=== PATIENT | female | born 1950 | race Caucasian/White ===

== ENCOUNTER 2017-06-20 09:13 | Emergency (ER) | payer MEDICARE, BC ==
[2017-06-20 09:35] VITALS: BP 126/60
--- NOTE | 2017-06-20 09:46 | EDM.PDOC ---
ED HPI GENERAL MEDICAL PROBLEM - General Chief Complaint: Lower Extremity Injury/Pain Stated Complaint: PAIN IN LEG FROM KNEE DOWN Time Seen by Provider: 06/20/17 09:45 Source of Information: Reports: Patient, Family History Limitations: Reports: No Limitations - History of Present Illness INITIAL COMMENTS - FREE TEXT/NARRATIVE: pt arrived with alot of pain in the rt foot. She has swelling and redness in the site. This started spontaneously without an injury. Onset: Other (last nite and yesterday this started. ) Duration: Hour(s): Location: Reports: Lower Extremity, Right Associated Symptoms: Reports: No Other Symptoms Right Ankle Pain Score (Numeric/FACES): 9 - Related Data Allergies Allergy/AdvReac Type Severity Reaction Status Date / Time No Known Allergies Allergy Verified 04/29/16 05:33 Home Meds: Home Meds Calcium Citrate/Vitamin D3 [Calcium Citrate + D] 3 each PO BID 10/30/14 [History ] Cholecalciferol (Vitamin D3) [Vitamin D3] 5,000 unit PO DAILY 10/30/14 [History] Cholestyramine (With Sugar) [Questran Powder] 4 gm PO BID PRN 10/30/14 [History] Cyanocobalamin (Vitamin B-12) [Vitamin B-12] 1,000 mcg PO DAILY 10/30/14 [ History] LORazepam 0.5 mg PO Q6HR PRN 10/30/14 [History] Magnesium Oxide [Magnesium] 800 mg PO TID 10/30/14 [History] Potassium Chloride [Klor-Con M20] 1.5 tab PO BID 10/30/14 [History] Thiamine [Vitamin B-1] 100 mg PO DAILY 10/30/14 [History] Venlafaxine [Effexor] 75 mg PO DAILY 04/29/16 [History] Warfarin [Coumadin] 5 mg PO DAILY 05/01/16 [History] Amiodarone [Cordarone] 200 mg PO DAILY 06/20/17 [History] Digoxin [Lanoxin] 125 mcg PO DAILY 06/20/17 [History] Estrogens, Conjugated [Premarin] 1 g VAG DAILY 06/20/17 [History] Multivitamin [Multivitamins] 1 tab PO DAILY 06/20/17 [History] Pantoprazole Sodium [Protonix] 40 mg PO DAILY 06/20/17 [History] Simvastatin [Zocor] 10 mg PO DAILY 06/20/17 [History] Past Medical History HEENT History: Reports: Impaired Vision, Sinusitis Cardiovascular History: Reports: Afib Genitourinary History: Reports: 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) Other Genitourinary History: elevated enzymes 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: , 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) Other OB/BYN History: tipped uterus Musculoskeletal History: Reports: 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) Other Musculoskeletal History: tetony Hematologic History: Reports: 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) Other Hematologic History: electolyte imbalance, hypomagnesium Oncologic (Cancer) History: Reports: Colon - Infectious Disease History Infectious Disease History: Reports: Chicken Pox, Measles - Past Surgical History Cardiovascular Surgical History: Reports: Cardiac Ablation, 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) GI Surgical History: Reports: Bariatric Procedure, Small Bowel, 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 ) Oncologic Surgical History: Reports: 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) Social & Family History - Tobacco Use Smoking Status *Q: Never Smoker Second Hand Smoke Exposure: No - Caffeine Use Caffeine Use: Reports: Coffee - Alcohol Use Days Per Week of Alcohol Use: 0 - Recreational Drug Use Recreational Drug Use: No Review of Systems - Review of Systems Review Of Systems: See Below Constitutional: Reports: No Symptoms Eyes: Reports: No Symptoms Ears: Reports: No Symptoms Nose: Reports: No Symptoms Mouth/Throat: Reports: No Symptoms Respiratory: Reports: No Symptoms Cardiovascular: Reports: No Symptoms GI/Abdominal: Reports: No Symptoms Genitourinary: Reports: No Symptoms Musculoskeletal: Reports: Other ( redness nd swellin in the rt foot with alot of pain with ambulation. ) ED EXAM, GENERAL - Physical Exam Exam: See Below Free Text/Narrative:: pt arrived with pain in the rt foot amnd redness and swelling. Exam Limited By: No Limitations General Appearance: Alert, Anxious, Moderate Distress Ears: Normal TMs Nose: Normal Inspection Throat/Mouth: Normal Inspection Head: Atraumatic Neck: Normal Inspection Respiratory/Chest: No Respiratory Distress Cardiovascular: Regular Rate, Rhythm GI/Abdominal: Soft, Non-Tender (Female) Exam: Deferred Rectal (Female) Exam: Deferred Back Exam: Normal Inspection Extremities: Other ( rt foot is swollen and is red. It is very tender There is no history of an injury) Neurological: Alert, Oriented, Normal Cognition Psychiatric: Normal Affect Course - Vital Signs Last Recorded V/S: Last Vital Signs Temp 37.6 C 06/20/17 09:35 Pulse 61 06/20/17 09:35 Resp 16 06/20/17 09:35 BP 126/60 06/20/17 09:35 Pulse Ox 96 06/20/17 09:35 - Orders/Labs/Meds Orders: Active Orders 24 hr Category Date Time Status Foot Comp Min 3V Rt [CR] Stat Exams 06/20/17 09:45 Taken VL Duplex Lwr Ext Veins Ltd Rt [US] Stat Exams 06/20/17 10:25 Taken Labs: Laboratory Tests 06/20/17 06/20/17 06/20/17 Range/Units 09:48 09:48 09:48 WBC 15.6 H (4.5-11.0) K/uL RBC 3.95 (3.30-5.50) M/uL Hgb 11.2 L (12.0-15.0) g/dL Hct 35.3 L (36.0-48.0) % MCV 89 (80-98) fL MCH 28 (27-31) pg MCHC 32 (32-36) % Plt Count 226 (150-400) K/uL Neut % (Auto) 76 H (36-66) % Lymph % (Auto) 13 L (24-44) % [place] % (Auto) 9 H (2-6) % Eos % (Auto) 1 L (2-4) % Baso % (Auto) 0 (0-1) % ESR (0-25) mm/hr PT (9.5-12.0) sec INR (0.80-1.20) Sodium 142 (140-148) mmol/L Potassium 3.1 L (3.6-5.2) mmol/L Chloride 108 (100-108) mmol/L Carbon Dioxide 19 L (21-32) mmol/L Anion Gap 18.1 H (5.0-14.0) mmol/L BUN 22 H (7-18) mg/dL Creatinine 2.1 H (0.6-1.0) mg/dL Est Cr Clr Drug Dosing 19.37 mL/min Estimated GFR (MDRD) 23 L (>60) Glucose 120 H (74-106) mg/dL Uric Acid 5.8 (2.6-6.2) mg/dL Calcium 7.3 L (8.5-10.1) mg/dL 06/20/17 06/20/17 Range/Units 09:48 09:48 WBC (4.5-11.0) K/uL RBC (3.30-5.50) M/uL Hgb (12.0-15.0) g/dL Hct (36.0-48.0) % MCV (80-98) fL MCH (27-31) pg MCHC (32-36) % Plt Count (150-400) K/uL Neut % (Auto) (36-66) % Lymph % (Auto) (24-44) % [place] % (Auto) (2-6) % Eos % (Auto) (2-4) % Baso % (Auto) (0-1) % ESR 64 H (0-25) mm/hr PT 12.3 H (9.5-12.0) sec INR 1.14 D (0.80-1.20) Sodium (140-148) mmol/L Potassium (3.6-5.2) mmol/L Chloride (100-108) mmol/L Carbon Dioxide (21-32) mmol/L Anion Gap (5.0-14.0) mmol/L BUN (7-18) mg/dL Creatinine (0.6-1.0) mg/dL Est Cr Clr Drug Dosing mL/min Estimated GFR (MDRD) (>60) Glucose (74-106) mg/dL Uric Acid (2.6-6.2) mg/dL Calcium (8.5-10.1) mg/dL Meds: Medications Discontinued Medications Generic Name Dose Route Start Last Admin Trade Name Zeenat PRN Reason Stop Dose Admin Ceftriaxone Sodium 1 gm 06/20/17 12:23 06/20/17 12:53 Rocephin IM 06/20/17 12:24 1 gm ONETIME ONE Administration Triamcinolone Acetonide 60 mg 06/20/17 12:23 06/20/17 12:52 Kenalog-40 IM 06/20/17 12:24 60 mg ASDIRECTED ONE Administration - Re-Assessments/Exams Free Text/Narrative Re-Assessment/Exam: 06/20/17 13:09 pt was given rocephen 1gm im and kenalog 60mg im. She will followup with Dr Oleary. Departure - Departure Time of Disposition: 12:25 Disposition: Home, Self-Care 01 Condition: Fair Clinical Impression: Cellulitis - Discharge Information Referrals: Tomer Oleary MD [Primary Care Provider] - Forms: ED Department Discharge Care Plan Goals: crutches, elevate foot warm moist packs for 1/2 hr tid followed by a cool pack , augmentin 875 po bid, instead of warm packs may soak foot in warm water, appt with Dr Oleary on tue or . , [place] 5/ 1 tab q6h prn for pain - My Orders Last 24 Hours: My Active Orders 06/20/17 09:45 Foot Comp Min 3V Rt [CR] Stat 06/20/17 10:25 VL Duplex Lwr Ext Veins Ltd Rt [US] Stat - Assessment/Plan Last 24 Hours: My Active Orders 06/20/17 09:45 Foot Comp Min 3V Rt [CR] Stat 06/20/17 10:25 VL Duplex Lwr Ext Veins Ltd Rt [US] Stat
[2017-06-20] MEDS ORDERED: Triamcinolone Acetonide 40 MG/ML 1 ML MDV IM ONE (12:23)
[2017-06-20] MEDS ORDERED: cefTRIAXone 1 GM Vial IM ONE (12:23)
--- NOTE | 2017-06-21 09:15 | US ---
VL Duplex Lwr Ext Veins Ltd Rt HISTORY: Pain. FINDINGS: The deep veins of the right lower extremity demonstrate normal augmentation and compressibi lity. No evidence for deep venous thrombosis. IMPRESSION: Normal lower extremity venous Doppler study.
--- NOTE | 2017-06-21 09:16 | CR ---
Foot Comp Min 3V Rt HISTORY: Swelling, pain. COMPARISON: None FINDINGS: Moderate spurring at the inferior calcaneus. Mild degenerative change and bunion of the fir st MTP joint.
== END 2017-06-20 13:21 | disposition home or self-care (01) ==
LOC: JP.ED 09:13
DX: L03.115 Cellulitis of right lower limb (principal); I48.91 Unspecified atrial fibrillation; Z98.84 Bariatric surgery status; Z98.890 Other specified postprocedural states; Z79.899 Other long term (current) drug therapy; Z79.01 Long term (current) use of anticoagulants; R60.9 Edema, unspecified
CPT/HCPCS: 36415; 73630; 80048; 84550; 85025; 85610; 85651; 93971; 96372; 99284; J0696; J3301

== ENCOUNTER 2017-09-17 01:50 | Inpatient (IN) | payer MEDICARE, BC ==
[2017-09-17] MEDS ORDERED: Sodium Chloride 0.9% 1,000 ML IV SCH ×2 (02:45)
--- NOTE | 2017-09-17 02:49 | EDM.PDOC ---
ED HPI GENERAL MEDICAL PROBLEM - General Chief Complaint: Gastrointestinal Problem Stated Complaint: MEDICAL VIA TRI Time Seen by Provider: 09/17/17 02:35 Source of Information: Reports: Old Records, RN History Limitations: Reports: Other (Patient with previous CVA so difficult for her to communicate) - History of Present Illness INITIAL COMMENTS - FREE TEXT/NARRATIVE: 66 yo female [facility] patient who recently suffered a CVA is on warfarin for afib. Tonight after receiving kayexalate for a K of 5.5 she had a maroon colored stool. She was subsequently sent here via EMS for eval and tx. No vomiting reported. Onset: Today Onset Date: 09/17/17 Onset Time: 01:00 Duration: Minutes:, Recurring Location: Reports: Abdomen Quality: Reports: Other (no known pain) Severity: Moderate Improves with: Reports: None Worsens with: Reports: Other (warfarin) Context: Reports: Other (on warfarin for CVA/afib) Associated Symptoms: Reports: Other (expressive aphasia from recent CVA). 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 (see below) (None) - Related Data Allergies Allergy/AdvReac Type Severity Reaction Status Date / Time amoxicillin Allergy Rash Verified 09/17/17 01:59 Home Meds: Home Meds Venlafaxine [Effexor] 75 mg PO DAILY 04/29/16 [History] Warfarin [Coumadin] 5 mg PO DAILY 05/01/16 [History] Aspirin 325 mg PO DAILY 09/17/17 [History] Diltiazem HCl [Cardizem] 60 mg PO QID 09/17/17 [History] L.acidoph,Paracasei, B.lactis [Probiotic] 1 cap PO DAILY 09/17/17 [History] Lactose-Reduced Food [Isosource Hn] 300 ml GTUBE QID 09/17/17 [History] Loperamide [Imodium] 2 mg PO ASDIRECTED 09/17/17 [History] Omeprazole 20 mg PO DAILY 09/17/17 [History] Sodium Polystyrene Sulfonate [Kayexalate] 15 gm PO ONETIME 09/17/17 [History] atorvaSTATin Calcium [Atorvastatin Calcium] 20 mg PO BEDTIME 09/17/17 [History] Past Medical History HEENT History: Reports: Impaired Vision, Sinusitis Cardiovascular History: Reports: Afib Genitourinary History: Reports: 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) Other Genitourinary History: elevated enzymes 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: , 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) Other OB/BYN History: tipped uterus Musculoskeletal History: Reports: 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) Other Musculoskeletal History: tetony Hematologic History: Reports: 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) Other Hematologic History: electolyte imbalance, hypomagnesium Oncologic (Cancer) History: Reports: Colon - Infectious Disease History Infectious Disease History: Reports: Chicken Pox, Measles - Past Surgical History Cardiovascular Surgical History: Reports: Cardiac Ablation, 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) GI Surgical History: Reports: Bariatric Procedure, Small Bowel, 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 ) Oncologic Surgical History: Reports: 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) Social & Family History - Tobacco Use Smoking Status *Q: Never Smoker Second Hand Smoke Exposure: No - Caffeine Use Caffeine Use: Reports: Coffee - Alcohol Use Days Per Week of Alcohol Use: 0 - Recreational Drug Use Recreational Drug Use: No ED ROS GENERAL - Review of Systems Review Of Systems: See Below Constitutional: Reports: No Symptoms HEENT: Reports: No Symptoms Respiratory: Reports: No Symptoms Cardiovascular: Reports: Other (Hx of afib) Endocrine: Reports: No Symptoms GI/Abdominal: Reports: Bloody Stool. Denies: Constipation, Diarrhea, Hematemesis, Vomiting : Reports: No Symptoms Musculoskeletal: Reports: No Symptoms Neurological: Reports: Weakness (hemiparesis on left) ED EXAM, GI/ABD - Physical Exam Exam: See Below Exam Limited By: No Limitations General Appearance: Alert, WD/WN, No Apparent Distress Eyes: Bilateral: Pale Conjunctiva Ears: Normal External Exam, Normal Canal, Hearing Grossly Normal Nose: Normal Inspection, Normal Mucosa, No Blood Throat/Mouth: Normal Inspection, Normal Lips, Normal Oropharynx, Normal Voice, No Airway Compromise Head: Atraumatic, Normocephalic Neck: Normal Inspection, Supple Respiratory/Chest: No Respiratory Distress, Lungs Clear, Normal Breath Sounds, No Accessory Muscle Use Cardiovascular: Tachycardia, Irregularly Irregular GI/Abdominal Exam: Soft, No Distention, Abnormal Bowel Sounds (increased) Extremities: Normal Inspection, Normal Range of Motion, Non-Tender, No Pedal Edema Neurological: Alert, Sensory/Motor Deficit (L side, not new), Other (expressive aphasia with nearly incomprehensible speech) Psychiatric: Normal Affect, Normal Mood Skin Exam: Warm, Dry, Intact, No Rash, Pallor Lymphatic: No Adenopathy Course - Vital Signs Text/Narrative:: Dr. Bangura called regarding admission @ 0333h, hospitalist notified @ 0400h. Last Recorded V/S: Last Vital Signs Temp 36.6 C 09/17/17 02:14 Pulse 120 H 09/17/17 02:14 Resp 16 09/17/17 02:14 BP 101/60 09/17/17 02:14 Pulse Ox 96 09/17/17 02:14 - Orders/Labs/Meds Orders: Active Orders 24 hr Category Date Time Status [place] Catheter Insertion [Insert Urinary Catheter] [OM. Care 09/17/17 02:45 Ordered PC] Q24H Urinary Catheter Assessment [RC] ASDIRECTED Care 09/17/17 02:39 Active FRESH FROZEN PLASMA [BBK] Stat Lab 09/17/17 02:38 Ordered RED BLOOD CELLS LP [BBK] Stat Lab 09/17/17 02:39 Ordered TYPE AND SCREEN [BBK] Stat Lab 09/17/17 02:39 Ordered UA W/MICROSCOPIC [URIN] Stat Lab 09/17/17 02:39 Ordered Sodium Chloride 0.9% [Normal Saline] 1,000 ml Med 09/17/17 02:45 Active IV ASDIRECTED Sodium Chloride 0.9% [Normal Saline] 1,000 ml Med 09/17/17 02:45 Active IV ASDIRECTED Transfuse Fresh Frozen Plasma [COMM] Stat Oth 09/17/17 02:38 Ordered Medication Orders Sodium Chloride (Normal Saline) 1,000 mls @ 150 mls/hr IV ASDIRECTED LEONELA Last Admin: 09/17/17 03:19 Dose: 150 mls/hr Sodium Chloride (Normal Saline) 1,000 mls @ 125 mls/hr IV ASDIRECTED LEONELA Labs: Laboratory Tests 09/17/17 09/17/17 09/17/17 Range/Units 02:30 02:30 02:30 WBC 24.4 H (4.5-11.0) K/uL RBC 2.93 L (3.30-5.50) M/uL Hgb 8.1 L D (12.0-15.0) g/dL Hct 27.1 L (36.0-48.0) % MCV 93 (80-98) fL MCH 28 (27-31) pg MCHC 30 L (32-36) % Plt Count 437 H (150-400) K/uL PT 47.7 H (9.5-12.0) sec INR 4.20 H* D (0.80-1.20) Sodium 134 L (140-148) mmol/L Potassium 4.7 (3.6-5.2) mmol/L Chloride 97 L (100-108) mmol/L Carbon Dioxide 28 (21-32) mmol/L Anion Gap 13.7 (5.0-14.0) mmol/L BUN 42 H D (7-18) mg/dL Creatinine 1.2 H (0.6-1.0) mg/dL Est Cr Clr Drug Dosing 33.86 mL/min Estimated GFR (MDRD) 45 L (>60) Glucose 128 H (74-106) mg/dL Calcium 8.7 D (8.5-10.1) mg/dL Troponin I (0.000-0.056) ng/mL 09/17/17 Range/Units 02:30 WBC (4.5-11.0) K/uL RBC (3.30-5.50) M/uL Hgb (12.0-15.0) g/dL Hct (36.0-48.0) % MCV (80-98) fL MCH (27-31) pg MCHC (32-36) % Plt Count (150-400) K/uL PT (9.5-12.0) sec INR (0.80-1.20) Sodium (140-148) mmol/L Potassium (3.6-5.2) mmol/L Chloride (100-108) mmol/L Carbon Dioxide (21-32) mmol/L Anion Gap (5.0-14.0) mmol/L BUN (7-18) mg/dL Creatinine (0.6-1.0) mg/dL Est Cr Clr Drug Dosing mL/min Estimated GFR (MDRD) (>60) Glucose (74-106) mg/dL Calcium (8.5-10.1) mg/dL Troponin I < 0.017 (0.000-0.056) ng/mL Meds: Medications Generic Name Dose Route Start Last Admin Trade Name Freq PRN Reason Stop Dose Admin Sodium Chloride 1,000 mls @ 150 mls/hr 09/17/17 02:45 09/17/17 03:19 Normal Saline IV 150 mls/hr ASDIRECTED LEONELA Administration Sodium Chloride 1,000 mls @ 125 mls/hr 09/17/17 02:45 Normal Saline IV ASDIRECTED LEONELA Discontinued Medications Generic Name Dose Route Start Last Admin Trade Name Zeenat PRN Reason Stop Dose Admin Famotidine 20 mg 09/17/17 03:22 Pepcid IVPUSH 09/17/17 03:23 ONETIME ONE Phytonadione 5 mg 09/17/17 02:52 09/17/17 03:14 Aquamephyton SUBCUT 09/17/17 02:53 5 mg ONETIME ONE Administration Phytonadione 2.5 mg 09/17/17 03:16 Aquamephyton PO 09/17/17 03:17 ONETIME ONE Departure - Departure Time of Disposition: 04:00 Disposition: Admitted As Inpatient 64 Condition: Serious Clinical Impression: Acute GI bleeding, Elevated INR Anemia Qualifiers: Anemia type: unspecified type Qualified Code(s): D64.9 - Anemia, unspecified Clinical Impression: (Ruled Out): Hemiparesis - Discharge Information Referrals: PCP,None [Primary Care Provider] - Forms: ED Department Discharge - My Orders Last 24 Hours: My Active Orders 09/17/17 02:38 FRESH FROZEN PLASMA [BBK] Stat Transfuse Fresh Frozen Plasma [COMM] Stat 09/17/17 02:39 Urinary Catheter Assessment [RC] ASDIRECTED RED BLOOD CELLS LP [BBK] Stat TYPE AND SCREEN [BBK] Stat UA W/MICROSCOPIC [URIN] Stat 09/17/17 02:45 [place] Catheter Insertion [Insert Urinary Catheter] [OM.PC] Q24H Sodium Chloride 0.9% [Normal Saline] 1,000 ml IV ASDIRECTED Sodium Chloride 0.9% [Normal Saline] 1,000 ml IV ASDIRECTED - Assessment/Plan Last 24 Hours: My Active Orders 09/17/17 02:38 FRESH FROZEN PLASMA [BBK] Stat Transfuse Fresh Frozen Plasma [COMM] Stat 09/17/17 02:39 Urinary Catheter Assessment [RC] ASDIRECTED RED BLOOD CELLS LP [BBK] Stat TYPE AND SCREEN [BBK] Stat UA W/MICROSCOPIC [URIN] Stat 09/17/17 02:45 [place] Catheter Insertion [Insert Urinary Catheter] [OM.PC] Q24H Sodium Chloride 0.9% [Normal Saline] 1,000 ml IV ASDIRECTED Sodium Chloride 0.9% [Normal Saline] 1,000 ml IV ASDIRECTED
[2017-09-17] MEDS ORDERED: Phytonadione ORAL 5mg/5ml Soln Simple Syrup U/D PO ONE (03:16)
[2017-09-17] MEDS ORDERED: Famotidine 20 MG/2 ML SDV IVPUSH ONE (03:22)
[2017-09-17] MEDS ORDERED: Famotidine 20 MG/2 ML SDV ONE (05:34)
[2017-09-17] MEDS ORDERED: Sodium Chloride 0.9% 10 ML Syringe FLUSH PRN (06:08)
[2017-09-17] MEDS ORDERED: Ondansetron 4 MG/2 ML SDV IV PRN (06:08)
[2017-09-17] MEDS ORDERED: Phytonadione 5 MG in Sodium Chloride 0.9% 50 ML IV ONE (06:08)
[2017-09-17] MEDS ORDERED: Sodium Chloride 0.9% 500 ML IV ONE (06:08)
--- NOTE | 2017-09-17 06:08 | PCM.HP ---
H&P History of Present Illness - General Date of Service: 09/17/17 Admit Problem/Dx: Admission Diagnosis/Problem Admission Diagnosis/Problem Bleeding Source of Information: Patient, Provider, RN Notes Reviewed History Limitations: Reports: Other (Speech difficulty related to previous CVA) - History of Present Illness Initial Comments - Free Text/Narative: Ms. Hernández is a 66-year-old woman who is admitted through the emergency department with an active lower GI bleed and resultant acute blood loss anemia. 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 Thrombectomy and was apparently performed but she is still left with a significant deficit. She has underlying atrial fibrillation and has been treated with oral anticoagulation with warfarin, current INR is supratherapeutic at 4.2. She also has been treated with aspirin. Resides at a local custodial and was found to have active lower GI bleed late yesterday evening. She was brought into the emergency department for further evaluation, INR is elevated as noted above and her hemoglobin was 8.1 with ongoing bright red blood per rectum. 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 Since admission to the emergency department she has been tachycardic and has had borderline low blood pressures. neck Pain Score (Numeric/FACES): 5 - Related Data Allergies/Adverse Reactions: Allergies Allergy/AdvReac Type Severity Reaction Status Date / Time amoxicillin Allergy Rash Verified 09/17/17 01:59 Home Medications: Home Meds Venlafaxine [Effexor] 75 mg PO DAILY 04/29/16 [History] Warfarin [Coumadin] 5 mg PO DAILY 05/01/16 [History] Aspirin 325 mg PO DAILY 09/17/17 [History] Diltiazem HCl [Cardizem] 60 mg PO QID 09/17/17 [History] L.acidoph,Paracasei, B.lactis [Probiotic] 1 cap PO DAILY 09/17/17 [History] Lactose-Reduced Food [Isosource Hn] 300 ml GTUBE QID 09/17/17 [History] Loperamide [Imodium] 2 mg PO ASDIRECTED 09/17/17 [History] Omeprazole 20 mg PO DAILY 09/17/17 [History] Sodium Polystyrene Sulfonate [Kayexalate] 15 gm PO ONETIME 09/17/17 [History] atorvaSTATin Calcium [Atorvastatin Calcium] 20 mg PO BEDTIME 09/17/17 [History] Past Medical History HEENT History: Reports: Impaired Vision, Sinusitis Cardiovascular History: Reports: Afib, Blood Clots/VTE/DVT, 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) Other Cardiovascular History: Hx of SVT Genitourinary History: Reports: 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) Other Genitourinary History: elevated enzymes. Chronic kidney disease stage 3 [employer] History: Reports: , 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) Other OB/BYN History: tipped uterus Musculoskeletal History: Reports: Neck Pain, Chronic, 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) Other Musculoskeletal History: tetony Neurological History: Reports: CVA, 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) Other Neuro History: [place] 08/27/17 Psychiatric History: Reports: Anxiety Hematologic History: Reports: Anticoagulation Therapy, 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) Other Hematologic History: electolyte imbalance, hypomagnesium Oncologic (Cancer) History: Reports: Colon Dermatologic History: Reports: 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) Other Dermatologic History: contact dermatitis - Infectious Disease History Infectious Disease History: Reports: Chicken Pox, Measles - Past Surgical History Cardiovascular Surgical History: Reports: Cardiac Ablation GI Surgical History: Reports: Bariatric Procedure, Small Bowel, 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 ) Other GI Surgeries/Procedures: Hx of colon CA. malabsorption disorder. short gut syndrome. g-tube placement Oncologic Surgical History: Reports: 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) Social & Family History - Tobacco Use Smoking Status *Q: Never Smoker Second Hand Smoke Exposure: No - Caffeine Use Caffeine Use: Reports: Coffee - Alcohol Use Days Per Week of Alcohol Use: 0 - Recreational Drug Use Recreational Drug Use: No H&P Review of Systems - Review of Systems: Review Of Systems: Unable To Obtain General: Reports: ROS unobtainable (Because of speech impairment related to CVA) Exam - Exam Exam: See Below - Vital Signs Vital Signs: Last Vital Signs Temp 98.2 F 09/17/17 05:20 Pulse 114 H 09/17/17 05:38 Resp 18 09/17/17 05:38 BP 101/52 L 09/17/17 05:38 Pulse Ox 97 09/17/17 05:38 Weight: 158 lb - Exam General: Alert, Cooperative HEENT: Conjunctiva Clear, Hearing Intact, Mucosa Moist & Woody, Normal Nasal Septum, Posterior Pharynx Clear, Pupils Equal Neck: Supple, Trachea Midline, +2 Carotid Pulse wo Bruit Lungs: Clear to Auscultation, Normal Respiratory Effort Cardiovascular: Normal S1, Normal S2, Irregular Rhythm, Tachycardia. No: Systolic Murmur, Diastolic Murmur GI/Abdominal Exam: Soft, No Organomegaly, No Distention, Tender. No: Distended , Guarding, Rigid, Rebound Extremities: Non-Tender, No Pedal Edema Skin: Warm, Dry, Intact Neurological: Other (Left hemiparesis including left facial weakness and dysarthria) Neuro Extensive - Mental Status: Alert - Patient Data Result Diagrams: 09/17/17 02:30 09/17/17 02:30 *Q Meaningful Use (ADM) - VTE *Q VTE Criteria *Q: VTE Pharmacological Contraindications *Q: Active Hemorrhage - VTE Risk Assess *Q Each Risk Factor Represents 1 Point: Obesity ( BMI > 25 kg/m2) Total Score 1 Point Risk Factors: 1 Each Risk Factor Represents 2 Points: Age 60 - 74 Years Total Score 2 Point Risk Factors: 2 Each Risk Factor Represents 3 Points: None Total Score 3 Point Risk Factors: 0 Each Risk Factor Represents 5 Points: None Total Score 5 Point Risk Factors: 0 Venous Thromboembolism Risk Factor Score *Q: 3 - Stroke *Q Stroke Criteria *Q: - AMI *Q AMI Criteria *Q: Problem List Initiated/Reviewed/Updated: Yes Orders Last 24hrs: Active Orders 24 hr Category Date Time Status Resuscitation Status Routine Resus Stat 09/17/17 05:38 Ordered Medication Orders Sodium Chloride (Normal Saline) 1,000 mls @ 150 mls/hr IV ASDIRECTED [facility] Last Infusion: 09/17/17 05:37 Dose: 500 mls/hr Admin: 09/17/17 03:19 Dose: 150 mls/hr Sodium Chloride (Normal Saline) 1,000 mls @ 125 mls/hr IV ASDIRECTED [facility] Assessment/Plan Comment:: ASSESSMENT AND PLAN ACUTE GI BLEED-abrupt onset of red blood per rectum late last night. Complicated by anticoagulation with warfarin and supratherapeutic INR at 4.2, she is also been treated with aspirin. Recent hemoglobin was relatively normal, on admission this hemoglobin was 8.1. She has had ongoing tachycardia and borderline blood pressures consistent with intravascular volume depletion. She has received 2 units of fresh frozen plasma in the emergency department and 5 mg of vitamin K subcutaneous. -Nothing by mouth -IV fluid replacement, bolus now and then continuous rate -Additional 5 mg of vitamin K IV -Protonix 40 mg IV every 12 hours -Hold aspirin and warfarin -Maintain 2 IV sites -Transfuse 2 units of red blood cells -Hold 2 units of red blood cells for further use if needed -Serial hemoglobin levels -Consult Dr. Bangura for surgical follow-up PREVIOUS CVA WITH LEFT HEMIPLEGIA -Hold anticoagulation as above -Hold tube feedings ATRIAL FIBRILLATION WITH RAPID VENTRICULAR RESPONSE-elevated heart rate likely secondary to volume depletion related to active bleeding -Continue Cardizem 60 mg every 6 hours MAINTENANCE ISSUES -DVT prophylaxis; SCUDs, will hold on anticoagulation because of active bleeding -GI prophylaxis; Protonix as above -Salvador catheter; to monitor urine output -Nutrition; nothing by mouth -Nicotine dependence; not required CODE STATUS-FULL CODE ADMISSION STATUS-patient will be admitted to inpatient status, expect at least a 2 night hospital stay for evaluation and management of problems as outlined above. At the time of this admission I do not reasonably expected evaluation and management of this problem will require more than a 96 hour hospital stay. DISPOSITION-anticipate discharge to home after the hospital stay. PRIMARY CARE PROVIDER-
[2017-09-17] MEDS: Sodium Chloride 0.9% 1,000 ML IV SCH ×2 (07:07→14:39)
[2017-09-17] MEDS: Diltiazem IR 30 MG Tab PO SCH ×4 (07:33→21:34)
[2017-09-17] MEDS: Pantoprazole 40 MG Vial IV SCH ×2 (07:42→17:51)
[2017-09-17] MEDS ORDERED: Venlafaxine 75 MG Tab PO SCH (09:00)
[2017-09-17] MEDS: Lactobacillus Rhamnosus GG (Probiotic) Cap PO SCH (10:35)
[2017-09-17] MEDS: Venlafaxine 75 MG Cap.ER PO SCH (11:32)
[2017-09-17] MEDS: Acetaminophen 325 MG Tab PO PRN (15:59)
[2017-09-17] MEDS: atorvaSTATin 20 MG Tab PO SCH (20:10)
[2017-09-17] MEDS ORDERED: Sodium Chloride 0.9% 1,000 ML IV ONE (21:35)
[2017-09-18] MEDS: Pantoprazole 40 MG Vial IV SCH ×2 (06:12→17:41)
[2017-09-18] MEDS ORDERED: Propofol 200 MG/20 ML SDV ONE (07:24)
[2017-09-18] MEDS ORDERED: fentaNYL 100 MCG/2 ML SDV ONE (07:24)
[2017-09-18] MEDS ORDERED: Midazolam 1 MG/ML 2 ML SDV ONE (07:24)
[2017-09-18] MEDS: Sodium Chloride 0.9% 1,000 ML IV SCH ×3 (08:01→21:23)
[2017-09-18] MEDS: Lactobacillus Rhamnosus GG (Probiotic) Cap PO SCH (09:55)
[2017-09-18] MEDS: Venlafaxine 75 MG Cap.ER PO SCH (09:55)
[2017-09-18] MEDS ORDERED: Bisacodyl 5 MG Tab PO ONE ×2 (10:00→20:00)
--- NOTE | 2017-09-18 10:11 | PCM.PN ---
- General Info Date of Service: 09/18/17 Subjective Update: Ms. Hernández is stabilized since admission but still showed evidence of some ongoing bleeding last night with recurrent hypotension. This responded to IV fluids as well as transfusion of one additional unit of red blood cells. She has now received a total of 3 units of red blood cells. EGD performed this morning by Dr. Bangura and showed no obvious source of GI blood loss. Colonoscopy was attempted, but because of large amount of old blood within the lumen of the colon was incomplete and will need to be repeated tomorrow after prep. She is unable to provide significant information concerning review of systems because of lethargy and sedation related to recent endoscopy. - Patient Data Vitals - Most Recent: Last Vital Signs Temp 98.2 F 09/18/17 07:44 Pulse 108 H 09/18/17 07:44 Resp 16 09/18/17 07:44 BP 122/82 09/18/17 07:44 Pulse Ox 96 09/18/17 07:44 Weight - Most Recent: 165 lb 12.602 oz I&O - Last 24 Hours: Intake & Output 09/17/17 09/18/17 09/18/17 22:59 06:59 14:59 Intake Total 2377 1593 Output Total 750 1425 Balance 1627 168 Lab Results Last 24 Hours: Laboratory Results - last 24 hr 09/17/17 09/17/17 09/17/17 Range/Units 10:07 17:25 17:25 WBC (4.5-11.0) K/uL RBC (3.30-5.50) M/uL Hgb 9.2 L D 9.1 L (12.0-15.0) g/dL Hct 28.7 L 28.6 L (36.0-48.0) % MCV (80-98) fL MCH (27-31) pg MCHC (32-36) % Plt Count (150-400) K/uL Neut % (Auto) (36-66) % Lymph % (Auto) (24-44) % [place] % (Auto) (2-6) % Eos % (Auto) (2-4) % Baso % (Auto) (0-1) % PT 11.6 (9.5-12.0) sec INR 1.08 D (0.80-1.20) Sodium (140-148) mmol/L Potassium (3.6-5.2) mmol/L Chloride (100-108) mmol/L Carbon Dioxide (21-32) mmol/L Anion Gap (5.0-14.0) mmol/L BUN (7-18) mg/dL Creatinine (0.6-1.0) mg/dL Est Cr Clr Drug Dosing mL/min Estimated GFR (MDRD) (>60) Glucose (74-106) mg/dL Calcium (8.5-10.1) mg/dL 09/17/17 09/17/17 09/18/17 Range/Units 17:25 23:00 01:00 WBC (4.5-11.0) K/uL RBC (3.30-5.50) M/uL Hgb 8.4 L 9.5 L (12.0-15.0) g/dL Hct 26.9 L (36.0-48.0) % MCV (80-98) fL MCH (27-31) pg MCHC (32-36) % Plt Count (150-400) K/uL Neut % (Auto) (36-66) % Lymph % (Auto) (24-44) % [place] % (Auto) (2-6) % Eos % (Auto) (2-4) % Baso % (Auto) (0-1) % PT (9.5-12.0) sec INR (0.80-1.20) Sodium 139 L (140-148) mmol/L Potassium 4.6 (3.6-5.2) mmol/L Chloride 106 (100-108) mmol/L Carbon Dioxide 27 (21-32) mmol/L Anion Gap 10.6 (5.0-14.0) mmol/L BUN 32 H (7-18) mg/dL Creatinine 1.1 H (0.6-1.0) mg/dL Est Cr Clr Drug Dosing 36.98 mL/min Estimated GFR (MDRD) 49 L (>60) Glucose 90 (74-106) mg/dL Calcium 8.6 (8.5-10.1) mg/dL 09/18/17 09/18/17 09/18/17 Range/Units 05:45 06:06 06:06 WBC 12.5 H (4.5-11.0) K/uL RBC 3.45 (3.30-5.50) M/uL Hgb 9.9 L (12.0-15.0) g/dL Hct 31.2 L (36.0-48.0) % MCV 90 (80-98) fL MCH 29 (27-31) pg MCHC 32 (32-36) % Plt Count 238 (150-400) K/uL Neut % (Auto) 72 H (36-66) % Lymph % (Auto) 18 L (24-44) % [place] % (Auto) 7 H (2-6) % Eos % (Auto) 3 (2-4) % Baso % (Auto) 0 (0-1) % PT 11.4 (9.5-12.0) sec INR 1.06 (0.80-1.20) Sodium 140 (140-148) mmol/L Potassium 4.7 (3.6-5.2) mmol/L Chloride 109 H (100-108) mmol/L Carbon Dioxide 26 (21-32) mmol/L Anion Gap 9.7 (5.0-14.0) mmol/L BUN 24 H (7-18) mg/dL Creatinine 1.1 H (0.6-1.0) mg/dL Est Cr Clr Drug Dosing 36.98 mL/min Estimated GFR (MDRD) 49 L (>60) Glucose 95 (74-106) mg/dL Calcium 8.8 (8.5-10.1) mg/dL Med Orders - Current: Current Medications Acetaminophen (Tylenol) 650 mg PO Q4H PRN PRN Reason: Pain (Mild 1-3)/fever Last Admin: 09/17/17 15:59 Dose: 650 mg Atorvastatin Calcium (Lipitor) 20 mg PO BEDTIME [facility] Last Admin: 09/17/17 20:10 Dose: 20 mg Bisacodyl (Dulcolax) 10 mg PO ONETIME ONE Stop: 09/18/17 20:01 Diltiazem HCl (Cardizem) 60 mg PO QID [facility] Last Admin: 09/17/17 21:34 Dose: Not Given Sodium Chloride (Normal Saline) 1,000 mls @ 125 mls/hr IV ASDIRECTED [facility] Last Admin: 09/18/17 08:01 Dose: 125 mls/hr Lactobacillus Rhamnosus (Culturelle) 1 cap PO DAILY [facility] Last Admin: 09/17/17 10:35 Dose: 1 cap Ondansetron HCl (Zofran) 4 mg IV Q4H PRN PRN Reason: Nausea/Vomiting Pantoprazole Sodium (Protonix Iv) 40 mg IV Q12H [facility] Last Admin: 09/18/17 06:12 Dose: 40 mg Polyethylene Glycol (Miralax) 238 gm GTUBE ONETIME ONE Stop: 09/18/17 17:01 Sodium Chloride (Saline Flush) 10 ml FLUSH ASDIRECTED PRN PRN Reason: Keep Vein Open Venlafaxine HCl (Effexor Xr) 75 mg PO DAILY [facility] Last Admin: 09/17/17 11:32 Dose: 75 mg Discontinued Medications Bisacodyl (Dulcolax) 10 mg PO ONETIME ONE Stop: 09/18/17 10:01 Famotidine (Pepcid) 20 mg IVPUSH ONETIME ONE Stop: 09/17/17 03:23 Last Admin: 09/17/17 05:35 Dose: 20 mg Famotidine (Pepcid) Confirm Administered Dose 20 mg .ROUTE .STK-MED ONE Stop: 09/17/17 05:35 Last Admin: 09/17/17 05:38 Dose: Not Given Fentanyl (Sublimaze) Confirm Administered Dose 100 mcg .ROUTE .STK-MED ONE Stop: 09/18/17 07:25 Sodium Chloride (Normal Saline) 1,000 mls @ 150 mls/hr IV ASDIRECTED [facility] Last Infusion: 09/17/17 05:37 Dose: 500 mls/hr Sodium Chloride (Normal Saline) 1,000 mls @ 125 mls/hr IV ASDIRECTED [facility] Sodium Chloride (Normal Saline) 500 mls @ 500 mls/hr IV ONETIME ONE Stop: 09/17/17 07:07 Last Admin: 09/17/17 06:07 Dose: 500 mls/hr Phytonadione 5 mg/ Sodium (Chloride) 100.5 mls @ 100 mls/hr IV ONETIME ONE Stop: 09/17/17 08:30 Last Admin: 09/17/17 07:21 Dose: 100 mls/hr Sodium Chloride (Normal Saline) 1,000 mls @ 999 mls/hr IV ONETIME ONE Stop: 09/17/17 22:35 Last Admin: 12/02/17 22:04 Dose: 999 mls/hr Midazolam HCl (Versed 1 Mg/Ml) Confirm Administered Dose 2 mg .ROUTE .STK-MED ONE Stop: 09/18/17 07:25 Phytonadione (Aquamephyton) 5 mg SUBCUT ONETIME ONE Stop: 09/17/17 02:53 Last Admin: 09/17/17 03:14 Dose: 5 mg Phytonadione (Aquamephyton) 2.5 mg PO ONETIME ONE Stop: 09/17/17 03:17 Last Admin: 09/17/17 05:27 Dose: Not Given Propofol (Diprivan 20 Ml) Confirm Administered Dose 200 mg .ROUTE .STK-MED ONE Stop: 09/18/17 07:25 - Exam Quality Assessment: DVT Prophylaxis General: Sedated, Lethargic Lungs: Clear to Auscultation, Normal Respiratory Effort Cardiovascular: Regular Rate, Regular Rhythm, No Murmurs GI/Abdominal Exam: Soft, Non-Tender, No Organomegaly, No Distention Extremities: Non-Tender, No Pedal Edema Skin: Warm, Dry - Problem List Review Problem List Initiated/Reviewed/Updated: Yes - My Orders Last 24 Hours: My Active Orders 09/17/17 11:00 Venlafaxine [Effexor XR] 75 mg PO DAILY 09/17/17 22:22 Transfuse Red Blood Cells [COMM] Stat 09/18/17 17:00 HGB [HEMOGLOBIN] [HEME] Stat 09/19/17 05:00 BASIC METABOLIC PANEL,BMP [CHEM] Timed CBC WITH AUTO DIFF [HEME] Timed - Plan Plan:: ASSESSMENT AND PLAN ACUTE GI BLEED-evidence of recurrent bleeding last night with hypotension, now stable. EGD showed no obvious source of bleeding, colonoscopy could not be completed because of blood within the lumen of the colon. -Nothing by mouth -Normal saline 125 mg IV per hour -Protonix 40 mg IV every 12 hours -Hold aspirin and warfarin -Maintain 2 IV sites -Hold 2 units of red blood cells for further use if needed -Serial hemoglobin levels -Repeat colonoscopy in a.m. with Dr. Bangura PREVIOUS CVA WITH LEFT HEMIPLEGIA -Hold anticoagulation as above -Hold tube feedings ATRIAL FIBRILLATION WITH RAPID VENTRICULAR RESPONSE-anticoagulation has been reversed with fresh frozen plasma and vitamin K -Continue Cardizem 60 mg every 6 hours -Continue to hold anticoagulation MAINTENANCE ISSUES -DVT prophylaxis; SCUDs, will hold on anticoagulation because of active bleeding -GI prophylaxis; Protonix as above -Salvador catheter; to monitor urine output -Nutrition; nothing by mouth -Nicotine dependence; not required CODE STATUS-FULL CODE ADMISSION STATUS-patient will be admitted to inpatient status, expect at least a 2 night hospital stay for evaluation and management of problems as outlined above. At the time of this admission I do not reasonably expected evaluation and management of this problem will require more than a 96 hour hospital stay. DISPOSITION-anticipate discharge to home after the hospital stay. PRIMARY CARE PROVIDER-
[2017-09-18] MEDS: Diltiazem IR 30 MG Tab PO SCH ×3 (10:18→21:24)
--- NOTE | 2017-09-18 14:39 | CONS ---
DATE OF SERVICE: 09/17/2017 REFERRING PHYSICIAN: CONSULTING PHYSICIAN: Kenroy Bangura MD This is a 66-year-old admitted earlier this morning with large volume GI bleed. This appears to be stabilizing somewhat at this point. She recently had a stroke related to atrial fibrillation and has been Coumadinized and had a supratherapeutic pro-time. The patient is presently being transfused vitamin K per Dr. Griffin. The plan will be to proceed with a colonoscopy tomorrow. We will try to do this without a prep and if no identifiable source for bleeding is seen, we would also do upper endoscopy tomorrow. If on the colonoscopy tomorrow, we are not able to visualize things well, we would then subsequently do a bowel prep. But, we hopefully will be able to identify what may be going on tomorrow, without having to do the prep, which would make her at this point a little bit more prone to recurrent bleeding. Kenroy Bangura MD /[id number]
[2017-09-18] MEDS ORDERED: Polyethylene Glycol 3350 Powder 238 GM Bot GTUBE ONE (17:00)
[2017-09-18] MEDS: atorvaSTATin 20 MG Tab PO SCH (20:35)
[2017-09-19] MEDS: Acetaminophen 325 MG Tab PO PRN ×2 (01:26→20:18)
[2017-09-19] MEDS: Sodium Chloride 0.9% 1,000 ML IV SCH ×2 (05:08→13:10)
[2017-09-19] MEDS: Diltiazem IR 30 MG Tab PO SCH ×4 (05:10→21:40)
[2017-09-19] MEDS: Pantoprazole 40 MG Vial IV SCH (05:48)
--- NOTE | 2017-09-19 10:06 | PCM.PN ---
- General Info Date of Service: 09/19/17 Functional Status: Reports: Pain Controlled - Review of Systems Gastrointestinal: Denies: Abdominal Pain, Hematochezia Systems Review Comment:: No acute events overnight. Initially the stool passed during the colonoscopy prep was maroon but later turned to brown and then to clear. There has been no evidence for bleeding overnight. Blood pressures were on the low side of normal this morning and her diltiazem was held. Her speech is more clear today. She has no abdominal pain. Colonoscopy this morning did not reveal any source of active bleeding. All of the old blood had been removed. - Patient Data Vitals - Most Recent: Last Vital Signs Temp 36.5 C 09/19/17 08:00 Pulse 68 09/19/17 09:00 Resp 15 09/19/17 09:00 BP 110/63 09/19/17 08:00 Pulse Ox 96 09/19/17 09:00 Weight - Most Recent: 75.2 kg I&O - Last 24 Hours: Intake & Output 09/18/17 09/19/17 09/19/17 22:59 06:59 14:59 Intake Total 3555 1385 Output Total 1700 250 Balance 1855 1385 -250 Lab Results Last 24 Hours: Laboratory Results - last 24 hr 09/18/17 09/19/17 09/19/17 Range/Units 17:00 05:40 05:40 WBC 12.9 H (4.5-11.0) K/uL RBC 3.27 L (3.30-5.50) M/uL Hgb 10.0 L 9.5 L (12.0-15.0) g/dL Hct 30.0 L (36.0-48.0) % MCV 92 (80-98) fL MCH 29 (27-31) pg MCHC 32 (32-36) % Plt Count 235 (150-400) K/uL Neut % (Auto) 71 H (36-66) % Lymph % (Auto) 20 L (24-44) % [place] % (Auto) 7 H (2-6) % Eos % (Auto) 2 (2-4) % Baso % (Auto) 0 (0-1) % Sodium 142 (140-148) mmol/L Potassium 3.6 (3.6-5.2) mmol/L Chloride 111 H (100-108) mmol/L Carbon Dioxide 23 (21-32) mmol/L Anion Gap 11.6 (5.0-14.0) mmol/L BUN 15 (7-18) mg/dL Creatinine 1.0 (0.6-1.0) mg/dL Est Cr Clr Drug Dosing 40.67 mL/min Estimated GFR (MDRD) 55 L (>60) Glucose 89 (74-106) mg/dL Calcium 8.6 (8.5-10.1) mg/dL Fausto Results Last 24 Hours: Microbiology 09/18/17 08:37 CLOtest - Final Stomach NEGATIVE CLOTEST Med Orders - Current: Current Medications Acetaminophen (Tylenol) 650 mg PO Q4H PRN PRN Reason: Pain (Mild 1-3)/fever Last Admin: 09/19/17 01:26 Dose: 650 mg Atorvastatin Calcium (Lipitor) 20 mg PO BEDTIME [facility] Last Admin: 09/18/17 20:35 Dose: 20 mg Diltiazem HCl (Cardizem) 60 mg PO QID [facility] Last Admin: 09/19/17 05:10 Dose: Not Given Sodium Chloride (Normal Saline) 1,000 mls @ 125 mls/hr IV ASDIRECTED [facility] Last Admin: 09/19/17 05:08 Dose: 125 mls/hr Potassium Chloride 20 meq/Lidocaine HCl 2 ml/ Sodium Chloride 112 mls @ 50 mls/ hr IV Q2H [facility] Stop: 09/19/17 14:14 Lactobacillus Rhamnosus (Culturelle) 1 cap PO DAILY [facility] Last Admin: 09/18/17 09:55 Dose: 1 cap Ondansetron HCl (Zofran) 4 mg IV Q4H PRN PRN Reason: Nausea/Vomiting Pantoprazole Sodium (Protonix Iv) 40 mg IV Q12H [facility] Last Admin: 09/19/17 05:48 Dose: 40 mg Sodium Chloride (Saline Flush) 10 ml FLUSH ASDIRECTED PRN PRN Reason: Keep Vein Open Venlafaxine HCl (Effexor Xr) 75 mg PO DAILY [facility] Last Admin: 09/18/17 09:55 Dose: 75 mg Discontinued Medications Bisacodyl (Dulcolax) 10 mg PO ONETIME ONE Stop: 09/18/17 10:01 Last Admin: 09/18/17 10:24 Dose: 10 mg Bisacodyl (Dulcolax) 10 mg PO ONETIME ONE Stop: 09/18/17 20:01 Last Admin: 09/18/17 20:36 Dose: 10 mg Famotidine (Pepcid) 20 mg IVPUSH ONETIME ONE Stop: 09/17/17 03:23 Last Admin: 09/17/17 05:35 Dose: 20 mg Famotidine (Pepcid) Confirm Administered Dose 20 mg .ROUTE .STK-MED ONE Stop: 09/17/17 05:35 Last Admin: 09/17/17 05:38 Dose: Not Given Fentanyl (Sublimaze) Confirm Administered Dose 100 mcg .ROUTE .STK-MED ONE Stop: 09/18/17 07:25 Sodium Chloride (Normal Saline) 1,000 mls @ 150 mls/hr IV ASDIRECTED [facility] Last Infusion: 09/17/17 05:37 Dose: 500 mls/hr Sodium Chloride (Normal Saline) 1,000 mls @ 125 mls/hr IV ASDIRECTED [facility] Sodium Chloride (Normal Saline) 500 mls @ 500 mls/hr IV ONETIME ONE Stop: 09/17/17 07:07 Last Admin: 09/17/17 06:07 Dose: 500 mls/hr Phytonadione 5 mg/ Sodium (Chloride) 100.5 mls @ 100 mls/hr IV ONETIME ONE Stop: 09/17/17 08:30 Last Admin: 09/17/17 07:21 Dose: 100 mls/hr Sodium Chloride (Normal Saline) 1,000 mls @ 999 mls/hr IV ONETIME ONE Stop: 09/17/17 22:35 Last Admin: 09/17/17 22:04 Dose: 999 mls/hr Midazolam HCl (Versed 1 Mg/Ml) Confirm Administered Dose 2 mg .ROUTE .STK-MED ONE Stop: 09/18/17 07:25 Phytonadione (Aquamephyton) 5 mg SUBCUT ONETIME ONE Stop: 09/17/17 02:53 Last Admin: 09/17/17 03:14 Dose: 5 mg Phytonadione (Aquamephyton) 2.5 mg PO ONETIME ONE Stop: 09/17/17 03:17 Last Admin: 09/17/17 05:27 Dose: Not Given Polyethylene Glycol (Miralax) 238 gm GTUBE ONETIME ONE Stop: 09/18/17 17:01 Last Admin: 09/18/17 17:44 Dose: 3,350 bottle Propofol (Diprivan 20 Ml) Confirm Administered Dose 200 mg .ROUTE .STK-MED ONE Stop: 09/18/17 07:25 - Exam Quality Assessment: No: Supplemental Oxygen General: Alert, Cooperative, No Acute Distress Neck: Supple Lungs: Normal Respiratory Effort Cardiovascular: Regular Rate GI/Abdominal Exam: No Distention Extremities: No Pedal Edema Psy/Mental Status: Alert, Normal Affect - Problem List Review Problem List Initiated/Reviewed/Updated: Yes - My Orders Last 24 Hours: My Active Orders 09/19/17 10:15 Potassium Chloride 20 meq Lidocaine 1% [Xylocaine 1%] 2 ml Sodium Chloride 0.9 % [Normal Saline] 100 ml IV Q2H 09/19/17 18:00 HGB [HEMOGLOBIN] [HEME] Routine 09/20/17 05:00 BASIC METABOLIC PANEL,BMP [CHEM] Timed CBC W/O DIFF,HEMOGRAM [HEME] Timed (1) INR,PT,PROTHROMBIN TIME [COAG] Timed - Plan Plan:: ASSESSMENT AND PLAN ACUTE LOWER GI HEMORRHAGE - no recurrent bleeding overnight. His hemoglobin level has been relatively stable. Colonoscopy did not reveal source of bleeding but diverticular source is suspected. -Advance diet -Continue gentle fluids until blood pressures improve -Continue PPI -Hold aspirin and warfarin -Maintain 2 IV sites -Hold 2 units of red blood cells for further use if needed -Serial hemoglobin levels PREVIOUS CVA WITH LEFT HEMIPLEGIA - embolic stroke suspected with atrial fibrillation and she had been off her warfarin. -Continue medical management -Hold anticoagulation as above, plan to restart tomorrow -Hold tube feedings ATRIAL FIBRILLATION WITH RAPID VENTRICULAR RESPONSE - anticoagulation has been reversed with fresh frozen plasma and vitamin K. Rate control has been excellent. -Continue diltiazem 60 mg every 6 hours -Continue to hold anticoagulation MAINTENANCE ISSUES -DVT prophylaxis; SCUDs, will hold on anticoagulation because of active bleeding -GI prophylaxis; PPI -Salvador catheter; to monitor urine output -Nutrition; pureed Diet DISPOSITION - anticipate discharge back to the long term after the hospital stay. Dax Pennington M.D.
[2017-09-19] MEDS: Potassium Chloride 20 MEQ, Lidocaine 1% 2 ML in Sodium Chloride 0.9% 100 ML IV SCH ×2 (10:23→13:08)
[2017-09-19] MEDS ORDERED: Midazolam 1 MG/ML 2 ML SDV ONE (10:55)
[2017-09-19] MEDS ORDERED: Propofol 200 MG/20 ML SDV ONE (10:55)
[2017-09-19] MEDS: Lactobacillus Rhamnosus GG (Probiotic) Cap PO SCH (15:05)
[2017-09-19] MEDS: Venlafaxine 75 MG Cap.ER PO SCH (15:05)
[2017-09-19] MEDS ORDERED: Sodium Chloride 0.9% 1,000 ML IV SCH (16:04)
[2017-09-19] MEDS: atorvaSTATin 20 MG Tab PO SCH (20:18)
[2017-09-20] MEDS: Diltiazem IR 30 MG Tab PO SCH ×2 (06:44→10:08)
[2017-09-20] MEDS ORDERED: Pantoprazole 40 MG Tab.CR PO SCH (07:30)
[2017-09-20] MEDS: Lactobacillus Rhamnosus GG (Probiotic) Cap PO SCH (10:08)
[2017-09-20] MEDS: Venlafaxine 75 MG Cap.ER PO SCH (10:08)
--- NOTE | 2017-09-20 10:14 | PCM.DCSUM1 ---
Discharge Summary - Hospital Course Brief History: 66 -year-old female with chronic atrial fibrillation and long- term anticoagulation as well as recent embolic CVA who presented from the retirement with bright red blood per rectum. Workup in the emergency room revealed acute blood loss anemia secondary to gastrointestinal hemorrhage and she was admitted to the intensive care unit for further management - Discharge Data Discharge Date: 09/20/17 Discharge Disposition: DC/Tfer to SNF 03 Condition: Fair - Discharge Diagnosis/Problem(s) (1) Acute lower GI hemorrhage SNOMED Code(s): 36880518 ICD Code: K92.2 - GASTROINTESTINAL HEMORRHAGE, UNSPECIFIED Status: Acute Current Visit: Yes (2) Acute blood loss anemia SNOMED Code(s): 463169871 ICD Code: D62 - ACUTE POSTHEMORRHAGIC ANEMIA Status: Acute Current Visit : Yes (3) Elevated INR SNOMED Code(s): 591388884 ICD Code: R79.1 - ABNORMAL COAGULATION PROFILE Status: Acute Current Visit: Yes (4) Atrial fibrillation with rapid ventricular response SNOMED Code(s): 119462149157933 ICD Code: I48.91 - UNSPECIFIED ATRIAL FIBRILLATION Status: Acute Current Visit: Yes (5) Cerebrovascular disease SNOMED Code(s): 75192383 ICD Code: I67.9 - CEREBROVASCULAR DISEASE, UNSPECIFIED Status: Chronic Current Visit: Yes Problem Details: embolic CVA Aug 2017 - Patient Summary/Data Consults: Consultations 09/17/17 06:08 Consult to Physician [CONS] Routine Consulting Provider: Kenroy Bangura Courtesy Call Completed to Consulting Physician: Yes Reason for Consult: Active GI bleed Hospital Course: Joaquina presented to the emergency room with bright red blood per rectum. Workup in the emergency room revealed tachycardia, hypotension as well as a hemoglobin of 8.1. There was a strong suspicion for an acute lower gastrointestinal hemorrhage. She received 2 units of fresh frozen plasma as well as vitamin K. She was admitted to the intensive care unit for further management. She received 2 units of blood during the early part of the hospital stay and ended up receiving a third unit of blood later in the day after admission. She received IV fluids to help volume resuscitate with borderline hypotension and tachycardia thought secondary to volume depletion. Surgery was consulted and a colonoscopy prep recommended the day of admission for EGD and colonoscopy the next morning. Vital signs did fortunately stabilize overnight after blood transfusions and volume resuscitation. Her hemoglobin level has been relatively stable since that time. The day after admission she did have an EGD which showed some mild gastritis and a colonoscopy which was incomplete because of a fair amount of retained blood throughout the colon. She was taken back to the intensive care unit after the colonoscopy and a second bowel prep started. As the prep commenced the stool went from blood-tinged to a more normal brown and then to clear. She remained stable overnight during the second night of her hospital stay. On Tuesday, September 19 she had a second colonoscopy which did not reveal any source of bleeding. There is no blood left in the colon. Diverticular bleed was suspected in the setting of mildly supratherapeutic INR. She's been stable since the early part of the hospital stay. There is been no evidence for recurrence of her bleeding. At this point because of her high risk of additional embolic events we have elected to restart her warfarin on the day of discharge. Because of the recent bleeding we will continue the aspirin but will not bridge with enoxaparin. Her hemoglobin has remained stable and vital signs have been stable as well. She has tolerated her pureed diet. I believe she is safe for outpatient management at this time. She is anxious to get back to her physical therapy and speech therapy to help improve her strength and endurance after her recent trip or vascular accident. She will be discharged back to the retirement. I did decrease her warfarin dosing slightly. She will be getting 5 mg daily on Tuesday, Tuesday, as well as Tuesday and Tuesday. She will get 2 and half milligrams on Tuesday and Tuesday. Her INR will be due to be checked on Tuesday. She would also benefit from having it checked again on Tuesday. The Coumadin clinic here in [place] can assist with managing levels after hospital discharge. A repeat hemoglobin on Tuesday will also be requested. Her hemoglobin is 9.8 on the day of discharge. - Patient Instructions Diet: Pureed Diet, Other: Honey thick liquids Activity: As Tolerated Showering/Bathing: May Shower Notify Provider of: Fever, Increased Pain, Nausea and/or Vomiting Other/Special Instructions: 1. You were in the hospital for management of an acute lower gastrointestinal hemorrhage. I suspect this was caused by a bleed from a diverticulum. We did not definitively identify the source of bleeding with EGD or colonoscopy. This did happen in the setting of a supratherapeutic INR level. You have received 3 units of blood via transfusion and your hemoglobin levels have been stable. I recommend that we recheck your hemoglobin early next week to ensure that it has remained stable. 2. Because your risk of having another stroke caused by blood clots associated with atrial fibrillation is very high I recommend that we restart your warfarin immediately. Your INR on arrival was slightly supratherapeutic and I recommend we reduce your dosing slightly. You should have an INR check at the end of the week on Tuesday and then again early next week. The Coumadin clinic can help to manage these levels after discharge from the hospital. 3. You should resume your other medications as previously prescribed. 4. CODE STATUS - full code. 5. Referral to physical and occupational therapy for strengthening. 6. Referral to speech therapy for ongoing rehabilitation with dysarthria associated with a cerebrovascular accident. 7. Please resume your previous tube feeding and free water flush orders 4 times daily. 8. Please seek medical attention if you develop a fever greater than 101, have recurrence of your gastrointestinal bleeding, develop sudden onset of shortness of breath or chest pain/pressure. - Discharge Plan Prescriptions/Med Rec: Acetaminophen [Tylenol] 650 mg PO Q4H PRN #100 tablet PRN Reason: Pain (Mild 1-3)/fever Warfarin [Coumadin] 5 mg PO ASDIRECTED #30 tablet Home Medications: Home Meds Aspirin 325 mg PO DAILY 09/17/17 [History] Diltiazem HCl [Cardizem] 60 mg PO QID 09/17/17 [History] L.acidoph,Paracasei, B.lactis [Probiotic] 1 cap PO DAILY 09/17/17 [History] Lactose-Reduced Food [Isosource Hn] 300 ml GTUBE QID 09/17/17 [History] Loperamide [Imodium] 2 mg PO ASDIRECTED 09/17/17 [History] Omeprazole 20 mg PO DAILY 09/17/17 [History] Sodium Polystyrene Sulfonate [Kayexalate] 15 gm PO ONETIME 09/17/17 [History] Venlafaxine HCl [Venlafaxine ER] 75 mg PO DAILY 09/17/17 [History] atorvaSTATin Calcium [Atorvastatin Calcium] 20 mg PO BEDTIME 09/17/17 [History] Acetaminophen [Tylenol] 650 mg PO Q4H PRN #100 tablet 09/20/17 [Rx] Warfarin [Coumadin] 5 mg PO ASDIRECTED #30 tablet 09/20/17 [Rx] Patient Handouts: Gastrointestinal Bleeding, Warfarin tablets Referrals: Gabe Sanchez MD [Physician] - (1-2 weeks - f/u hospital stay for gastrointestinal hemorrhage) - Discharge Summary/Plan Comment DC Time >30 min.: Yes (45 - complex retirement discharge) - Patient Data Vitals - Most Recent: Last Vital Signs Temp 37 C 09/20/17 04:00 Pulse 97 09/19/17 17:48 Resp 16 09/20/17 06:00 BP 124/69 09/20/17 06:00 Pulse Ox 96 09/20/17 06:00 Weight - Most Recent: 75.2 kg I&O - Last 24 hours: Intake & Output 09/19/17 09/20/17 09/20/17 22:59 06:59 14:59 Intake Total 1475 816 Output Total 550 850 Balance 925 -34 Lab Results - Last 24 hrs: Laboratory Results - last 24 hr 09/19/17 09/20/17 09/20/17 Range/Units 18:07 05:00 05:00 WBC 10.6 (4.5-11.0) K/uL RBC 3.36 (3.30-5.50) M/uL Hgb 10.9 L 9.8 L (12.0-15.0) g/dL Hct 31.4 L (36.0-48.0) % MCV 94 (80-98) fL MCH 29 (27-31) pg MCHC 31 L (32-36) % Plt Count 236 (150-400) K/uL PT (9.5-12.0) sec INR (0.80-1.20) Sodium 142 (140-148) mmol/L Potassium 4.6 (3.6-5.2) mmol/L Chloride 113 H (100-108) mmol/L Carbon Dioxide 21 (21-32) mmol/L Anion Gap 12.6 (5.0-14.0) mmol/L BUN 13 (7-18) mg/dL Creatinine 1.1 H (0.6-1.0) mg/dL Est Cr Clr Drug Dosing 36.98 mL/min Estimated GFR (MDRD) 49 L (>60) Glucose 99 (74-106) mg/dL Calcium 8.9 (8.5-10.1) mg/dL 09/20/17 Range/Units 05:00 WBC (4.5-11.0) K/uL RBC (3.30-5.50) M/uL Hgb (12.0-15.0) g/dL Hct (36.0-48.0) % MCV (80-98) fL MCH (27-31) pg MCHC (32-36) % Plt Count (150-400) K/uL PT 11.0 (9.5-12.0) sec INR 1.03 (0.80-1.20) Sodium (140-148) mmol/L Potassium (3.6-5.2) mmol/L Chloride (100-108) mmol/L Carbon Dioxide (21-32) mmol/L Anion Gap (5.0-14.0) mmol/L BUN (7-18) mg/dL Creatinine (0.6-1.0) mg/dL Est Cr Clr Drug Dosing mL/min Estimated GFR (MDRD) (>60) Glucose (74-106) mg/dL Calcium (8.5-10.1) mg/dL ECTOR Results - Last 24 hrs: Microbiology 09/18/17 08:37 CLOtest - Final Stomach NEGATIVE CLOTEST Med Orders - Current: Current Medications Acetaminophen (Tylenol) 650 mg PO Q4H PRN PRN Reason: Pain (Mild 1-3)/fever Last Admin: 09/19/17 20:18 Dose: 650 mg Atorvastatin Calcium (Lipitor) 20 mg PO BEDTIME [facility] Last Admin: 09/19/17 20:18 Dose: 20 mg Diltiazem HCl (Cardizem) 60 mg PO QID [facility] Last Admin: 09/20/17 06:44 Dose: 60 mg Lactobacillus Rhamnosus (Culturelle) 1 cap PO DAILY [facility] Last Admin: 09/19/17 15:05 Dose: 1 cap Ondansetron HCl (Zofran) 4 mg IV Q4H PRN PRN Reason: Nausea/Vomiting Last Admin: 09/19/17 19:47 Dose: 4 mg Pantoprazole Sodium (Protonix) 40 mg PO ACBREAKFAST [facility] Sodium Chloride (Saline Flush) 10 ml FLUSH ASDIRECTED PRN PRN Reason: Keep Vein Open Venlafaxine HCl (Effexor Xr) 75 mg PO DAILY [facility] Last Admin: 09/19/17 15:05 Dose: 75 mg Warfarin Sodium (Coumadin) 5 mg PO ONETIME ONE Stop: 09/20/17 12:01 Discontinued Medications Bisacodyl (Dulcolax) 10 mg PO ONETIME ONE Stop: 09/18/17 10:01 Last Admin: 09/18/17 10:24 Dose: 10 mg Bisacodyl (Dulcolax) 10 mg PO ONETIME ONE Stop: 09/18/17 20:01 Last Admin: 09/18/17 20:36 Dose: 10 mg Famotidine (Pepcid) 20 mg IVPUSH ONETIME ONE Stop: 09/17/17 03:23 Last Admin: 09/17/17 05:35 Dose: 20 mg Famotidine (Pepcid) Confirm Administered Dose 20 mg .ROUTE .STK-MED ONE Stop: 09/17/17 05:35 Last Admin: 09/17/17 05:38 Dose: Not Given Fentanyl (Sublimaze) Confirm Administered Dose 100 mcg .ROUTE .STK-MED ONE Stop: 09/18/17 07:25 Sodium Chloride (Normal Saline) 1,000 mls @ 150 mls/hr IV ASDIRECTED [facility] Last Infusion: 09/17/17 05:37 Dose: 500 mls/hr Sodium Chloride (Normal Saline) 1,000 mls @ 125 mls/hr IV ASDIRECTED [facility] Sodium Chloride (Normal Saline) 500 mls @ 500 mls/hr IV ONETIME ONE Stop: 09/17/17 07:07 Last Admin: 09/17/17 06:07 Dose: 500 mls/hr Sodium Chloride (Normal Saline) 1,000 mls @ 125 mls/hr IV ASDIRECTED [facility] Last Admin: 09/19/17 13:10 Dose: 125 mls/hr Phytonadione 5 mg/ Sodium (Chloride) 100.5 mls @ 100 mls/hr IV ONETIME ONE Stop: 09/17/17 08:30 Last Admin: 09/17/17 07:21 Dose: 100 mls/hr Sodium Chloride (Normal Saline) 1,000 mls @ 999 mls/hr IV ONETIME ONE Stop: 09/17/17 22:35 Last Admin: 09/17/17 22:04 Dose: 999 mls/hr Potassium Chloride 20 meq/Lidocaine HCl 2 ml/ Sodium Chloride 112 mls @ 56 mls/ hr IV Q2H [facility] Stop: 09/19/17 14:29 Last Admin: 09/19/17 13:08 Dose: 56 mls/hr Sodium Chloride (Normal Saline) 1,000 mls @ 50 mls/hr IV ASDIRECTED [facility] Midazolam HCl (Versed 1 Mg/Ml) Confirm Administered Dose 2 mg .ROUTE .STK-MED ONE Stop: 09/18/17 07:25 Midazolam HCl (Versed 1 Mg/Ml) Confirm Administered Dose 2 mg .ROUTE .STK-MED ONE Stop: 09/19/17 10:56 Pantoprazole Sodium (Protonix Iv) 40 mg IV Q12H [facility] Last Admin: 09/19/17 05:48 Dose: 40 mg Phytonadione (Aquamephyton) 5 mg SUBCUT ONETIME ONE Stop: 09/17/17 02:53 Last Admin: 09/17/17 03:14 Dose: 5 mg Phytonadione (Aquamephyton) 2.5 mg PO ONETIME ONE Stop: 09/17/17 03:17 Last Admin: 09/17/17 05:27 Dose: Not Given Polyethylene Glycol (Miralax) 238 gm GTUBE ONETIME ONE Stop: 09/18/17 17:01 Last Admin: 09/18/17 17:44 Dose: 3,350 bottle Propofol (Diprivan 20 Ml) Confirm Administered Dose 200 mg .ROUTE .STK-MED ONE Stop: 09/18/17 07:25 Propofol (Diprivan 20 Ml) Confirm Administered Dose 200 mg .ROUTE .STK-MED ONE Stop: 09/19/17 10:56 - Exam Quality Assessment: Denies: Supplemental Oxygen General: Reports: Alert, Oriented, Cooperative, No Acute Distress Lungs: Reports: Normal Respiratory Effort Cardiovascular: Reports: Regular Rate, Regular Rhythm GI/Abdominal Exam: No Distention Extremities: No Pedal Edema Neurological: Denies: Normal Speech (dysarthric ) *Q Meaningful Use (DIS) - VTE *Q VTE Criteria *Q: VTE Pharmacological Contraindications *Q: Active Hemorrhage - Stroke *Q Stroke Criteria *Q: - AMI *Q AMI Criteria *Q:
[2017-09-20] MEDS ORDERED: Warfarin 5 MG Tab PO ONE (12:00)
[2017-09-20 13:10] VITALS: BP 117/69
--- NOTE | 2017-09-21 17:26 | OR ---
DATE OF PROCEDURE: 09/18/2017 PREOPERATIVE DIAGNOSIS: GI bleeding. POSTOPERATIVE DIAGNOSIS: GI bleeding associated with; 1. Mild antral gastritis (no bleeding source on upper endoscopy identified). 2. Large amount of old blood in the rectum preventing completion of colonoscopy. OPERATIVE PROCEDURE: 1. Esophagogastroduodenoscopy with antral biopsies for CLOtest ([id number]). 2. Colonoscopy incomplete ([id number]). ANESTHESIA: IV sedation. INDICATION FOR PROCEDURE: The patient was admitted roughly 24 hours ago with severe GI bleeding. This is now clinically stopped and the patient is undergoing upper and lower endoscopy, to look for GI bleeding sources. She has not undergone a formal bowel prep because that might result in resumption of her colonic bleeding and potential risks of the procedure including bleeding and perforation were discussed, and the patient wishes to proceed. DETAILS OF PROCEDURE: The patient was taken to the operating room and placed in left lateral decubitus position. IV sedation was administered, after which the upper GI endoscope was passed orally through the length of the esophagus and stomach with retroflexion view of the fundus, and thereafter through the pyloric channel and into the junction of the 3rd and 4th portions of the duodenum. Findings included normal hypopharynx, larynx, upper esophageal sphincter. The esophageal body was likewise unremarkable. There was no significant hiatal hernia or inflammation at the esophagogastric junction. Within the stomach, there was some mild redness in the antrum. Otherwise, the remainder of the stomach, pyloric channel and duodenal exams were unremarkable. There overall was no likely bleeding source on the upper endoscopy identified. Biopsies were obtained from the antrum and sent for CLOtest for H. pylori. Minimal bleeding from the biopsy sites was seen and the procedure concluded with withdrawal of the scope. The initial digital rectal examination was then performed. This had some old dark blood or stool present. The scope was then passed into the rectum roughly around 20 cm at which point thinking about the prep was insufficient to completion of the colonoscopy to that level. No active blood or bleeding or other pathology were overtly identified. The scope was then withdrawn and the procedure concluded. The patient will undergo a formal colonoscopy prep today and I will repeat the colonoscopy tomorrow. Kenroy Bangura MD /[id number]
--- NOTE | 2017-09-21 17:41 | OR ---
DATE OF PROCEDURE: 09/19/2017 PREOPERATIVE DIAGNOSIS: Recent gastrointestinal bleeding. POSTOPERATIVE DIAGNOSIS: Recent gastrointestinal bleeding with normal colonoscopic examination (somewhat marginal colon prep). OPERATIVE PROCEDURE: Flexible colonoscopy. ANESTHESIA: IV sedation. INDICATION FOR PROCEDURE: The patient was admitted over the weekend with GI bleeding. The patient was initially to undergo a colonoscopy yesterday, but the prep was inadequate. The patient underwent formal colonoscopy prep at this time and is to undergo colonoscopy with biopsies and/or polypectomy as indicated. Potential risks including bleeding and perforation were reviewed, and the patient wishes to proceed. DETAILS OF PROCEDURE: The patient was taken to the operating room and placed in a left lateral decubitus position. IV sedation was administered, after which the initial digital rectal exam was performed. The scope was then passed into the rectum with retroflexion revealing some mildly excoriated hemorrhoidal columns. These did not appear to be consistent with recent range of bleeding, however, the scope was eventually passed to the cecum. No additional pathology was seen. The prep was somewhat marginal as there was still quite a bit of liquid stool coating much of the surfaces of the bowel. Apart from that, there was generally good visualization to the extent that any major pathology would certainly be visible. There was no diverticulitis identified and no areas of colitis or polyps or some other signs of neoplasia. The scope was then withdrawn and the procedure concluded. The patient was taken to the recovery room in satisfactory condition. Kneroy Bangura MD /[id number]
== END 2017-09-20 02:15 | DRG 345 ==
LOC: JP.ED 01:50 → JP.ICU 05:35
PROVIDERS: ADMIT Hospitalist; ATTEND Internal Medicine
PROC: 30233N1 Transfusion of Nonautologous Red Blood Cells into Peripheral Vein, Percutaneous Approach (ICD-10-PCS; principal; 2017-09-17)
PROC: 0DJD4ZZ Inspection of Lower Intestinal Tract, Percutaneous Endoscopic Approach (ICD-10-PCS; 2017-09-18)
PROC: 0DB68ZX Excision of Stomach, Via Natural or Artificial Opening Endoscopic, Diagnostic (ICD-10-PCS; 2017-09-18)
PROC: 0DJD8ZZ Inspection of Lower Intestinal Tract, Via Natural or Artificial Opening Endoscopic (ICD-10-PCS; 2017-09-19)
DX: K92.2 Gastrointestinal hemorrhage, unspecified (principal); D62 Acute posthemorrhagic anemia; I69.854 Hemiplegia and hemiparesis following other cerebrovascular disease affecting left non-dominant side; K91.2 Postsurgical malabsorption, not elsewhere classified; E86.9 Volume depletion, unspecified; R79.1 Abnormal coagulation profile; I48.2 Chronic atrial fibrillation; Z79.01 Long term (current) use of anticoagulants; I69.820 Aphasia following other cerebrovascular disease; I95.9 Hypotension, unspecified; Z93.1 Gastrostomy status; N18.3 Chronic kidney disease, stage 3 (moderate); Z86.718 Personal history of other venous thrombosis and embolism; Z98.84 Bariatric surgery status; H54.7 Unspecified visual loss; Z85.038 Personal history of other malignant neoplasm of large intestine; Z88.1 Allergy status to other antibiotic agents
CPT/HCPCS: 36415; 36430; 51702; 80048; 81001; 83605; 84484; 85027; 85610; 86850; 86900; 86901; 86920 ×3; 86922 ×3; 96361; 96374; 99285 ×2; J3430; J7040; P9017 ×2; 85014; 85018; 85025; 87081; A9270-GY; C9113; J2250; J2405; J2704; J3010; J3480; J7030; P9016; S0028

== ENCOUNTER 2017-12-10 15:45 | Inpatient (IN) | payer MEDICARE, BC ==
[2017-12-10] MEDS ORDERED: Sodium Chloride 0.9% 1,000 ML IV SCH ×2 (16:30→18:28)
--- NOTE | 2017-12-10 16:31 | EDM.PDOC ---
ED HPI GENERAL MEDICAL PROBLEM - General Chief Complaint: Neuro Symptoms/Deficits Stated Complaint: CONFUSION VIA [facility] Time Seen by Provider: 12/10/17 16:25 Source of Information: Reports: Patient History Limitations: Reports: No Limitations - History of Present Illness INITIAL COMMENTS - FREE TEXT/NARRATIVE: pt arrived after having an episode where she shook all over and she was lying down. She rolled her eyes backward and was not responding for a period of time. She does not have a headache. When she did come around her speech seemed some what slurred. She had just been up to the br and lost control of her bladder before she got there. Her urine has been foul smelling. 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 ) Duration: Hour(s): Location: Reports: Head Associated Symptoms: Reports: Other ( Pt probably had a seizure. ) denies Pain Score (Numeric/FACES): 0 - Related Data Allergies Allergy/AdvReac Type Severity Reaction Status Date / Time amoxicillin Allergy Rash Verified 12/10/17 15:58 Home Meds: Home Meds Aspirin 325 mg PO DAILY 09/17/17 [History] Diltiazem HCl [Cardizem] 60 mg PO QID 09/17/17 [History] L.acidoph,Paracasei, B.lactis [Probiotic] 1 cap PO DAILY 09/17/17 [History] Lactose-Reduced Food [Isosource Hn] 300 ml GTUBE QID 09/17/17 [History] Loperamide [Imodium] 2 mg PO ASDIRECTED 09/17/17 [History] Omeprazole 20 mg PO DAILY 09/17/17 [History] Venlafaxine HCl [Venlafaxine ER] 75 mg PO DAILY 09/17/17 [History] atorvaSTATin Calcium [Atorvastatin Calcium] 20 mg PO BEDTIME 09/17/17 [History] Acetaminophen [Tylenol] 650 mg PO Q4H PRN #100 tablet 09/20/17 [Rx] Gabapentin [Neurontin] 1 tab PO BEDTIME 12/10/17 [History] Gabapentin [Neurontin] 2 tab PO ACBREAKFAST 12/10/17 [History] Warfarin Sodium 0.5 tab PO DAILY 12/10/17 [History] Cefdinir [Omnicef] 300 mg PO BID #6 cap 12/11/17 [Rx] Magnesium Oxide 400 mg PO BID #60 tablet 12/11/17 [Rx] levETIRAcetam [Keppra] 500 mg PO BID #60 tablet 12/11/17 [Rx] Past Medical History HEENT History: Reports: Impaired Vision, Sinusitis Cardiovascular History: Reports: Afib, Blood Clots/VTE/DVT, 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) Other Cardiovascular History: Hx of SVT Genitourinary History: Reports: 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) Other Genitourinary History: elevated enzymes. Chronic kidney disease stage 3 DECK CADET History: Reports: , 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) Other OB/BYN History: tipped uterus Musculoskeletal History: Reports: Neck Pain, Chronic, 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) Other Musculoskeletal History: tetony Neurological History: Reports: CVA, 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) Other Neuro History: [place]oke 08/27/17 Psychiatric History: Reports: Anxiety Hematologic History: Reports: Anticoagulation Therapy, 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) Other Hematologic History: electolyte imbalance, hypomagnesium Oncologic (Cancer) History: Reports: Colon Dermatologic History: Reports: 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) Other Dermatologic History: contact dermatitis - Infectious Disease History Infectious Disease History: Reports: Chicken Pox, Measles - Past Surgical History Cardiovascular Surgical History: Reports: Cardiac Ablation GI Surgical History: Reports: Bariatric Procedure, Small Bowel, 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 ) Other GI Surgeries/Procedures: Hx of colon CA. malabsorption disorder. short gut syndrome. g-tube placement Oncologic Surgical History: Reports: 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) Social & Family History - Tobacco Use Smoking Status *Q: Never Smoker Second Hand Smoke Exposure: No - Caffeine Use Caffeine Use: Reports: None - Alcohol Use Days Per Week of Alcohol Use: 0 - Recreational Drug Use Recreational Drug Use: No ED ROS GENERAL - Review of Systems Review Of Systems: See Below Constitutional: Reports: No Symptoms HEENT: Reports: No Symptoms Respiratory: Reports: No Symptoms Cardiovascular: Reports: No Symptoms, Other (pt has a history of trial fib. ) Endocrine: Reports: No Symptoms GI/Abdominal: Reports: No Symptoms : Reports: Incontinence, Other ( urine does smell foul. ) Musculoskeletal: Reports: No Symptoms Skin: Reports: No Symptoms Neurological: Reports: Seizure, Trouble Speaking, Other (pt is clear at this point and is speaking well. ) Psychiatric: Reports: No Symptoms ED EXAM, NEURO - Physical Exam Exam: See Below Text/Narrative:: pt arrived with slight slurring of her speech but that rapidly cleared. She had an episode of shaking all over and being unresponsive. This was witnessed by her . She had an incontinent urine earlier. Exam Limited By: No Limitations General Appearance: Alert, Other (pupils equal and reactive. ) Ears: Normal TMs Nose: Normal Inspection Throat/Mouth: Normal Inspection, Other (pt had obvious evidence of chewing her tongue. ) Head Exam: Atraumatic Neck: Normal Inspection Respiratory/Chest: No Respiratory Distress Cardiovascular: Irregularly Irregular GI/Abdominal: Soft, Non-Tender (Female) Exam: Deferred Rectal (Female) Exam: Deferred Neurological: Alert, Oriented x 3, Other (pt walks with a walker) Back Exam: Normal Inspection Extremities: Normal Inspection, Other (pt has weakness in her left leg but she is able to move it and she walks with a walker) Psychiatric: Normal Affect Course - Vital Signs Last Recorded V/S: Last Vital Signs Temp 37.0 C 12/11/17 08:00 Pulse 78 12/11/17 12:00 Resp 16 12/11/17 12:00 BP 101/58 L 12/11/17 12:00 Pulse Ox 98 12/11/17 12:00 - Orders/Labs/Meds Labs: Laboratory Tests 12/10/17 12/10/17 12/10/17 Range/Units 16:13 16:13 16:13 WBC 11.9 H (4.5-11.0) K/uL RBC 4.06 (3.30-5.50) M/uL Hgb 11.2 L (12.0-15.0) g/dL Hct 36.9 (36.0-48.0) % MCV 91 (80-98) fL MCH 28 (27-31) pg MCHC 30 L (32-36) % Plt Count 232 (150-400) K/uL Neut % (Auto) 76 H (36-66) % Lymph % (Auto) 16 L (24-44) % [place] % (Auto) 7 H (2-6) % Eos % (Auto) 1 L (2-4) % Baso % (Auto) 0 (0-1) % PT 27.2 H (9.5-12.0) sec INR 2.45 H (0.80-1.20) Sodium 147 (140-148) mmol/L Potassium 3.2 L (3.6-5.2) mmol/L Chloride 113 H (100-108) mmol/L Carbon Dioxide 24 (21-32) mmol/L Anion Gap 13.2 (5.0-14.0) mmol/L BUN 17 (7-18) mg/dL Creatinine 1.6 H (0.6-1.0) mg/dL Est Cr Clr Drug Dosing 25.04 mL/min Estimated GFR (MDRD) 32 L (>60) Glucose 114 H (74-106) mg/dL Calcium 7.5 L (8.5-10.1) mg/dL Total Bilirubin 0.2 (0.2-1.0) mg/dL AST 15 (15-37) U/L ALT 23 (12-78) U/L Alkaline Phosphatase 73 (46-116) U/L Total Protein 6.7 (6.4-8.2) g/dL Albumin 3.0 L (3.4-5.0) g/dL Globulin 3.7 H (2.3-3.5) g/dL Albumin/Globulin Ratio 0.8 L (1.2-2.2) Meds: Medications Discontinued Medications Generic Name Dose Route Start Last Admin Trade Name Freq PRN Reason Stop Dose Admin Acetaminophen 650 mg 12/10/17 17:02 12/10/17 17:23 Tylenol PO 12/10/17 17:03 650 mg NOW ONE Administration Acetaminophen 650 mg 12/10/17 18:28 12/11/17 13:37 Tylenol PO 650 mg Q4H PRN Administration Pain (Mild 1-3)/fever Aspirin 325 mg 12/11/17 09:00 12/11/17 08:43 Ecotrin PO 325 mg DAILY LEONELA Administration Atorvastatin Calcium 20 mg 12/10/17 21:00 12/10/17 21:13 Lipitor PO 20 mg BEDTIME LEONELA Administration Diltiazem HCl 60 mg 12/10/17 22:00 12/11/17 09:45 Cardizem PO 60 mg QID LEONELA Administration Gabapentin 100 mg 12/10/17 21:00 12/10/17 21:13 Neurontin PO 100 mg BEDTIME LEONELA Administration Gabapentin 200 mg 12/11/17 07:30 12/11/17 08:43 Neurontin PO 200 mg ACBREAKFAST LEONELA Administration Sodium Chloride 1,000 mls @ 500 mls/hr 12/10/17 16:30 12/10/17 17:00 Normal Saline IV 500 mls/hr ASDIRECTED LEONELA Administration Potassium Chloride 40 meq/ 100 mls @ 25 mls/hr 12/10/17 19:00 12/10/17 21:38 Premix IV 12/10/17 22:59 Not Given Q4H LEONELA Sodium Chloride 1,000 mls @ 125 mls/hr 12/10/17 18:28 12/10/17 20:41 Normal Saline IV 125 mls/hr ASDIRECTED LEONELA Administration Potassium Chloride 20 meq/ 100 mls @ 50 mls/hr 12/10/17 20:00 12/10/17 20:47 Premix IV 12/10/17 21:59 50 mls/hr ONETIME ONE Administration Potassium Chloride 20 meq/ 112 mls @ 50 mls/hr 12/10/17 20:00 12/10/17 23:10 Lidocaine HCl 2 ml/ Sodium IV Not Given Chloride Q2H LEONELA Ceftriaxone Sodium 1 gm/ 50 mls @ 100 mls/hr 12/10/17 20:30 12/10/17 20:35 Sodium Chloride IV 100 mls/hr Q24H LEONELA Administration Potassium Chloride 20 meq/ 112 mls @ 56 mls/hr 12/10/17 23:00 12/10/17 23:02 Lidocaine HCl 2 ml/ Sodium IV 12/11/17 00:59 56 mls/hr Chloride ONETIME ONE Administration Magnesium Sulfate 2 gm/ Premix 50 mls @ 25 mls/hr 12/11/17 10:00 IV 12/11/17 23:59 Q6H LEONELA Magnesium Sulfate 2 gm/ Premix 50 mls @ 25 mls/hr 12/11/17 09:00 12/11/17 08: 44 IV 12/11/17 10:30 25 mls/hr Q6H LEONELA Administration Magnesium Sulfate 2 gm/ Premix 50 mls @ 25 mls/hr 12/11/17 10:30 12/11/17 10: 38 IV 12/11/17 12:29 25 mls/hr Q6H LEONELA Administration Lactobacillus Rhamnosus 1 cap 12/11/17 09:00 12/11/17 08:43 Culturelle PO 1 cap DAILY LEONELA Administration Levetiracetam 500 mg 12/10/17 18:28 12/11/17 08:44 Keppra PO 500 mg BID LEONELA Administration Lidocaine HCl 2 ml 12/10/17 20:00 12/10/17 23:03 Xylocaine-Mpf 1% INJECT 12/10/17 22:01 2 ml Q2H LEONELA Administration Lorazepam 1 mg 12/10/17 18:28 Ativan IVPUSH Q1H PRN Seizures Magnesium Hydroxide 30 ml 12/10/17 18:28 Milk Of Magnesia PO Q12H PRN Constipation Magnesium Oxide 400 mg 12/11/17 09:00 12/11/17 08:44 Magnesium Oxide PO 400 mg BID LEONELA Administration Ondansetron HCl 4 mg 12/10/17 17:03 12/10/17 17:23 Zofran IVPUSH 12/10/17 17:04 4 mg ONETIME ONE Administration Ondansetron HCl 4 mg 12/10/17 18:28 Zofran Odt PO Q6H PRN Nausea able to take PO Oxycodone HCl 5 mg 12/10/17 18:28 Oxycodone PO Q4H PRN Pain (moderate 4-6) Pantoprazole Sodium 40 mg 12/11/17 09:00 12/11/17 08:44 Protonix Granules PO 40 mg ACBREAKFAST LEONELA Administration Polyethylene Glycol 17 gm 12/10/17 18:28 Miralax PO DAILY PRN Constipation Senna/Docusate Sodium 1 tab 12/10/17 18:28 Senna Plus PO BID PRN Constipation Sodium Chloride 10 ml 12/10/17 18:28 Saline Flush FLUSH ASDIRECTED PRN Keep Vein Open Venlafaxine HCl 75 mg 12/11/17 09:00 12/11/17 08:43 Effexor Xr PO 75 mg DAILY LEONELA Administration Warfarin Sodium 1.25 mg 12/11/17 13:00 12/11/17 13:08 Coumadin PO 1.25 mg DAILY@1300 [facility] Administration - Re-Assessments/Exams Free Text/Narrative Re-Assessment/Exam: 12/10/17 17:18 cat scan showed a large rt frontal parietal stroke which looks old. No acute findings were noted. Her electrolytes show marked dehydration. will admit for hydration and evaluation of seizure activity. Departure - Departure Time of Disposition: 17:19 Disposition: Admitted As Inpatient 64 Condition: Fair Clinical Impression: Seizure as late effect of cerebrovascular accident (CVA), Dehydration - Discharge Information
[2017-12-10] MEDS ORDERED: Acetaminophen 325 MG Tab PO ONE (17:02)
[2017-12-10] MEDS ORDERED: Ondansetron 4 MG/2 ML SDV IVPUSH ONE (17:03)
--- NOTE | 2017-12-10 18:12 | PCM.HP ---
H&P History of Present Illness - General Date of Service: 12/10/17 Admit Problem/Dx: Source of Information: Patient, Old Records, Provider, RN Notes Reviewed History Limitations: Reports: No Limitations - History of Present Illness Initial Comments - Free Text/Narative: This patient is a 67-year-old woman who is admitted through the emergency department after she experienced a seizure earlier this afternoon. 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 She also is had some difficulty with speech since her CVA approximately 4 months ago. She had just recently been discharged from the sn[facility], to home. She was noted to develop generalized tonic- clonic seizure activity and also ported that she bit her tongue. She was followed by a postictal state, but she has come out of that it is fairly alert and interactive. She has a known history of atrial fibrillation and is on oral anticoagulation with warfarin, INR was within therapeutic range today at 2.4. As no prior history of seizure disorder and otherwise has been doing relatively well since discharge from the snf. - Related Data Allergies/Adverse Reactions: Allergies Allergy/AdvReac Type Severity Reaction Status Date / Time amoxicillin Allergy Rash Verified 12/10/17 15:58 Home Medications: Home Meds Aspirin 325 mg PO DAILY 09/17/17 [History] Diltiazem HCl [Cardizem] 60 mg PO QID 09/17/17 [History] L.acidoph,Paracasei, B.lactis [Probiotic] 1 cap PO DAILY 09/17/17 [History] Lactose-Reduced Food [Isosource Hn] 300 ml GTUBE QID 09/17/17 [History] Loperamide [Imodium] 2 mg PO ASDIRECTED 09/17/17 [History] Omeprazole 20 mg PO DAILY 09/17/17 [History] Venlafaxine HCl [Venlafaxine ER] 75 mg PO DAILY 09/17/17 [History] atorvaSTATin Calcium [Atorvastatin Calcium] 20 mg PO BEDTIME 09/17/17 [History] Acetaminophen [Tylenol] 650 mg PO Q4H PRN #100 tablet 09/20/17 [Rx] Gabapentin [Neurontin] 1 tab PO BEDTIME 12/10/17 [History] Gabapentin [Neurontin] 2 tab PO ACBREAKFAST 12/10/17 [History] Warfarin Sodium [Warfarin Sodium] 0.5 tab PO DAILY 12/10/17 [History] Past Medical History HEENT History: Reports: Impaired Vision, Sinusitis Cardiovascular History: Reports: Afib, Blood Clots/VTE/DVT, 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) Other Cardiovascular History: Hx of SVT Genitourinary History: Reports: 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) Other Genitourinary History: elevated enzymes. 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: Reports: , 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) Other OB/BYN History: tipped uterus Musculoskeletal History: Reports: Neck Pain, Chronic, 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) Other Musculoskeletal History: tetony Neurological History: Reports: CVA, 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) Other Neuro History: [place] 08/27/17 Psychiatric History: Reports: Anxiety Hematologic History: Reports: Anticoagulation Therapy, 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) Other Hematologic History: electolyte imbalance, hypomagnesium Oncologic (Cancer) History: Reports: Colon Dermatologic History: Reports: 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) Other Dermatologic History: contact dermatitis - Infectious Disease History Infectious Disease History: Reports: Chicken Pox, Measles - Past Surgical History Cardiovascular Surgical History: Reports: Cardiac Ablation GI Surgical History: Reports: Bariatric Procedure, Small Bowel, 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 ) Other GI Surgeries/Procedures: Hx of colon CA. malabsorption disorder. short gut syndrome. g-tube placement Oncologic Surgical History: Reports: 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) Social & Family History - Tobacco Use Smoking Status *Q: Never Smoker Second Hand Smoke Exposure: No - Caffeine Use Caffeine Use: Reports: None - Alcohol Use Days Per Week of Alcohol Use: 0 - Recreational Drug Use Recreational Drug Use: No H&P Review of Systems - Review of Systems: Review Of Systems: See Below General: Reports: Weakness. Denies: Fever, Chills HEENT: Reports: No Symptoms Pulmonary: Reports: No Symptoms Cardiovascular: Reports: No Symptoms Gastrointestinal: Reports: No Symptoms Genitourinary: Reports: No Symptoms Musculoskeletal: Reports: No Symptoms Skin: Reports: No Symptoms Psychiatric: Reports: No Symptoms Neurological: Reports: Pre-Existing Deficit, Seizure, Difficulty Walking, Weakness. Denies: Confusion, Dizziness, Headache Hematologic/Lymphatic: Reports: No Symptoms Immunologic: Reports: No Symptoms Exam - Exam Exam: See Below - Vital Signs Vital Signs: Last Vital Signs Temp 97.6 F 12/10/17 16:44 Pulse 63 12/10/17 16:44 Resp 14 12/10/17 16:44 BP 125/68 12/10/17 16:44 Pulse Ox 98 12/10/17 16:44 Weight: 157 lb - Exam Quality Assessment: DVT Prophylaxis General: Alert, Oriented, Cooperative HEENT: Conjunctiva Clear, Hearing Intact, Mucosa Moist & [place], Normal Nasal Septum, Posterior Pharynx Clear, Pupils Equal Neck: Supple, Trachea Midline, +2 Carotid Pulse wo Bruit Lungs: Clear to Auscultation, Normal Respiratory Effort Cardiovascular: Regular Rate, Normal S1, Normal S2, Irregular Rhythm. No: Systolic Murmur, Diastolic Murmur GI/Abdominal Exam: Soft, Non-Tender, No Organomegaly, No Distention Extremities: Non-Tender, No Pedal Edema Skin: Warm, Dry, Intact Neurological: Focal Deficit, Other (Left upper and lower extremity weakness as well as mild left facial weakness.). No: Strength Equal Bilateral, Normal Speech, Sensation Intact - Patient Data Lab Results Last 24 hrs: Laboratory Results - last 24 hr 12/10/17 12/10/17 12/10/17 Range/Units 16:13 16:13 16:13 WBC 11.9 H (4.5-11.0) K/uL RBC 4.06 (3.30-5.50) M/uL Hgb 11.2 L (12.0-15.0) g/dL Hct 36.9 (36.0-48.0) % MCV 91 (80-98) fL MCH 28 (27-31) pg MCHC 30 L (32-36) % Plt Count 232 (150-400) K/uL Neut % (Auto) 76 H (36-66) % Lymph % (Auto) 16 L (24-44) % [place] % (Auto) 7 H (2-6) % Eos % (Auto) 1 L (2-4) % Baso % (Auto) 0 (0-1) % PT 27.2 H (9.5-12.0) sec INR 2.45 H (0.80-1.20) Sodium 147 (140-148) mmol/L Potassium 3.2 L (3.6-5.2) mmol/L Chloride 113 H (100-108) mmol/L Carbon Dioxide 24 (21-32) mmol/L Anion Gap 13.2 (5.0-14.0) mmol/L BUN 17 (7-18) mg/dL Creatinine 1.6 H (0.6-1.0) mg/dL Est Cr Clr Drug Dosing 25.04 mL/min Estimated GFR (MDRD) 32 L (>60) Glucose 114 H (74-106) mg/dL Calcium 7.5 L (8.5-10.1) mg/dL Total Bilirubin 0.2 (0.2-1.0) mg/dL AST 15 (15-37) U/L ALT 23 (12-78) U/L Alkaline Phosphatase 73 (46-116) U/L Total Protein 6.7 (6.4-8.2) g/dL Albumin 3.0 L (3.4-5.0) g/dL Globulin 3.7 H (2.3-3.5) g/dL Albumin/Globulin Ratio 0.8 L (1.2-2.2) Result Diagrams: 12/10/17 16:13 12/10/17 16:13 *Q Meaningful Use (ADM) - VTE *Q VTE Criteria *Q: VTE Pharmacological Contraindications *Q: High INR Value - VTE Risk Assess *Q Each Risk Factor Represents 1 Point: Obesity ( BMI > 25 kg/m2) Total Score 1 Point Risk Factors: 1 Each Risk Factor Represents 2 Points: Age 60 - 74 Years Total Score 2 Point Risk Factors: 2 Each Risk Factor Represents 3 Points: None Total Score 3 Point Risk Factors: 0 Each Risk Factor Represents 5 Points: None Total Score 5 Point Risk Factors: 0 Venous Thromboembolism Risk Factor Score *Q: 3 - Stroke *Q Stroke Criteria *Q: - AMI *Q AMI Criteria *Q: Problem List Initiated/Reviewed/Updated: Yes Orders Last 24hrs: Active Orders 24 hr Category Date Time Status Patient Status Manage Transfer [TRANSFER] Routine ADT 12/10/17 17:55 Ordered Bladder Scan [RC] ONETIME Care 12/10/17 16:58 Active EKG Documentation Completion [RC] ASDIRECTED Care 12/10/17 16:03 Active Chest 1V Frontal [CR] Stat Exams 12/10/17 16:02 Taken Head wo Cont [CT] Stat Exams 12/10/17 15:58 Taken UA W/MICROSCOPIC [URIN] Urgent Lab 12/10/17 16:00 Ordered Sodium Chloride 0.9% [Normal Saline] 1,000 ml Med 12/10/17 16:30 Active IV ASDIRECTED Resuscitation Status Routine Resus Stat 12/10/17 17:57 Ordered EKG 12 Lead [EK] Routine Ther 12/10/17 16:03 Ordered Medication Orders Sodium Chloride (Normal Saline) 1,000 mls @ 500 mls/hr IV ASDIRECTED LEONELA Last Admin: 12/10/17 17:00 Dose: 500 mls/hr Assessment/Plan Comment:: ASSESSMENT AND PLAN SEIZURE-generalized tonic-clonic seizure which occurred earlier this afternoon, witnessed. History of CVA approximately 4 months ago with residual left-sided weakness including speech difficulty. No prior history of seizure disorder and denies any new neurologic symptoms. CT scan of the head obtained in the emergency department showed no acute abnormalities. -Seizure precautions -Neuro checks every 4 hours -Keppra 500 mg by mouth twice a day -Lorazepam 1 mg IV as needed for recurrent seizures. RIGHT CVA-with residual left-sided weakness ATRIAL FIBRILLATION WITH CONTROLLED VENTRICULAR RESPONSE-on long-term oral anticoagulation with warfarin, INR today therapeutic -Continue outpatient dose of warfarin -Repeat INR in a.m. CHRONIC KIDNEY DISEASE STAGE III-current creatinine elevated from baseline -IV fluids for hydration -Closely monitor urine output and renal function POSSIBLE URINARY TRACT INFECTION- reports that urine has been cloudy with a foul odor -Clean-catch urinalysis ordered MAINTENANCE ISSUES -DVT prophylaxis; current therapy with warfarin should provide adequate DVT prophylaxis -GI prophylaxis; continue outpatient PPI therapy -Salvador catheter; not indicated -Nutrition; soft mechanical diet -Nicotine dependence; not required CODE STATUS-FULL CODE ADMISSION STATUS-patient will be admitted to inpatient status, expect at least a 2 night hospital stay for evaluation and management of problems as outlined above. At the time of this admission I do not reasonably expected evaluation and management of this problem will require more than a 96 hour hospital stay. DISPOSITION-anticipate discharge to home after the hospital stay. PRIMARY CARE PROVIDER-Dr. Oleary
[2017-12-10] MEDS ORDERED: Polyethylene Glycol 3350 Powder 17 GM Packet PO PRN (18:28)
[2017-12-10] MEDS ORDERED: LORazepam 2 MG/ML MDV IVPUSH PRN (18:28)
[2017-12-10] MEDS ORDERED: Sodium Chloride 0.9% 10 ML Syringe FLUSH PRN (18:28)
[2017-12-10] MEDS ORDERED: oxyCODONE 5 MG Tab PO PRN (18:28)
[2017-12-10] MEDS ORDERED: Ondansetron 4 MG Tab.DIS PO PRN (18:28)
[2017-12-10] MEDS ORDERED: Acetaminophen 325 MG Tab PO PRN (18:28)
[2017-12-10] MEDS ORDERED: Magnesium Hydroxide 400 MG/5 ML Susp 30 ML Cup PO PRN (18:28)
[2017-12-10] MEDS ORDERED: Potassium Chloride 40 MEQ in Premix Bag 1 BAG IV SCH (19:00)
[2017-12-10] MEDS ORDERED: Potassium Chloride 20 MEQ in Premix Bag 1 BAG IV ONE ×2 (20:00→22:00)
[2017-12-10] MEDS ORDERED: Potassium Chloride 20 MEQ, Lidocaine 1% 2 ML in Sodium Chloride 0.9% 100 ML IV SCH (20:00)
[2017-12-10] MEDS ORDERED: cefTRIAXone 1 GM in Sodium Chloride 0.9% 50 ML IV SCH (20:30)
[2017-12-10] MEDS: levETIRAcetam 250 MG Tab PO SCH ×2 (20:45→21:39)
[2017-12-10] MEDS: Lidocaine 1% PF 2 ML SDV INJECT SCH ×2 (20:47→23:03)
[2017-12-10] MEDS ORDERED: atorvaSTATin 20 MG Tab PO SCH (21:00)
[2017-12-10] MEDS ORDERED: Gabapentin 100 MG Cap PO SCH (21:00)
[2017-12-10] MEDS: Diltiazem IR 30 MG Tab PO SCH (21:13)
[2017-12-10] MEDS ORDERED: LACTOSE REDUCED FOOD GTUBE SCH (22:00)
[2017-12-10] MEDS ORDERED: Potassium Chloride 20 MEQ, Lidocaine 1% 2 ML in Sodium Chloride 0.9% 100 ML IV ONE (23:00)
[2017-12-11] MEDS: Diltiazem IR 30 MG Tab PO SCH ×2 (05:29→09:45)
[2017-12-11] MEDS ORDERED: Gabapentin 100 MG Cap PO SCH (07:30)
[2017-12-11] MEDS: levETIRAcetam 250 MG Tab PO SCH (08:44)
[2017-12-11] MEDS ORDERED: Venlafaxine 75 MG Cap.ER PO SCH (09:00)
[2017-12-11] MEDS ORDERED: Lactobacillus Rhamnosus GG (Probiotic) Cap PO SCH (09:00)
[2017-12-11] MEDS ORDERED: Magnesium Sulfate/Water 2 GM in Premix Bag 1 BAG IV SCH ×3 (09:00→10:30)
[2017-12-11] MEDS ORDERED: Pantoprazole 40 MG Delayed-Release Granules 1 Packet PO SCH (09:00)
[2017-12-11] MEDS ORDERED: Aspirin 325 MG Tab.EC PO SCH (09:00)
[2017-12-11] MEDS ORDERED: Magnesium Oxide 400 MG Tab PO SCH (09:00)
--- NOTE | 2017-12-11 09:25 | PCM.DCSUM1 ---
Discharge Summary - Hospital Course Brief History: This patient is a 67-year-old woman who was admitted through the emergency department after experiencing a generalized tonic-clonic seizure at home. - Discharge Data Discharge Date: 12/11/17 Discharge Disposition: Home, Self-Care 01 Condition: Fair - Discharge Diagnosis/Problem(s) (1) Hypomagnesemia SNOMED Code(s): 340223721 ICD Code: E83.42 - HYPOMAGNESEMIA Status: Acute Current Visit: Yes (2) Cerebrovascular disease SNOMED Code(s): 06099779 ICD Code: I67.9 - CEREBROVASCULAR DISEASE, UNSPECIFIED Status: Chronic Current Visit: No Problem Details: embolic CVA Aug 2017 (3) Seizure as late effect of cerebrovascular accident (CVA) SNOMED Code(s): 942512935475644 ICD Code: I69.398 - OTHER SEQUELAE OF CEREBRAL INFARCTION; R56.9 - UNSPECIFIED CONVULSIONS Status: Acute Current Visit: Yes (4) Dehydration SNOMED Code(s): 16956350 ICD Code: E86.0 - DEHYDRATION Status: Acute Current Visit: Yes (5) Chronic kidney disease (CKD), stage III (moderate) SNOMED Code(s): 732445594 ICD Code: N18.3 - CHRONIC KIDNEY DISEASE, STAGE 3 (MODERATE) Status: Chronic Current Visit: No (6) UTI (urinary tract infection) SNOMED Code(s): 22118989 ICD Code: N39.0 - URINARY TRACT INFECTION, SITE NOT SPECIFIED Status: Acute Current Visit: Yes - Patient Summary/Data Consults: Consultations 12/10/17 18:28 PT Evaluation and Treatment [CONS] Routine Please Evaluate and Treat. PT Reason for Consult: Weakness, status post previous CVA This query below is only for informational purposes and is not editable. Hospital Course: Ms. Hernández is a 67-year-old woman who is admitted through the emergency department after she experienced a seizure earlier in the afternoon. 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 She also is had some difficulty with speech since her CVA approximately 4 months ago. She had just recently been discharged from the halfway, to home. She was noted to develop generalized tonic- clonic seizure activity and also bit her tongue. They seizure was followed by a postictal state, but she has come out of that and is fairly alert and interactive. She has a known history of atrial fibrillation and is on oral anticoagulation with warfarin, INR was within therapeutic range today at 2.4. She has no prior history of seizure disorder and otherwise has been doing relatively well since discharge from the halfway. Urinalysis obtained in the emergency department suggests underlying urinary tract infection. Urine culture has been obtained prior to initiation of antibiotic therapy. She was admitted to the hospital, placed on seizure precautions with frequent neuro checks. There was no further evidence of seizure activity through her hospital stay. She was started on Keppra 500 mg twice daily. IV fluids were given for hydration as she was felt to be somewhat dehydrated. Antibiotic therapy with Rocephin was initiated 1 g IV every 24 hours. On the morning of discharge her magnesium level was found to be low at 0.7, she was started on magnesium oxide 400 mg twice daily and given 4 g of IV magnesium prior to discharge. At the time of discharge culture results from urine culture were not yet available, she will be discharged on Omnicef 300 mg twice daily for an additional 3 days. She will remain on the magnesium oxide 400 mg twice daily as well as Keppra 500 mg twice daily. Activity will be as tolerated and she will resume her usual diet. Follow-up appointment will be scheduled with Dr. Oleary within one week, BMP and magnesium level should be obtained at the time of follow-up appointment. She originally had been admitted as an inpatient but was doing well enough after one night of hospitalization it was felt she could be discharged to home. - Patient Instructions Diet: Usual Diet as Tolerated Activity: As Tolerated Other/Special Instructions: Please schedule follow-up appointment with primary care provider within one week. BMP and magnesium level should be obtained at the time of follow-up appointment. - Discharge Plan Prescriptions/Med Rec: Cefdinir [Omnicef] 300 mg PO BID #6 cap levETIRAcetam [Keppra] 500 mg PO BID #60 tablet Magnesium Oxide 400 mg PO BID #60 tablet Home Medications: Home Meds Aspirin 325 mg PO DAILY 09/17/17 [History] Diltiazem HCl [Cardizem] 60 mg PO QID 09/17/17 [History] L.acidoph,Paracasei, B.lactis [Probiotic] 1 cap PO DAILY 09/17/17 [History] Lactose-Reduced Food [Isosource Hn] 300 ml GTUBE QID 09/17/17 [History] Loperamide [Imodium] 2 mg PO ASDIRECTED 09/17/17 [History] Omeprazole 20 mg PO DAILY 09/17/17 [History] Venlafaxine HCl [Venlafaxine ER] 75 mg PO DAILY 09/17/17 [History] atorvaSTATin Calcium [Atorvastatin Calcium] 20 mg PO BEDTIME 09/17/17 [History] Acetaminophen [Tylenol] 650 mg PO Q4H PRN #100 tablet 09/20/17 [Rx] Gabapentin [Neurontin] 1 tab PO BEDTIME 12/10/17 [History] Gabapentin [Neurontin] 2 tab PO ACBREAKFAST 12/10/17 [History] Warfarin Sodium 0.5 tab PO DAILY 12/10/17 [History] Cefdinir [Omnicef] 300 mg PO BID #6 cap 12/11/17 [Rx] Magnesium Oxide 400 mg PO BID #60 tablet 12/11/17 [Rx] levETIRAcetam [Keppra] 500 mg PO BID #60 tablet 12/11/17 [Rx] Forms: ED Department Discharge Referrals: Tomer Oleary MD [Primary Care Provider] - - Patient Data Vitals - Most Recent: Last Vital Signs Temp 98.5 F 12/11/17 05:40 Pulse 62 12/11/17 05:40 Resp 17 12/11/17 05:40 BP 111/58 L 12/11/17 05:40 Pulse Ox 94 L 12/11/17 05:40 Weight - Most Recent: 167 lb 9.6 oz I&O - Last 24 hours: Intake & Output 12/10/17 12/11/17 12/11/17 22:59 06:59 14:59 Intake Total 750 1452 Output Total 125 300 Balance 625 1152 Lab Results - Last 24 hrs: Laboratory Results - last 24 hr 12/10/17 12/11/17 12/11/17 Range/Units 19:44 05:52 05:52 WBC 8.6 (4.5-11.0) K/uL RBC 3.55 (3.30-5.50) M/uL Hgb 9.9 L (12.0-15.0) g/dL Hct 32.7 L (36.0-48.0) % MCV 92 (80-98) fL MCH 28 (27-31) pg MCHC 30 L (32-36) % Plt Count 195 (150-400) K/uL Neut % (Auto) 65 (36-66) % Lymph % (Auto) 27 (24-44) % [place] % (Auto) 7 H (2-6) % Eos % (Auto) 1 L (2-4) % Baso % (Auto) 0 (0-1) % PT 28.0 H (9.5-12.0) sec INR 2.52 H (0.80-1.20) Sodium (140-148) mmol/L Potassium (3.6-5.2) mmol/L Chloride (100-108) mmol/L Carbon Dioxide (21-32) mmol/L Anion Gap (5.0-14.0) mmol/L BUN (7-18) mg/dL Creatinine (0.6-1.0) mg/dL Est Cr Clr Drug Dosing mL/min Estimated GFR (MDRD) (>60) Glucose (74-106) mg/dL Calcium (8.5-10.1) mg/dL Magnesium (1.8-2.4) mg/dL Urine Color Yellow Urine Appearance Cloudy Urine pH 5.0 (4.5-8.0) Ur Specific [place] 1.020 (1.008-1.030) Urine Protein Negative (NEGATIVE) mg/dL Urine Glucose (UA) Normal (NEGATIVE) mg/dL Urine Ketones Negative (NEGATIVE) mg/dL Urine Occult Blood Large (NEGATIVE) Urine Nitrite Negative (NEGATIVE) Urine Bilirubin Small (NEGATIVE) Urine Urobilinogen Normal (NORMAL) mg/dL Ur Leukocyte Esterase Negative (NEGATIVE) Urine RBC 10-20 H (0-5) Urine WBC 10-20 H (0-5) Ur Epithelial Cells Not seen Amorphous Sediment Not seen Urine Bacteria Many Urine Mucus Not seen 12/11/17 Range/Units 05:52 WBC (4.5-11.0) K/uL RBC (3.30-5.50) M/uL Hgb (12.0-15.0) g/dL Hct (36.0-48.0) % MCV (80-98) fL MCH (27-31) pg MCHC (32-36) % Plt Count (150-400) K/uL Neut % (Auto) (36-66) % Lymph % (Auto) (24-44) % [place] % (Auto) (2-6) % Eos % (Auto) (2-4) % Baso % (Auto) (0-1) % PT (9.5-12.0) sec INR (0.80-1.20) Sodium 145 (140-148) mmol/L Potassium 3.6 (3.6-5.2) mmol/L Chloride 115 H (100-108) mmol/L Carbon Dioxide 22 (21-32) mmol/L Anion Gap 11.6 (5.0-14.0) mmol/L BUN 13 (7-18) mg/dL Creatinine 1.3 H (0.6-1.0) mg/dL Est Cr Clr Drug Dosing 30.82 mL/min Estimated GFR (MDRD) 41 L (>60) Glucose 87 (74-106) mg/dL Calcium 7.2 L (8.5-10.1) mg/dL Magnesium 0.7 L D (1.8-2.4) mg/dL Urine Color Urine Appearance Urine pH (4.5-8.0) Ur Specific [place] (1.008-1.030) Urine Protein (NEGATIVE) mg/dL Urine Glucose (UA) (NEGATIVE) mg/dL Urine Ketones (NEGATIVE) mg/dL Urine Occult Blood (NEGATIVE) Urine Nitrite (NEGATIVE) Urine Bilirubin (NEGATIVE) Urine Urobilinogen (NORMAL) mg/dL Ur Leukocyte Esterase (NEGATIVE) Urine RBC (0-5) Urine WBC (0-5) Ur Epithelial Cells Amorphous Sediment Urine Bacteria Urine Mucus ECTOR Results - Last 24 hrs: Microbiology 12/10/17 20:06 Urine Culture - Preliminary Urine, Catheterized Med Orders - Current: Current Medications Acetaminophen (Tylenol) 650 mg PO Q4H PRN PRN Reason: Pain (Mild 1-3)/fever Aspirin (Ecotrin) 325 mg PO DAILY [facility] Last Admin: 12/11/17 08:43 Dose: 325 mg Atorvastatin Calcium (Lipitor) 20 mg PO BEDTIME [facility] Last Admin: 12/10/17 21:13 Dose: 20 mg Diltiazem HCl (Cardizem) 60 mg PO QID [facility] Last Admin: 12/11/17 05:29 Dose: 60 mg Gabapentin (Neurontin) 100 mg PO BEDTIME [facility] Last Admin: 12/10/17 21:13 Dose: 100 mg Gabapentin (Neurontin) 200 mg PO ACBREAKFAST [facility] Last Admin: 12/11/17 08:43 Dose: 200 mg Sodium Chloride (Normal Saline) 1,000 mls @ 125 mls/hr IV ASDIRECTED [facility] Last Admin: 12/10/17 20:41 Dose: 125 mls/hr Ceftriaxone Sodium 1 gm/ (Sodium Chloride) 50 mls @ 100 mls/hr IV Q24H [facility] Last Admin: 12/10/17 20:35 Dose: 100 mls/hr Magnesium Sulfate 2 gm/ Premix 50 mls @ 25 mls/hr IV Q6H [facility] Stop: 12/11/17 10:30 Last Admin: 12/11/17 08:44 Dose: 25 mls/hr Magnesium Sulfate 2 gm/ Premix 50 mls @ 25 mls/hr IV Q6H [facility] Stop: 12/11/17 12:29 Lactobacillus Rhamnosus (Culturelle) 1 cap PO DAILY [facility] Last Admin: 12/11/17 08:43 Dose: 1 cap Levetiracetam (Keppra) 500 mg PO BID [facility] Last Admin: 12/11/17 08:44 Dose: 500 mg Lorazepam (Ativan) 1 mg IVPUSH Q1H PRN PRN Reason: Seizures Magnesium Hydroxide (Milk Of Magnesia) 30 ml PO Q12H PRN PRN Reason: Constipation Magnesium Oxide (Magnesium Oxide) 400 mg PO BID [facility] Last Admin: 12/11/17 08:44 Dose: 400 mg Ondansetron HCl (Zofran Odt) 4 mg PO Q6H PRN PRN Reason: Nausea able to take PO Oxycodone HCl (Oxycodone) 5 mg PO Q4H PRN PRN Reason: Pain (moderate 4-6) Pantoprazole Sodium (Protonix Granules) 40 mg PO ACBREAKFAST [facility] Last Admin: 12/11/17 08:44 Dose: 40 mg Polyethylene Glycol (Miralax) 17 gm PO DAILY PRN PRN Reason: Constipation Senna/Docusate Sodium (Senna Plus) 1 tab PO BID PRN PRN Reason: Constipation Sodium Chloride (Saline Flush) 10 ml FLUSH ASDIRECTED PRN PRN Reason: Keep Vein Open Venlafaxine HCl (Effexor Xr) 75 mg PO DAILY [facility] Last Admin: 12/11/17 08:43 Dose: 75 mg Warfarin Sodium (Coumadin) 1.25 mg PO DAILY@1300 LEONELA Discontinued Medications Acetaminophen (Tylenol) 650 mg PO NOW ONE Stop: 12/10/17 17:03 Last Admin: 12/10/17 17:23 Dose: 650 mg Sodium Chloride (Normal Saline) 1,000 mls @ 500 mls/hr IV ASDIRECTED [facility] Last Admin: 12/10/17 17:00 Dose: 500 mls/hr Potassium Chloride 40 meq/ (Premix) 100 mls @ 25 mls/hr IV Q4H [facility] Stop: 12/10/17 22:59 Last Admin: 12/10/17 21:38 Dose: Not Given Potassium Chloride 20 meq/ (Premix) 100 mls @ 50 mls/hr IV ONETIME ONE Stop: 12/10/17 21:59 Last Admin: 12/10/17 20:47 Dose: 50 mls/hr Potassium Chloride 20 meq/Lidocaine HCl 2 ml/ Sodium Chloride 112 mls @ 50 mls/ hr IV Q2H [facility] Last Admin: 12/10/17 23:10 Dose: Not Given Potassium Chloride 20 meq/Lidocaine HCl 2 ml/ Sodium Chloride 112 mls @ 56 mls/ hr IV ONETIME ONE Stop: 12/11/17 00:59 Last Admin: 12/10/17 23:02 Dose: 56 mls/hr Magnesium Sulfate 2 gm/ Premix 50 mls @ 25 mls/hr IV Q6H [facility] Stop: 12/11/17 23:59 Lidocaine HCl (Xylocaine-Mpf 1%) 2 ml INJECT Q2H [facility] Stop: 12/10/17 22:01 Last Admin: 12/10/17 23:03 Dose: 2 ml Ondansetron HCl (Zofran) 4 mg IVPUSH ONETIME ONE Stop: 12/10/17 17:04 Last Admin: 12/10/17 17:23 Dose: 4 mg *Q Meaningful Use (DIS) - VTE *Q VTE Criteria *Q: VTE Pharmacological Contraindications *Q: High INR Value - Stroke *Q Stroke Criteria *Q: - AMI *Q AMI Criteria *Q:
[2017-12-11] MEDS ORDERED: Warfarin 2.5 MG Tab PO SCH (13:00)
[2017-12-11 14:27] VITALS: BP 101/58
--- NOTE | 2017-12-12 09:52 | CR ---
Chest 1V Frontal INDICATION: sob COMPARISON: 04/29/2016 FINDINGS: AP portable chest. Cardiomegaly unchanged. Linear atelectasis right lung base. Small right pleural effusion. No signs of pulmonary edema.
== END 2017-12-11 14:34 | disposition home or self-care (01) | DRG 57 ==
LOC: JP.ED 15:45 → JP.ICU 17:55
PROVIDERS: ADMIT Hospitalist; ATTEND Hospitalist
DX: I69.398 Other sequelae of cerebral infarction (principal); N39.0 Urinary tract infection, site not specified; I69.954 Hemiplegia and hemiparesis following unspecified cerebrovascular disease affecting left non-dominant side; R56.9 Unspecified convulsions; B96.20 Unspecified Escherichia coli [E. coli] as the cause of diseases classified elsewhere; I69.998 Other sequelae following unspecified cerebrovascular disease; E86.0 Dehydration; N18.3 Chronic kidney disease, stage 3 (moderate); E83.42 Hypomagnesemia; I48.91 Unspecified atrial fibrillation; R47.81 Slurred speech; R29.0 Tetany; Z79.01 Long term (current) use of anticoagulants; Z86.718 Personal history of other venous thrombosis and embolism; Z85.038 Personal history of other malignant neoplasm of large intestine; Z98.84 Bariatric surgery status; H54.7 Unspecified visual loss; Z79.82 Long term (current) use of aspirin; Z88.1 Allergy status to other antibiotic agents; I67.9 Cerebrovascular disease, unspecified
CPT/HCPCS: 36415; 51798; 70450; 71045 ×2; 80053; 85025; 85610; 93005; 96361; 96374; 99285; A9270; J2405; J7040; 80048; 81001; 83735; 87086; 87088; 87186; J0696; J3475; J3480; J7030; J7050

== ENCOUNTER 2018-02-16 09:16 | Emergency (ER) | payer MEDICARE, BC ==
[2018-02-16] MEDS ORDERED: Ketorolac 30 MG/ML SDV IVPUSH ONE (10:26)
[2018-02-16] MEDS ORDERED: Lactated Ringers 1,000 ML IV ONE (10:27)
--- NOTE | 2018-02-16 10:33 | EDM.PDOC ---
ED HPI GENERAL MEDICAL PROBLEM - General Chief Complaint: Back Pain or Injury Stated Complaint: PAIN, MEDICAL Time Seen by Provider: 02/16/18 10:15 Source of Information: Reports: Patient, EMS, Old Records, RN History Limitations: Reports: No Limitations - History of Present Illness INITIAL COMMENTS - FREE TEXT/NARRATIVE: 67 yo female with a pHx of afib fell on Tuesday off her toilet and injured her low back. Has not been able to get around since. Finally her called EMS today who transported. Has been eating and drinking OK she says, but no BM since Tuesday so now has L sided abdominal pain as well. EMS gave some IV Fentanyl during transport with some relief. Believes she has taken all her meds as prescribed. Onset: Sudden Onset Date: 02/13/18 Duration: Day(s): Location: Reports: Abdomen (L sided), Back (low) Quality: Reports: Dull Severity: Moderate Improves with: Reports: Rest (back pain) Worsens with: Reports: Movement (back pain) Context: Reports: Trauma (fall on Tuesday) Associated Symptoms: Reports: Other (L sided abdominal pain, mild) Treatments MANAGER PRIVACY: Reports: Other Medication(s) (Fentanyl per EMS) Lower Back Pain Score (Numeric/FACES): 3 - Related Data Allergies Allergy/AdvReac Type Severity Reaction Status Date / Time amoxicillin Allergy Rash Verified 02/16/18 09:41 Home Meds: Home Meds Aspirin 325 mg PO DAILY 09/17/17 [History] Diltiazem HCl [Cardizem] 60 mg PO QID 09/17/17 [History] L.acidoph,Paracasei, B.lactis [Probiotic] 1 cap PO DAILY 09/17/17 [History] Loperamide [Imodium] 2 mg PO ASDIRECTED 09/17/17 [History] Omeprazole 20 mg PO DAILY 09/17/17 [History] Venlafaxine HCl [Venlafaxine ER] 75 mg PO DAILY 09/17/17 [History] atorvaSTATin Calcium [Atorvastatin Calcium] 20 mg PO BEDTIME 09/17/17 [History] Acetaminophen [Tylenol] 650 mg PO Q4H PRN #100 tablet 09/20/17 [Rx] Gabapentin [Neurontin] 1 tab PO BEDTIME 12/10/17 [History] Gabapentin [Neurontin] 2 tab PO ACBREAKFAST 12/10/17 [History] Warfarin Sodium 0.5 tab PO DAILY 12/10/17 [History] Cefdinir [Omnicef] 300 mg PO BID #6 cap 12/11/17 [Rx] Magnesium Oxide 400 mg PO BID #60 tablet 12/11/17 [Rx] levETIRAcetam [Keppra] 500 mg PO BID #60 tablet 12/11/17 [Rx] Metoprolol Tartrate 100 mg PO BID 02/16/18 [History] Nitrofurantoin Monohyd/M-Cryst [Macrobid 100 mg Capsule] 100 mg PO Q12H #10 capsule 02/16/18 [Rx] Pantoprazole [ProTONIX] 40 mg PO DAILY 02/16/18 [History] fentaNYL [Duragesic] 1 patch TD Q72H #3 patch 02/16/18 [Rx] Past Medical History HEENT History: Reports: Impaired Vision, Sinusitis Cardiovascular History: Reports: Afib, Blood Clots/VTE/DVT, 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) Other Cardiovascular History: Hx of SVT Genitourinary History: Reports: 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) Other Genitourinary History: elevated enzymes. 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: , 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) Other OB/BYN History: tipped uterus Musculoskeletal History: Reports: Neck Pain, Chronic, 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) Other Musculoskeletal History: tetony Neurological History: Reports: CVA, 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) Other Neuro History: [place] 08/27/17 Psychiatric History: Reports: Anxiety Hematologic History: Reports: Anticoagulation Therapy, 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) Other Hematologic History: electolyte imbalance, hypomagnesium Oncologic (Cancer) History: Reports: Colon Dermatologic History: Reports: 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) Other Dermatologic History: contact dermatitis - Infectious Disease History Infectious Disease History: Reports: Chicken Pox, Measles - Past Surgical History Cardiovascular Surgical History: Reports: Cardiac Ablation GI Surgical History: Reports: Bariatric Procedure, Small Bowel, 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 ) Other GI Surgeries/Procedures: Hx of colon CA. malabsorption disorder. short gut syndrome. g-tube placement Social & Family History - Tobacco Use Smoking Status *Q: Never Smoker Second Hand Smoke Exposure: No - Caffeine Use Caffeine Use: Reports: None - Alcohol Use Days Per Week of Alcohol Use: 0 - Recreational Drug Use Recreational Drug Use: No ED ROS GENERAL - Review of Systems Review Of Systems: See Below Constitutional: Reports: No Symptoms HEENT: Reports: No Symptoms Respiratory: Reports: No Symptoms Cardiovascular: Reports: No Symptoms GI/Abdominal: Reports: Abdominal Pain (L side), Constipation. Denies: Black Stool, Bloody Stool, Diarrhea, Hematemesis, Hematochezia, Melena, Nausea, Vomiting : Reports: No Symptoms Musculoskeletal: Reports: Back Pain (low) Skin: Reports: Bruising (L prox/lat thigh) Neurological: Reports: Other (Some residual left sided deficit since CVA) Psychiatric: Reports: No Symptoms ED EXAM,LOWER BACK PAIN/INJURY - Physical Exam Exam: See Below Exam Limited By: No Limitations General Appearance: Alert, WD/WN, No Apparent Distress Eye Exam: Bilateral Eye: Normal Inspection Ears: Normal External Exam, Normal Canal, Hearing Grossly Normal Nose: Normal Inspection, Normal Mucosa, No Blood Throat/Mouth: Normal Inspection, Normal Oropharynx, Normal Voice, No Airway Compromise, Other (dry lips) Head: Atraumatic, Normocephalic Neck: Normal Inspection, Supple, Non-Tender Respiratory/Chest: No Respiratory Distress, Lungs Clear, Normal Breath Sounds, No Accessory Muscle Use Cardiovascular: No Edema, Tachycardia, Irregularly Irregular GI/Abdominal: Normal Bowel Sounds, Soft, No Distention, Tender (L lateral abdomen tender with palpation, no rebound or guarding) Back Exam: Normal Inspection. No: CVA Tenderness (R), CVA Tenderness (L) Extremities: Normal Inspection, Normal Range of Motion, Non-Tender Neurological: Alert, Normal Mood/Affect, CN II-XII Intact, No Motor/Sensory Deficits, Oriented x 3 Psychiatric: Normal Affect, Normal Mood Skin Exam: Warm, Dry, Intact, Ecchymosis (L lateral hip/thigh area) Course - Vital Signs Text/Narrative:: Social service consult obtained. Last Recorded V/S: Last Vital Signs Temp 35.2 C 02/16/18 12:30 Pulse 97 02/16/18 12:30 Resp 14 02/16/18 12:30 BP 108/69 02/16/18 12:30 Pulse Ox 93 L 02/16/18 12:30 - Orders/Labs/Meds Orders: Active Orders 24 hr Category Date Time Status Cardiac Monitoring [RC] .As Directed Care 02/16/18 10:25 Active Consult to Salary Manager [CONS] Routine Cons 02/16/18 11:31 Active CULTURE URINE [RM] Stat Lab 02/16/18 12:09 Received UA W/MICROSCOPIC [URIN] Stat Lab 02/16/18 10:23 Ordered fentaNYL [Duragesic] Med 02/16/18 13:45 Ordered 12 mcg TRDERM Q72H Labs: Laboratory Tests 02/16/18 02/16/18 02/16/18 Range/Units 10:23 10:31 10:31 WBC 9.9 (4.5-11.0) K/uL RBC 4.32 (3.30-5.50) M/uL Hgb 11.9 L D (12.0-15.0) g/dL Hct 39.0 (36.0-48.0) % MCV 90 (80-98) fL MCH 28 (27-31) pg MCHC 31 L (32-36) % Plt Count 279 (150-400) K/uL PT (9.5-12.0) sec INR (0.80-1.20) Sodium 145 (140-148) mmol/L Potassium 4.4 (3.6-5.2) mmol/L Chloride 112 H (100-108) mmol/L Carbon Dioxide 25 (21-32) mmol/L Anion Gap 12.4 (5.0-14.0) mmol/L BUN 18 (7-18) mg/dL Creatinine 1.4 H (0.6-1.0) mg/dL Est Cr Clr Drug Dosing 31.37 mL/min Estimated GFR (MDRD) 37 L (>60) Glucose 100 (74-106) mg/dL Calcium 9.2 D (8.5-10.1) mg/dL C-Reactive Protein (0.0-0.3) mg/dL Urine Color Yellow Urine Appearance Cloudy Urine pH 5.0 (4.5-8.0) Ur Specific [place] 1.015 (1.008-1.030) Urine Protein Negative (NEGATIVE) mg/dL Urine Glucose (UA) Normal (NEGATIVE) mg/dL Urine Ketones Negative (NEGATIVE) mg/dL Urine Occult Blood Moderate (NEGATIVE) Urine Nitrite Negative (NEGATIVE) Urine Bilirubin Small (NEGATIVE) Urine Urobilinogen Normal (NORMAL) mg/dL Ur Leukocyte Esterase Moderate (NEGATIVE) Urine RBC 5-10 H (0-5) Urine WBC 10-20 H (0-5) Ur Epithelial Cells Rare Amorphous Sediment Not seen Urine Bacteria Many Urine Mucus Not seen 02/16/18 02/16/18 Range/Units 10:31 10:31 WBC (4.5-11.0) K/uL RBC (3.30-5.50) M/uL Hgb (12.0-15.0) g/dL Hct (36.0-48.0) % MCV (80-98) fL MCH (27-31) pg MCHC (32-36) % Plt Count (150-400) K/uL PT 36.2 H (9.5-12.0) sec INR 3.22 H (0.80-1.20) Sodium (140-148) mmol/L Potassium (3.6-5.2) mmol/L Chloride (100-108) mmol/L Carbon Dioxide (21-32) mmol/L Anion Gap (5.0-14.0) mmol/L BUN (7-18) mg/dL Creatinine (0.6-1.0) mg/dL Est Cr Clr Drug Dosing mL/min Estimated GFR (MDRD) (>60) Glucose (74-106) mg/dL Calcium (8.5-10.1) mg/dL C-Reactive Protein 1.41 H (0.0-0.3) mg/dL Urine Color Urine Appearance Urine pH (4.5-8.0) Ur Specific [place] (1.008-1.030) Urine Protein (NEGATIVE) mg/dL Urine Glucose (UA) (NEGATIVE) mg/dL Urine Ketones (NEGATIVE) mg/dL Urine Occult Blood (NEGATIVE) Urine Nitrite (NEGATIVE) Urine Bilirubin (NEGATIVE) Urine Urobilinogen (NORMAL) mg/dL Ur Leukocyte Esterase (NEGATIVE) Urine RBC (0-5) Urine WBC (0-5) Ur Epithelial Cells Amorphous Sediment Urine Bacteria Urine Mucus Meds: Medications Discontinued Medications Generic Name Dose Route Start Last Admin Trade Name Freq PRN Reason Stop Dose Admin Bisacodyl 10 mg 02/16/18 11:11 02/16/18 11:37 Dulcolax RECTAL 02/16/18 11:12 10 mg ONETIME ONE Administration Diltiazem HCl 60 mg 02/16/18 12:33 02/16/18 12:49 Cardizem Sr PO 02/16/18 12:34 Not Given ONETIME ONE Diltiazem HCl 60 mg 02/16/18 12:47 02/16/18 12:49 Cardizem PO 02/16/18 12:48 60 mg ONETIME ONE Administration Lactated Ringer's 1,000 mls @ 1,000 mls/hr 02/16/18 10:27 02/16/18 10:49 Ringers, Lactated IV 02/16/18 11:26 1,000 mls/hr BOLUS ONE Administration Ketorolac Tromethamine 15 mg 02/16/18 10:26 02/16/18 10:52 Toradol IVPUSH 02/16/18 10:27 15 mg ONETIME ONE Administration Nitrofurantoin Macrocrystals 100 mg 02/16/18 12:11 02/16/18 12:30 Macrobid PO 02/16/18 12:12 100 mg ONETIME ONE Administration Polyethylene Glycol 34 gm 02/16/18 11:11 02/16/18 11:33 Miralax PO 02/16/18 11:12 34 gm ONETIME ONE Administration - Radiology Interpretation Free Text/Narrative:: Lumbar spine X-ray-mild, subacute compression fx of L2 single view abdomen [id number] stool Departure - Departure Time of Disposition: 14:20 Disposition: Home, Self-Care 01 Clinical Impression: Cystitis, Bruising Compression fracture of L2 Qualifiers: Encounter type: initial encounter Fracture type: closed Qualified Code(s): S32.020A - Wedge compression fracture of second lumbar vertebra, initial encounter for closed fracture Constipation Qualifiers: Constipation type: slow transit constipation Qualified Code(s): K59.01 - Slow transit constipation - Discharge Information Prescriptions: fentaNYL [Duragesic] 1 patch TD Q72H #3 patch Nitrofurantoin Monohyd/M-Cryst [Macrobid 100 mg Capsule] 100 mg PO Q12H #10 capsule Referrals: PCP,None [Primary Care Provider] - Forms: ED Department Discharge - My Orders Last 24 Hours: My Active Orders 02/16/18 10:23 UA W/MICROSCOPIC [URIN] Stat 02/16/18 10:25 Cardiac Monitoring [RC] .As Directed 02/16/18 11:31 Consult to Salary Manager [CONS] Routine 02/16/18 12:09 CULTURE URINE [RM] Stat 02/16/18 13:45 fentaNYL [Duragesic] 12 mcg TRDERM Q72H - Assessment/Plan Last 24 Hours: My Active Orders 02/16/18 10:23 UA W/MICROSCOPIC [URIN] Stat 02/16/18 10:25 Cardiac Monitoring [RC] .As Directed 02/16/18 11:31 Consult to Salary Manager [CONS] Routine 02/16/18 12:09 CULTURE URINE [RM] Stat 02/16/18 13:45 fentaNYL [Duragesic] 12 mcg TRDERM Q72H
[2018-02-16] MEDS ORDERED: Bisacodyl 10 MG Supp RECTAL ONE (11:11)
[2018-02-16] MEDS ORDERED: Polyethylene Glycol 3350 Powder 17 GM Packet PO ONE (11:11)
--- NOTE | 2018-02-16 11:14 | CR ---
Lumbar Spine 2 or 3V CLINICAL HISTORY: Pain, fall FINDINGS: There is a mild superior compression deformity of the L2. This may be subacute. There is di sc space narrowing at L5-S1. There is some osteoarthritis in the lower lumbar facets. IMPRESSION: Mild compression fracture of L2 may be acute or subacute Mild degenerative disc changes and osteoarthropathy lower lumbar facets
--- NOTE | 2018-02-16 11:15 | CR ---
Abdomen 1V Flat CLINICAL HISTORY: Abdominal pain FINDINGS: The bowel gas pattern is nonobstructive. No abnormal masses are noted. There is moderate re tained stool in the right and transverse colon. Patient has had previous abdominal surgery. IMPRESSION: Nonacute intestinal gas pattern Previous abdominal surgery. Moderate fecal retention
[2018-02-16] MEDS ORDERED: Nitrofurantoin Monohydrate/Macrocrystalline 100 MG Cap PO ONE (12:11)
[2018-02-16] MEDS ORDERED: Diltiazem 60 MG Cap.SR PO ONE (12:33)
[2018-02-16] MEDS ORDERED: Diltiazem IR 30 MG Tab PO ONE (12:47)
[2018-02-16 12:55] VITALS: BP 108/69
[2018-02-16] MEDS ORDERED: fentaNYL 12 MCG/HR Transdermal Patch TRDERM SCH (13:45)
== END 2018-02-16 14:44 | disposition home or self-care (01) ==
LOC: JP.ED 09:16
DX: S32.020A Wedge compression fracture of second lumbar vertebra, initial encounter for closed fracture (principal); S70.02XA Contusion of left hip, initial encounter; S70.12XA Contusion of left thigh, initial encounter; N30.90 Cystitis, unspecified without hematuria; Z88.1 Allergy status to other antibiotic agents; Z79.82 Long term (current) use of aspirin; Z79.01 Long term (current) use of anticoagulants; Z79.899 Other long term (current) drug therapy; W19.XXXA Unspecified fall, initial encounter
CPT/HCPCS: 36415; 72100; 74018; 80048; 81001; 85027; 85610; 86140; 87086; 87088; 87186; 96361; 96374; 99284; A9270; J1885; J7120

== ENCOUNTER 2018-03-10 18:05 | Emergency (ER) | payer MEDICARE, BC ==
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
[2018-03-10 19:15] VITALS: BP 100/59
== END 2018-03-10 19:32 | disposition home or self-care (01) ==
LOC: JP.ED 18:05
DX: Z60.9 Problem related to social environment, unspecified (principal); Z88.1 Allergy status to other antibiotic agents; Z79.82 Long term (current) use of aspirin; Z79.899 Other long term (current) drug therapy; Z79.01 Long term (current) use of anticoagulants
CPT/HCPCS: 99285

== ENCOUNTER 2018-03-30 14:11 | Emergency (ER) | payer MEDICARE, BC ==
[2018-03-30 15:19] VITALS: BP 122/79
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
== END 2018-03-30 17:01 | disposition home or self-care (01) ==
LOC: JP.ED 14:11
DX: I49.9 Cardiac arrhythmia, unspecified (principal); I48.91 Unspecified atrial fibrillation; F41.9 Anxiety disorder, unspecified; Z79.01 Long term (current) use of anticoagulants; Z79.899 Other long term (current) drug therapy; Z79.82 Long term (current) use of aspirin; Z88.1 Allergy status to other antibiotic agents
CPT/HCPCS: 99283

== ENCOUNTER 2018-05-01 15:40 | Emergency (ER) | payer MEDICARE, BC ==
[2018-05-01 16:03] VITALS: BP 106/80
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
== END 2018-05-01 19:38 | disposition home or self-care (01) ==
LOC: JP.ED 15:40
DX: L53.9 Erythematous condition, unspecified (principal)
CPT/HCPCS: 99283

== ENCOUNTER 2019-06-12 17:19 | Observation (INO) | payer MEDICARE, MEDICAID ==
--- NOTE | 2019-06-12 18:27 | EDM.PDOC ---
ED HPI GENERAL MEDICAL PROBLEM - General Chief Complaint: General Stated Complaint: MEDICAL VIA [facility] Time Seen by Provider: 06/12/19 18:26 Source of Information: Reports: Patient History Limitations: Reports: No Limitations - History of Present Illness INITIAL COMMENTS - FREE TEXT/NARRATIVE: pt has been very fatiqued. She is not able to get out of bed and walk to the BR like she did in the past. She fell about 1 month ago and since that time she has been quite inactive. She has hd alot of neck pain. She has normally a good appitie but she is not eating. She has not eaten for 1.5 days. She is nauseated but is not vomiting,. She does not have abdomanal pain. Onset: Gradual, Other (pt has not been doing well at all for the past 2-3 days. ) Duration: Hour(s): Location: Reports: Other (pt has nausea. ) Associated Symptoms: Reports: Other (pt has nausea. ) Left Shoulder Pain Score (Numeric/FACES): 8 - Related Data Allergies Allergy/AdvReac Type Severity Reaction Status Date / Time amoxicillin Allergy Rash Verified 06/12/19 17:44 Home Meds: Home Meds Diltiazem HCl [Cardizem] 60 mg PO QID 09/17/17 [History] L.acidoph,Paracasei, B.lactis [Probiotic] 1 cap PO DAILY 09/17/17 [History] Loperamide [Imodium] 2 mg PO ASDIRECTED 09/17/17 [History] Venlafaxine HCl [Venlafaxine ER] 75 mg PO DAILY 09/17/17 [History] atorvaSTATin Calcium [Atorvastatin Calcium] 20 mg PO BEDTIME 09/17/17 [History] Acetaminophen [Tylenol] 650 mg PO Q4H PRN #100 tablet 09/20/17 [Rx] Gabapentin [Neurontin] 600 mg PO BEDTIME 12/10/17 [History] Warfarin Sodium 0.5 tab PO DAILY 12/10/17 [History] Magnesium Oxide 400 mg PO BID #60 tablet 12/11/17 [Rx] Pantoprazole [ProTONIX] 40 mg PO DAILY 02/16/18 [History] levETIRAcetam [Keppra] 750 mg PO BID 03/30/18 [History] Alendronate [Fosamax] 70 mg PO ASDIRECTED 06/12/19 [History] Aspirin 325 mg PO DAILY 06/12/19 [History] Cholecalciferol (Vitamin D3) [Vitamin D3] 2,000 unit PO DAILY 06/12/19 [History] Ferrous Sulfate [Slow Fe] 142 mg PO DAILY 06/12/19 [History] Fluticasone Propionate [Flonase] 16 gm NS ASDIRECTED PRN 06/12/19 [History] Ipratropium [Atrovent 0.06% Nasal [place]] 15 ml IN ASDIRECTED PRN 06/12/19 [ History] Pyridoxine HCl (Vitamin B6) [Vitamin B-6] 50 mg PO DAILY 06/12/19 [History] Past Medical History HEENT History: Reports: Impaired Vision, Sinusitis Cardiovascular History: Reports: Afib, Blood Clots/VTE/DVT, 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) Other Cardiovascular History: Hx of SVT Gastrointestinal History: Reports: GERD Genitourinary History: Reports: 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) Other Genitourinary History: elevated enzymes. Chronic kidney disease stage 3 [employer] DES[employer] History: Reports: , 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) Other [employer] History: tipped uterus Musculoskeletal History: Reports: Neck Pain, Chronic, 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) Other Musculoskeletal History: tetony Neurological History: Reports: CVA, 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) Other Neuro History: [place] 08/27/17 Psychiatric History: Reports: Anxiety Hematologic History: Reports: Anticoagulation Therapy, 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) Other Hematologic History: electolyte imbalance, hypomagnesium Oncologic (Cancer) History: Reports: Colon Dermatologic History: Reports: 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) Other Dermatologic History: contact dermatitis - Infectious Disease History Infectious Disease History: Reports: Chicken Pox, Measles - Past Surgical History Cardiovascular Surgical History: Reports: Cardiac Ablation GI Surgical History: Reports: Bariatric Procedure, Small Bowel, 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 ) Other GI Surgeries/Procedures: Hx of colon CA. malabsorption disorder. short gut syndrome. g-tube placement Social & Family History - Tobacco Use Smoking Status *Q: Never Smoker - Caffeine Use Caffeine Use: Reports: None - Recreational Drug Use Recreational Drug Use: No ED ROS GENERAL - Review of Systems Review Of Systems: See Below Constitutional: Reports: Decreased Appetite HEENT: Reports: No Symptoms Respiratory: Reports: No Symptoms Cardiovascular: Reports: No Symptoms Endocrine: Reports: No Symptoms GI/Abdominal: Reports: Nausea, Other (poor appetite. ) : Reports: No Symptoms Musculoskeletal: Reports: No Symptoms, Other ( increases weakness. She has a left hemiparesis. ) Neurological: Reports: No Symptoms ED EXAM, GENERAL - Physical Exam Exam: See Below Free Text/Narrative:: pt is a pale appearing pt who has not been eating and is much weaker in terms of her walking. Exam Limited By: No Limitations General Appearance: Alert, No Apparent Distress, Other (ppils are equal and reactive. ) Ears: Normal TMs Nose: Normal Inspection Throat/Mouth: Normal Inspection Head: Atraumatic Neck: Normal Inspection Respiratory/Chest: No Respiratory Distress Cardiovascular: Regular Rate, Rhythm GI/Abdominal: Soft, Non-Tender (Female) Exam: Other (pt was found to have a UTI but she does not have symptoms. ) Rectal (Female) Exam: Deferred, Other (pt had a normal stool yesterday. ) Back Exam: Normal Inspection Extremities: Normal Inspection Neurological: Alert, Oriented, Normal Cognition, Other ( left hemiparesis which is from her previos stroke. ) Psychiatric: Flat Affect Course - Vital Signs Last Recorded V/S: Last Vital Signs Temp 36.1 C 06/12/19 17:41 Pulse 92 06/12/19 21:15 Resp 16 06/12/19 20:19 BP 113/77 06/12/19 21:15 Pulse Ox 99 06/12/19 21:15 Orthostatic Blood Pressure [ 120/91 Standing] Orthostatic Blood Pressure [ 103/72 Sitting] Orthostatic Blood Pressure [ 108/65 Supine] - Orders/Labs/Meds Orders: Active Orders 24 hr Category Date Time Status EKG Documentation Completion [RC] ASDIRECTED Care 06/12/19 18:37 Active Orthostatic Vital Signs [RC] ASDIRECTED Care 06/12/19 18:36 Active CULTURE URINE [RM] Stat Lab 06/12/19 19:39 Received LEVETIRACETAM (KEPPRA), S Urgent Lab 06/12/19 21:25 Ordered Sodium Chloride 0.9% [Normal Saline] 1,000 ml Med 06/12/19 19:45 Active IV ASDIRECTED EKG 12 Lead [EK] Routine Ther 06/12/19 18:37 Ordered Medication Orders Sodium Chloride (Normal Saline) 1,000 mls @ 500 mls/hr IV ASDIRECTED LEONELA Last Admin: 06/12/19 20:12 Dose: 500 mls/hr Labs: Laboratory Tests 06/12/19 06/12/19 06/12/19 Range/Units 18:24 18:24 18:24 WBC 13.0 H (4.5-11.0) K/uL RBC 4.14 (3.30-5.50) M/uL Hgb 11.9 L (12.0-15.0) g/dL Hct 39.4 (36.0-48.0) % MCV 95 (80-98) fL MCH 29 (27-31) pg MCHC 30 L (32-36) % Plt Count 324 (150-400) K/uL Neut % (Auto) 79 H (36-66) % Lymph % (Auto) 14 L (24-44) % [place] % (Auto) 6 (2-6) % Eos % (Auto) 1 L (2-4) % Baso % (Auto) 0 (0-1) % PT (9.5-12.0) sec INR (0.80-1.20) Sodium 140 (140-148) mmol/L Potassium 4.8 (3.6-5.2) mmol/L Chloride 108 (100-108) mmol/L Carbon Dioxide 24 (21-32) mmol/L Anion Gap 8.3 (5.0-14.0) mmol/L BUN 19 H (7-18) mg/dL Creatinine 1.4 H (0.6-1.0) mg/dL Est Cr Clr Drug Dosing 28.21 mL/min Estimated GFR (MDRD) 37 L (>60) Glucose 106 (74-106) mg/dL Calcium 9.2 (8.5-10.1) mg/dL Magnesium (1.8-2.4) mg/dL Total Bilirubin 0.3 (0.2-1.0) mg/dL AST 20 (15-37) U/L ALT 23 (12-78) U/L Alkaline Phosphatase 143 H D (46-116) U/L C-Reactive Protein 4.16 H (0.0-0.3) mg/dL Total Protein 7.6 (6.4-8.2) g/dL Albumin 3.2 L (3.4-5.0) g/dL Globulin 4.4 H (2.3-3.5) g/dL Albumin/Globulin Ratio 0.7 L (1.2-2.2) Urine Color (YELLOW) Urine Appearance (CLEAR) Urine pH (5.0-8.0) Ur Specific [place] (1.008-1.030) Urine Protein (NEGATIVE) mg/dL Urine Glucose (UA) (NEGATIVE) mg/dL Urine Ketones (NEGATIVE) mg/dL Urine Occult Blood (NEGATIVE) Urine Nitrite (NEGATIVE) Urine Bilirubin (NEGATIVE) Urine Urobilinogen (0.2-1.0) EU/dL Ur Leukocyte Esterase (NEGATIVE) Urine RBC (0-5) Urine WBC (0-5) Ur Epithelial Cells Amorphous Sediment Urine Bacteria Urine Mucus 06/12/19 06/12/19 06/12/19 Range/Units 18:29 18:29 18:56 WBC (4.5-11.0) K/uL RBC (3.30-5.50) M/uL Hgb (12.0-15.0) g/dL Hct (36.0-48.0) % MCV (80-98) fL MCH (27-31) pg MCHC (32-36) % Plt Count (150-400) K/uL Neut % (Auto) (36-66) % Lymph % (Auto) (24-44) % [place] % (Auto) (2-6) % Eos % (Auto) (2-4) % Baso % (Auto) (0-1) % PT 22.7 H (9.5-12.0) sec INR 2.20 H (0.80-1.20) Sodium (140-148) mmol/L Potassium (3.6-5.2) mmol/L Chloride (100-108) mmol/L Carbon Dioxide (21-32) mmol/L Anion Gap (5.0-14.0) mmol/L BUN (7-18) mg/dL Creatinine (0.6-1.0) mg/dL Est Cr Clr Drug Dosing mL/min Estimated GFR (MDRD) (>60) Glucose (74-106) mg/dL Calcium (8.5-10.1) mg/dL Magnesium 2.0 D (1.8-2.4) mg/dL Total Bilirubin (0.2-1.0) mg/dL AST (15-37) U/L ALT (12-78) U/L Alkaline Phosphatase (46-116) U/L C-Reactive Protein (0.0-0.3) mg/dL Total Protein (6.4-8.2) g/dL Albumin (3.4-5.0) g/dL Globulin (2.3-3.5) g/dL Albumin/Globulin Ratio (1.2-2.2) Urine Color Yellow (YELLOW) Urine Appearance Cloudy A (CLEAR) Urine pH 5.5 (5.0-8.0) Ur Specific [place] 1.025 (1.008-1.030) Urine Protein Trace H (NEGATIVE) mg/dL Urine Glucose (UA) Normal (NEGATIVE) mg/dL Urine Ketones Negative (NEGATIVE) mg/dL Urine Occult Blood Moderate H (NEGATIVE) Urine Nitrite Positive H (NEGATIVE) Urine Bilirubin Negative (NEGATIVE) Urine Urobilinogen 0.2 (0.2-1.0) EU/dL Ur Leukocyte Esterase Small (NEGATIVE) Urine RBC 10-20 H (0-5) Urine WBC 5-10 H (0-5) Ur Epithelial Cells Few Amorphous Sediment Few Urine Bacteria Moderate Urine Mucus Not seen Meds: Medications Generic Name Dose Route Start Last Admin Trade Name Freq PRN Reason Stop Dose Admin Sodium Chloride 1,000 mls @ 500 mls/hr 06/12/19 19:45 06/12/19 20:12 Normal Saline IV 500 mls/hr ASDIRECTED LEONELA Administration Discontinued Medications Generic Name Dose Route Start Last Admin Trade Name Freq PRN Reason Stop Dose Admin Levofloxacin/Dextrose 500 mg/ 100 mls @ 100 mls/hr 06/12/19 19:31 06/12/19 20 :16 Premix IV 06/12/19 20:30 100 mls/hr ONETIME ONE Administration - Re-Assessments/Exams Free Text/Narrative Re-Assessment/Exam: 06/12/19 21:35 neck xrays revealed degenmerative disc disease, pt has a UTI. Her wbc is 13, 000. Departure - Departure Time of Disposition: 21:20 Disposition: Admitted As Inpatient 64 Condition: Fair Clinical Impression: UTI (urinary tract infection), Weakness, Anemia, Cerebral arteriosclerosis with history of previous cerebrovascular accident - Discharge Information Referrals: PCP,None [Primary Care Provider] - Forms: ED Department Discharge Care Plan Goals: admit to [facility]. - My Orders Last 24 Hours: My Active Orders 06/12/19 18:36 Orthostatic Vital Signs [RC] ASDIRECTED 06/12/19 18:37 EKG Documentation Completion [RC] ASDIRECTED EKG 12 Lead [EK] Routine 06/12/19 19:39 CULTURE URINE [RM] Stat 06/12/19 19:45 Sodium Chloride 0.9% [Normal Saline] 1,000 ml IV ASDIRECTED - Assessment/Plan Last 24 Hours: My Active Orders 06/12/19 18:36 Orthostatic Vital Signs [RC] ASDIRECTED 06/12/19 18:37 EKG Documentation Completion [RC] ASDIRECTED EKG 12 Lead [EK] Routine 06/12/19 19:39 CULTURE URINE [RM] Stat 06/12/19 19:45 Sodium Chloride 0.9% [Normal Saline] 1,000 ml IV ASDIRECTED
[2019-06-12] MEDS ORDERED: Levofloxacin/Dextrose 5%-Water 500 MG in Premix Bag 1 BAG IV ONE (19:31)
[2019-06-12] MEDS ORDERED: Sodium Chloride 0.9% 1,000 ML IV SCH (19:45)
--- NOTE | 2019-06-12 20:21 | CRLCR ---
INDICATION: Post cervical pain after fall TECHNIQUE: Cervical spine radiograph 8 views COMPARISON: None FINDINGS: Bone: No acute fractures or aggressive bone lesions are identified. The dens is partially obscured by the teeth and skullbase on the open mouth odontoid views. Alignment is normal. Severe diffuse osteopenia is noted. Disc: Severe degenerative disc narrowing is present at C5-6 and C6-7. Moderate facet osteoarthritis is present bilaterally in the mid and inferior cervical spine with severe facet osteoarthritis present at the left C4-5 level. The neural foramina are poorly profiled due to patient positioning and cannot be assessed. Soft tissue: Unremarkable. No radiopaque foreign bodies are seen. IMPRESSION: 1. No acute osseous injuries or abnormalities are noted given the above limitations. Dictated by Hieu Blount MD @ 06/12/2019 8:19:54 PM Dictated by: Hieu Blount MD @ 06/12/2019 20:20:02 (Electronically Signed)
--- NOTE | 2019-06-12 22:24 | PCM.HP.2 ---
H&P History of Present Illness - General Date of Service: 06/12/19 Admit Problem/Dx: Admission Diagnosis/Problem Admission Diagnosis/Problem Urinary tract infection Source of Information: Patient, EMS Notes Reviewed, Provider, RN History Limitations: Reports: No Limitations - History of Present Illness Initial Comments - Free Text/Narative: chief complaint: weakness this is a 68 year old female presents to ER via EMS for evaluation. She has had a stroke 2 years ago with total left sided paralysis. The past week she has been having falls, past two day unable to get out of bed, not eating, feels chilled, low pelvic pain and cramping with urination. dysuria. ER evaluation CBC WBC 13,000, heb 11.9 Chemistry cr 1.4, Urinalysis +WBC, Leukocytes, Nitrates Imaging of cervical spine negative for fractures Meds; IV fluids Normal Saline 1 liter, IV Levaquin 500mg plan to admit to hospital for further care and treatment. Onset of Symptoms: Reports: Gradual Duration of Symptoms: Reports: Day(s): Location: Reports: Generalized (weakness for past few days, unable to get out of bed, not eating for 1.5 days) Quality: Reports: Other (reports neck and shoulder pain from previous falls at home) Severity: Moderate Improves with: Reports: Rest Worsens with: Reports: Movement Associated Symptoms: Reports: Fever/Chills (feels chilled), Loss of Appetite ( not eating for the past 1.5 days), Nausea/Vomiting (nausea and low abdominal pain), Weakness (for the past few days) Left Shoulder Pain Score (Numeric/FACES): 8 - Related Data Allergies/Adverse Reactions: Allergies Allergy/AdvReac Type Severity Reaction Status Date / Time amoxicillin Allergy Rash Verified 06/12/19 17:44 Home Medications: Home Meds Diltiazem HCl [Cardizem] 60 mg PO QID 09/17/17 [History] L.acidoph,Paracasei, B.lactis [Probiotic] 1 cap PO DAILY 09/17/17 [History] Loperamide [Imodium] 2 mg PO ASDIRECTED 09/17/17 [History] Venlafaxine HCl [Venlafaxine ER] 75 mg PO DAILY 09/17/17 [History] atorvaSTATin Calcium [Atorvastatin Calcium] 20 mg PO BEDTIME 09/17/17 [History] Acetaminophen [Tylenol] 650 mg PO Q4H PRN #100 tablet 09/20/17 [Rx] Gabapentin [Neurontin] 600 mg PO BEDTIME 12/10/17 [History] Magnesium Oxide 400 mg PO BID #60 tablet 12/11/17 [Rx] Pantoprazole [ProTONIX] 40 mg PO DAILY 02/16/18 [History] levETIRAcetam [Keppra] 750 mg PO BID 03/30/18 [History] Acetaminophen with Codeine [Tylenol with Codeine #3 Tablet] 1 tab PO DAILY 06/12 [History] Alendronate [Fosamax] 70 mg PO ASDIRECTED 06/12/19 [History] Aspirin 325 mg PO DAILY 06/12/19 [History] Cholecalciferol (Vitamin D3) [Vitamin D3] 2,000 unit PO DAILY 06/12/19 [History] Ferrous Sulfate [Slow Fe] 142 mg PO DAILY 06/12/19 [History] Fluticasone Propionate [Flonase] 16 gm NS ASDIRECTED PRN 06/12/19 [History] Ipratropium [Atrovent 0.06% Nasal [place]] 15 ml IN ASDIRECTED PRN 06/12/19 [ History] Metoprolol Tartrate 100 mg PO DAILY 06/12/19 [History] Potassium Chloride 10 meq PO DAILY 06/12/19 [History] Pyridoxine HCl (Vitamin B6) [Vitamin B-6] 50 mg PO DAILY 06/12/19 [History] Warfarin [Coumadin] 1 mg PO DAILY 06/12/19 [History] Past Medical History HEENT History: Reports: Impaired Vision, Sinusitis Cardiovascular History: Reports: Afib, Blood Clots/VTE/DVT, 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) Other Cardiovascular History: Hx of SVT Gastrointestinal History: Reports: GERD Genitourinary History: Reports: 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) Other Genitourinary History: elevated enzymes. Chronic kidney disease stage 3 [employer] History: Reports: , 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) Other OB/BYN History: tipped uterus Musculoskeletal History: Reports: Neck Pain, Chronic, 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) Other Musculoskeletal History: tetony Neurological History: Reports: CVA, 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) Other Neuro History: [place] 08/27/17 Psychiatric History: Reports: Anxiety Hematologic History: Reports: Anticoagulation Therapy, 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) Other Hematologic History: electolyte imbalance, hypomagnesium Oncologic (Cancer) History: Reports: Colon Dermatologic History: Reports: 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) Other Dermatologic History: contact dermatitis - Infectious Disease History Infectious Disease History: Reports: Chicken Pox, Measles - Past Surgical History Cardiovascular Surgical History: Reports: Cardiac Ablation GI Surgical History: Reports: Bariatric Procedure, Small Bowel, 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 ) Other GI Surgeries/Procedures: Hx of colon CA. malabsorption disorder. short gut syndrome. 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 in [place], [place].) H&P Review of Systems - Review of Systems: Review Of Systems: See Below General: Reports: Chills, Malaise, Weakness, Fatigue, Decreased Appetite HEENT: Reports: Glasses, Other (gums are sore, teeth in poor condition) Pulmonary: Reports: No Symptoms Cardiovascular: Reports: No Symptoms Gastrointestinal: Reports: Abdominal Pain (painful urination), Decreased Appetite (has not eating for 1.5 days), Nausea Genitourinary: Reports: Dysuria, Pain Musculoskeletal: Reports: Neck Pain (from fall at home), Shoulder Pain (from fall at home), Other (left arm with contractures in splint, left foot with foot drop) Skin: Reports: No Symptoms, Bruising (left knee) Psychiatric: Reports: No Symptoms Neurological: Reports: Pre-Existing Deficit (left sided paralysis from CVA 2 years ago), Weakness Hematologic/Lymphatic: Reports: Easy Bleeding (coumadin therapy), Easy Bruising (coumadin therapy) Immunologic: Reports: No Symptoms Exam - Exam Exam: See Below - Vital Signs Vital Signs: Last Vital Signs Temp 36.1 C 06/12/19 17:41 Pulse 92 06/12/19 21:15 Resp 16 06/12/19 20:19 BP 113/77 06/12/19 21:15 Pulse Ox 99 06/12/19 21:15 Orthostatic Blood Pressure [ 120/91 Standing] Orthostatic Blood Pressure [ 103/72 Sitting] Orthostatic Blood Pressure [ 108/65 Supine] Weight: 68.492 kg - Exam Quality Assessment: DVT Prophylaxis General: Alert, Oriented, Cooperative HEENT: PERRLA, EOMI, Hearing Intact, Glasses, Other (mouth is dry, teeth in poor condition) Neck: Supple, Trachea Midline Lungs: Clear to Auscultation, Normal Respiratory Effort Cardiovascular: Regular Rate, Regular Rhythm, Normal S1, Normal S2 GI/Abdominal Exam: Normal Bowel Sounds, Soft, Non-Tender, No Distention (Female) Exam: Normal External Exam Rectal (Female) Exam: Deferred Back Exam: Normal Inspection Extremities: Limited Range of Motion (left arm and left leg with contractures, left arm and hand in splint. left foot has foot drop) Skin: Warm, Dry, Intact Neurological: Normal Speech, Hyperreflexia (left foot), Reflexes Unequal (due to CVA 2 years ago.) Neuro Extensive - Mental Status: Alert, Oriented x3, Normal Mood/Affect, Normal Cognition, Memory Intact Neuro Extensive - Motor, Sensory, Reflexes: Motor/Sensory Deficits Psychiatric: Alert, Normal Affect, Normal Mood - Patient Data Lab Results Last 24 hrs: Laboratory Results - last 24 hr 06/12/19 06/12/19 06/12/19 Range/Units 18:24 18:24 18:24 WBC 13.0 H (4.5-11.0) K/uL RBC 4.14 (3.30-5.50) M/uL Hgb 11.9 L (12.0-15.0) g/dL Hct 39.4 (36.0-48.0) % MCV 95 (80-98) fL MCH 29 (27-31) pg MCHC 30 L (32-36) % Plt Count 324 (150-400) K/uL Neut % (Auto) 79 H (36-66) % Lymph % (Auto) 14 L (24-44) % [place] % (Auto) 6 (2-6) % Eos % (Auto) 1 L (2-4) % Baso % (Auto) 0 (0-1) % PT (9.5-12.0) sec INR (0.80-1.20) Sodium 140 (140-148) mmol/L Potassium 4.8 (3.6-5.2) mmol/L Chloride 108 (100-108) mmol/L Carbon Dioxide 24 (21-32) mmol/L Anion Gap 8.3 (5.0-14.0) mmol/L BUN 19 H (7-18) mg/dL Creatinine 1.4 H (0.6-1.0) mg/dL Est Cr Clr Drug Dosing 28.21 mL/min Estimated GFR (MDRD) 37 L (>60) Glucose 106 (74-106) mg/dL Calcium 9.2 (8.5-10.1) mg/dL Magnesium (1.8-2.4) mg/dL Total Bilirubin 0.3 (0.2-1.0) mg/dL AST 20 (15-37) U/L ALT 23 (12-78) U/L Alkaline Phosphatase 143 H D (46-116) U/L C-Reactive Protein 4.16 H (0.0-0.3) mg/dL Total Protein 7.6 (6.4-8.2) g/dL Albumin 3.2 L (3.4-5.0) g/dL Globulin 4.4 H (2.3-3.5) g/dL Albumin/Globulin Ratio 0.7 L (1.2-2.2) Urine Color (YELLOW) Urine Appearance (CLEAR) Urine pH (5.0-8.0) Ur Specific [place] (1.008-1.030) Urine Protein (NEGATIVE) mg/dL Urine Glucose (UA) (NEGATIVE) mg/dL Urine Ketones (NEGATIVE) mg/dL Urine Occult Blood (NEGATIVE) Urine Nitrite (NEGATIVE) Urine Bilirubin (NEGATIVE) Urine Urobilinogen (0.2-1.0) EU/dL Ur Leukocyte Esterase (NEGATIVE) Urine RBC (0-5) Urine WBC (0-5) Ur Epithelial Cells Amorphous Sediment Urine Bacteria Urine Mucus 06/12/19 06/12/19 06/12/19 Range/Units 18:29 18:29 18:56 WBC (4.5-11.0) K/uL RBC (3.30-5.50) M/uL Hgb (12.0-15.0) g/dL Hct (36.0-48.0) % MCV (80-98) fL MCH (27-31) pg MCHC (32-36) % Plt Count (150-400) K/uL Neut % (Auto) (36-66) % Lymph % (Auto) (24-44) % [place] % (Auto) (2-6) % Eos % (Auto) (2-4) % Baso % (Auto) (0-1) % PT 22.7 H (9.5-12.0) sec INR 2.20 H (0.80-1.20) Sodium (140-148) mmol/L Potassium (3.6-5.2) mmol/L Chloride (100-108) mmol/L Carbon Dioxide (21-32) mmol/L Anion Gap (5.0-14.0) mmol/L BUN (7-18) mg/dL Creatinine (0.6-1.0) mg/dL Est Cr Clr Drug Dosing mL/min Estimated GFR (MDRD) (>60) Glucose (74-106) mg/dL Calcium (8.5-10.1) mg/dL Magnesium 2.0 D (1.8-2.4) mg/dL Total Bilirubin (0.2-1.0) mg/dL AST (15-37) U/L ALT (12-78) U/L Alkaline Phosphatase (46-116) U/L C-Reactive Protein (0.0-0.3) mg/dL Total Protein (6.4-8.2) g/dL Albumin (3.4-5.0) g/dL Globulin (2.3-3.5) g/dL Albumin/Globulin Ratio (1.2-2.2) Urine Color Yellow (YELLOW) Urine Appearance Cloudy A (CLEAR) Urine pH 5.5 (5.0-8.0) Ur Specific [place] 1.025 (1.008-1.030) Urine Protein Trace H (NEGATIVE) mg/dL Urine Glucose (UA) Normal (NEGATIVE) mg/dL Urine Ketones Negative (NEGATIVE) mg/dL Urine Occult Blood Moderate H (NEGATIVE) Urine Nitrite Positive H (NEGATIVE) Urine Bilirubin Negative (NEGATIVE) Urine Urobilinogen 0.2 (0.2-1.0) EU/dL Ur Leukocyte Esterase Small (NEGATIVE) Urine RBC 10-20 H (0-5) Urine WBC 5-10 H (0-5) Ur Epithelial Cells Few Amorphous Sediment Few Urine Bacteria Moderate Urine Mucus Not seen Result Diagrams: 06/12/19 18:24 06/12/19 18:24 - Problem List (1) UTI (urinary tract infection) SNOMED Code(s): 53990411 ICD Code: N39.0 - URINARY TRACT INFECTION, SITE NOT SPECIFIED Status: Acute Priority: High Current Visit: Yes Qualifiers: Urinary tract infection type: acute cystitis Hematuria presence: with hematuria Qualified Code(s): N30.01 - Acute cystitis with hematuria (2) Cerebrovascular accident (CVA) with left hemiparesis SNOMED Code(s): 165834244, 052578770 ICD Code: [id number] - Status: Chronic Priority: Low Current Visit: Yes (3) Arrhythmia SNOMED Code(s): 879011868 ICD Code: I49.9 - CARDIAC ARRHYTHMIA, UNSPECIFIED Status: Chronic Priority: Low Current Visit: Yes Qualifiers: Atrial fibrillation type: chronic (4) Chronic kidney disease (CKD), stage III (moderate) SNOMED Code(s): 523180617 ICD Code: N18.3 - CHRONIC KIDNEY DISEASE, STAGE 3 (MODERATE) Status: Chronic Priority: Low Current Visit: Yes (5) Anticoagulated with warfarin SNOMED Code(s): 04002632 ICD Code: Z51.81 - ENCOUNTER FOR THERAPEUTIC DRUG LEVEL MONITORING; Z79.01 - COUNTER INTELLIGENCE AGENT (CURRENT) USE OF ANTICOAGULANTS Status: Chronic Priority: Medium Current Visit: Yes Problem List Initiated/Reviewed/Updated: Yes Orders Last 24hrs: Active Orders 24 hr Category Date Time Status Patient Status Manage Transfer [TRANSFER] Routine ADT 06/12/19 21:33 Active EKG Documentation Completion [RC] ASDIRECTED Care 06/12/19 18:37 Active Orthostatic Vital Signs [RC] ASDIRECTED Care 06/12/19 18:36 Active CULTURE URINE [RM] Stat Lab 06/12/19 19:39 Received LEVETIRACETAM (KEPPRA), S Urgent Lab 06/12/19 21:25 Ordered Sodium Chloride 0.9% [Normal Saline] 1,000 ml Med 06/12/19 19:45 Active IV ASDIRECTED Resuscitation Status Routine Resus Stat 06/12/19 21:47 Ordered EKG 12 Lead [EK] Routine Ther 06/12/19 18:37 Ordered Medication Orders Sodium Chloride (Normal Saline) 1,000 mls @ 500 mls/hr IV ASDIRECTED LEONELA Last Admin: 06/12/19 20:12 Dose: 500 mls/hr Assessment/Plan Comment:: ASSESSMENT AND PLAN - chief complaint: weakness This is a 68 year old female presents to ER via EMS for evaluation. She has had a stroke 2 years ago with total left sided paralysis. The past week she has been having falls, past two day unable to get out of bed, not eating, feels chilled, low pelvic pain and cramping with urination. dysuria. ER evaluation CBC WBC 13,000, hgb 11.9 Chemistry cr 1.4, Urinalysis +WBC, Leukocytes, Nitrates Imaging of cervical spine negative for fractures Meds; IV fluids Normal Saline 1 liter, IV Levaquin 500mg plan to admit to hospital for further care and treatment. URINARY TRACT INFECTION -IV Levaquin 500mg daily -IV fluids Normal Saline 125ml/hr -urine culture pending -am labs: CBC, BMP ANTICOAGULATE WITH COUMADIN FOR A-FIB, hx of cardiac ablation -continue home medications -Coumadin 1mg as directed -daily INR, PT HX OF BARIATRIC SURGERY STATUS -soft diet -IV Protonix 20 mg daily HX CVA WITH LEFT HEMIPARESIS -continue home medications -soft diet -assist of 1 to 2 staff to transfer from bed to chair -high risk for fall -Pressure reduction mattress -left arm splint on during the day, can be off for bedtime -consult to OT -consult to PT Chronic Kidney Disease -Cr 1.4 GFR 37 -monitor I & O Maintenance issues - - DVT prophylaxis - Coumadin - GI prophylaxis - PPI - Nutrition - soft diet - [place] catheter - not indicated CODE STATUS - DNR/DNI Admission justification - This patient will be admitted for inpatient services and is medically appropriate meeting medical necessity for inpatient admission as outlined in my documentation. I reasonably expect the patient will require inpatient services that span a period time over 2 midnights. I reasonably expect this patient to be discharged or transferred within 96 hours after admission to the [facility]. Disposition - anticipate discharge home after the hospital stay Primary care physician - Hospitalist: Dax Pennington M.D. - Mortality Measure Prognosis:: Good
[2019-06-12] MEDS ORDERED: LORazepam 2 MG/ML SDV IV PRN (22:51)
[2019-06-12] MEDS ORDERED: Loperamide 2 MG Cap PO SCH (22:51)
[2019-06-12] MEDS ORDERED: Morphine 2 MG/ML Syringe IVPUSH PRN (22:51)
[2019-06-12] MEDS ORDERED: Ondansetron 4 MG/2 ML SDV IV PRN (22:51)
[2019-06-12] MEDS ORDERED: Melatonin 3 MG Tab PO PRN (22:51)
[2019-06-12] MEDS ORDERED: Metoprolol Tartrate 50 MG Tab PO SCH (22:51)
[2019-06-12] MEDS ORDERED: Albuterol 0.083% 2.5 MG/3 ML Neb Soln NEB PRN (22:51)
[2019-06-12] MEDS ORDERED: Acetaminophen 325 MG Tab PO PRN (22:51)
[2019-06-12] MEDS ORDERED: Ondansetron 4 MG Tab.DIS PO PRN (22:51)
[2019-06-12] MEDS: Acetaminophen/Codeine 300-30 MG Tab PO PRN (23:21)
[2019-06-12] MEDS: Sodium Chloride 0.9% 1,000 ML IV SCH (23:23)
[2019-06-12] MEDS: Gabapentin 300 MG Cap PO SCH (23:29)
[2019-06-12] MEDS: Magnesium Oxide 400 MG Tab PO SCH (23:29)
[2019-06-12] MEDS: levETIRAcetam 250 MG Tab PO SCH (23:30)
[2019-06-12] MEDS: Diltiazem IR 30 MG Tab PO SCH (23:30)
[2019-06-13] MEDS: Diltiazem IR 30 MG Tab PO SCH ×2 (06:15→11:11)
[2019-06-13] MEDS: Sodium Chloride 0.9% 1,000 ML IV SCH ×3 (07:05→23:16)
[2019-06-13] MEDS ORDERED: Pantoprazole 40 MG Vial IVPUSH SCH (09:00)
[2019-06-13] MEDS ORDERED: Metoprolol Tartrate 50 MG Tab PO SCH (09:00)
[2019-06-13] MEDS: Vitamin B6-pyridOXINE 50 MG Tab PO SCH (09:24)
[2019-06-13] MEDS: Lactobacillus Rhamnosus GG (Probiotic) Cap PO SCH (09:24)
[2019-06-13] MEDS: Venlafaxine 75 MG Cap.ER PO SCH (09:24)
[2019-06-13] MEDS: Magnesium Oxide 400 MG Tab PO SCH ×2 (09:28→21:24)
[2019-06-13] MEDS: levETIRAcetam 250 MG Tab PO SCH ×2 (09:29→21:24)
[2019-06-13] MEDS: Potassium Chloride 10 MEQ Cap.ER PO SCH (09:29)
[2019-06-13] MEDS: Pantoprazole 40 MG Tab.CR PO SCH (09:43)
--- NOTE | 2019-06-13 12:10 | PCM.PN ---
- General Info Date of Service: 06/13/19 Subjective Update: No acute events overnight following admission. Patient is feeling better with IV fluids. No complaints of abdominal pain or nausea. Very weak and requires the assist of at least 1. Culture is pending. Vital signs have been stable other than borderline low blood pressures. Functional Status: Reports: Pain Controlled, Tolerating Diet - Review of Systems General: Reports: Weakness. Denies: Fever Gastrointestinal: Denies: Abdominal Pain - Patient Data Vitals - Most Recent: Last Vital Signs Temp 35.9 C 06/13/19 10:50 Pulse 70 06/13/19 10:50 Resp 18 06/13/19 10:50 BP 101/62 06/13/19 10:50 Pulse Ox 98 06/13/19 10:50 Orthostatic Blood Pressure [ 120/91 Standing] Orthostatic Blood Pressure [ 103/72 Sitting] Orthostatic Blood Pressure [ 108/65 Supine] Weight - Most Recent: 68.492 kg I&O - Last 24 Hours: Intake & Output 06/12/19 06/13/19 06/13/19 22:59 06:59 14:59 Intake Total 899 1121 Output Total 200 Balance 899 921 Lab Results Last 24 Hours: Laboratory Results - last 24 hr 06/12/19 06/12/19 06/12/19 Range/Units 18:24 18:24 18:24 WBC 13.0 H (4.5-11.0) K/uL RBC 4.14 (3.30-5.50) M/uL Hgb 11.9 L (12.0-15.0) g/dL Hct 39.4 (36.0-48.0) % MCV 95 (80-98) fL MCH 29 (27-31) pg MCHC 30 L (32-36) % Plt Count 324 (150-400) K/uL Neut % (Auto) 79 H (36-66) % Lymph % (Auto) 14 L (24-44) % Rogers % (Auto) 6 (2-6) % Eos % (Auto) 1 L (2-4) % Baso % (Auto) 0 (0-1) % PT (9.5-12.0) sec INR (0.80-1.20) Sodium 140 (140-148) mmol/L Potassium 4.8 (3.6-5.2) mmol/L Chloride 108 (100-108) mmol/L Carbon Dioxide 24 (21-32) mmol/L Anion Gap 8.3 (5.0-14.0) mmol/L BUN 19 H (7-18) mg/dL Creatinine 1.4 H (0.6-1.0) mg/dL Est Cr Clr Drug Dosing 28.21 mL/min Estimated GFR (MDRD) 37 L (>60) Glucose 106 (74-106) mg/dL Calcium 9.2 (8.5-10.1) mg/dL Magnesium (1.8-2.4) mg/dL Total Bilirubin 0.3 (0.2-1.0) mg/dL AST 20 (15-37) U/L ALT 23 (12-78) U/L Alkaline Phosphatase 143 H D (46-116) U/L C-Reactive Protein 4.16 H (0.0-0.3) mg/dL Total Protein 7.6 (6.4-8.2) g/dL Albumin 3.2 L (3.4-5.0) g/dL Globulin 4.4 H (2.3-3.5) g/dL Albumin/Globulin Ratio 0.7 L (1.2-2.2) Urine Color (YELLOW) Urine Appearance (CLEAR) Urine pH (5.0-8.0) Ur Specific [place] (1.008-1.030) Urine Protein (NEGATIVE) mg/dL Urine Glucose (UA) (NEGATIVE) mg/dL Urine Ketones (NEGATIVE) mg/dL Urine Occult Blood (NEGATIVE) Urine Nitrite (NEGATIVE) Urine Bilirubin (NEGATIVE) Urine Urobilinogen (0.2-1.0) EU/dL Ur Leukocyte Esterase (NEGATIVE) Urine RBC (0-5) Urine WBC (0-5) Ur Epithelial Cells Amorphous Sediment Urine Bacteria Urine Mucus 06/12/19 06/12/19 06/12/19 Range/Units 18:29 18:29 18:56 WBC (4.5-11.0) K/uL RBC (3.30-5.50) M/uL Hgb (12.0-15.0) g/dL Hct (36.0-48.0) % MCV (80-98) fL MCH (27-31) pg MCHC (32-36) % Plt Count (150-400) K/uL Neut % (Auto) (36-66) % Lymph % (Auto) (24-44) % Rogers % (Auto) (2-6) % Eos % (Auto) (2-4) % Baso % (Auto) (0-1) % PT 22.7 H (9.5-12.0) sec INR 2.20 H (0.80-1.20) Sodium (140-148) mmol/L Potassium (3.6-5.2) mmol/L Chloride (100-108) mmol/L Carbon Dioxide (21-32) mmol/L Anion Gap (5.0-14.0) mmol/L BUN (7-18) mg/dL Creatinine (0.6-1.0) mg/dL Est Cr Clr Drug Dosing mL/min Estimated GFR (MDRD) (>60) Glucose (74-106) mg/dL Calcium (8.5-10.1) mg/dL Magnesium 2.0 D (1.8-2.4) mg/dL Total Bilirubin (0.2-1.0) mg/dL AST (15-37) U/L ALT (12-78) U/L Alkaline Phosphatase (46-116) U/L C-Reactive Protein (0.0-0.3) mg/dL Total Protein (6.4-8.2) g/dL Albumin (3.4-5.0) g/dL Globulin (2.3-3.5) g/dL Albumin/Globulin Ratio (1.2-2.2) Urine Color Yellow (YELLOW) Urine Appearance Cloudy A (CLEAR) Urine pH 5.5 (5.0-8.0) Ur Specific [place] 1.025 (1.008-1.030) Urine Protein Trace H (NEGATIVE) mg/dL Urine Glucose (UA) Normal (NEGATIVE) mg/dL Urine Ketones Negative (NEGATIVE) mg/dL Urine Occult Blood Moderate H (NEGATIVE) Urine Nitrite Positive H (NEGATIVE) Urine Bilirubin Negative (NEGATIVE) Urine Urobilinogen 0.2 (0.2-1.0) EU/dL Ur Leukocyte Esterase Small (NEGATIVE) Urine RBC 10-20 H (0-5) Urine WBC 5-10 H (0-5) Ur Epithelial Cells Few Amorphous Sediment Few Urine Bacteria Moderate Urine Mucus Not seen 06/13/19 06/13/19 Range/Units 04:30 04:30 WBC 10.3 (4.5-11.0) K/uL RBC 3.76 (3.30-5.50) M/uL Hgb 10.9 L (12.0-15.0) g/dL Hct 36.1 (36.0-48.0) % MCV 96 (80-98) fL MCH 29 (27-31) pg MCHC 30 L (32-36) % Plt Count 270 (150-400) K/uL Neut % (Auto) 63 (36-66) % Lymph % (Auto) 27 (24-44) % Rogers % (Auto) 9 H (2-6) % Eos % (Auto) 1 L (2-4) % Baso % (Auto) 0 (0-1) % PT (9.5-12.0) sec INR (0.80-1.20) Sodium 140 (140-148) mmol/L Potassium 4.0 (3.6-5.2) mmol/L Chloride 109 H (100-108) mmol/L Carbon Dioxide 21 (21-32) mmol/L Anion Gap 14.0 (5.0-14.0) mmol/L BUN 16 (7-18) mg/dL Creatinine 1.4 H (0.6-1.0) mg/dL Est Cr Clr Drug Dosing 28.21 mL/min Estimated GFR (MDRD) 37 L (>60) Glucose 97 (74-106) mg/dL Calcium 8.5 (8.5-10.1) mg/dL Magnesium (1.8-2.4) mg/dL Total Bilirubin (0.2-1.0) mg/dL AST (15-37) U/L ALT (12-78) U/L Alkaline Phosphatase (46-116) U/L C-Reactive Protein (0.0-0.3) mg/dL Total Protein (6.4-8.2) g/dL Albumin (3.4-5.0) g/dL Globulin (2.3-3.5) g/dL Albumin/Globulin Ratio (1.2-2.2) Urine Color (YELLOW) Urine Appearance (CLEAR) Urine pH (5.0-8.0) Ur Specific [place] (1.008-1.030) Urine Protein (NEGATIVE) mg/dL Urine Glucose (UA) (NEGATIVE) mg/dL Urine Ketones (NEGATIVE) mg/dL Urine Occult Blood (NEGATIVE) Urine Nitrite (NEGATIVE) Urine Bilirubin (NEGATIVE) Urine Urobilinogen (0.2-1.0) EU/dL Ur Leukocyte Esterase (NEGATIVE) Urine RBC (0-5) Urine WBC (0-5) Ur Epithelial Cells Amorphous Sediment Urine Bacteria Urine Mucus Med Orders - Current: Current Medications Acetaminophen (Tylenol) 650 mg PO Q4H PRN PRN Reason: Pain (Mild 1-3)/fever Acetaminophen/Codeine Phosphate (Tylenol With Codeine No.3 300mg/30mg) 1 tab PO Q4H PRN PRN Reason: Pain Last Admin: 06/12/19 23:21 Dose: 1 tab Albuterol (Proventil Neb Soln) 2.5 mg NEB Q4H PRN PRN Reason: Shortness Of Breath/wheezing Diltiazem HCl (Cardizem) 60 mg PO QID [facility] Last Admin: 06/13/19 11:11 Dose: Not Given Gabapentin (Neurontin) 600 mg PO BEDTIME [facility] Last Admin: 06/12/19 23:29 Dose: 600 mg Ceftriaxone Sodium 1 gm/ (Sodium Chloride) 50 mls @ 100 mls/hr IV Q24H [facility] Stop: 06/14/19 21:29 Sodium Chloride (Normal Saline) 1,000 mls @ 50 mls/hr IV ASDIRECTED [facility] Lactobacillus Rhamnosus (Culturelle) 1 cap PO DAILY [facility] Last Admin: 06/13/19 09:24 Dose: 1 cap Levetiracetam (Keppra) 750 mg PO BID [facility] Last Admin: 06/13/19 09:29 Dose: 750 mg Loperamide HCl (Imodium) 2 mg PO ASDIRECTED [facility] Lorazepam (Ativan) 1 mg IV Q6H PRN PRN Reason: Nausea/Vomiting Magnesium Oxide (Magnesium Oxide) 400 mg PO BID [facility] Last Admin: 06/13/19 09:28 Dose: 400 mg Melatonin (Melatonin) 6 mg PO BEDTIME PRN PRN Reason: Insomnia Morphine Sulfate (Morphine) 2 mg IVPUSH Q2H PRN PRN Reason: Pain (severe 7-10) Ondansetron HCl (Zofran Odt) 4 mg PO Q6H PRN PRN Reason: Nausea able to take PO Ondansetron HCl (Zofran) 4 mg IV Q4H PRN PRN Reason: Nausea/Vomiting Pantoprazole Sodium (Protonix) 40 mg PO ACBREAKFAST [facility] Last Admin: 06/13/19 09:43 Dose: 40 mg Potassium Chloride (Potassium Chloride) 10 meq PO DAILY [facility] Last Admin: 06/13/19 09:29 Dose: 10 meq Pyridoxine HCl (Vitamin B6-Pyridoxine) 50 mg PO DAILY [facility] Last Admin: 06/13/19 09:24 Dose: 50 mg Venlafaxine HCl (Effexor Xr) 75 mg PO DAILY [facility] Last Admin: 06/13/19 09:24 Dose: 75 mg Discontinued Medications Sodium Chloride (Normal Saline) 1,000 mls @ 500 mls/hr IV ASDIRECTED [facility] Last Admin: 06/12/19 20:12 Dose: 500 mls/hr Levofloxacin/Dextrose 500 mg/ (Premix) 100 mls @ 100 mls/hr IV ONETIME ONE Stop: 06/12/19 20:30 Last Admin: 06/12/19 20:16 Dose: 100 mls/hr Levofloxacin/Dextrose 250 mg/ (Premix) 50 mls @ 50 mls/hr IV Q24H [facility] Sodium Chloride (Normal Saline) 1,000 mls @ 125 mls/hr IV ASDIRECTED [facility] Last Admin: 06/13/19 07:05 Dose: 125 mls/hr Metoprolol Tartrate (Lopressor) 100 mg PO Q12H [facility] Last Admin: 06/12/19 23:30 Dose: 100 mg Metoprolol Tartrate (Lopressor) 100 mg PO Q12H [facility] Last Admin: 06/13/19 11:11 Dose: Not Given Pantoprazole Sodium (Protonix Iv) 40 mg IVPUSH DAILY [facility] Warfarin Sodium (Coumadin) 0 mg PO DAILY [facility] Last Admin: 06/13/19 11:11 Dose: Not Given - Exam Quality Assessment: No: Supplemental Oxygen General: Alert, Oriented, Cooperative, No Acute Distress Lungs: Normal Respiratory Effort GI/Abdominal Exam: Soft, No Distention Extremities: No Pedal Edema Psy/Mental Status: Alert, Normal Affect - Problem List Review Problem List Initiated/Reviewed/Updated: Yes - My Orders Last 24 Hours: My Active Orders 06/13/19 09:00 Pantoprazole [ProTONIX] 40 mg PO ACBREAKFAST 06/13/19 12:15 Sodium Chloride 0.9% [Normal Saline] 1,000 ml IV ASDIRECTED 06/13/19 13:00 Warfarin [Coumadin] 1 mg PO DAILY@1300 06/13/19 21:00 cefTRIAXone [Rocephin] 1 gm Sodium Chloride 0.9% [Normal Saline] 50 ml IV Q24H 06/14/19 05:00 BASIC METABOLIC PANEL,BMP [CHEM] Timed CBC W/O DIFF,HEMOGRAM [HEME] Timed (1) 06/14/19 13:00 Warfarin [Coumadin] 1.5 mg PO DAILY@1300 - Plan Plan:: ASSESSMENT AND PLAN - ACUTE CYSTITIS - no evidence for sepsis. Culture collected but pending. Clinically improving. -Ceftriaxone -Gentle IV fluids -Follow-up culture ANTICOAGULATE WITH COUMADIN FOR A-FIB, hx of cardiac ablation - no evidence for bleeding. -Continue rate control -Warfarin HX OF BARIATRIC SURGERY STATUS -soft diet HX CVA WITH LEFT HEMIPARESIS -continue home medications -soft diet -assist of 1 to 2 staff to transfer from bed to chair -high risk for fall -Pressure reduction mattress -left arm splint on during the day, can be off for bedtime -consult to OT -consult to PT Stage III chronic kidney disease - kidney function stable. -monitor I & O Maintenance issues - - DVT prophylaxis - Coumadin - GI prophylaxis - PPI - Nutrition - soft diet - Salvador catheter - not indicated CODE STATUS - DNR/DNI Admission justification - This patient will be referred to observation status for management of weakness secondary to a urinary tract infection. There is no evidence for sepsis. Dax Pennington M.D.
[2019-06-13] MEDS ORDERED: Levofloxacin/Dextrose 5%-Water 250 MG in Premix Bag 1 BAG IV SCH (19:30)
[2019-06-13] MEDS: cefTRIAXone 1 GM in Sodium Chloride 0.9% 50 ML IV SCH (21:19)
[2019-06-13] MEDS: Gabapentin 300 MG Cap PO SCH (21:24)
[2019-06-13] MEDS: Acetaminophen/Codeine 300-30 MG Tab PO PRN (22:59)
[2019-06-14] MEDS: Pantoprazole 40 MG Tab.CR PO SCH (08:17)
[2019-06-14] MEDS: Lactobacillus Rhamnosus GG (Probiotic) Cap PO SCH (08:18)
[2019-06-14] MEDS: levETIRAcetam 250 MG Tab PO SCH ×2 (08:19→21:01)
[2019-06-14] MEDS: Venlafaxine 75 MG Cap.ER PO SCH (08:19)
[2019-06-14] MEDS: Potassium Chloride 10 MEQ Cap.ER PO SCH (08:20)
[2019-06-14] MEDS: Vitamin B6-pyridOXINE 50 MG Tab PO SCH (08:20)
[2019-06-14] MEDS: Magnesium Oxide 400 MG Tab PO SCH ×2 (08:20→21:01)
--- NOTE | 2019-06-14 10:54 | PCM.PN ---
- General Info Date of Service: 06/14/19 Subjective Update: There were no acute events overnight. Patient has remained stable. Strength is a little better today. No fevers. No abdominal pain or nausea. Urine culture growing mixed eliana after one day. Patient is interested in subacute rehabilitation. - Review of Systems General: Denies: Fever - Patient Data Vitals - Most Recent: Last Vital Signs Temp 36.1 C 06/14/19 10:38 Pulse 105 H 06/14/19 10:38 Resp 18 06/14/19 10:38 BP 104/60 06/14/19 10:38 Pulse Ox 97 06/14/19 10:38 Orthostatic Blood Pressure [ 120/91 Standing] Orthostatic Blood Pressure [ 103/72 Sitting] Orthostatic Blood Pressure [ 108/65 Supine] Weight - Most Recent: 68.492 kg I&O - Last 24 Hours: Intake & Output 06/13/19 06/14/19 06/14/19 22:59 06:59 14:59 Intake Total 993 1004 320 Output Total 500 Balance 993 1004 -180 Lab Results Last 24 Hours: Laboratory Results - last 24 hr 06/14/19 06/14/19 Range/Units 05:00 05:00 WBC 9.0 (4.5-11.0) K/uL RBC 3.47 (3.30-5.50) M/uL Hgb 10.2 L (12.0-15.0) g/dL Hct 33.8 L (36.0-48.0) % MCV 97 (80-98) fL MCH 29 (27-31) pg MCHC 30 L (32-36) % Plt Count 190 (150-400) K/uL Sodium 143 (140-148) mmol/L Potassium 4.6 (3.6-5.2) mmol/L Chloride 115 H (100-108) mmol/L Carbon Dioxide 17 L (21-32) mmol/L Anion Gap 15.6 H (5.0-14.0) mmol/L BUN 16 (7-18) mg/dL Creatinine 1.2 H (0.6-1.0) mg/dL Est Cr Clr Drug Dosing 32.92 mL/min Estimated GFR (MDRD) 44 L (>60) Glucose 111 H (74-106) mg/dL Calcium 8.1 L (8.5-10.1) mg/dL Fausto Results Last 24 Hours: Microbiology 06/12/19 19:39 Urine Culture - Preliminary Urine, Bladder MIXED ELIANA DAY 1 Med Orders - Current: Current Medications Acetaminophen (Tylenol) 650 mg PO Q4H PRN PRN Reason: Pain (Mild 1-3)/fever Last Admin: 06/13/19 13:27 Dose: 650 mg Acetaminophen/Codeine Phosphate (Tylenol With Codeine No.3 300mg/30mg) 1 tab PO Q4H PRN PRN Reason: Pain Last Admin: 06/13/19 22:59 Dose: 1 tab Albuterol (Proventil Neb Soln) 2.5 mg NEB Q4H PRN PRN Reason: Shortness Of Breath/wheezing Diltiazem HCl (Cardizem) 60 mg PO QID [facility] Last Admin: 06/13/19 11:11 Dose: Not Given Gabapentin (Neurontin) 600 mg PO BEDTIME [facility] Last Admin: 06/13/19 21:24 Dose: 600 mg Ceftriaxone Sodium 1 gm/ (Sodium Chloride) 50 mls @ 100 mls/hr IV Q24H [facility] Stop: 06/14/19 21:29 Last Admin: 06/13/19 21:19 Dose: 100 mls/hr Sodium Chloride (Normal Saline) 1,000 mls @ 50 mls/hr IV ASDIRECTED [facility] Last Admin: 06/13/19 23:16 Dose: 50 mls/hr Lactobacillus Rhamnosus (Culturelle) 1 cap PO DAILY [facility] Last Admin: 06/14/19 08:18 Dose: 1 cap Levetiracetam (Keppra) 750 mg PO BID [facility] Last Admin: 06/14/19 08:19 Dose: 750 mg Loperamide HCl (Imodium) 2 mg PO ASDIRECTED [facility] Lorazepam (Ativan) 1 mg IV Q6H PRN PRN Reason: Nausea/Vomiting Magnesium Oxide (Magnesium Oxide) 400 mg PO BID [facility] Last Admin: 06/14/19 08:20 Dose: 400 mg Melatonin (Melatonin) 6 mg PO BEDTIME PRN PRN Reason: Insomnia Morphine Sulfate (Morphine) 2 mg IVPUSH Q2H PRN PRN Reason: Pain (severe 7-10) Ondansetron HCl (Zofran Odt) 4 mg PO Q6H PRN PRN Reason: Nausea able to take PO Ondansetron HCl (Zofran) 4 mg IV Q4H PRN PRN Reason: Nausea/Vomiting Pantoprazole Sodium (Protonix) 40 mg PO ACBREAKFAST [facility] Last Admin: 06/14/19 08:17 Dose: 40 mg Potassium Chloride (Potassium Chloride) 10 meq PO DAILY [facility] Last Admin: 06/14/19 08:20 Dose: 10 meq Pyridoxine HCl (Vitamin B6-Pyridoxine) 50 mg PO DAILY [facility] Last Admin: 06/14/19 08:20 Dose: 50 mg Venlafaxine HCl (Effexor Xr) 75 mg PO DAILY [facility] Last Admin: 06/14/19 08:19 Dose: 75 mg Warfarin Sodium (Coumadin) 1.5 mg PO DAILY@1300 [facility] Discontinued Medications Sodium Chloride (Normal Saline) 1,000 mls @ 500 mls/hr IV ASDIRECTED [facility] Last Admin: 06/12/19 20:12 Dose: 500 mls/hr Levofloxacin/Dextrose 500 mg/ (Premix) 100 mls @ 100 mls/hr IV ONETIME ONE Stop: 06/12/19 20:30 Last Admin: 06/12/19 20:16 Dose: 100 mls/hr Levofloxacin/Dextrose 250 mg/ (Premix) 50 mls @ 50 mls/hr IV Q24H [facility] Sodium Chloride (Normal Saline) 1,000 mls @ 125 mls/hr IV ASDIRECTED [facility] Last Admin: 06/13/19 07:05 Dose: 125 mls/hr Metoprolol Tartrate (Lopressor) 100 mg PO Q12H [facility] Last Admin: 06/12/19 23:30 Dose: 100 mg Metoprolol Tartrate (Lopressor) 100 mg PO Q12H [facility] Last Admin: 06/13/19 11:11 Dose: Not Given Pantoprazole Sodium (Protonix Iv) 40 mg IVPUSH DAILY [facility] Warfarin Sodium (Coumadin) 0 mg PO DAILY [facility] Last Admin: 06/13/19 11:11 Dose: Not Given Warfarin Sodium (Coumadin) 1 mg PO DAILY@1300 [facility] Stop: 06/13/19 13:01 Last Admin: 06/13/19 13:27 Dose: 1 mg - Exam Quality Assessment: No: Supplemental Oxygen General: Alert, Oriented, Cooperative, No Acute Distress Lungs: Normal Respiratory Effort Cardiovascular: Regular Rate, Regular Rhythm GI/Abdominal Exam: Soft, No Distention Extremities: Other (Left arm swollen) Psy/Mental Status: Alert, Normal Affect - Problem List Review Problem List Initiated/Reviewed/Updated: Yes - My Orders Last 24 Hours: My Active Orders 06/13/19 12:15 Sodium Chloride 0.9% [Normal Saline] 1,000 ml IV ASDIRECTED 06/13/19 21:00 cefTRIAXone [Rocephin] 1 gm Sodium Chloride 0.9% [Normal Saline] 50 ml IV Q24H 06/14/19 10:53 Convert IV to Saline Lock [OM.PC] Routine 06/14/19 13:00 Warfarin [Coumadin] 1.5 mg PO DAILY@1300 06/15/19 05:00 BASIC METABOLIC PANEL,BMP [CHEM] Timed CBC W/O DIFF,HEMOGRAM [HEME] Timed (1) - Plan Plan:: ASSESSMENT AND PLAN - ACUTE CYSTITIS - no evidence for sepsis. Urine culture with mixed eliana so far. Clinically improving with management for infection. -Ceftriaxone -Saline lock IV -Follow-up culture ANTICOAGULATE WITH COUMADIN FOR A-FIB, hx of cardiac ablation - no bleeding. INR stable. -Continue rate control -Warfarin HX OF BARIATRIC SURGERY STATUS -soft diet HX CVA WITH LEFT HEMIPARESIS - patient is more weak than usual with this infection and would benefit from subacute rehabilitation. -continue home medications -soft diet -assist of 1 to 2 staff to transfer from bed to chair -high risk for fall -Pressure reduction mattress -left arm splint on during the day, can be off for bedtime -consult to OT -consult to PT Stage III chronic kidney disease - kidney function stable. -monitor I & O Maintenance issues - - DVT prophylaxis - Coumadin - GI prophylaxis - PPI - Nutrition - soft diet Admission justification - This patient will be referred to observation status for management of weakness secondary to a urinary tract infection. There is no evidence for sepsis. Disposition - patient is interested in subacute rehabilitation after the hospital stay with increased weakness from baseline. Dax Pennington M.D.
[2019-06-14] MEDS: Diltiazem IR 30 MG Tab PO SCH ×2 (16:06→21:00)
[2019-06-14] MEDS ORDERED: Magnesium Hydroxide 400 MG/5 ML Susp 30 ML Cup PO PRN (19:38)
[2019-06-14] MEDS: cefTRIAXone 1 GM in Sodium Chloride 0.9% 50 ML IV SCH (20:52)
[2019-06-14] MEDS: Acetaminophen/Codeine 300-30 MG Tab PO PRN (21:00)
[2019-06-14] MEDS: Gabapentin 300 MG Cap PO SCH (21:01)
[2019-06-15] MEDS: Diltiazem IR 30 MG Tab PO SCH ×2 (06:16→10:14)
[2019-06-15 08:03] VITALS: BP 96/51
[2019-06-15] MEDS: Pantoprazole 40 MG Tab.CR PO SCH (08:24)
[2019-06-15] MEDS: Potassium Chloride 10 MEQ Cap.ER PO SCH (08:24)
[2019-06-15] MEDS: Venlafaxine 75 MG Cap.ER PO SCH (08:24)
[2019-06-15] MEDS: Vitamin B6-pyridOXINE 50 MG Tab PO SCH (08:24)
[2019-06-15] MEDS: Magnesium Oxide 400 MG Tab PO SCH (08:24)
[2019-06-15] MEDS: Lactobacillus Rhamnosus GG (Probiotic) Cap PO SCH (08:25)
[2019-06-15] MEDS: levETIRAcetam 250 MG Tab PO SCH (08:25)
--- NOTE | 2019-06-15 10:48 | PCM.DCSUM1 ---
Discharge Summary - Hospital Course Brief History: 68-year-old female with history of cerebral vascular disease and left hemiparesis after a stroke, stage III chronic kidney disease who presented with progressive weakness, falls and dysuria. Patient was admitted for management of acute cystitis complicated by generalized weakness. Diagnosis: Stroke: No - Discharge Data Discharge Date: 06/15/19 Discharge Disposition: DC/Tfer to SNF 03 Condition: Good - Discharge Diagnosis/Problem(s) (1) UTI (urinary tract infection) SNOMED Code(s): 69307529 ICD Code: N39.0 - URINARY TRACT INFECTION, SITE NOT SPECIFIED Status: Acute Priority: High Current Visit: Yes Qualifiers: Urinary tract infection type: acute cystitis Hematuria presence: without hematuria Qualified Code(s): N30.00 - Acute cystitis without hematuria (2) Weakness SNOMED Code(s): 22306325 ICD Code: R53.1 - WEAKNESS Status: Acute Current Visit: Yes (3) Cerebrovascular accident (CVA) with left hemiparesis SNOMED Code(s): 182472135, 280984145 ICD Code: TEZ7833 - Status: Chronic Priority: Low Current Visit: Yes (4) Chronic kidney disease (CKD), stage III (moderate) SNOMED Code(s): 778245288 ICD Code: N18.3 - CHRONIC KIDNEY DISEASE, STAGE 3 (MODERATE) Status: Chronic Priority: Low Current Visit: Yes (5) Anticoagulated with warfarin SNOMED Code(s): 77944769 ICD Code: Z51.81 - ENCOUNTER FOR THERAPEUTIC DRUG LEVEL MONITORING; Z79.01 - SENIOR [employer]LECT[employer]GER (CURRENT) USE OF ANTICOAGULANTS Status: Chronic Priority: Medium Current Visit: Yes (6) S/P ablation of atrial fibrillation SNOMED Code(s): 634147003, 002741244, 753577009 ICD Code: Z98.890 - OTHER SPECIFIED POSTPROCEDURAL STATES; Z86.79 - PERSONAL HISTORY OF OTHER DISEASES OF THE CIRCULATORY SYSTEM Status: Chronic Current Visit: No - Patient Summary/Data Consults: Consultations 06/12/19 22:51 OT Evaluation and Treatment [CONS] Routine Please Evaluate and Treat. OT Reason for Consult: Discharge Planning This query below is only for informational purposes and is not editable. Admission Diagnosis/Problem: Urinary tract infection PT Evaluation and Treatment [CONS] Routine Please Evaluate and Treat. PT Reason for Consult: Strengthening Special Instructions: hx CVA with left sided paralysis This query below is only for informational purposes and is not editable. Admission Diagnosis/Problem: Urinary tract infection Hospital Course: Boubacar presented to the emergency room with generalized weakness and recurrent and progressive falls as well as some dysuria. Workup in the emergency room was suggestive of acute cystitis with urine sample moderately suggestive of infection. She was very weak and not thought to be safe for outpatient management. She is admitted to the hospital for IV fluid hydration as well as antibiotic therapy and physical therapy. There is no evidence for sepsis. She was empirically started on levofloxacin in the emergency room. By the morning after admission she is feeling better but still very weak. I did elect to switch her antibiotics to ceftriaxone at this time to avoid potential medication interactions. She has made steady progress throughout the hospital stay but does remain a week beyond baseline. Her urine culture has grown out mixed eliana. With her symptoms present at the time of admission and improvement while on the antibiotics I suspect that she did have an infection but unfortunately we did not prove this with a urine culture. Have elected to provide additional antibiotic therapy with cephalexin for 3 more days. Kidney function has been stable. Vital signs have all been stable. She is safe for discharge at this time but would benefit from subacute rehabilitation before going home. - Patient Instructions Diet: Regular Diet as Tolerated Activity: As Tolerated Showering/Bathing: May Shower Notify Provider of: Fever, Increased Pain, Nausea and/or Vomiting Other/Special Instructions: 1. You were in the hospital for management of acute cystitis with generalized weakness. Your condition has been improving with antibiotic therapy and physical therapy. I do recommend ongoing antibiotic therapy with cefalexin (Keflex). Please take 500 mg twice daily for six doses. Your first dose is due tonight. Because of your weakness I recommend sub-acute rehab to improve your strength before returning home. 2. Referral to PT and OT - dx: generalized weakness, left hemiparesis. 3. Warfarin 1 mg on Tuesday and 1.5 mg the rest of the week. Please check INR next Tuesday. 4. Code status - DNR/DNI. 5. Seek medical attention if you develop fever greater than 101, severe abdominal pain, persistent vomiting, or severe diarrhea. - Discharge Plan *PRESCRIPTION DRUG MONITORING PROGRAM REVIEWED*: Not Applicable *COPY OF PRESCRIPTION DRUG MONITORING REPORT IN PATIENT SHADY: Not Applicable Prescriptions/Med Rec: Acetaminophen with Codeine [Tylenol with Codeine #3 Tablet] 1 tab PO BID PRN # 60 tablet PRN Reason: Pain (Moderate 4-6) cephALEXin [Cephalexin] 500 mg PO BID #6 capsule Warfarin [Coumadin] 1.5 mg PO ASDIRECTED #45 tablet Home Medications: Home Meds Diltiazem HCl [Cardizem] 60 mg PO QID 09/17/17 [History] L.acidoph,Paracasei, B.lactis [Probiotic] 1 cap PO DAILY 09/17/17 [History] Venlafaxine HCl [Venlafaxine ER] 75 mg PO DAILY 09/17/17 [History] atorvaSTATin Calcium [Atorvastatin Calcium] 20 mg PO BEDTIME 09/17/17 [History] Acetaminophen [Tylenol] 650 mg PO Q4H PRN #100 tablet 09/20/17 [Rx] Gabapentin [Neurontin] 600 mg PO BEDTIME 12/10/17 [History] Magnesium Oxide 400 mg PO BID #60 tablet 12/11/17 [Rx] Pantoprazole [ProTONIX] 40 mg PO DAILY 02/16/18 [History] levETIRAcetam [Keppra] 750 mg PO BID 03/30/18 [History] Aspirin 325 mg PO DAILY 06/12/19 [History] Cholecalciferol (Vitamin D3) [Vitamin D3] 2,000 unit PO DAILY 06/12/19 [History] Ferrous Sulfate [Slow Fe] 142 mg PO DAILY 06/12/19 [History] Fluticasone Propionate [Flonase] 16 gm NS ASDIRECTED PRN 06/12/19 [History] Ipratropium [Atrovent 0.06% Nasal [place]] 15 ml IN ASDIRECTED PRN 06/12/19 [ History] Potassium Chloride 10 meq PO DAILY 06/12/19 [History] Pyridoxine HCl (Vitamin B6) [Vitamin B-6] 50 mg PO DAILY 06/12/19 [History] Metoprolol Tartrate 12.5 mg PO BID 06/13/19 [History] Acetaminophen with Codeine [Tylenol with Codeine #3 Tablet] 1 tab PO BID PRN # 60 tablet 06/15/19 [Rx] Alendronate Sodium 70 mg PO WEEKLY 06/15/19 [History] Warfarin [Coumadin] 1 mg PO ASDIRECTED #0 06/15/19 [Rx] Warfarin [Coumadin] 1.5 mg PO ASDIRECTED #45 tablet 06/15/19 [Rx] cephALEXin [Cephalexin] 500 mg PO BID #6 capsule 06/15/19 [Rx] Oxygen Therapy Mode: Room Air Patient Handouts: Urinary Tract Infection, Adult, [id number] Referrals: Gabe Sanchez MD [Physician] - (f/u as needed ) - Discharge Summary/Plan Comment DC Time >30 min.: Yes (40 - new NH discharge ) - Patient Data Vitals - Most Recent: Last Vital Signs Temp 36.0 C 06/15/19 08:01 Pulse 69 06/15/19 08:01 Resp 16 06/15/19 08:01 BP 96/51 L 06/15/19 08:01 Pulse Ox 96 06/15/19 08:01 Orthostatic Blood Pressure [ 120/91 Standing] Orthostatic Blood Pressure [ 103/72 Sitting] Orthostatic Blood Pressure [ 108/65 Supine] Weight - Most Recent: 68.492 kg I&O - Last 24 hours: Intake & Output 06/14/19 06/15/19 06/15/19 22:59 06:59 14:59 Intake Total 920 240 Output Total 200 400 Balance 720 -160 Lab Results - Last 24 hrs: Laboratory Results - last 24 hr 06/15/19 06/15/19 Range/Units 05:00 05:00 WBC 9.0 (4.5-11.0) K/uL RBC 3.46 (3.30-5.50) M/uL Hgb 9.8 L (12.0-15.0) g/dL Hct 33.9 L (36.0-48.0) % MCV 98 (80-98) fL MCH 28 (27-31) pg MCHC 29 L (32-36) % Plt Count 241 (150-400) K/uL Sodium 144 (140-148) mmol/L Potassium 4.1 (3.6-5.2) mmol/L Chloride 114 H (100-108) mmol/L Carbon Dioxide 19 L (21-32) mmol/L Anion Gap 15.1 H (5.0-14.0) mmol/L BUN 14 (7-18) mg/dL Creatinine 1.1 H (0.6-1.0) mg/dL Est Cr Clr Drug Dosing 35.95 mL/min Estimated GFR (MDRD) 49 L (>60) Glucose 89 (74-106) mg/dL Calcium 8.3 L (8.5-10.1) mg/dL ECTOR Results - Last 24 hrs: Microbiology 06/12/19 19:39 Urine Culture - Final Urine, Bladder MIXED ELIANA DAY 2 Med Orders - Current: Current Medications Acetaminophen (Tylenol) 650 mg PO Q4H PRN PRN Reason: Pain (Mild 1-3)/fever Last Admin: 06/13/19 13:27 Dose: 650 mg Acetaminophen/Codeine Phosphate (Tylenol With Codeine No.3 300mg/30mg) 1 tab PO Q4H PRN PRN Reason: Pain Last Admin: 06/14/19 21:00 Dose: 1 tab Albuterol (Proventil Neb Soln) 2.5 mg NEB Q4H PRN PRN Reason: Shortness Of Breath/wheezing Diltiazem HCl (Cardizem) 60 mg PO QID [facility] Last Admin: 06/15/19 10:14 Dose: 60 mg Gabapentin (Neurontin) 600 mg PO BEDTIME [facility] Last Admin: 06/14/19 21:01 Dose: 600 mg Lactobacillus Rhamnosus (Culturelle) 1 cap PO DAILY [facility] Last Admin: 06/15/19 08:25 Dose: 1 cap Levetiracetam (Keppra) 750 mg PO BID [facility] Last Admin: 06/15/19 08:25 Dose: 750 mg Loperamide HCl (Imodium) 2 mg PO ASDIRECTED [facility] Lorazepam (Ativan) 1 mg IV Q6H PRN PRN Reason: Nausea/Vomiting Magnesium Hydroxide (Milk Of Magnesia) 30 ml PO BID PRN PRN Reason: Constipation Magnesium Oxide (Magnesium Oxide) 400 mg PO BID [facility] Last Admin: 06/15/19 08:24 Dose: 400 mg Melatonin (Melatonin) 6 mg PO BEDTIME PRN PRN Reason: Insomnia Morphine Sulfate (Morphine) 2 mg IVPUSH Q2H PRN PRN Reason: Pain (severe 7-10) Ondansetron HCl (Zofran Odt) 4 mg PO Q6H PRN PRN Reason: Nausea able to take PO Ondansetron HCl (Zofran) 4 mg IV Q4H PRN PRN Reason: Nausea/Vomiting Pantoprazole Sodium (Protonix) 40 mg PO ACBREAKFAST [facility] Last Admin: 06/15/19 08:24 Dose: 40 mg Potassium Chloride (Potassium Chloride) 10 meq PO DAILY [facility] Last Admin: 06/15/19 08:24 Dose: 10 meq Pyridoxine HCl (Vitamin B6-Pyridoxine) 50 mg PO DAILY [facility] Last Admin: 06/15/19 08:24 Dose: 50 mg Venlafaxine HCl (Effexor Xr) 75 mg PO DAILY [facility] Last Admin: 06/15/19 08:24 Dose: 75 mg Warfarin Sodium (Coumadin) 1.5 mg PO DAILY@1300 [facility] Last Admin: 06/14/19 13:07 Dose: 1.5 mg Discontinued Medications Sodium Chloride (Normal Saline) 1,000 mls @ 500 mls/hr IV ASDIRECTED [facility] Last Admin: 06/12/19 20:12 Dose: 500 mls/hr Levofloxacin/Dextrose 500 mg/ (Premix) 100 mls @ 100 mls/hr IV ONETIME ONE Stop: 06/12/19 20:30 Last Admin: 06/12/19 20:16 Dose: 100 mls/hr Levofloxacin/Dextrose 250 mg/ (Premix) 50 mls @ 50 mls/hr IV Q24H [facility] Sodium Chloride (Normal Saline) 1,000 mls @ 125 mls/hr IV ASDIRECTED [facility] Last Admin: 06/13/19 07:05 Dose: 125 mls/hr Ceftriaxone Sodium 1 gm/ (Sodium Chloride) 50 mls @ 100 mls/hr IV Q24H [facility] Stop: 06/14/19 21:29 Last Admin: 06/14/19 20:52 Dose: 100 mls/hr Sodium Chloride (Normal Saline) 1,000 mls @ 50 mls/hr IV ASDIRECTED [facility] Last Admin: 06/13/19 23:16 Dose: 50 mls/hr Metoprolol Tartrate (Lopressor) 100 mg PO Q12H [facility] Last Admin: 06/12/19 23:30 Dose: 100 mg Metoprolol Tartrate (Lopressor) 100 mg PO Q12H [facility] Last Admin: 06/13/19 11:11 Dose: Not Given Pantoprazole Sodium (Protonix Iv) 40 mg IVPUSH DAILY [facility] Warfarin Sodium (Coumadin) 0 mg PO DAILY [facility] Last Admin: 06/13/19 11:11 Dose: Not Given Warfarin Sodium (Coumadin) 1 mg PO DAILY@1300 [facility] Stop: 06/13/19 13:01 Last Admin: 06/13/19 13:27 Dose: 1 mg - Exam Quality Assessment: Denies: Supplemental Oxygen General: Reports: Alert, Oriented, Cooperative, No Acute Distress Lungs: Reports: Normal Respiratory Effort Cardiovascular: Reports: Regular Rate, Regular Rhythm GI/Abdominal Exam: Soft, No Distention Extremities: No Pedal Edema Neurological: Reports: No New Focal Deficit Psy/Mental Status: Reports: Alert, Normal Affect
== END 2019-06-15 13:40 ==
LOC: JP.ED 17:19 → UNDOADMIN 21:33 → JP.MS 21:33 → UNDODISIN 06-15 13:40
PROVIDERS: ADMIT Internal Medicine; ATTEND Internal Medicine
DX: N30.00 Acute cystitis without hematuria (principal); N18.3 Chronic kidney disease, stage 3 (moderate); I69.954 Hemiplegia and hemiparesis following unspecified cerebrovascular disease affecting left non-dominant side; R29.6 Repeated falls; Z88.0 Allergy status to penicillin; Z98.84 Bariatric surgery status; Z79.82 Long term (current) use of aspirin; Z79.01 Long term (current) use of anticoagulants; Z79.899 Other long term (current) drug therapy
CPT/HCPCS: 36415; 72050; 80048; 80053; 80177; 81001; 83735; 85025; 85027; 85610; 86140; 87086; 93005; 93010; 96365; 97110-GO; 97110-GP; 97116-GP; 97161-GP; 97165-GO; 97530-GP; 97760-GO; 99284-25; A9270-GY; J0696; J1956; J7030; J7050

== ENCOUNTER 2019-07-06 13:23 | Observation (INO) | payer MEDICARE, MEDICAID ==
[2019-07-06] MEDS ORDERED: Sodium Chloride 0.9% 10 ML Syringe FLUSH PRN ×2 (13:49→20:34)
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
--- NOTE | 2019-07-06 14:48 | CRLCR ---
INDICATION: lower grade fever possible atelectasis TECHNIQUE: Chest 1 view. COMPARISON: 06/12/19 FINDINGS: Cardiovascular and mediastinum: Heart size and vasculature are normal in caliber and appearance. Mediastinum is within normal limits. Lungs and pleural space: Lungs are clear. No sign of infiltrate or mass. No sign of pleural effusion. No pneumothorax. Bones and soft tissues: No significant findings. IMPRESSION: Unremarkable chest. Dictated by: Ezio Patten MD @ 07/06/2019 14:47:08 (Electronically Signed)
[2019-07-06] MEDS ORDERED: Magnesium Sulfate/Water 2 GM in Premix Bag 1 BAG IV SCH (15:00)
[2019-07-06] MEDS ORDERED: Potassium Chloride 20 MEQ Tab.ER PO ONE (15:01)
[2019-07-06] MEDS ORDERED: cefTRIAXone 1 GM in Sodium Chloride 0.9% 50 ML IV ONE (16:06)
[2019-07-06] MEDS ORDERED: Sodium Chloride 0.9% 1,000 ML IV SCH (16:15)
[2019-07-06] MEDS ORDERED: Metoprolol Succinate 25 MG Tab.ER PO ONE (17:19)
[2019-07-06] MEDS ORDERED: Diltiazem IR 30 MG Tab PO ONE (17:30)
[2019-07-06] MEDS: levETIRAcetam 250 MG Tab PO SCH ×2 (18:45→21:51)
--- NOTE | 2019-07-06 19:51 | PCM.HP.2 ---
H&P History of Present Illness - General Date of Service: 07/06/19 Admit Problem/Dx: Urinary Tract Infection Source of Information: Patient, EMS Notes Reviewed, Provider History Limitations: Reports: No Limitations - History of Present Illness Initial Comments - Free Text/Narative: Chief Complaint: needs help, not feeling well. This is a 68 year old disabled female from previous stroke with complete left hemiparesis. She reports she was [facility] until yesterday when she was discharged to home. She got home at 4 pm yesterday. This morning her left for the day and she was alone from 0830am to 1:30pm, when she called the ambulance to pick her up because she had as fever and didn't feel well. She has been in the ER and had IV fluids, IV Rocephin, and is eating and drinking. she reports she is feeling much better. But her is unable to take her home, she is too much care for him and he is 71 years old. Onset of Symptoms: Reports: Today Quality: Reports: Same as Previous Episode Improves with: Reports: None Worsens with: Reports: None Associated Symptoms: Reports: Fever/Chills, Loss of Appetite, Malaise, Weakness Left Feet Pain Score (Numeric/FACES): 5 - Related Data Allergies/Adverse Reactions: Allergies Allergy/AdvReac Type Severity Reaction Status Date / Time amoxicillin Allergy Rash Verified 06/12/19 17:44 Home Medications: Home Meds Diltiazem HCl [Cardizem] 60 mg PO QID 09/17/17 [History] L.acidoph,Paracasei, B.lactis [Probiotic] 1 cap PO DAILY 09/17/17 [History] Venlafaxine HCl [Venlafaxine ER] 75 mg PO DAILY 09/17/17 [History] atorvaSTATin Calcium [Atorvastatin Calcium] 20 mg PO BEDTIME 09/17/17 [History] Acetaminophen [Tylenol] 650 mg PO Q4H PRN #100 tablet 09/20/17 [Rx] Gabapentin [Neurontin] 600 mg PO BEDTIME 12/10/17 [History] Magnesium Oxide 400 mg PO BID #60 tablet 12/11/17 [Rx] Pantoprazole [ProTONIX] 40 mg PO DAILY 02/16/18 [History] levETIRAcetam [Keppra] 750 mg PO BID 03/30/18 [History] Aspirin 325 mg PO DAILY 06/12/19 [History] Cholecalciferol (Vitamin D3) [Vitamin D3] 2,000 unit PO DAILY 06/12/19 [History] Ferrous Sulfate [Slow Fe] 142 mg PO DAILY 06/12/19 [History] Fluticasone Propionate [Flonase] 16 gm NS ASDIRECTED PRN 06/12/19 [History] Ipratropium [Atrovent 0.06% Nasal [place]] 15 ml IN ASDIRECTED PRN 06/12/19 [ History] Potassium Chloride 10 meq PO DAILY 06/12/19 [History] Pyridoxine HCl (Vitamin B6) [Vitamin B-6] 50 mg PO DAILY 06/12/19 [History] Metoprolol Tartrate 12.5 mg PO BID 06/13/19 [History] Acetaminophen with Codeine [Tylenol with Codeine #3 Tablet] 1 tab PO BID PRN # 60 tablet 06/15/19 [Rx] Alendronate Sodium 70 mg PO WEEKLY 06/15/19 [History] Warfarin [Coumadin] 1 mg PO ASDIRECTED #0 06/15/19 [Rx] Warfarin [Coumadin] 1.5 mg PO ASDIRECTED #45 tablet 06/15/19 [Rx] Past Medical History HEENT History: Reports: Impaired Vision, Sinusitis Cardiovascular History: Reports: Afib, Blood Clots/VTE/DVT, 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) Other Cardiovascular History: Hx of SVT Gastrointestinal History: Reports: GERD Genitourinary History: Reports: 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) Other Genitourinary History: elevated enzymes. 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), Other OB/BYN History: tipped uterus Musculoskeletal History: Reports: Neck Pain, Chronic, 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) Other Musculoskeletal History: tetony Neurological History: Reports: CVA, 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) Other Neuro History: Stoke 08/27/17 Psychiatric History: Reports: Anxiety Hematologic History: Reports: Anticoagulation Therapy, 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) Other Hematologic History: electolyte imbalance, hypomagnesium Oncologic (Cancer) History: Reports: Colon Dermatologic History: Reports: 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) Other Dermatologic History: contact dermatitis - Infectious Disease History Infectious Disease History: Reports: Chicken Pox, Measles, Mumps - Past Surgical History Cardiovascular Surgical History: Reports: Cardiac Ablation GI Surgical History: Reports: Bariatric Procedure, 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), Small Bowel Social & Family History - Tobacco Use Smoking Status *Q: Never Smoker - Caffeine Use Caffeine Use: Reports: Coffee - Living Situation & Occupation Living situation: Reports: Occupation: Disabled (lives with Noah, 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 is 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 in [employer]) H&P Review of Systems - Review of Systems: Review Of Systems: See Below General: Reports: Fever, Weakness, Fatigue HEENT: Reports: No Symptoms Pulmonary: Reports: No Symptoms Cardiovascular: Reports: No Symptoms Gastrointestinal: Reports: No Symptoms Genitourinary: Reports: No Symptoms, Dysmenorrhea Musculoskeletal: Reports: Back Pain, Other (chronic pain in muscles and back) Skin: Reports: No Symptoms Psychiatric: Reports: No Symptoms Neurological: Reports: No Symptoms Hematologic/Lymphatic: Reports: Anemia, Easy Bleeding, Easy Bruising Immunologic: Reports: No Symptoms Exam - Exam Exam: See Below - Vital Signs Vital Signs: Last Vital Signs Temp 37.9 C 07/06/19 13:31 Pulse 102 H 07/06/19 18:45 Resp 18 07/06/19 13:31 BP 120/80 07/06/19 18:45 Pulse Ox 95 07/06/19 13:31 Weight: 63.957 kg - Exam General: Alert, Oriented, Cooperative HEENT: PERRLA, Hearing Intact, Mucosa Moist & Hilda, Nares Patent, Normal Nasal Septum, Posterior Pharynx Clear, Conjunctiva Clear, EOMI, EACs Clear, TMs Clear Neck: Supple, Trachea Midline, 2 Lungs: Clear to Auscultation, Normal Respiratory Effort Cardiovascular: Regular Rate, Regular Rhythm GI/Abdominal Exam: Normal Bowel Sounds, Soft, Non-Tender, No Organomegaly, No Distention, No Abnormal Bruit, No Mass, Pelvis Stable (Female) Exam: Deferred Rectal (Female) Exam: Deferred Back Exam: Normal Inspection, Full Range of Motion, NT Extremities: Normal Inspection, Normal Range of Motion, Non-Tender, No Pedal Edema, Normal Capillary Refill, Other (left foot and left arm and hand with contractures from previous CVA) Peripheral Pulses: 2+: Radial (L), Radial (R), Posterior Tibial (L), Posterior Tibial (R) Skin: Warm, Dry, Intact Neurological: Normal Speech, Normal Tone, Reflexes Unequal Neuro Extensive - Mental Status: Alert, Oriented x3, Normal Mood/Affect Neuro Extensive - Motor, Sensory, Reflexes: Motor/Sensory Deficits Psychiatric: Alert, Normal Affect, Normal Mood - Patient Data Lab Results Last 24 hrs: Laboratory Results - last 24 hr 07/06/19 07/06/19 07/06/19 Range/Units 13:48 13:48 13:48 WBC 8.9 (4.5-11.0) K/uL RBC 3.72 (3.30-5.50) M/uL Hgb 10.5 L (12.0-15.0) g/dL Hct 36.0 (36.0-48.0) % MCV 97 (80-98) fL MCH 28 (27-31) pg MCHC 29 L (32-36) % Plt Count 262 (150-400) K/uL Neut % (Auto) 69 H (36-66) % Lymph % (Auto) 22 L (24-44) % Nuckolls % (Auto) 7 H (2-6) % Eos % (Auto) 2 (2-4) % Baso % (Auto) 0 (0-1) % PT (9.5-12.0) sec INR (0.80-1.20) Sodium 145 (140-148) mmol/L Potassium 3.5 L (3.6-5.2) mmol/L Chloride 113 H (100-108) mmol/L Carbon Dioxide 22 (21-32) mmol/L Anion Gap 13.5 (5.0-14.0) mmol/L BUN 15 (7-18) mg/dL Creatinine 1.3 H (0.6-1.0) mg/dL Est Cr Clr Drug Dosing 33.31 mL/min Estimated GFR (MDRD) 40 L (>60) Glucose 104 (74-106) mg/dL Lactic Acid 1.3 (0.4-2.0) mmol/L Calcium 7.9 L (8.5-10.1) mg/dL Magnesium (1.8-2.4) mg/dL C-Reactive Protein 0.89 H (0.0-0.3) mg/dL Urine Color (YELLOW) Urine Appearance (CLEAR) Urine pH (5.0-8.0) Ur Specific [place] (1.008-1.030) Urine Protein (NEGATIVE) mg/dL Urine Glucose (UA) (NEGATIVE) mg/dL Urine Ketones (NEGATIVE) mg/dL Urine Occult Blood (NEGATIVE) Urine Nitrite (NEGATIVE) Urine Bilirubin (NEGATIVE) Urine Urobilinogen (0.2-1.0) EU/dL Ur Leukocyte Esterase (NEGATIVE) Urine RBC (0-5) Urine WBC (0-5) Ur Epithelial Cells Amorphous Sediment Urine Bacteria Urine Mucus 07/06/19 07/06/19 07/06/19 Range/Units 13:48 13:48 14:59 WBC (4.5-11.0) K/uL RBC (3.30-5.50) M/uL Hgb (12.0-15.0) g/dL Hct (36.0-48.0) % MCV (80-98) fL MCH (27-31) pg MCHC (32-36) % Plt Count (150-400) K/uL Neut % (Auto) (36-66) % Lymph % (Auto) (24-44) % [place]oll[place] % (Auto) (2-6) % Eos % (Auto) (2-4) % Baso % (Auto) (0-1) % PT 42.5 H (9.5-12.0) sec INR 4.27 H* (0.80-1.20) Sodium (140-148) mmol/L Potassium (3.6-5.2) mmol/L Chloride (100-108) mmol/L Carbon Dioxide (21-32) mmol/L Anion Gap (5.0-14.0) mmol/L BUN (7-18) mg/dL Creatinine (0.6-1.0) mg/dL Est Cr Clr Drug Dosing mL/min Estimated GFR (MDRD) (>60) Glucose (74-106) mg/dL Lactic Acid (0.4-2.0) mmol/L Calcium (8.5-10.1) mg/dL Magnesium 1.2 L D (1.8-2.4) mg/dL C-Reactive Protein (0.0-0.3) mg/dL Urine Color Yellow (YELLOW) Urine Appearance Cloudy A (CLEAR) Urine pH 6.0 (5.0-8.0) Ur Specific [place] 1.020 (1.008-1.030) Urine Protein Trace H (NEGATIVE) mg/dL Urine Glucose (UA) Negative (NEGATIVE) mg/dL Urine Ketones Negative (NEGATIVE) mg/dL Urine Occult Blood Moderate H (NEGATIVE) Urine Nitrite Positive H (NEGATIVE) Urine Bilirubin Negative (NEGATIVE) Urine Urobilinogen 0.2 (0.2-1.0) EU/dL Ur Leukocyte Esterase Moderate H (NEGATIVE) Urine RBC 0-5 (0-5) Urine WBC Packed H (0-5) Ur Epithelial Cells Moderate Amorphous Sediment Not seen Urine Bacteria Many Urine Mucus Not seen Result Diagrams: 07/06/19 13:48 07/06/19 13:48 - Problem List (1) UTI (urinary tract infection) SNOMED Code(s): 22272813 ICD Code: N39.0 - URINARY TRACT INFECTION, SITE NOT SPECIFIED Status: Acute Priority: High Current Visit: Yes Qualifiers: Urinary tract infection type: acute cystitis Hematuria presence: with hematuria Qualified Code(s): N30.01 - Acute cystitis with hematuria (2) Cerebrovascular accident (CVA) with left hemiparesis SNOMED Code(s): 271897548, 023526847 ICD Code: [id number] - Status: Chronic Priority: Medium Current Visit: Yes (3) Chronic kidney disease (CKD), stage III (moderate) SNOMED Code(s): 052064423 ICD Code: N18.3 - CHRONIC KIDNEY DISEASE, STAGE 3 (MODERATE) Status: Chronic Priority: Low Current Visit: No (4) Bariatric surgery status SNOMED Code(s): 935763727, 890829282, 510458245 ICD Code: Z98.84 - BARIATRIC SURGERY STATUS Status: Chronic Current Visit : No (5) Anticoagulated with warfarin SNOMED Code(s): 15692215 ICD Code: Z51.81 - ENCOUNTER FOR THERAPEUTIC DRUG LEVEL MONITORING; Z79.01 - PLACER MINER (CURRENT) USE OF ANTICOAGULANTS Status: Chronic Priority: Medium Current Visit: Yes Problem List Initiated/Reviewed/Updated: Yes Orders Last 24hrs: Active Orders 24 hr Category Date Time Status Peripheral IV Care [RC] . DIRECTED Care 07/06/19 13:49 Active CULTURE BLOOD [BC] Urgent Lab 07/06/19 13:48 Received CULTURE BLOOD [BC] Urgent Lab 07/06/19 13:48 Received CULTURE URINE [RM] Stat Lab 07/06/19 16:05 Received Magnesium Sulfate/Water [Magnesium Sulfate in Water Med 07/06/19 15:00 Active Premix] 2 gm Premix Bag 1 bag IV Q6H Sodium Chloride 0.9% [Normal Saline] 1,000 ml Med 07/06/19 16:15 Active IV ASDIRECTED Sodium Chloride 0.9% [Saline Flush] Med 07/06/19 13:49 Active 10 ml FLUSH ASDIRECTED PRN levETIRAcetam [Keppra] Med 07/06/19 17:30 Active 750 mg PO BID Blood Culture x2 Reflex Set [OM.PC] Urgent Ot 07/06/19 13:48 Ordered Peripheral IV Insertion Adult [OM.PC] Urgent Ot 07/06/19 13:48 Ordered Medication Orders Magnesium Sulfate 2 gm/ Premix 50 mls @ 12.5 mls/hr IV Q6H [facility] Last Admin: 07/06/19 16:29 Dose: 12.5 mls/hr Sodium Chloride (Normal Saline) 1,000 mls @ 500 mls/hr IV ASDIRECTED [facility] Last Admin: 07/06/19 16:21 Dose: 500 mls/hr Levetiracetam (Keppra) 750 mg PO BID [facility] Last Admin: 07/06/19 18:45 Dose: 750 mg Sodium Chloride (Saline Flush) 10 ml FLUSH ASDIRECTED PRN PRN Reason: Keep Vein Open Last Admin: 07/06/19 14:10 Dose: 10 ml Assessment/Plan Comment:: ASSESSMENT AND PLAN Chief Complaint: needs help, not feeling well. This is a 68 year old disabled female from previous stroke with complete left hemiparesis. She reports she was in [facility] until yesterday when she was discharged to home. She got home at 4 pm yesterday. This morning her left for the day and she was alone from 0830am to 1:30pm, when she called the ambulance to pick her up because she had as fever and didn't feel well. She has been in the ER and had IV fluids, IV Rocephin, and is eating and drinking. she reports she is feeling much better. But her is unable to take her home, she is too much care for him and he is 71 years old. Labs; Urine+WBC, +nitrates, CBC wbc 8.9, chemistries bun 15, anion gap 13.5, cr 1.3, glucose 104, gfr 40, INR 4,27, lactic acid 1.3, Mg++1.2, cr 0.89. Imaging: chest xray negative URINARY TRACT INFECTION-history of recurrent infections over the past several months, she just has completed a course of antibiotic -Urine culture pending -Ceftriaxone 1 g IV every 24 hours pending culture results -am labs CBC,BMP CHRONIC ANTICOAGULATION A-fib, hx of cardiac ablation-INR supratherapeutic at 4.27 -continue home medications -Hold warfarin -Reassess INR in a.m. HX CVA with left hemiparesis, recurrent falls, hx of compression fractures -Continue current outpatient medications -regular soft diet -assist of 1 to 2 staff to transfer from bed to chair -high risk for falls -pressure reduction mattress -left arm splint on during the night, off during the day -consult to OT -consult to PT -[facility] Placement Chronic Kidney disease -monitor I&O Hx of Bariatric Surgery status -soft diet -Protonix 20 mg daily MAINTENANCE ISSUES -DVT prophylaxis; current therapy with warfarin should provide adequate DVT prophylaxis -GI prophylaxis; continue outpatient PPI therapy -Salvador catheter; not indicated -Nutrition; regular soft diet -Nicotine dependence; not required CODE STATUS-DNR/DNI ADMISSION STATUS-this patient will be admitted to observation status, expect no more than a one night hospital stay for evaluation and management of problems as outlined above. DISPOSITION-anticipate discharge to [facility] after the hospital stay. PRIMARY CARE PROVIDER-Dr. Oleary HOSPITALIST - Dr. Griffin - Mortality Measure Prognosis:: Good
[2019-07-06] MEDS ORDERED: Ipratropium 0.06% Nasal Spray 15 ML Bottle NASBOTH PRN (20:34)
[2019-07-06] MEDS ORDERED: Albuterol 0.083% 2.5 MG/3 ML Neb Soln NEB PRN (20:34)
[2019-07-06] MEDS ORDERED: oxyCODONE 5 MG Tab PO PRN (20:34)
[2019-07-06] MEDS ORDERED: Temazepam 15 MG Cap PO PRN (20:34)
[2019-07-06] MEDS ORDERED: Fluticasone Propionate Nasal Spray 16 GM Bottle NAS PRN (20:34)
[2019-07-06] MEDS ORDERED: LORazepam 2 MG/ML SDV IV PRN (20:34)
[2019-07-06] MEDS ORDERED: Ondansetron 4 MG Tab.DIS PO PRN (20:34)
[2019-07-06] MEDS ORDERED: Gabapentin 100 MG Cap PO SCH (21:00)
[2019-07-06] MEDS ORDERED: atorvaSTATin 20 MG Tab PO SCH (21:00)
[2019-07-06] MEDS ORDERED: Metoprolol Tartrate 25 MG Tab PO SCH (21:10)
[2019-07-06] MEDS: Magnesium Oxide 400 MG Tab PO SCH (21:52)
[2019-07-06] MEDS: Diltiazem IR 30 MG Tab PO SCH (21:54)
[2019-07-06] MEDS: Acetaminophen/Codeine 300-30 MG Tab PO PRN (22:42)
[2019-07-07] MEDS: Diltiazem IR 30 MG Tab PO SCH (05:36)
[2019-07-07] MEDS ORDERED: Pantoprazole 40 MG Tab.CR PO SCH (07:30)
[2019-07-07] MEDS ORDERED: FERROUS SULFATE 142 MG PO SCH (09:00)
[2019-07-07] MEDS ORDERED: levETIRAcetam 250 MG Tab PO SCH ×2 (09:00→09:10)
--- NOTE | 2019-07-07 09:43 | PCM.PN ---
- General Info Date of Service: 07/07/19 Subjective Update: Ms. Hernández is a 68-year-old woman who was admitted through the emergency department last night because of weakness and underlying urinary tract infection. She is status post CVA with hemiplegia. Been at the custodial until 2 days ago and then was discharged to home. Things did not go well at home , she needs quite a bit of assistance of her was unable to provide that. She was brought in for further evaluation and management. Labs showed evidence of urinary tract infection with elevation in white blood cell count. Functional Status: Reports: Tolerating Diet, Urinating - Review of Systems General: Reports: Weakness. Denies: Fever, Chills Pulmonary: Reports: No Symptoms Cardiovascular: Reports: No Symptoms Gastrointestinal: Reports: No Symptoms Genitourinary: Reports: No Symptoms - Patient Data Vitals - Most Recent: Last Vital Signs Temp 97.0 F 07/07/19 03:47 Pulse 95 07/07/19 03:47 Resp 16 07/07/19 03:47 BP 104/72 07/07/19 03:47 Pulse Ox 91 L 07/07/19 03:47 Weight - Most Recent: 158 lb I&O - Last 24 Hours: Intake & Output 07/06/19 07/07/19 07/07/19 22:59 06:59 14:59 Intake Total 240 Output Total 275 Balance 240 -275 Lab Results Last 24 Hours: Laboratory Results - last 24 hr 07/06/19 07/06/19 07/06/19 Range/Units 13:48 13:48 13:48 WBC 8.9 (4.5-11.0) K/uL RBC 3.72 (3.30-5.50) M/uL Hgb 10.5 L (12.0-15.0) g/dL Hct 36.0 (36.0-48.0) % MCV 97 (80-98) fL MCH 28 (27-31) pg MCHC 29 L (32-36) % Plt Count 262 (150-400) K/uL Neut % (Auto) 69 H (36-66) % Lymph % (Auto) 22 L (24-44) % [place] % (Auto) 7 H (2-6) % Eos % (Auto) 2 (2-4) % Baso % (Auto) 0 (0-1) % PT (9.5-12.0) sec INR (0.80-1.20) Sodium 145 (140-148) mmol/L Potassium 3.5 L (3.6-5.2) mmol/L Chloride 113 H (100-108) mmol/L Carbon Dioxide 22 (21-32) mmol/L Anion Gap 13.5 (5.0-14.0) mmol/L BUN 15 (7-18) mg/dL Creatinine 1.3 H (0.6-1.0) mg/dL Est Cr Clr Drug Dosing 33.31 mL/min Estimated GFR (MDRD) 40 L (>60) Glucose 104 (74-106) mg/dL Lactic Acid 1.3 (0.4-2.0) mmol/L Calcium 7.9 L (8.5-10.1) mg/dL Magnesium (1.8-2.4) mg/dL C-Reactive Protein 0.89 H (0.0-0.3) mg/dL Urine Color (YELLOW) Urine Appearance (CLEAR) Urine pH (5.0-8.0) Ur Specific [place] (1.008-1.030) Urine Protein (NEGATIVE) mg/dL Urine Glucose (UA) (NEGATIVE) mg/dL Urine Ketones (NEGATIVE) mg/dL Urine Occult Blood (NEGATIVE) Urine Nitrite (NEGATIVE) Urine Bilirubin (NEGATIVE) Urine Urobilinogen (0.2-1.0) EU/dL Ur Leukocyte Esterase (NEGATIVE) Urine RBC (0-5) Urine WBC (0-5) Ur Epithelial Cells Amorphous Sediment Urine Bacteria Urine Mucus 07/06/19 07/06/19 07/06/19 Range/Units 13:48 13:48 14:59 WBC (4.5-11.0) K/uL RBC (3.30-5.50) M/uL Hgb (12.0-15.0) g/dL Hct (36.0-48.0) % MCV (80-98) fL MCH (27-31) pg MCHC (32-36) % Plt Count (150-400) K/uL Neut % (Auto) (36-66) % Lymph % (Auto) (24-44) % [place] % (Auto) (2-6) % Eos % (Auto) (2-4) % Baso % (Auto) (0-1) % PT 42.5 H (9.5-12.0) sec INR 4.27 H* (0.80-1.20) Sodium (140-148) mmol/L Potassium (3.6-5.2) mmol/L Chloride (100-108) mmol/L Carbon Dioxide (21-32) mmol/L Anion Gap (5.0-14.0) mmol/L BUN (7-18) mg/dL Creatinine (0.6-1.0) mg/dL Est Cr Clr Drug Dosing mL/min Estimated GFR (MDRD) (>60) Glucose (74-106) mg/dL Lactic Acid (0.4-2.0) mmol/L Calcium (8.5-10.1) mg/dL Magnesium 1.2 L D (1.8-2.4) mg/dL C-Reactive Protein (0.0-0.3) mg/dL Urine Color Yellow (YELLOW) Urine Appearance Cloudy A (CLEAR) Urine pH 6.0 (5.0-8.0) Ur Specific [place] 1.020 (1.008-1.030) Urine Protein Trace H (NEGATIVE) mg/dL Urine Glucose (UA) Negative (NEGATIVE) mg/dL Urine Ketones Negative (NEGATIVE) mg/dL Urine Occult Blood Moderate H (NEGATIVE) Urine Nitrite Positive H (NEGATIVE) Urine Bilirubin Negative (NEGATIVE) Urine Urobilinogen 0.2 (0.2-1.0) EU/dL Ur Leukocyte Esterase Moderate H (NEGATIVE) Urine RBC 0-5 (0-5) Urine WBC Packed H (0-5) Ur Epithelial Cells Moderate Amorphous Sediment Not seen Urine Bacteria Many Urine Mucus Not seen 07/07/19 07/07/19 07/07/19 Range/Units 05:50 05:50 05:50 WBC 8.1 (4.5-11.0) K/uL RBC 3.32 (3.30-5.50) M/uL Hgb 9.5 L (12.0-15.0) g/dL Hct 32.2 L (36.0-48.0) % MCV 97 (80-98) fL MCH 29 (27-31) pg MCHC 30 L (32-36) % Plt Count 252 (150-400) K/uL Neut % (Auto) 56 (36-66) % Lymph % (Auto) 34 (24-44) % [place] % (Auto) 9 H (2-6) % Eos % (Auto) 2 (2-4) % Baso % (Auto) 0 (0-1) % PT 23.6 H (9.5-12.0) sec INR 2.29 H (0.80-1.20) Sodium 145 (140-148) mmol/L Potassium 3.8 (3.6-5.2) mmol/L Chloride 115 H (100-108) mmol/L Carbon Dioxide 19 L (21-32) mmol/L Anion Gap 14.8 H (5.0-14.0) mmol/L BUN 14 (7-18) mg/dL Creatinine 1.2 H (0.6-1.0) mg/dL Est Cr Clr Drug Dosing 31.33 mL/min Estimated GFR (MDRD) 44 L (>60) Glucose 87 (74-106) mg/dL Lactic Acid (0.4-2.0) mmol/L Calcium 8.3 L (8.5-10.1) mg/dL Magnesium (1.8-2.4) mg/dL C-Reactive Protein (0.0-0.3) mg/dL Urine Color (YELLOW) Urine Appearance (CLEAR) Urine pH (5.0-8.0) Ur Specific [place] (1.008-1.030) Urine Protein (NEGATIVE) mg/dL Urine Glucose (UA) (NEGATIVE) mg/dL Urine Ketones (NEGATIVE) mg/dL Urine Occult Blood (NEGATIVE) Urine Nitrite (NEGATIVE) Urine Bilirubin (NEGATIVE) Urine Urobilinogen (0.2-1.0) EU/dL Ur Leukocyte Esterase (NEGATIVE) Urine RBC (0-5) Urine WBC (0-5) Ur Epithelial Cells Amorphous Sediment Urine Bacteria Urine Mucus Fausto Results Last 24 Hours: Microbiology 07/06/19 16:05 Urine Culture - Preliminary Urine, Catheterized Med Orders - Current: Current Medications Acetaminophen/Codeine Phosphate (Tylenol With Codeine No.3 300mg/30mg) 1 tab PO BID PRN PRN Reason: Pain (moderate 4-6) Last Admin: 07/06/19 22:42 Dose: 1 tab Albuterol (Proventil Neb Soln) 2.5 mg NEB Q4H PRN PRN Reason: Shortness Of Breath/wheezing Atorvastatin Calcium (Lipitor) 20 mg PO BEDTIME [facility] Last Admin: 07/06/19 21:52 Dose: 20 mg Cholecalciferol (Vitamin D3) 50 mcg PO DAILY [facility] Diltiazem HCl (Cardizem) 60 mg PO QID [facility] Last Admin: 07/07/19 05:36 Dose: 60 mg Fluticasone Propionate (Flonase) 16 gm SOL ASDIRECTED PRN PRN Reason: Allergies Gabapentin (Neurontin) 600 mg PO BEDTIME [facility] Ceftriaxone Sodium 1 gm/ (Sodium Chloride) 50 mls @ 100 mls/hr IV Q24H [facility] Ipratropium [place] (Atrovent 0.06% Nasal [place]) 0 ml NASBOTH ASDIRECTED PRN PRN Reason: Allergies Lactobacillus Rhamnosus (Culturelle) 1 cap PO DAILY [facility] Levetiracetam (Keppra) 750 mg PO BID [facility] Lorazepam (Ativan) 1 mg IV Q6H PRN PRN Reason: Nausea/Vomiting Magnesium Oxide (Magnesium Oxide) 400 mg PO BID [facility] Last Admin: 07/06/19 21:52 Dose: 400 mg Metoprolol Tartrate (Lopressor) 12.5 mg PO BID [facility] Last Admin: 07/06/19 21:50 Dose: Not Given Non-Formulary Medication (Ferrous Sulfate [Slow Fe]) 142 mg PO DAILY [facility] Ondansetron HCl (Zofran Odt) 4 mg PO Q6H PRN PRN Reason: Nausea able to take PO Oxycodone HCl (Oxycodone) 5 mg PO Q4H PRN PRN Reason: Pain (moderate 4-6) Pantoprazole Sodium (Protonix) 40 mg PO ACBREAKFAST [facility] Potassium Chloride (Potassium Chloride) 10 meq PO DAILY [facility] Pyridoxine HCl (Vitamin B6-Pyridoxine) 50 mg PO DAILY [facility] Sodium Chloride (Saline Flush) 10 ml FLUSH ASDIRECTED PRN PRN Reason: Keep Vein Open Temazepam (Restoril) 15 mg PO BEDTIME PRN PRN Reason: Sleep Venlafaxine HCl (Effexor Xr) 75 mg PO DAILY [facility] Warfarin Sodium (Coumadin) 1.5 mg PO DAILY@1300 [facility] Warfarin Sodium (Coumadin) 1 mg PO ASDIRECTED [facility] Discontinued Medications Diltiazem HCl (Cardizem) 60 mg PO ONETIME ONE Stop: 07/06/19 17:31 Last Admin: 07/06/19 18:43 Dose: 60 mg Gabapentin (Neurontin) 600 mg PO BEDTIME [facility] Last Admin: 07/06/19 21:51 Dose: 600 mg Magnesium Sulfate 2 gm/ Premix 50 mls @ 12.5 mls/hr IV Q6H [facility] Last Admin: 07/06/19 16:29 Dose: 12.5 mls/hr Ceftriaxone Sodium 1 gm/ (Sodium Chloride) 50 mls @ 100 mls/hr IV ONETIME ONE Stop: 07/06/19 16:35 Last Admin: 07/06/19 16:24 Dose: 100 mls/hr Sodium Chloride (Normal Saline) 1,000 mls @ 500 mls/hr IV ASDIRECTED [facility] Last Admin: 07/06/19 16:21 Dose: 500 mls/hr Levetiracetam (Keppra) 750 mg PO BID [facility] Last Admin: 07/06/19 21:51 Dose: Not Given Levetiracetam (Keppra) 750 mg PO BID [facility] Metoprolol Succinate (Toprol Xl) 12.5 mg PO ONETIME ONE Stop: 07/06/19 17:20 Last Admin: 07/06/19 18:45 Dose: 12.5 mg Potassium Chloride (Klor-Con M20) 20 meq PO ONETIME ONE Stop: 07/06/19 15:02 Last Admin: 07/06/19 16:36 Dose: 20 meq Sodium Chloride (Saline Flush) 10 ml FLUSH ASDIRECTED PRN PRN Reason: Keep Vein Open Last Admin: 07/06/19 14:10 Dose: 10 ml - Exam Quality Assessment: DVT Prophylaxis General: Alert, Oriented, Cooperative, No Acute Distress Lungs: Clear to Auscultation, Normal Respiratory Effort Cardiovascular: Regular Rate, Regular Rhythm, No Murmurs GI/Abdominal Exam: Soft, Non-Tender, No Organomegaly, No Distention Extremities: Non-Tender, No Pedal Edema - Problem List Review Problem List Initiated/Reviewed/Updated: Yes - My Orders Last 24 Hours: My Active Orders 07/08/19 05:00 BASIC METABOLIC PANEL,BMP [CHEM] Timed CBC WITH AUTO DIFF [HEME] Timed INR,PT,PROTHROMBIN TIME [COAG] Timed - Plan Plan:: ASSESSMENT AND PLAN Chief Complaint: needs help, not feeling well. ASSESSMENT AND PLAN URINARY TRACT INFECTION-history of recurrent infections over the past several months, she just has completed a course of antibiotic -Urine culture pending -Ceftriaxone 1 g IV every 24 hours pending culture results CHRONIC ANTICOAGULATION A-fib, hx of cardiac ablation-INR today is within therapeutic range -continue home medications -Resume usual dose of warfarin -Reassess INR in a.m. HX CVA with left hemiparesis, recurrent falls, hx of compression fractures -Continue current outpatient medications -regular soft diet -assist of 1 to 2 staff to transfer from bed to chair -high risk for falls -pressure reduction mattress -left arm splint on during the night, off during the day -consult to OT -consult to PT -Skilled Nursing Placement Chronic Kidney disease -monitor I&O Hx of Bariatric Surgery status -soft diet -Protonix 20 mg daily MAINTENANCE ISSUES -DVT prophylaxis; current therapy with warfarin should provide adequate DVT prophylaxis -GI prophylaxis; continue outpatient PPI therapy -[place] catheter; not indicated -Nutrition; regular soft diet -Nicotine dependence; not required CODE STATUS-DNR/DNI ADMISSION STATUS-this patient will be admitted to observation status, expect no more than a one night hospital stay for evaluation and management of problems as outlined above. DISPOSITION-anticipate discharge to Skilled Nursing after the hospital stay. PRIMARY CARE PROVIDER-Dr. Oleary HOSPITALIST - Dr. Griffin
[2019-07-07] MEDS ORDERED: Fluticasone Propionate Nasal Spray (PTOM) NAS PRN (10:56)
[2019-07-07] MEDS ORDERED: IPRATROPIUM 0.06% NASBOTH PRN (11:01)
[2019-07-07] MEDS: Venlafaxine 75 MG Cap.ER PO SCH (11:47)
[2019-07-07] MEDS: Pantoprazole 40 MG Tab.CR (PTOM) PO SCH (11:51)
[2019-07-07] MEDS: LEVETIRACETAM 750 MG PO SCH ×2 (11:52→20:40)
[2019-07-07] MEDS: DILTIAZEM 60 MG PO SCH ×3 (11:53→21:53)
[2019-07-07] MEDS: SLOW FE PO SCH (11:54)
[2019-07-07] MEDS: Metoprolol Tartrate 25 MG Tab (PTOM) PO SCH ×2 (11:56→20:42)
[2019-07-07] MEDS: Potassium Chloride 10 MEQ Cap.ER PO SCH (12:06)
[2019-07-07] MEDS: Magnesium Oxide 400 MG Tab PO SCH ×2 (12:07→20:37)
[2019-07-07] MEDS: Vitamin B6-pyridOXINE 50 MG Tab PO SCH (12:08)
[2019-07-07] MEDS: Cholecalciferol (Vitamin D3) 25 MCG Tab PO SCH (12:09)
[2019-07-07] MEDS: Lactobacillus Rhamnosus GG (Probiotic) Cap PO SCH (12:10)
[2019-07-07] MEDS ORDERED: WARFARIN 1 MG PO SCH (13:00)
[2019-07-07] MEDS ORDERED: cefTRIAXone 1 GM in Sodium Chloride 0.9% 50 ML IV SCH (16:00)
[2019-07-07] MEDS: atorvaSTATin 20 MG Tab (PTOM) PO SCH (20:38)
[2019-07-07] MEDS: GABAPENTIN 600 MG PO SCH (20:40)
[2019-07-07] MEDS ORDERED: Gabapentin 300 MG Cap PO SCH (21:00)
[2019-07-07] MEDS: Acetaminophen/Codeine 300-30 MG Tab PO PRN (21:52)
[2019-07-08] MEDS: DILTIAZEM 60 MG PO SCH ×4 (06:56→22:20)
[2019-07-08] MEDS: Magnesium Oxide 400 MG Tab PO SCH ×2 (08:51→22:18)
[2019-07-08] MEDS: Lactobacillus Rhamnosus GG (Probiotic) Cap PO SCH (08:51)
[2019-07-08] MEDS: Potassium Chloride 10 MEQ Cap.ER PO SCH (08:51)
[2019-07-08] MEDS: Cholecalciferol (Vitamin D3) 25 MCG Tab PO SCH (08:52)
[2019-07-08] MEDS: Venlafaxine 75 MG Cap.ER PO SCH (08:52)
[2019-07-08] MEDS: Vitamin B6-pyridOXINE 50 MG Tab PO SCH (08:52)
[2019-07-08] MEDS: Pantoprazole 40 MG Tab.CR (PTOM) PO SCH (08:54)
[2019-07-08] MEDS: Metoprolol Tartrate 25 MG Tab (PTOM) PO SCH ×2 (08:55→22:15)
[2019-07-08] MEDS: LEVETIRACETAM 750 MG PO SCH ×2 (08:56→22:19)
[2019-07-08] MEDS: SLOW FE PO SCH (08:57)
--- NOTE | 2019-07-08 11:41 | PCM.PN ---
- General Info Date of Service: 07/08/19 Subjective Update: Ms. Hernández has been stable since yesterday, no significant temperature elevation and vital signs have been good. She denies specific complaints or discomfort this morning. Functional Status: Reports: Tolerating Diet, Urinating - Review of Systems General: Reports: Weakness. Denies: Fever, Chills Pulmonary: Reports: No Symptoms Cardiovascular: Reports: No Symptoms Gastrointestinal: Reports: No Symptoms - Patient Data Vitals - Most Recent: Last Vital Signs Temp 97.4 F 07/08/19 11:00 Pulse 92 07/08/19 11:00 Resp 18 07/08/19 11:00 BP 86/66 L 07/08/19 11:00 Pulse Ox 93 L 07/08/19 11:00 Weight - Most Recent: 158 lb I&O - Last 24 Hours: Intake & Output 07/07/19 07/08/19 07/08/19 22:59 06:59 14:59 Intake Total 530 120 560 Output Total 400 450 300 Balance 130 -330 260 Lab Results Last 24 Hours: Laboratory Results - last 24 hr 07/08/19 07/08/19 07/08/19 Range/Units 04:56 04:56 04:56 WBC 9.3 (4.5-11.0) K/uL RBC 3.44 (3.30-5.50) M/uL Hgb 9.9 L (12.0-15.0) g/dL Hct 33.5 L (36.0-48.0) % MCV 97 (80-98) fL MCH 29 (27-31) pg MCHC 30 L (32-36) % Plt Count 257 (150-400) K/uL Neut % (Auto) 54 (36-66) % Lymph % (Auto) 35 (24-44) % [place] % (Auto) 9 H (2-6) % Eos % (Auto) 2 (2-4) % Baso % (Auto) 0 (0-1) % PT 16.5 H (9.5-12.0) sec INR 1.57 H (0.80-1.20) Sodium 142 (140-148) mmol/L Potassium 3.9 (3.6-5.2) mmol/L Chloride 113 H (100-108) mmol/L Carbon Dioxide 18 L (21-32) mmol/L Anion Gap 14.9 H (5.0-14.0) mmol/L BUN 15 (7-18) mg/dL Creatinine 1.1 H (0.6-1.0) mg/dL Est Cr Clr Drug Dosing 34.18 mL/min Estimated GFR (MDRD) 49 L (>60) Glucose 100 (74-106) mg/dL Calcium 8.4 L (8.5-10.1) mg/dL Fausto Results Last 24 Hours: Microbiology 07/06/19 16:05 Urine Culture - Final Urine, Catheterized Escherichia Coli 07/06/19 13:48 Aerobic Blood Culture - Preliminary Blood - Venous - Lab Draw NO GROWTH AFTER 1 DAY Anaerobic Blood Culture - Preliminary NO GROWTH AFTER 1 DAY 07/06/19 13:48 Aerobic Blood Culture - Preliminary Blood - Venous NO GROWTH AFTER 1 DAY Anaerobic Blood Culture - Preliminary NO GROWTH AFTER 1 DAY Med Orders - Current: Current Medications Acetaminophen/Codeine Phosphate (Tylenol With Codeine No.3 300mg/30mg) 1 tab PO BID PRN PRN Reason: Pain (moderate 4-6) Last Admin: 07/07/19 21:52 Dose: 1 tab Albuterol (Proventil Neb Soln) 2.5 mg NEB Q4H PRN PRN Reason: Shortness Of Breath/wheezing Atorvastatin Calcium (Lipitor) 20 mg PO BEDTIME [facility] Last Admin: 07/07/19 20:38 Dose: 20 mg Cephalexin (Keflex) 250 mg PO Q6HR [facility] Cholecalciferol (Vitamin D3) 50 mcg PO DAILY [facility] Last Admin: 07/08/19 08:52 Dose: 50 mcg Fluticasone Propionate (Flonase) 0 gm SOL DAILY PRN PRN Reason: ALLERGIES Last Admin: 07/07/19 11:57 Dose: 1 sprays Ipratropium [place] (Atrovent 0.06% Nasal [place]) 0 ml NASBOTH ASDIRECTED PRN PRN Reason: Allergies Last Admin: 07/07/19 21:53 Dose: 2 spray Lactobacillus Rhamnosus (Culturelle) 1 cap PO DAILY [facility] Last Admin: 07/08/19 08:51 Dose: 1 cap Lorazepam (Ativan) 1 mg IV Q6H PRN PRN Reason: Nausea/Vomiting Magnesium Oxide (Magnesium Oxide) 400 mg PO BID [facility] Last Admin: 07/08/19 08:51 Dose: 400 mg Metoprolol Tartrate (Lopressor) 12.5 mg PO BID [facility] Last Admin: 07/08/19 08:55 Dose: 12.5 mg Ondansetron HCl (Zofran Odt) 4 mg PO Q6H PRN PRN Reason: Nausea able to take PO Oxycodone HCl (Oxycodone) 5 mg PO Q4H PRN PRN Reason: Pain (moderate 4-6) Pantoprazole Sodium (Protonix) 40 mg PO ACBREAKFAST [facility] Last Admin: 07/08/19 08:54 Dose: 40 mg Slow Fe 142 (45mg Elemental Fe) Tab ( Ptom) 1 each PO DAILY [facility] Last Admin: 07/08/19 08:57 Dose: 1 each Diltiazem 60mg Tab ( (Ptom)) 0 each PO QID [facility] Last Admin: 07/08/19 09:00 Dose: 1 each Gabapentin 600mg Tab ((Ptom)) 0 each PO BEDTIME [facility] Last Admin: 07/07/19 20:40 Dose: 1 each Levetiracetam 750mg (Tab (Ptom)) 0 each PO BID [facility] Last Admin: 07/08/19 08:56 Dose: 1 each Potassium Chloride (Potassium Chloride) 10 meq PO DAILY [facility] Last Admin: 07/08/19 08:51 Dose: 10 meq Pyridoxine HCl (Vitamin B6-Pyridoxine) 50 mg PO DAILY [facility] Last Admin: 07/08/19 08:52 Dose: 50 mg Sodium Chloride (Saline Flush) 10 ml FLUSH ASDIRECTED PRN PRN Reason: Keep Vein Open Temazepam (Restoril) 15 mg PO BEDTIME PRN PRN Reason: Sleep Venlafaxine HCl (Effexor Xr) 75 mg PO DAILY [facility] Last Admin: 07/08/19 08:52 Dose: 75 mg Warfarin Sodium (Coumadin) 1.5 mg PO DAILY@1300 [facility] Last Admin: 07/07/19 12:49 Dose: 1.5 mg Warfarin Sodium (Coumadin) 2 mg PO ONETIME ONE Stop: 07/08/19 13:01 Discontinued Medications Atorvastatin Calcium (Lipitor) 20 mg PO BEDTIME [facility] Last Admin: 07/06/19 21:52 Dose: 20 mg Diltiazem HCl (Cardizem) 60 mg PO ONETIME ONE Stop: 07/06/19 17:31 Last Admin: 07/06/19 18:43 Dose: 60 mg Diltiazem HCl (Cardizem) 60 mg PO QID [facility] Last Admin: 07/07/19 05:36 Dose: 60 mg Fluticasone Propionate (Flonase) 16 gm SOL ASDIRECTED PRN PRN Reason: Allergies Gabapentin (Neurontin) 600 mg PO BEDTIME [facility] Last Admin: 07/06/19 21:51 Dose: 600 mg Gabapentin (Neurontin) 600 mg PO BEDTIME [facility] Magnesium Sulfate 2 gm/ Premix 50 mls @ 12.5 mls/hr IV Q6H [facility] Last Admin: 07/06/19 16:29 Dose: 12.5 mls/hr Ceftriaxone Sodium 1 gm/ (Sodium Chloride) 50 mls @ 100 mls/hr IV ONETIME ONE Stop: 07/06/19 16:35 Last Admin: 07/06/19 16:24 Dose: 100 mls/hr Sodium Chloride (Normal Saline) 1,000 mls @ 500 mls/hr IV ASDIRECTED [facility] Last Admin: 07/06/19 16:21 Dose: 500 mls/hr Ceftriaxone Sodium 1 gm/ (Sodium Chloride) 50 mls @ 100 mls/hr IV Q24H [facility] Last Admin: 07/07/19 17:23 Dose: 100 mls/hr Ipratropium [place] (Atrovent 0.06% Nasal [place]) 0 ml NASBOTH ASDIRECTED PRN PRN Reason: Allergies Levetiracetam (Keppra) 750 mg PO BID [facility] Last Admin: 07/06/19 21:51 Dose: Not Given Levetiracetam (Keppra) 750 mg PO BID [facility] Levetiracetam (Keppra) 750 mg PO BID [facility] Metoprolol Succinate (Toprol Xl) 12.5 mg PO ONETIME ONE Stop: 07/06/19 17:20 Last Admin: 07/06/19 18:45 Dose: 12.5 mg Metoprolol Tartrate (Lopressor) 12.5 mg PO BID [facility] Last Admin: 07/06/19 21:50 Dose: Not Given Pantoprazole Sodium (Protonix) 40 mg PO ACBREAKFAST [facility] Potassium Chloride (Klor-Con M20) 20 meq PO ONETIME ONE Stop: 07/06/19 15:02 Last Admin: 07/06/19 16:36 Dose: 20 meq Sodium Chloride (Saline Flush) 10 ml FLUSH ASDIRECTED PRN PRN Reason: Keep Vein Open Last Admin: 07/06/19 14:10 Dose: 10 ml Warfarin Sodium (Coumadin) 1 mg PO ASDIRECTED LEONELA - Exam Quality Assessment: DVT Prophylaxis General: Alert, Oriented, Cooperative, No Acute Distress Lungs: Clear to Auscultation, Normal Respiratory Effort Cardiovascular: Regular Rate, Regular Rhythm, No Murmurs GI/Abdominal Exam: Soft, Non-Tender, No Organomegaly, No Distention Extremities: Non-Tender, No Pedal Edema Neurological: Other (Left hemiparesis) - Problem List Review Problem List Initiated/Reviewed/Updated: Yes - My Orders Last 24 Hours: My Active Orders 07/08/19 11:45 cephALEXin [Keflex] 250 mg PO Q6HR 07/08/19 13:00 Warfarin [Coumadin] 2 mg PO ONETIME ONE 07/09/19 05:11 INR,PT,PROTHROMBIN TIME [COAG] AM - Plan Plan:: ASSESSMENT AND PLAN URINARY TRACT INFECTION-urine culture has grown out pansensitive Escherichia coli -Start cephalexin 250 mg by mouth every 6 hours -Discontinue Ceftriaxone CHRONIC ANTICOAGULATION A-fib, hx of cardiac ablation-INR today is subtherapeutic -Warfarin 2 mg by mouth today -Reassess INR in a.m. HX CVA with left hemiparesis, recurrent falls, hx of compression fractures -Continue current outpatient medications -regular soft diet -assist of 1 to 2 staff to transfer from bed to chair -high risk for falls -pressure reduction mattress -left arm splint on during the night, off during the day -consult to OT -consult to PT -[facility] Placement Chronic Kidney disease -monitor I&O Hx of Bariatric Surgery status -soft diet -Protonix 20 mg daily MAINTENANCE ISSUES -DVT prophylaxis; current therapy with warfarin should provide adequate DVT prophylaxis -GI prophylaxis; continue outpatient PPI therapy -[place] catheter; not indicated -Nutrition; regular soft diet -Nicotine dependence; not required CODE STATUS-DNR/DNI ADMISSION STATUS-this patient will be admitted to observation status, expect no more than a one night hospital stay for evaluation and management of problems as outlined above. DISPOSITION-anticipate discharge to [facility] after the hospital stay. PRIMARY CARE PROVIDER-Dr. Oleary HOSPITALIST - Dr. Griffin
[2019-07-08] MEDS: Cephalexin 250 MG Cap PO SCH ×3 (12:46→22:20)
[2019-07-08] MEDS ORDERED: WARFARIN 1 MG PO ONE (13:00)
[2019-07-08] MEDS: atorvaSTATin 20 MG Tab (PTOM) PO SCH (22:17)
[2019-07-08] MEDS: GABAPENTIN 600 MG PO SCH (22:18)
[2019-07-09] MEDS: Cephalexin 250 MG Cap PO SCH ×4 (03:04→21:22)
[2019-07-09] MEDS: DILTIAZEM 60 MG PO SCH ×4 (06:19→21:12)
[2019-07-09] MEDS: Pantoprazole 40 MG Tab.CR (PTOM) PO SCH (07:30)
[2019-07-09] MEDS: Potassium Chloride 10 MEQ Cap.ER PO SCH (09:59)
[2019-07-09] MEDS: Lactobacillus Rhamnosus GG (Probiotic) Cap PO SCH (09:59)
[2019-07-09] MEDS: Vitamin B6-pyridOXINE 50 MG Tab PO SCH (10:00)
[2019-07-09] MEDS: Cholecalciferol (Vitamin D3) 25 MCG Tab PO SCH (10:00)
[2019-07-09] MEDS: Magnesium Oxide 400 MG Tab PO SCH ×2 (10:00→21:22)
[2019-07-09] MEDS: Metoprolol Tartrate 25 MG Tab (PTOM) PO SCH ×2 (10:05→21:14)
[2019-07-09] MEDS: LEVETIRACETAM 750 MG PO SCH ×2 (10:07→21:20)
[2019-07-09] MEDS: SLOW FE PO SCH (10:08)
[2019-07-09] MEDS: Venlafaxine 75 MG Cap.ER PO SCH (10:13)
[2019-07-09] MEDS ORDERED: WARFARIN 1 MG PO ONE (13:00)
[2019-07-09] MEDS ORDERED: Trolamine Salicylate/Aloe Vera 10% Crm 85 GM Tube TOP PRN (14:32)
--- NOTE | 2019-07-09 14:33 | PCM.PN ---
- General Info Date of Service: 07/09/19 Subjective Update: No acute events overnight. No significant pain. Strength is improving. Tolerating oral antibiotics. Still working on a safe discharge plan. Functional Status: Reports: Pain Controlled, Tolerating Diet - Review of Systems General: Denies: Fever - Patient Data Vitals - Most Recent: Last Vital Signs Temp 99 C H 07/09/19 11:00 Pulse 94 07/09/19 10:05 Resp 21 H 07/09/19 11:00 BP 131/92 H 07/09/19 11:00 Pulse Ox 94 L 07/09/19 11:00 Weight - Most Recent: 71.668 kg I&O - Last 24 Hours: Intake & Output 07/08/19 07/09/19 07/09/19 22:59 06:59 14:59 Intake Total 280 120 600 Output Total 400 Balance 280 -280 600 Lab Results Last 24 Hours: Laboratory Results - last 24 hr 07/09/19 Range/Units 05:30 PT 17.1 H (9.5-12.0) sec INR 1.63 H (0.80-1.20) Fausto Results Last 24 Hours: Microbiology 07/06/19 13:48 Aerobic Blood Culture - Preliminary Blood - Venous NO GROWTH AFTER 3 DAYS Anaerobic Blood Culture - Preliminary NO GROWTH AFTER 3 DAYS 07/06/19 13:48 Aerobic Blood Culture - Preliminary Blood - Venous - Lab Draw NO GROWTH AFTER 3 DAYS Anaerobic Blood Culture - Preliminary NO GROWTH AFTER 3 DAYS Med Orders - Current: Current Medications Acetaminophen/Codeine Phosphate (Tylenol With Codeine No.3 300mg/30mg) 1 tab PO BID PRN PRN Reason: Pain (moderate 4-6) Last Admin: 07/07/19 21:52 Dose: 1 tab Albuterol (Proventil Neb Soln) 2.5 mg NEB Q4H PRN PRN Reason: Shortness Of Breath/wheezing Atorvastatin Calcium (Lipitor) 20 mg PO BEDTIME [facility] Last Admin: 07/08/19 22:17 Dose: 20 mg Cephalexin (Keflex) 250 mg PO Q6HR [facility] Last Admin: 07/09/19 11:12 Dose: 250 mg Cholecalciferol (Vitamin D3) 50 mcg PO DAILY [facility] Last Admin: 07/09/19 10:00 Dose: 50 mcg Fluticasone Propionate (Flonase) 0 gm SOL DAILY PRN PRN Reason: ALLERGIES Last Admin: 07/07/19 11:57 Dose: 1 sprays Ipratropium [place] (Atrovent 0.06% Nasal [place]) 0 ml NASBOTH ASDIRECTED PRN PRN Reason: Allergies Last Admin: 07/07/19 21:53 Dose: 2 spray Lactobacillus Rhamnosus (Culturelle) 1 cap PO DAILY [facility] Last Admin: 07/09/19 09:59 Dose: 1 cap Lorazepam (Ativan) 1 mg IV Q6H PRN PRN Reason: Nausea/Vomiting Magnesium Oxide (Magnesium Oxide) 400 mg PO BID [facility] Last Admin: 07/09/19 10:00 Dose: 400 mg Metoprolol Tartrate (Lopressor) 12.5 mg PO BID [facility] Last Admin: 07/09/19 10:05 Dose: 12.5 mg Ondansetron HCl (Zofran Odt) 4 mg PO Q6H PRN PRN Reason: Nausea able to take PO Oxycodone HCl (Oxycodone) 5 mg PO Q4H PRN PRN Reason: Pain (moderate 4-6) Pantoprazole Sodium (Protonix) 40 mg PO ACBREAKFAST [facility] Last Admin: 07/09/19 07:30 Dose: 40 mg Slow Fe 142 (45mg Elemental Fe) Tab ( Ptom) 1 each PO DAILY [facility] Last Admin: 07/09/19 10:08 Dose: 1 each Diltiazem 60mg Tab ( (Ptom)) 0 each PO QID [facility] Last Admin: 07/09/19 10:03 Dose: 1 each Gabapentin 600mg Tab ((Ptom)) 0 each PO BEDTIME [facility] Last Admin: 07/08/19 22:18 Dose: 1 each Levetiracetam 750mg (Tab (Ptom)) 0 each PO BID [facility] Last Admin: 07/09/19 10:07 Dose: 1 each Potassium Chloride (Potassium Chloride) 10 meq PO DAILY [facility] Last Admin: 07/09/19 09:59 Dose: 10 meq Pyridoxine HCl (Vitamin B6-Pyridoxine) 50 mg PO DAILY [facility] Last Admin: 07/09/19 10:00 Dose: 50 mg Sodium Chloride (Saline Flush) 10 ml FLUSH ASDIRECTED PRN PRN Reason: Keep Vein Open Temazepam (Restoril) 15 mg PO BEDTIME PRN PRN Reason: Sleep Venlafaxine HCl (Effexor Xr) 75 mg PO DAILY [facility] Last Admin: 07/09/19 10:13 Dose: 75 mg Warfarin Sodium (Coumadin) 1.5 mg PO DAILY@1300 [facility] Discontinued Medications Atorvastatin Calcium (Lipitor) 20 mg PO BEDTIME [facility] Last Admin: 07/06/19 21:52 Dose: 20 mg Diltiazem HCl (Cardizem) 60 mg PO ONETIME ONE Stop: 07/06/19 17:31 Last Admin: 07/06/19 18:43 Dose: 60 mg Diltiazem HCl (Cardizem) 60 mg PO QID [facility] Last Admin: 07/07/19 05:36 Dose: 60 mg Fluticasone Propionate (Flonase) 16 gm SOL ASDIRECTED PRN PRN Reason: Allergies Gabapentin (Neurontin) 600 mg PO BEDTIME [facility] Last Admin: 07/06/19 21:51 Dose: 600 mg Gabapentin (Neurontin) 600 mg PO BEDTIME [facility] Magnesium Sulfate 2 gm/ Premix 50 mls @ 12.5 mls/hr IV Q6H [facility] Last Admin: 07/06/19 16:29 Dose: 12.5 mls/hr Ceftriaxone Sodium 1 gm/ (Sodium Chloride) 50 mls @ 100 mls/hr IV ONETIME ONE Stop: 07/06/19 16:35 Last Admin: 07/06/19 16:24 Dose: 100 mls/hr Sodium Chloride (Normal Saline) 1,000 mls @ 500 mls/hr IV ASDIRECTED [facility] Last Admin: 07/06/19 16:21 Dose: 500 mls/hr Ceftriaxone Sodium 1 gm/ (Sodium Chloride) 50 mls @ 100 mls/hr IV Q24H [facility] Last Admin: 07/07/19 17:23 Dose: 100 mls/hr Ipratropium [place] (Atrovent 0.06% Nasal [place]) 0 ml NASBOTH ASDIRECTED PRN PRN Reason: Allergies Levetiracetam (Keppra) 750 mg PO BID [facility] Last Admin: 07/06/19 21:51 Dose: Not Given Levetiracetam (Keppra) 750 mg PO BID [facility] Levetiracetam (Keppra) 750 mg PO BID [facility] Metoprolol Succinate (Toprol Xl) 12.5 mg PO ONETIME ONE Stop: 07/06/19 17:20 Last Admin: 07/06/19 18:45 Dose: 12.5 mg Metoprolol Tartrate (Lopressor) 12.5 mg PO BID [facility] Last Admin: 07/06/19 21:50 Dose: Not Given Pantoprazole Sodium (Protonix) 40 mg PO ACBREAKFAST [facility] Potassium Chloride (Klor-Con M20) 20 meq PO ONETIME ONE Stop: 07/06/19 15:02 Last Admin: 07/06/19 16:36 Dose: 20 meq Sodium Chloride (Saline Flush) 10 ml FLUSH ASDIRECTED PRN PRN Reason: Keep Vein Open Last Admin: 07/06/19 14:10 Dose: 10 ml Warfarin Sodium (Coumadin) 1.5 mg PO DAILY@1300 [facility] Last Admin: 07/07/19 12:49 Dose: 1.5 mg Warfarin Sodium (Coumadin) 1 mg PO ASDIRECTED [facility] Warfarin Sodium (Coumadin) 2 mg PO ONETIME ONE Stop: 07/08/19 13:01 Last Admin: 07/08/19 12:47 Dose: 2 mg Warfarin Sodium (Coumadin) 2.5 mg PO ONETIME ONE Stop: 07/09/19 13:01 - Exam Quality Assessment: No: Supplemental Oxygen General: Alert, Oriented, Cooperative, No Acute Distress Lungs: Normal Respiratory Effort GI/Abdominal Exam: Soft, No Distention Skin: Warm, Dry Psy/Mental Status: Alert, Normal Affect - Problem List Review Problem List Initiated/Reviewed/Updated: Yes - My Orders Last 24 Hours: My Active Orders 07/09/19 14:32 Trolamine Salicylate/Aloe Vera [Aspercreme 10%] 1 gm TOP TID PRN 07/10/19 05:00 INR,PT,PROTHROMBIN TIME [COAG] Timed 07/10/19 13:00 Warfarin [Coumadin] 1.5 mg PO DAILY@1300 - Plan Plan:: ASSESSMENT AND PLAN URINARY TRACT INFECTION -urine culture has grown out pansensitive Escherichia coli. -Continue cephalexin 250 mg by mouth every 6 hours -Discontinue Ceftriaxone CHRONIC ANTICOAGULATION A-fib, hx of cardiac ablation - INR today is still subtherapeutic. -Warfarin 2.5 mg by mouth today -Reassess INR in a.m. HX CVA with left hemiparesis, recurrent falls, hx of compression fractures -Continue current outpatient medications -regular soft diet -assist of 1 to 2 staff to transfer from bed to chair -high risk for falls -pressure reduction mattress -left arm splint on during the night, off during the day -consult to OT -consult to PT -Long-Term Placement? Chronic Kidney disease - stable -monitor I&O Hx of Bariatric Surgery status -soft diet -Protonix 20 mg daily MAINTENANCE ISSUES -DVT prophylaxis; current therapy with warfarin should provide adequate DVT prophylaxis -GI prophylaxis; continue outpatient PPI therapy -Salvador catheter; not indicated -Nutrition; regular soft diet DISPOSITION -anticipate discharge to Long-Term after the hospital stay. Still working on a safe discharge plan at this time. Dax Pennington M.D.
[2019-07-09] MEDS: GABAPENTIN 600 MG PO SCH (21:13)
[2019-07-09] MEDS: atorvaSTATin 20 MG Tab (PTOM) PO SCH (21:21)
[2019-07-10] MEDS: Acetaminophen/Codeine 300-30 MG Tab PO PRN (04:45)
[2019-07-10] MEDS: Cephalexin 250 MG Cap PO SCH ×3 (04:48→15:31)
[2019-07-10] MEDS: DILTIAZEM 60 MG PO SCH ×3 (04:59→15:31)
[2019-07-10] MEDS: Vitamin B6-pyridOXINE 50 MG Tab PO SCH (08:05)
[2019-07-10] MEDS: Venlafaxine 75 MG Cap.ER PO SCH (08:05)
[2019-07-10] MEDS: Magnesium Oxide 400 MG Tab PO SCH (08:06)
[2019-07-10] MEDS: Potassium Chloride 10 MEQ Cap.ER PO SCH (08:06)
[2019-07-10] MEDS: Cholecalciferol (Vitamin D3) 25 MCG Tab PO SCH (08:06)
[2019-07-10] MEDS: Lactobacillus Rhamnosus GG (Probiotic) Cap PO SCH (08:07)
[2019-07-10] MEDS: Metoprolol Tartrate 25 MG Tab (PTOM) PO SCH (08:07)
[2019-07-10] MEDS: SLOW FE PO SCH (08:07)
[2019-07-10] MEDS: Pantoprazole 40 MG Tab.CR (PTOM) PO SCH (08:08)
[2019-07-10] MEDS: LEVETIRACETAM 750 MG PO SCH (08:10)
[2019-07-10] MEDS ORDERED: WARFARIN 1 MG PO SCH (13:00)
--- NOTE | 2019-07-10 13:30 | PCM.DCSUM1 ---
Discharge Summary - Hospital Course Brief History: 68-year-old female with history of left hemiparesis because of a previous stroke, chronic atrial fibrillation and recent urinary tract infection who presented with fever, malaise. She was admitted for management of recurrent urinary tract infection and probable chcf placement because of generalized weakness. Diagnosis: Stroke: No - Discharge Data Discharge Date: 07/10/19 Discharge Disposition: DC/Tfer to SNF 03 Condition: Fair - Referral to Home Health Primary Care Physician: PCP None - Discharge Diagnosis/Problem(s) (1) UTI (urinary tract infection) SNOMED Code(s): 51244263 ICD Code: N39.0 - URINARY TRACT INFECTION, SITE NOT SPECIFIED Status: Acute Priority: High Current Visit: Yes Qualifiers: Urinary tract infection type: acute cystitis Hematuria presence: with hematuria Qualified Code(s): N30.01 - Acute cystitis with hematuria (2) Weakness SNOMED Code(s): 67351844 ICD Code: R53.1 - WEAKNESS Status: Acute Current Visit: No (3) Hemiparesis and other late effects of cerebrovascular accident SNOMED Code(s): 0456292449691 ICD Code: I69.359 - HEMIPLGA FOLLOWING CEREBRAL INFARCTION AFFECTING UNSP SIDE; I69.398 - OTHER SEQUELAE OF CEREBRAL INFARCTION Status: Acute Current Visit: Yes - Patient Summary/Data Consults: Consultations 07/06/19 20:34 Consult to Spiritual Care [CONS] Routine OT Evaluation and Treatment [CONS] Routine Please Evaluate and Treat. OT Reason for Consult: Discharge Planning This query below is only for informational purposes and is not editable. PT Evaluation and Treatment [CONS] Routine Please Evaluate and Treat. PT Reason for Consult: Strengthening This query below is only for informational purposes and is not editable. Hospital Course: Boubacar presented to the emergency room with weakness and malaise. She did not feel that she was getting adequate care at home. Workup in the emergency room suggested a recurrent urinary tract infection. She was started on antibiotics and admitted to the hospital. INR was slightly supratherapeutic and warfarin was held. Over the next couple of days she did make slow but steady progress. Her urinary tract infection was treated initially with ceftriaxone and later transitioned to cephalexin. She has completed adequate antibiotic therapy during the hospital stay for her pansensitive Escherichia coli. She has not had any fevers. Appetite has been good. She is very debilitated at baseline because of her previous stroke. She is even weaker than usual with 2 infections back-to- back. She does not feel that she gets adequate care at home from her who is 71 years old. She is interested in chcf placement for additional rehabilitation. Her goal is to get well enough to be safe at home. She has been working with physical therapy but still requires significant assistance and is not able to bear weight without the assistive 2 folks and requires an assist device to get from the bed to the chair and at times even a Shawn lift. She would benefit from ongoing physical and occupational therapy. She will be discharged to the chcf for restorative therapies. - Patient Instructions Diet: Mechanical Soft Activity: As Tolerated Showering/Bathing: May Shower Notify Provider of: Fever, Increased Pain Other/Special Instructions: 1. Referral to PT and OT - strengthening after acute illness complicating chronic disability after stroke. 2. Code status - DNR/DNI. 3. f/u INR 07/13 Dx: chronic anticoagulation - Discharge Plan *PRESCRIPTION DRUG MONITORING PROGRAM REVIEWED*: Not Applicable *COPY OF PRESCRIPTION DRUG MONITORING REPORT IN PATIENT SHADY: Not Applicable Prescriptions/Med Rec: Trolamine Salicylate [Myoflex] 60 gm TP TID PRN #60 cream..g. PRN Reason: muslce pain Home Medications: Home Meds Diltiazem HCl [Cardizem] 60 mg PO QID 09/17/17 [History] L.acidoph,Paracasei, B.lactis [Probiotic] 1 cap PO DAILY 09/17/17 [History] Venlafaxine HCl [Venlafaxine ER] 75 mg PO DAILY 09/17/17 [History] atorvaSTATin Calcium [Atorvastatin Calcium] 20 mg PO BEDTIME 09/17/17 [History] Acetaminophen [Tylenol] 650 mg PO Q4H PRN #100 tablet 09/20/17 [Rx] Gabapentin [Neurontin] 600 mg PO BEDTIME 12/10/17 [History] Magnesium Oxide 400 mg PO BID #60 tablet 12/11/17 [Rx] Pantoprazole [ProTONIX] 40 mg PO DAILY 02/16/18 [History] levETIRAcetam [Keppra] 750 mg PO BID 03/30/18 [History] Aspirin 325 mg PO DAILY 06/12/19 [History] Cholecalciferol (Vitamin D3) [Vitamin D3] 2,000 unit PO DAILY 06/12/19 [History] Ferrous Sulfate [Slow Fe] 142 mg PO DAILY 06/12/19 [History] Fluticasone Propionate [Flonase] 16 gm NS ASDIRECTED PRN 06/12/19 [History] Ipratropium [Atrovent 0.06% Nasal [place]] 15 ml IN ASDIRECTED PRN 06/12/19 [ History] Potassium Chloride 10 meq PO DAILY 06/12/19 [History] Pyridoxine HCl (Vitamin B6) [Vitamin B-6] 50 mg PO DAILY 06/12/19 [History] Metoprolol Tartrate 12.5 mg PO BID 06/13/19 [History] Acetaminophen with Codeine [Tylenol with Codeine #3 Tablet] 1 tab PO BID PRN # 60 tablet 06/15/19 [Rx] Alendronate Sodium 70 mg PO WEEKLY 06/15/19 [History] Warfarin [Coumadin] 1 mg PO ASDIRECTED #0 06/15/19 [Rx] Warfarin [Coumadin] 1.5 mg PO ASDIRECTED #45 tablet 06/15/19 [Rx] Trolamine Salicylate [Myoflex] 60 gm TP TID PRN #60 cream..g. 07/10/19 [Rx] Oxygen Therapy Mode: Room Air Referrals: PCP,None [Primary Care Provider] - (f/u as needed after the hospital stay ) - Discharge Summary/Plan Comment DC Time >30 min.: Yes (40 - new [facility] discharge) - Patient Data Vitals - Most Recent: Last Vital Signs Temp 36.3 C 07/10/19 08:02 Pulse 83 07/10/19 08:07 Resp 16 07/10/19 08:02 BP 120/39 L 07/10/19 08:07 Pulse Ox 93 L 07/10/19 08:02 Weight - Most Recent: 71.668 kg I&O - Last 24 hours: Intake & Output 07/09/19 07/10/19 07/10/19 22:59 06:59 14:59 Intake Total 940 240 640 Output Total 350 Balance 940 -110 640 Lab Results - Last 24 hrs: Laboratory Results - last 24 hr 07/10/19 Range/Units 05:56 PT 18.0 H (9.5-12.0) sec INR 1.72 H (0.80-1.20) ECTOR Results - Last 24 hrs: Microbiology 07/06/19 13:48 Aerobic Blood Culture - Preliminary Blood - Venous NO GROWTH AFTER 3 DAYS Anaerobic Blood Culture - Preliminary NO GROWTH AFTER 3 DAYS 07/06/19 13:48 Aerobic Blood Culture - Preliminary Blood - Venous - Lab Draw NO GROWTH AFTER 3 DAYS Anaerobic Blood Culture - Preliminary NO GROWTH AFTER 3 DAYS Med Orders - Current: Current Medications Acetaminophen/Codeine Phosphate (Tylenol With Codeine No.3 300mg/30mg) 1 tab PO BID PRN PRN Reason: Pain (moderate 4-6) Last Admin: 07/10/19 04:45 Dose: 1 tab Albuterol (Proventil Neb Soln) 2.5 mg NEB Q4H PRN PRN Reason: Shortness Of Breath/wheezing Atorvastatin Calcium (Lipitor) 20 mg PO BEDTIME [facility] Last Admin: 07/09/19 21:21 Dose: 20 mg Cephalexin (Keflex) 250 mg PO Q6HR [facility] Last Admin: 07/10/19 09:29 Dose: 250 mg Cholecalciferol (Vitamin D3) 50 mcg PO DAILY [facility] Last Admin: 07/10/19 08:06 Dose: 50 mcg Fluticasone Propionate (Flonase) 0 gm SOL DAILY PRN PRN Reason: ALLERGIES Last Admin: 07/07/19 11:57 Dose: 1 sprays Ipratropium [place] (Atrovent 0.06% Nasal [place]) 0 ml NASBOTH ASDIRECTED PRN PRN Reason: Allergies Last Admin: 07/07/19 21:53 Dose: 2 spray Lactobacillus Rhamnosus (Culturelle) 1 cap PO DAILY [facility] Last Admin: 07/10/19 08:07 Dose: 1 cap Lorazepam (Ativan) 1 mg IV Q6H PRN PRN Reason: Nausea/Vomiting Magnesium Oxide (Magnesium Oxide) 400 mg PO BID [facility] Last Admin: 07/10/19 08:06 Dose: 400 mg Metoprolol Tartrate (Lopressor) 12.5 mg PO BID [facility] Last Admin: 07/10/19 08:07 Dose: 12.5 mg Ondansetron HCl (Zofran Odt) 4 mg PO Q6H PRN PRN Reason: Nausea able to take PO Oxycodone HCl (Oxycodone) 5 mg PO Q4H PRN PRN Reason: Pain (moderate 4-6) Pantoprazole Sodium (Protonix) 40 mg PO ACBREAKFAST [facility] Last Admin: 07/10/19 08:08 Dose: 40 mg Slow Fe 142 (45mg Elemental Fe) Tab ( Ptom) 1 each PO DAILY [facility] Last Admin: 07/10/19 08:07 Dose: 1 each Diltiazem 60mg Tab ( (Ptom)) 0 each PO QID [facility] Last Admin: 07/10/19 04:59 Dose: 1 each Gabapentin 600mg Tab ((Ptom)) 0 each PO BEDTIME [facility] Last Admin: 07/09/19 21:13 Dose: 1 each Levetiracetam 750mg (Tab (Ptom)) 0 each PO BID [facility] Last Admin: 07/10/19 08:10 Dose: 1 each Potassium Chloride (Potassium Chloride) 10 meq PO DAILY [facility] Last Admin: 07/10/19 08:06 Dose: 10 meq Pyridoxine HCl (Vitamin B6-Pyridoxine) 50 mg PO DAILY [facility] Last Admin: 07/10/19 08:05 Dose: 50 mg Sodium Chloride (Saline Flush) 10 ml FLUSH ASDIRECTED PRN PRN Reason: Keep Vein Open Temazepam (Restoril) 15 mg PO BEDTIME PRN PRN Reason: Sleep Trolamine Salicylate (Aspercreme 10%) 1 gm TOP TID PRN PRN Reason: muscle pain Last Admin: 07/09/19 19:43 Dose: 1 applic Venlafaxine HCl (Effexor Xr) 75 mg PO DAILY [facility] Last Admin: 07/10/19 08:05 Dose: 75 mg Warfarin Sodium (Coumadin) 1.5 mg PO DAILY@1300 [facility] Discontinued Medications Atorvastatin Calcium (Lipitor) 20 mg PO BEDTIME [facility] Last Admin: 07/06/19 21:52 Dose: 20 mg Diltiazem HCl (Cardizem) 60 mg PO ONETIME ONE Stop: 07/06/19 17:31 Last Admin: 07/06/19 18:43 Dose: 60 mg Diltiazem HCl (Cardizem) 60 mg PO QID [facility] Last Admin: 07/07/19 05:36 Dose: 60 mg Fluticasone Propionate (Flonase) 16 gm SOL ASDIRECTED PRN PRN Reason: Allergies Gabapentin (Neurontin) 600 mg PO BEDTIME [facility] Last Admin: 07/06/19 21:51 Dose: 600 mg Gabapentin (Neurontin) 600 mg PO BEDTIME [facility] Magnesium Sulfate 2 gm/ Premix 50 mls @ 12.5 mls/hr IV Q6H [facility] Last Admin: 07/06/19 16:29 Dose: 12.5 mls/hr Ceftriaxone Sodium 1 gm/ (Sodium Chloride) 50 mls @ 100 mls/hr IV ONETIME ONE Stop: 07/06/19 16:35 Last Admin: 07/06/19 16:24 Dose: 100 mls/hr Sodium Chloride (Normal Saline) 1,000 mls @ 500 mls/hr IV ASDIRECTED [facility] Last Admin: 07/06/19 16:21 Dose: 500 mls/hr Ceftriaxone Sodium 1 gm/ (Sodium Chloride) 50 mls @ 100 mls/hr IV Q24H [facility] Last Admin: 07/07/19 17:23 Dose: 100 mls/hr Ipratropium [place] (Atrovent 0.06% Nasal [place]) 0 ml NASBOTH ASDIRECTED PRN PRN Reason: Allergies Levetiracetam (Keppra) 750 mg PO BID [facility] Last Admin: 07/06/19 21:51 Dose: Not Given Levetiracetam (Keppra) 750 mg PO BID [facility] Levetiracetam (Keppra) 750 mg PO BID [facility] Metoprolol Succinate (Toprol Xl) 12.5 mg PO ONETIME ONE Stop: 07/06/19 17:20 Last Admin: 07/06/19 18:45 Dose: 12.5 mg Metoprolol Tartrate (Lopressor) 12.5 mg PO BID [facility] Last Admin: 07/06/19 21:50 Dose: Not Given Pantoprazole Sodium (Protonix) 40 mg PO ACBREAKFAST [facility] Potassium Chloride (Klor-Con M20) 20 meq PO ONETIME ONE Stop: 07/06/19 15:02 Last Admin: 07/06/19 16:36 Dose: 20 meq Sodium Chloride (Saline Flush) 10 ml FLUSH ASDIRECTED PRN PRN Reason: Keep Vein Open Last Admin: 07/06/19 14:10 Dose: 10 ml Warfarin Sodium (Coumadin) 1.5 mg PO DAILY@1300 [facility] Last Admin: 07/07/19 12:49 Dose: 1.5 mg Warfarin Sodium (Coumadin) 1 mg PO ASDIRECTED [facility] Warfarin Sodium (Coumadin) 2 mg PO ONETIME ONE Stop: 07/08/19 13:01 Last Admin: 07/08/19 12:47 Dose: 2 mg Warfarin Sodium (Coumadin) 2.5 mg PO ONETIME ONE Stop: 07/09/19 13:01 Last Admin: 07/09/19 14:35 Dose: 2.5 mg - Exam Quality Assessment: Denies: Supplemental Oxygen General: Reports: Alert, Oriented, Cooperative, No Acute Distress Lungs: Reports: Normal Respiratory Effort GI/Abdominal Exam: Soft, No Distention Extremities: No Pedal Edema Psy/Mental Status: Reports: Alert, Normal Affect
[2019-07-10 15:28] VITALS: BP 97/63; PULSE 67
== END 2019-07-10 16:08 ==
LOC: JP.ED 13:23 → JP.ICU 20:09 → JP.MS 07-07 15:00
PROVIDERS: ADMIT Hospitalist; ATTEND Internal Medicine
DX: N39.0 Urinary tract infection, site not specified (principal); I69.954 Hemiplegia and hemiparesis following unspecified cerebrovascular disease affecting left non-dominant side; N18.3 Chronic kidney disease, stage 3 (moderate); R53.1 Weakness; Z98.84 Bariatric surgery status; Z79.01 Long term (current) use of anticoagulants; Z79.899 Other long term (current) drug therapy; Z79.82 Long term (current) use of aspirin
CPT/HCPCS: 36415; 71045; 80048; 81001; 83605; 83735; 85025; 85610; 86140; 87040; 87086; 87088; 87186; 94762; 96365; 96367; 97110; 97162; 97165; 97530; 99284; 99285; A9270; J0696; J3475; J7030; J7050

== ENCOUNTER 2020-04-24 13:37 | Inpatient (IN) | payer MEDICARE, MEDICAID ==
[2020-04-24] MEDS ORDERED: Sodium Chloride 0.9% 1,000 ML IV SCH ×2 (15:30→17:21)
--- NOTE | 2020-04-24 15:56 | EDM.PDOC ---
ED HPI GENERAL MEDICAL PROBLEM - General Chief Complaint: General Stated Complaint: UNK Time Seen by Provider: 04/24/20 15:00 Source of Information: Reports: Patient, Family, RN Notes Reviewed History Limitations: Reports: No Limitations - History of Present Illness INITIAL COMMENTS - FREE TEXT/NARRATIVE: kathe is a 69 yo female brought to ED via medivan for evaluation for senior care placement. She lives with her spouse and he states that with her declining function that she is getting to be too difficult to care for at home. Patient is alert, voices that she does not want to go to the senior care. Not able to correctly recall year or president. She has a past medical hx that is significant for a CVA with left sided chronic deficits, DVTs, SVT, afib, dementia, anemia, and colon cancer. The called to [facility] and they do have beds. Onset: Gradual - Related Data Allergies Allergy/AdvReac Type Severity Reaction Status Date / Time amoxicillin Allergy Rash Verified 04/24/20 15:32 Home Meds: Home Meds Stefani.acidoph,[place], B.lactis [Probiotic] 1 cap PO DAILY 09/17/17 [History] Venlafaxine HCl [Venlafaxine ER] 225 mg PO DAILY 09/17/17 [History] atorvaSTATin Calcium [Atorvastatin Calcium] 20 mg PO BEDTIME 09/17/17 [History] dilTIAZem HCL [Cardizem] 60 mg PO QID 09/17/17 [History] Gabapentin [Neurontin] 600 mg PO BID 12/10/17 [History] Magnesium Oxide 400 mg PO BID #60 tablet 12/11/17 [Rx] Pantoprazole [ProTONIX] 40 mg PO DAILY 02/16/18 [History] levETIRAcetam [Keppra] 750 mg PO BID 03/30/18 [History] Cholecalciferol (Vitamin D3) [Vitamin D3] 2,000 unit PO DAILY 06/12/19 [History] Ferrous Sulfate [Slow Fe] 142 mg PO DAILY 06/12/19 [History] Pyridoxine HCl (Vitamin B6) [Vitamin B-6] 50 mg PO DAILY 06/12/19 [History] Metoprolol Tartrate 12.5 mg PO BID 06/13/19 [History] Warfarin [Coumadin] 1 mg PO ASDIRECTED #0 08/30/19 [Rx] Trolamine Salicylate [Myoflex] 60 gm TP TID PRN #60 cream..g. 07/10/19 [Rx] Acetaminophen [Tylenol] 650 mg PO Q4H 04/24/20 [History] Acetaminophen/Codeine [Tylenol with Codeine No.3 300MG/30MG] 1 tab PO Q4H PRN 04/24/20 [History] Past Medical History HEENT History: Reports: Impaired Vision, Sinusitis Cardiovascular History: Reports: Afib, Blood Clots/VTE/DVT, 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) Other Cardiovascular History: Hx of SVT Gastrointestinal History: Reports: GERD Genitourinary History: Reports: 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) Other Genitourinary History: elevated enzymes. Chronic kidney disease stage 3 BOOK PACKER History: Reports: 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), Other BOOK PACKER History: tipped uterus Musculoskeletal History: Reports: Neck Pain, Chronic, 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) Other Musculoskeletal History: tetony Neurological History: Reports: CVA, 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) Other Neuro History: Stoke 08/27/17 Psychiatric History: Reports: Anxiety, Dementia Hematologic History: Reports: Anemia, Anticoagulation Therapy, 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) Other Hematologic History: electolyte imbalance, hypomagnesium Oncologic (Cancer) History: Reports: Colon Dermatologic History: Reports: 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) Other Dermatologic History: contact dermatitis - Infectious Disease History Infectious Disease History: Reports: Chicken Pox, Measles, Mumps - Past Surgical History Cardiovascular Surgical History: Reports: Cardiac Ablation GI Surgical History: Reports: Bariatric Procedure, 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), Small Bowel Social & Family History - Family History Family Medical History: Noncontributory - Tobacco Use Smoking Status *Q: Never Smoker - Caffeine Use Caffeine Use: Reports: Coffee - Recreational Drug Use Recreational Drug Use: No - Living Situation & Occupation Living situation: Reports: Occupation: Disabled (lives with Noah, who is her student loan counselor in [place], [place].) ED ROS GENERAL - Review of Systems Review Of Systems: See Below Constitutional: Reports: Decreased Appetite, Weight Loss HEENT: Reports: Glasses Respiratory: Reports: No Symptoms Cardiovascular: Reports: No Symptoms Endocrine: Reports: No Symptoms GI/Abdominal: Reports: Anorexia : Reports: Incontinence Musculoskeletal: Reports: Other (left sided deficits from CVA) Skin: Reports: Bruising (left should/ arm (spouse says from laying on)) Neurological: Reports: Confusion, Other (wheelchair bound) Psychiatric: Reports: No Symptoms Hematologic/Lymphatic: Reports: Anemia, Easy Bleeding, Easy Bruising Immunologic: Reports: No Symptoms ED EXAM, GENERAL - Physical Exam Exam: See Below Exam Limited By: Altered Mental Status General Appearance: Alert Eye Exam: Bilateral Eye: PERRL Ears: Normal External Exam Nose: Normal Inspection, Normal Mucosa Throat/Mouth: Normal Inspection, Normal Oropharynx, Other (multiple broken and missing teeth) Head: Atraumatic, Normocephalic Neck: Normal Inspection, Non-Tender. No: Lymphadenopathy (R), Lymphadenopathy (L) Respiratory/Chest: No Respiratory Distress, Normal Breath Sounds, No Accessory Muscle Use. No: Crackles, Rales, Rhonchi Cardiovascular: Regular Rate, Rhythm, No Edema, Tachycardia, Other GI/Abdominal: Soft, Non-Tender (Female) Exam: Other (chronic incontinence) Back Exam: Normal Inspection. No: CVA Tenderness (R), CVA Tenderness (L) Extremities: Normal Inspection, No Pedal Edema, Normal Capillary Refill Neurological: Alert. No: Normal Gait Psychiatric: Flat Affect Skin Exam: Warm, Dry, Ecchymosis (left shoulder and arm) Lymphatic: No Adenopathy Course - Vital Signs Last Recorded V/S: Last Vital Signs Temp 96.9 F 04/24/20 15:41 Pulse 112 H 04/24/20 16:30 Resp 9 L 04/24/20 16:30 BP 93/72 04/24/20 15:41 Pulse Ox 96 04/24/20 15:41 - Orders/Labs/Meds Orders: Active Orders 24 hr Category Date Time Status Patient Status Manage Transfer [TRANSFER] Routine ADT 04/24/20 16:36 Active EKG Documentation Completion [RC] ASDIRECTED Care 04/24/20 15:25 Active CULTURE URINE [RM] Stat Lab 04/24/20 15:51 Received Sodium Chloride 0.9% [Normal Saline] 1,000 ml Med 04/24/20 15:30 Active IV ASDIRECTED cefTRIAXone [Rocephin] 1 gm Med 04/24/20 16:45 Active Sodium Chloride 0.9% [Normal Saline] 50 ml IV Q24H Resuscitation Status Routine Resus Stat 04/24/20 16:39 Ordered EKG 12 Lead [EK] Routine Ther 04/24/20 15:25 Ordered Medication Orders Sodium Chloride (Normal Saline) 1,000 mls @ 250 mls/hr IV ASDIRECTED LEONELA Ceftriaxone Sodium 1 gm/ (Sodium Chloride) 50 mls @ 100 mls/hr IV Q24H [facility] Labs: Laboratory Tests 04/24/20 04/24/20 04/24/20 Range/Units 14:50 14:50 14:50 WBC 8.0 (4.5-11.0) K/uL RBC 4.36 (3.30-5.50) M/uL Hgb 13.3 D (12.0-15.0) g/dL Hct 41.7 (36.0-48.0) % MCV 96 (80-98) fL MCH 31 (27-31) pg MCHC 32 (32-36) % Plt Count 347 (150-400) K/uL Neut % (Auto) 71 H (36-66) % Lymph % (Auto) 21 L (24-44) % [place] % (Auto) 8 H (2-6) % Eos % (Auto) 0 L (2-4) % Baso % (Auto) 0 (0-1) % PT 26.0 H (9.5-12.0) sec INR 2.54 H (0.80-1.20) Sodium 141 (140-148) mmol/L Potassium 3.7 (3.6-5.2) mmol/L Chloride 107 (100-108) mmol/L Carbon Dioxide 21 (21-32) mmol/L Anion Gap 13.3 (5.0-14.0) mmol/L BUN 18 (7-18) mg/dL Creatinine 1.4 H (0.6-1.0) mg/dL Est Cr Clr Drug Dosing 26.47 mL/min Estimated GFR (MDRD) 37 L (>60) Glucose 115 H (74-106) mg/dL Calcium 8.3 L (8.5-10.1) mg/dL Total Bilirubin 0.5 D (0.2-1.0) mg/dL AST 29 (15-37) U/L ALT 32 (12-78) U/L Alkaline Phosphatase 145 H (46-116) U/L Total Protein 6.0 L (6.4-8.2) g/dL Albumin 1.9 L (3.4-5.0) g/dL Globulin 4.1 H (2.3-3.5) g/dL Albumin/Globulin Ratio 0.5 L (1.2-2.2) TSH, Ultra Sensitive (0.358-3.740) uIU/mL Urine Color (YELLOW) Urine Appearance (CLEAR) Urine pH (5.0-8.0) Ur Specific [place] (1.008-1.030) Urine Protein (NEGATIVE) mg/dL Urine Glucose (UA) (NEGATIVE) mg/dL Urine Ketones (NEGATIVE) mg/dL Urine Occult Blood (NEGATIVE) Urine Nitrite (NEGATIVE) Urine Bilirubin (NEGATIVE) Urine Urobilinogen (0.2-1.0) EU/dL Ur Leukocyte Esterase (NEGATIVE) Urine RBC (0-5) Urine WBC (0-5) Ur Epithelial Cells Amorphous Sediment Urine Bacteria Urine Mucus 04/24/20 04/24/20 Range/Units 14:50 15:36 WBC (4.5-11.0) K/uL RBC (3.30-5.50) M/uL Hgb (12.0-15.0) g/dL Hct (36.0-48.0) % MCV (80-98) fL MCH (27-31) pg MCHC (32-36) % Plt Count (150-400) K/uL Neut % (Auto) (36-66) % Lymph % (Auto) (24-44) % [place] % (Auto) (2-6) % Eos % (Auto) (2-4) % Baso % (Auto) (0-1) % PT (9.5-12.0) sec INR (0.80-1.20) Sodium (140-148) mmol/L Potassium (3.6-5.2) mmol/L Chloride (100-108) mmol/L Carbon Dioxide (21-32) mmol/L Anion Gap (5.0-14.0) mmol/L BUN (7-18) mg/dL Creatinine (0.6-1.0) mg/dL Est Cr Clr Drug Dosing mL/min Estimated GFR (MDRD) (>60) Glucose (74-106) mg/dL Calcium (8.5-10.1) mg/dL Total Bilirubin (0.2-1.0) mg/dL AST (15-37) U/L ALT (12-78) U/L Alkaline Phosphatase (46-116) U/L Total Protein (6.4-8.2) g/dL Albumin (3.4-5.0) g/dL Globulin (2.3-3.5) g/dL Albumin/Globulin Ratio (1.2-2.2) TSH, Ultra Sensitive 1.619 (0.358-3.740) uIU/mL Urine Color Yellow (YELLOW) Urine Appearance Slightly cloudy A (CLEAR) Urine pH 7.0 (5.0-8.0) Ur Specific [place] 1.025 (1.008-1.030) Urine Protein 30 H (NEGATIVE) mg/dL Urine Glucose (UA) Negative (NEGATIVE) mg/dL Urine Ketones Trace H (NEGATIVE) mg/dL Urine Occult Blood Small H (NEGATIVE) Urine Nitrite Negative (NEGATIVE) Urine Bilirubin Small H (NEGATIVE) Urine Urobilinogen 0.2 (0.2-1.0) EU/dL Ur Leukocyte Esterase Small H (NEGATIVE) Urine RBC 5-10 H (0-5) Urine WBC 20-30 H (0-5) Ur Epithelial Cells Rare Amorphous Sediment Not seen Urine Bacteria Many Urine Mucus Not seen Meds: Medications Generic Name Dose Route Start Last Admin Trade Name Freq PRN Reason Stop Dose Admin Sodium Chloride 1,000 mls @ 250 mls/hr 04/24/20 15:30 Normal Saline IV ASDIRECTED [facility] Ceftriaxone Sodium 1 gm/ 50 mls @ 100 mls/hr 04/24/20 16:45 Sodium Chloride IV Q24H [facility] Departure - Departure Time of Disposition: 16:29 Disposition: Refer to Observation Clinical Impression: Dehydration, moderate, Acute cystitis with hematuria, Caregiver has difficulty performing caretaking, H/O: CVA (cerebrovascular accident), Hemiparesis and other late effects of cerebrovascular accident, Sinus tachycardia, First degree AV block - Discharge Information *PRESCRIPTION DRUG MONITORING PROGRAM REVIEWED*: No *COPY OF PRESCRIPTION DRUG MONITORING REPORT IN PATIENT SHADY: No Referrals: PCP,None [Primary Care Provider] - Forms: ED Department Discharge Sepsis Event Note (ED) - Evaluation Sepsis Screening Result: No Definite Risk - Focused Exam Vital Signs: Vital Signs Temp Pulse Resp BP Pulse Ox 04/24/20 16:30 112 H 9 L 04/24/20 15:41 96.9 F 132 H 16 93/72 96 07/09/20 14:31 96.9 F 132 H 16 93/72 96 - My Orders Last 24 Hours: My Active Orders 04/24/20 15:25 EKG Documentation Completion [RC] ASDIRECTED EKG 12 Lead [EK] Routine 04/24/20 15:30 Sodium Chloride 0.9% [Normal Saline] 1,000 ml IV ASDIRECTED 04/24/20 15:51 CULTURE URINE [RM] Stat - Assessment/Plan Last 24 Hours: My Active Orders 04/24/20 15:25 EKG Documentation Completion [RC] ASDIRECTED EKG 12 Lead [EK] Routine 04/24/20 15:30 Sodium Chloride 0.9% [Normal Saline] 1,000 ml IV ASDIRECTED 04/24/20 15:51 CULTURE URINE [RM] Stat Plan: call placed to Dr. Griffin for evaluation for admission.
--- NOTE | 2020-04-24 16:46 | PCM.HP.2 ---
H&P History of Present Illness - General Date of Service: 04/24/20 Admit Problem/Dx: Admission Diagnosis/Problem Admission Diagnosis/Problem Dehydration Source of Information: Patient, Old Records, Provider, RN Notes Reviewed History Limitations: Reports: Altered Mental Status (Dementia) - History of Present Illness Initial Comments - Free Text/Narative: Ms. Hernández is a 69-year-old woman who was admitted to observation status through the emergency department for further management and evaluation of dehydration and urinary tract infection. She has a history of previous CVA with residual left-sided weakness and underlying dementia. Over the past several weeks she has become progressively more weak, this is been worse over the past 10 days. She has noted some symptoms of dysuria during that period of time. On evaluation in the emergency department she is noted to have evidence of urinary tract infection and dehydration with borderline blood pressures and sinus tachycardia. White blood cell count is within normal range and she is not had significant temperature elevation. Renal function is mildly elevated from baseline. She is unable to provide a meaningful history concerning symptoms or review of systems because of her dementia. - Related Data Allergies/Adverse Reactions: Allergies Allergy/AdvReac Type Severity Reaction Status Date / Time amoxicillin Allergy Rash Verified 04/24/20 15:32 Home Medications: Home Meds L.acidoph,Par[place]ase[place], B.lactis [Probiotic] 1 cap PO DAILY 09/17/17 [History] Venlafaxine HCl [Venlafaxine ER] 225 mg PO DAILY 09/17/17 [History] atorvaSTATin Calcium [Atorvastatin Calcium] 20 mg PO BEDTIME 09/17/17 [History] dilTIAZem HCL [Cardizem] 60 mg PO QID 09/17/17 [History] Gabapentin [Neurontin] 600 mg PO BID 12/10/17 [History] Magnesium Oxide 400 mg PO BID #60 tablet 12/11/17 [Rx] Pantoprazole [ProTONIX] 40 mg PO DAILY 02/16/18 [History] levETIRAcetam [Keppra] 750 mg PO BID 03/30/18 [History] Cholecalciferol (Vitamin D3) [Vitamin D3] 2,000 unit PO DAILY 06/12/19 [History] Ferrous Sulfate [Slow Fe] 142 mg PO DAILY 06/12/19 [History] Pyridoxine HCl (Vitamin B6) [Vitamin B-6] 50 mg PO DAILY 06/12/19 [History] Metoprolol Tartrate 12.5 mg PO BID 06/13/19 [History] Warfarin [Coumadin] 1 mg PO ASDIRECTED #0 06/15/19 [Rx] Trolamine Salicylate [Myoflex] 60 gm TP TID PRN #60 cream..g. 07/10/19 [Rx] Acetaminophen [Tylenol] 650 mg PO Q4H 04/24/20 [History] Acetaminophen/Codeine [Tylenol with Codeine No.3 300MG/30MG] 1 tab PO Q4H PRN 04/24/20 [History] Past Medical History HEENT History: Reports: Impaired Vision, Sinusitis Cardiovascular History: Reports: Afib, Blood Clots/VTE/DVT, 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) Other Cardiovascular History: Hx of SVT Gastrointestinal History: Reports: GERD Genitourinary History: Reports: 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) Other Genitourinary History: elevated enzymes. 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: Reports: 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), Other OB/BYN History: tipped uterus Musculoskeletal History: Reports: Neck Pain, Chronic, 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) Other Musculoskeletal History: tetony Neurological History: Reports: CVA, 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) Other Neuro History: [place] 08/27/17 Psychiatric History: Reports: Anxiety, Dementia Hematologic History: Reports: Anemia, Anticoagulation Therapy, 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) Other Hematologic History: electolyte imbalance, hypomagnesium Oncologic (Cancer) History: Reports: Colon Dermatologic History: Reports: 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) Other Dermatologic History: contact dermatitis - Infectious Disease History Infectious Disease History: Reports: Chicken Pox, Measles, Mumps - Past Surgical History Cardiovascular Surgical History: Reports: Cardiac Ablation GI Surgical History: Reports: Bariatric Procedure, 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), Small Bowel Social & Family History - Family History Family Medical History: Noncontributory - Tobacco Use Smoking Status *Q: Never Smoker - Caffeine Use Caffeine Use: Reports: Coffee - Recreational Drug Use Recreational Drug Use: No - Living Situation & Occupation Living situation: Reports: Occupation: Disabled (lives with Noah, who is her examination proctor in [place], [place].) H&P Review of Systems - Review of Systems: Review Of Systems: See Below General: Reports: ROS unobtainable (Dementia) Exam - Exam Exam: See Below - Vital Signs Vital Signs: Last Vital Signs Temp 96.9 F 04/24/20 15:41 Pulse 112 H 04/24/20 16:30 Resp 9 L 04/24/20 16:30 BP 93/72 04/24/20 15:41 Pulse Ox 96 04/24/20 15:41 Weight: 192 lb - Exam Quality Assessment: DVT Prophylaxis General: Alert, Cooperative, Mild Distress. No: Oriented HEENT: Conjunctiva Clear, Hearing Intact, Normal Nasal Septum, Posterior Pharynx Clear, Pupils Equal. No: Mucosa Moist & [place] Neck: Supple, Trachea Midline, +2 Carotid Pulse wo Bruit Lungs: Clear to Auscultation, Normal Respiratory Effort Cardiovascular: Regular Rate, Regular Rhythm, Normal S1, Normal S2. No: Systolic Murmur, Diastolic Murmur GI/Abdominal Exam: Soft, Non-Tender, No Organomegaly, No Distention Back Exam: Normal Inspection, Full Range of Motion Extremities: Non-Tender, No Pedal Edema Skin: Warm, Dry, Intact Neurological: Cranial Nerves Intact, Normal Speech, Normal Tone, Sensation Intact. No: Strength Equal Bilateral (Residual left upper and lower extremity weakness), Focal Deficit Neuro Extensive - Mental Status: Alert, Disorientation to Place, Disorientation to Time, Memory Loss-Remote Events, Memory Loss-Recent Events. No: Oriented x3, Normal Mood/Affect, Normal Cognition, Memory Intact, Disorientation to Person - Patient Data Lab Results Last 24 hrs: Laboratory Results - last 24 hr 04/24/20 04/24/20 04/24/20 Range/Units 14:50 14:50 14:50 WBC 8.0 (4.5-11.0) K/uL RBC 4.36 (3.30-5.50) M/uL Hgb 13.3 D (12.0-15.0) g/dL Hct 41.7 (36.0-48.0) % MCV 96 (80-98) fL MCH 31 (27-31) pg MCHC 32 (32-36) % Plt Count 347 (150-400) K/uL Neut % (Auto) 71 H (36-66) % Lymph % (Auto) 21 L (24-44) % [place] % (Auto) 8 H (2-6) % Eos % (Auto) 0 L (2-4) % Baso % (Auto) 0 (0-1) % PT 26.0 H (9.5-12.0) sec INR 2.54 H (0.80-1.20) Sodium 141 (140-148) mmol/L Potassium 3.7 (3.6-5.2) mmol/L Chloride 107 (100-108) mmol/L Carbon Dioxide 21 (21-32) mmol/L Anion Gap 13.3 (5.0-14.0) mmol/L BUN 18 (7-18) mg/dL Creatinine 1.4 H (0.6-1.0) mg/dL Est Cr Clr Drug Dosing 26.47 mL/min Estimated GFR (MDRD) 37 L (>60) Glucose 115 H (74-106) mg/dL Calcium 8.3 L (8.5-10.1) mg/dL Total Bilirubin 0.5 D (0.2-1.0) mg/dL AST 29 (15-37) U/L ALT 32 (12-78) U/L Alkaline Phosphatase 145 H (46-116) U/L Total Protein 6.0 L (6.4-8.2) g/dL Albumin 1.9 L (3.4-5.0) g/dL Globulin 4.1 H (2.3-3.5) g/dL Albumin/Globulin Ratio 0.5 L (1.2-2.2) TSH, Ultra Sensitive (0.358-3.740) uIU/mL Urine Color (YELLOW) Urine Appearance (CLEAR) Urine pH (5.0-8.0) Ur Specific [place] (1.008-1.030) Urine Protein (NEGATIVE) mg/dL Urine Glucose (UA) (NEGATIVE) mg/dL Urine Ketones (NEGATIVE) mg/dL Urine Occult Blood (NEGATIVE) Urine Nitrite (NEGATIVE) Urine Bilirubin (NEGATIVE) Urine Urobilinogen (0.2-1.0) EU/dL Ur Leukocyte Esterase (NEGATIVE) Urine RBC (0-5) Urine WBC (0-5) Ur Epithelial Cells Amorphous Sediment Urine Bacteria Urine Mucus 04/24/20 04/24/20 Range/Units 14:50 15:36 WBC (4.5-11.0) K/uL RBC (3.30-5.50) M/uL Hgb (12.0-15.0) g/dL Hct (36.0-48.0) % MCV (80-98) fL MCH (27-31) pg MCHC (32-36) % Plt Count (150-400) K/uL Neut % (Auto) (36-66) % Lymph % (Auto) (24-44) % [place] % (Auto) (2-6) % Eos % (Auto) (2-4) % Baso % (Auto) (0-1) % PT (9.5-12.0) sec INR (0.80-1.20) Sodium (140-148) mmol/L Potassium (3.6-5.2) mmol/L Chloride (100-108) mmol/L Carbon Dioxide (21-32) mmol/L Anion Gap (5.0-14.0) mmol/L BUN (7-18) mg/dL Creatinine (0.6-1.0) mg/dL Est Cr Clr Drug Dosing mL/min Estimated GFR (MDRD) (>60) Glucose (74-106) mg/dL Calcium (8.5-10.1) mg/dL Total Bilirubin (0.2-1.0) mg/dL AST (15-37) U/L ALT (12-78) U/L Alkaline Phosphatase (46-116) U/L Total Protein (6.4-8.2) g/dL Albumin (3.4-5.0) g/dL Globulin (2.3-3.5) g/dL Albumin/Globulin Ratio (1.2-2.2) TSH, Ultra Sensitive 1.619 (0.358-3.740) uIU/mL Urine Color Yellow (YELLOW) Urine Appearance Slightly cloudy A (CLEAR) Urine pH 7.0 (5.0-8.0) Ur Specific [place] 1.025 (1.008-1.030) Urine Protein 30 H (NEGATIVE) mg/dL Urine Glucose (UA) Negative (NEGATIVE) mg/dL Urine Ketones Trace H (NEGATIVE) mg/dL Urine Occult Blood Small H (NEGATIVE) Urine Nitrite Negative (NEGATIVE) Urine Bilirubin Small H (NEGATIVE) Urine Urobilinogen 0.2 (0.2-1.0) EU/dL Ur Leukocyte Esterase Small H (NEGATIVE) Urine RBC 5-10 H (0-5) Urine WBC 20-30 H (0-5) Ur Epithelial Cells Rare Amorphous Sediment Not seen Urine Bacteria Many Urine Mucus Not seen Result Diagrams: 04/24/20 14:50 04/24/20 14:50 Sepsis Event Note - Evaluation Sepsis Screening Result: No Definite Risk - Focused Exam Vital Signs: Vital Signs Temp Pulse Resp BP Pulse Ox 04/24/20 16:30 112 H 9 L 04/24/20 15:41 96.9 F 132 H 16 93/72 96 04/24/20 14:31 96.9 F 132 H 16 93/72 96 Date Exam was Performed: 04/24/20 Time Exam was Performed: 17:01 *Q Meaningful Use (ADM) - VTE Risk Assess *Q Each Risk Factor Represents 1 Point: Obesity ( BMI > 25 kg/m2) Total Score 1 Point Risk Factors: 1 Each Risk Factor Represents 2 Points: Age 60 - 74 Years Total Score 2 Point Risk Factors: 2 Each Risk Factor Represents 3 Points: None Total Score 3 Point Risk Factors: 0 Each Risk Factor Represents 5 Points: None Total Score 5 Point Risk Factors: 0 Venous Thromboembolism Risk Factor Score *Q: 3 Problem List Initiated/Reviewed/Updated: Yes Orders Last 24hrs: Active Orders 24 hr Category Date Time Status Patient Status Manage Transfer [TRANSFER] Routine ADT 04/24/20 16:36 Ordered EKG Documentation Completion [RC] ASDIRECTED Care 04/24/20 15:25 Active CULTURE URINE [RM] Stat Lab 04/24/20 15:51 Received Sodium Chloride 0.9% [Normal Saline] 1,000 ml Med 04/24/20 15:30 Active IV ASDIRECTED cefTRIAXone [Rocephin] 1 gm Med 04/24/20 16:45 Active Sodium Chloride 0.9% [Normal Saline] 50 ml IV Q24H Resuscitation Status Routine Resus Stat 04/24/20 16:39 Ordered EKG 12 Lead [EK] Routine Ther 04/24/20 15:25 Ordered Medication Orders Sodium Chloride (Normal Saline) 1,000 mls @ 250 mls/hr IV ASDIRECTED LEONELA Ceftriaxone Sodium 1 gm/ (Sodium Chloride) 50 mls @ 100 mls/hr IV Q24H [facility] Assessment/Plan Comment:: ASSESSMENT AND PLAN DEHYDRATION-likely secondary to recent poor oral intake and concurrent urinary tract infection. Blood pressure is somewhat borderline and heart rate elevated. Heart rate has improved after receiving some IV fluids in the emergency department. -IV fluids for hydration -Reassess in a.m. URINARY TRACT INFECTION-uncomplicated -Urine culture pending -Rocephin 1 g IV every 24 hours pending culture results GENERALIZED WEAKNESS-progressive weakness over the past several weeks -long term placement for restorative physical therapy and Occupational Therapy SINUS TACHYCARDIA-likely secondary to dehydration and having stopped metoprolol and diltiazem recently -IV fluids for hydration -Resume metoprolol -Hold diltiazem until blood pressure improves HISTORY OF CVA WITH RESIDUAL LEFT-SIDED WEAKNESS HISTORY OF ATRIAL FIBRILLATION-currently in sinus tachycardia, status post previous ablation procedure -Continue oral anticoagulation with warfarin -Reassess INR in a.m. -Resume metoprolol -Hold diltiazem as above MAINTENANCE ISSUES -DVT prophylaxis; current therapy with warfarin should provide adequate DVT prophylaxis -GI prophylaxis; continue outpatient PPI therapy -Salvador catheter; not indicated -Nutrition; 2 g sodium diet -Nicotine dependence; not required CODE STATUS-FULL CODE ADMISSION STATUS-patient will be admitted to inpatient status, expect at least a 2 night hospital stay for evaluation and management of problems as outlined above. At the time of this admission I do not reasonably expected evaluation and management of this problem will require more than a 96 hour hospital stay. DISPOSITION-anticipate discharge to home after the hospital stay. PRIMARY CARE PROVIDER-Dr. Oleary - Mortality Measure Prognosis:: Good
[2020-04-24] MEDS: cefTRIAXone 1 GM in Sodium Chloride 0.9% 50 ML IV SCH (17:11)
[2020-04-24] MEDS ORDERED: Polyethylene Glycol 3350 Powder 17 GM Packet PO PRN (17:21)
[2020-04-24] MEDS ORDERED: Ondansetron 4 MG/2 ML SDV IV PRN (17:21)
[2020-04-24] MEDS ORDERED: Acetaminophen 325 MG Tab PO PRN (17:21)
[2020-04-24] MEDS ORDERED: Sodium Chloride 0.9% 10 ML Syringe FLUSH PRN (17:21)
[2020-04-24] MEDS: Magnesium Oxide 400 MG Tab PO SCH (20:38)
[2020-04-24] MEDS: atorvaSTATin 20 MG Tab PO SCH (20:38)
[2020-04-24] MEDS: levETIRAcetam 250 MG Tab PO SCH (20:38)
[2020-04-24] MEDS: Gabapentin 300 MG Cap PO SCH (20:38)
[2020-04-24] MEDS ORDERED: Metoprolol Tartrate 25 MG Tab PO SCH (21:00)
[2020-04-25] MEDS: Sodium Chloride 0.9% 1,000 ML IV SCH ×2 (01:36→16:55)
[2020-04-25] MEDS: Norepinephrine 4 MG in Dextrose 5% in Water 246 ML IV SCH ×4 (04:42→22:48)
[2020-04-25] MEDS ORDERED: Pantoprazole 40 MG Tab.CR PO SCH (07:30)
[2020-04-25] MEDS: Pantoprazole 40 MG Delayed-Release Granules 1 Packet PO SCH (09:15)
--- NOTE | 2020-04-25 09:15 | PCM.PN ---
- General Info Date of Service: 04/25/20 Subjective Update: Ms. Hernández unfortunately is experienced further hypotension during the night even after further fluid infusion. This does raise possibility of possible underlying sepsis she has received adequate fluid replacement and because of persistent hypotension was started on low-dose norepinephrine. Renal function has improved and she denies significant pain this morning. Functional Status: Reports: Tolerating Diet, Urinating - Review of Systems General: Reports: Weakness. Denies: Fever, Chills Pulmonary: Reports: No Symptoms Cardiovascular: Reports: No Symptoms Gastrointestinal: Reports: No Symptoms Genitourinary: Reports: No Symptoms - Patient Data Vitals - Most Recent: Last Vital Signs Temp 97.1 F 04/25/20 08:00 Pulse 81 04/25/20 08:00 Resp 18 04/25/20 08:00 BP 91/59 L 04/25/20 08:00 Pulse Ox 95 04/25/20 08:00 Weight - Most Recent: 192 lb I&O - Last 24 Hours: Intake & Output 04/24/20 04/25/20 04/25/20 22:59 06:59 14:59 Intake Total 900 Balance 900 Lab Results Last 24 Hours: Laboratory Results - last 24 hr 04/24/20 04/24/20 04/24/20 Range/Units 14:50 14:50 14:50 WBC 8.0 (4.5-11.0) K/uL RBC 4.36 (3.30-5.50) M/uL Hgb 13.3 D (12.0-15.0) g/dL Hct 41.7 (36.0-48.0) % MCV 96 (80-98) fL MCH 31 (27-31) pg MCHC 32 (32-36) % Plt Count 347 (150-400) K/uL Neut % (Auto) 71 H (36-66) % Lymph % (Auto) 21 L (24-44) % [place] % (Auto) 8 H (2-6) % Eos % (Auto) 0 L (2-4) % Baso % (Auto) 0 (0-1) % PT 26.0 H (9.5-12.0) sec INR 2.54 H (0.80-1.20) Sodium 141 (140-148) mmol/L Potassium 3.7 (3.6-5.2) mmol/L Chloride 107 (100-108) mmol/L Carbon Dioxide 21 (21-32) mmol/L Anion Gap 13.3 (5.0-14.0) mmol/L BUN 18 (7-18) mg/dL Creatinine 1.4 H (0.6-1.0) mg/dL Est Cr Clr Drug Dosing 26.47 mL/min Estimated GFR (MDRD) 37 L (>60) Glucose 115 H (74-106) mg/dL Calcium 8.3 L (8.5-10.1) mg/dL Magnesium (1.8-2.4) mg/dL Total Bilirubin 0.5 D (0.2-1.0) mg/dL AST 29 (15-37) U/L ALT 32 (12-78) U/L Alkaline Phosphatase 145 H (46-116) U/L Total Protein 6.0 L (6.4-8.2) g/dL Albumin 1.9 L (3.4-5.0) g/dL Globulin 4.1 H (2.3-3.5) g/dL Albumin/Globulin Ratio 0.5 L (1.2-2.2) TSH, Ultra Sensitive (0.358-3.740) uIU/mL Urine Color (YELLOW) Urine Appearance (CLEAR) Urine pH (5.0-8.0) Ur Specific [place] (1.008-1.030) Urine Protein (NEGATIVE) mg/dL Urine Glucose (UA) (NEGATIVE) mg/dL Urine Ketones (NEGATIVE) mg/dL Urine Occult Blood (NEGATIVE) Urine Nitrite (NEGATIVE) Urine Bilirubin (NEGATIVE) Urine Urobilinogen (0.2-1.0) EU/dL Ur Leukocyte Esterase (NEGATIVE) Urine RBC (0-5) Urine WBC (0-5) Ur Epithelial Cells Amorphous Sediment Urine Bacteria Urine Mucus 04/24/20 04/24/20 04/25/20 Range/Units 14:50 15:36 05:50 WBC 9.8 (4.5-11.0) K/uL RBC 3.83 (3.30-5.50) M/uL Hgb 11.8 L (12.0-15.0) g/dL Hct 37.1 (36.0-48.0) % MCV 97 (80-98) fL MCH 31 (27-31) pg MCHC 32 (32-36) % Plt Count 267 (150-400) K/uL Neut % (Auto) 64 (36-66) % Lymph % (Auto) 27 (24-44) % Hamilton % (Auto) 8 H (2-6) % Eos % (Auto) 1 L (2-4) % Baso % (Auto) 0 (0-1) % PT (9.5-12.0) sec INR (0.80-1.20) Sodium (140-148) mmol/L Potassium (3.6-5.2) mmol/L Chloride (100-108) mmol/L Carbon Dioxide (21-32) mmol/L Anion Gap (5.0-14.0) mmol/L BUN (7-18) mg/dL Creatinine (0.6-1.0) mg/dL Est Cr Clr Drug Dosing mL/min Estimated GFR (MDRD) (>60) Glucose (74-106) mg/dL Calcium (8.5-10.1) mg/dL Magnesium (1.8-2.4) mg/dL Total Bilirubin (0.2-1.0) mg/dL AST (15-37) U/L ALT (12-78) U/L Alkaline Phosphatase (46-116) U/L Total Protein (6.4-8.2) g/dL Albumin (3.4-5.0) g/dL Globulin (2.3-3.5) g/dL Albumin/Globulin Ratio (1.2-2.2) TSH, Ultra Sensitive 1.619 (0.358-3.740) uIU/mL Urine Color Yellow (YELLOW) Urine Appearance Slightly cloudy A (CLEAR) Urine pH 7.0 (5.0-8.0) Ur Specific [place] 1.025 (1.008-1.030) Urine Protein 30 H (NEGATIVE) mg/dL Urine Glucose (UA) Negative (NEGATIVE) mg/dL Urine Ketones Trace H (NEGATIVE) mg/dL Urine Occult Blood Small H (NEGATIVE) Urine Nitrite Negative (NEGATIVE) Urine Bilirubin Small H (NEGATIVE) Urine Urobilinogen 0.2 (0.2-1.0) EU/dL Ur Leukocyte Esterase Small H (NEGATIVE) Urine RBC 5-10 H (0-5) Urine WBC 20-30 H (0-5) Ur Epithelial Cells Rare Amorphous Sediment Not seen Urine Bacteria Many Urine Mucus Not seen 04/25/20 Range/Units 05:50 WBC (4.5-11.0) K/uL RBC (3.30-5.50) M/uL Hgb (12.0-15.0) g/dL Hct (36.0-48.0) % MCV (80-98) fL MCH (27-31) pg MCHC (32-36) % Plt Count (150-400) K/uL Neut % (Auto) (36-66) % Lymph % (Auto) (24-44) % Hamilton % (Auto) (2-6) % Eos % (Auto) (2-4) % Baso % (Auto) (0-1) % PT (9.5-12.0) sec INR (0.80-1.20) Sodium 138 L (140-148) mmol/L Potassium 3.8 (3.6-5.2) mmol/L Chloride 108 (100-108) mmol/L Carbon Dioxide 19 L (21-32) mmol/L Anion Gap 14.8 H (5.0-14.0) mmol/L BUN 16 (7-18) mg/dL Creatinine 1.1 H (0.6-1.0) mg/dL Est Cr Clr Drug Dosing 33.69 mL/min Estimated GFR (MDRD) 49 L (>60) Glucose 72 L (74-106) mg/dL Calcium 7.3 L (8.5-10.1) mg/dL Magnesium 1.8 D (1.8-2.4) mg/dL Total Bilirubin (0.2-1.0) mg/dL AST (15-37) U/L ALT (12-78) U/L Alkaline Phosphatase (46-116) U/L Total Protein (6.4-8.2) g/dL Albumin (3.4-5.0) g/dL Globulin (2.3-3.5) g/dL Albumin/Globulin Ratio (1.2-2.2) TSH, Ultra Sensitive (0.358-3.740) uIU/mL Urine Color (YELLOW) Urine Appearance (CLEAR) Urine pH (5.0-8.0) Ur Specific [place] (1.008-1.030) Urine Protein (NEGATIVE) mg/dL Urine Glucose (UA) (NEGATIVE) mg/dL Urine Ketones (NEGATIVE) mg/dL Urine Occult Blood (NEGATIVE) Urine Nitrite (NEGATIVE) Urine Bilirubin (NEGATIVE) Urine Urobilinogen (0.2-1.0) EU/dL Ur Leukocyte Esterase (NEGATIVE) Urine RBC (0-5) Urine WBC (0-5) Ur Epithelial Cells Amorphous Sediment Urine Bacteria Urine Mucus Fausto Results Last 24 Hours: Microbiology 04/24/20 15:51 Urine Culture - Preliminary Urine, Catheterized Med Orders - Current: Current Medications Acetaminophen (Tylenol) 650 mg PO Q4H PRN PRN Reason: Pain (Mild 1-3)/fever Atorvastatin Calcium (Lipitor) 20 mg PO BEDTIME [facility] Last Admin: 04/24/20 20:38 Dose: 20 mg Documented by: Gabapentin (Neurontin) 600 mg PO BID [facility] Last Admin: 04/24/20 20:38 Dose: 600 mg Documented by: Ceftriaxone Sodium 1 gm/ (Sodium Chloride) 50 mls @ 100 mls/hr IV Q24H [facility] Last Admin: 04/24/20 17:11 Dose: 100 mls/hr Documented by: Sodium Chloride (Normal Saline) 1,000 mls @ 125 mls/hr IV ASDIRECTED [facility] Last Admin: 04/25/20 01:36 Dose: 125 mls/hr Documented by: Norepinephrine Bitartrate 4 mg (/ Dextrose/Water) 250 mls @ 7.5 mls/hr IV TITRATE [facility]; Protocol Last Titration: 04/25/20 07:04 Dose: 5 mcg/min, 18.75 mls/hr Documented by: Levetiracetam (Keppra) 750 mg PO BID [facility] Last Admin: 04/24/20 20:38 Dose: 750 mg Documented by: Magnesium Oxide (Magnesium Oxide) 400 mg PO BID [facility] Last Admin: 04/24/20 20:38 Dose: 400 mg Documented by: Ondansetron HCl (Zofran) 4 mg IV Q4H PRN PRN Reason: Nausea/Vomiting Pantoprazole Sodium (Protonix Granules) 40 mg PO ACBREAKFAST [facility] Polyethylene Glycol (Miralax) 17 gm PO DAILY PRN PRN Reason: Constipation Sodium Chloride (Saline Flush) 10 ml FLUSH ASDIRECTED PRN PRN Reason: Keep Vein Open Venlafaxine HCl (Effexor Xr) 225 mg PO DAILY [facility] Warfarin Sodium (Coumadin) 1 mg PO DAILY@1300 [facility] Discontinued Medications Sodium Chloride (Normal Saline) 1,000 mls @ 250 mls/hr IV ASDIRECTED [facility] Last Admin: 04/24/20 17:11 Dose: 250 mls/hr Documented by: Sodium Chloride (Normal Saline) 1,000 mls @ 250 mls/hr IV ASDIRECTED [facility] Stop: 04/24/20 23:22 Last Admin: 04/24/20 21:22 Dose: 250 mls/hr Documented by: Metoprolol Tartrate (Lopressor) 12.5 mg PO BID [facility] Last Admin: 04/24/20 20:38 Dose: 12.5 mg Documented by: - Exam Quality Assessment: DVT Prophylaxis General: Alert, Oriented, Cooperative, Mild Distress Lungs: Clear to Auscultation, Normal Respiratory Effort Cardiovascular: Regular Rate, Regular Rhythm, No Murmurs GI/Abdominal Exam: Soft, Non-Tender, No Organomegaly, No Distention Sepsis Event Note - Evaluation Sepsis Screening Result: No Definite Risk - Focused Exam Vital Signs: Vital Signs Temp Pulse Resp BP Pulse Ox 04/25/20 08:00 97.1 F 81 18 91/59 L 95 04/25/20 07:00 86 16 83/56 L 95 04/25/20 06:16 98/62 04/25/20 06:00 81 16 87/55 L 97 04/25/20 05:16 81 15 96/59 L 98 04/25/20 04:57 80 14 93/57 L 99 04/25/20 04:13 89 83/52 L 04/25/20 04:00 97.1 F 88 14 78/49 L 97 04/25/20 02:34 85 89/56 L 04/25/20 01:04 80 87/54 L 04/25/20 00:00 86 17 79/46 L 97 04/24/20 22:00 93 12 89/60 L 93 L Date Exam was Performed: 04/25/20 Time Exam was Performed: 09:11 - Problem List Review Problem List Initiated/Reviewed/Updated: Yes - My Orders Last 24 Hours: My Active Orders 04/24/20 Lunch 2 Gram Sodium Diet [DIET] 04/24/20 16:39 Resuscitation Status Routine 04/24/20 16:45 cefTRIAXone [Rocephin] 1 gm Sodium Chloride 0.9% [Normal Saline] 50 ml IV Q24H 04/24/20 17:21 Acetaminophen [Tylenol] 650 mg PO Q4H PRN Ondansetron [Zofran] 4 mg IV Q4H PRN Sodium Chloride 0.9% [Saline Flush] 10 ml FLUSH ASDIRECTED PRN polyethylene glycoL 3350 [MiraLAX] 17 gm PO DAILY PRN 04/24/20 17:21 Patient Status [ADT] Routine Ambulate [RC] QID Cardiac Monitoring [RC] Q6H Height and Weight [RC] DAILY Intake and Output [RC] QSHIFT Notify Provider Vital Signs [RC] ASDIRECTED Oxygen Therapy [RC] PRN Peripheral IV Care [RC] . DIRECTED Up With Assistance [RC] ASDIRECTED Up to Chair [RC] QID VTE/DVT Education [RC] Per Unit Routine Vital Signs [RC] Q1H Peripheral IV Insertion Adult [OM.PC] Routine VTE Pharmacological Contraindications [AST] Per Unit Routine 04/24/20 21:00 Gabapentin [Neurontin] 600 mg PO BID Magnesium Oxide 400 mg PO BID atorvaSTATin [Lipitor] 20 mg PO BEDTIME levETIRAcetam [Keppra] 750 mg PO BID 04/24/20 22:45 Sodium Chloride 0.9% [Normal Saline] 1,000 ml IV ASDIRECTED 04/25/20 04:30 Norepinephrine [Levophed] 4 mg Dextrose 5% in Water 246 ml IV TITRATE 04/25/20 08:30 Pantoprazole [ProTONIX Granules] 40 mg PO ACBREAKFAST 04/25/20 09:00 Venlafaxine [Effexor XR] 225 mg PO DAILY 04/25/20 13:00 Warfarin [Coumadin] 1 mg PO DAILY@1300 04/26/20 05:00 BASIC METABOLIC PANEL,BMP [CHEM] Timed INR,PT,PROTHROMBIN TIME [COAG] Timed - Plan Plan:: ASSESSMENT AND PLAN DEHYDRATION-likely secondary to recent poor oral intake and concurrent urinary tract infection. Blood pressure is somewhat borderline and heart rate elevated. Heart rate has improved after receiving some IV fluids in the emergency department. -IV fluids for hydration URINARY TRACT INFECTION WITH SEPSIS -Urine culture pending -Rocephin 1 g IV every 24 hours pending culture results -Requiring use of IV norepinephrine to maintain adequate blood pressure GENERALIZED WEAKNESS-progressive weakness over the past several weeks -[facility] placement for restorative physical therapy and Occupational Therapy SINUS TACHYCARDIA-resolved -IV fluids for hydration -Hold diltiazem and metoprolol until blood pressure improves HISTORY OF CVA WITH RESIDUAL LEFT-SIDED WEAKNESS HISTORY OF ATRIAL FIBRILLATION-currently in sinus tachycardia, status post previous ablation procedure -Continue oral anticoagulation with warfarin -Reassess INR in a.m. -Resume metoprolol -Hold diltiazem as above MAINTENANCE ISSUES -DVT prophylaxis; current therapy with warfarin should provide adequate DVT prophylaxis -GI prophylaxis; continue outpatient PPI therapy -Salvador catheter; not indicated -Nutrition; 2 g sodium diet -Nicotine dependence; not required CODE STATUS-FULL CODE ADMISSION STATUS-patient will be admitted to inpatient status, expect at least a 2 night hospital stay for evaluation and management of problems as outlined above. At the time of this admission I do not reasonably expected evaluation and management of this problem will require more than a 96 hour hospital stay. DISPOSITION-anticipate discharge to home after the hospital stay. PRIMARY CARE PROVIDER-Dr. Oleary
[2020-04-25] MEDS: Venlafaxine 75 MG Cap.ER PO SCH (09:16)
[2020-04-25] MEDS: Magnesium Oxide 400 MG Tab PO SCH ×2 (09:16→20:57)
[2020-04-25] MEDS: levETIRAcetam 250 MG Tab PO SCH ×2 (09:16→20:58)
[2020-04-25] MEDS: Gabapentin 300 MG Cap PO SCH ×2 (09:16→20:58)
[2020-04-25] MEDS ORDERED: Adenosine 6 MG/2 ML SDV IVPUSH ONE ×2 (14:00→14:49)
[2020-04-25] MEDS ORDERED: Diltiazem 100 MG in Sodium Chloride 0.9% 100 ML IV SCH (16:00)
[2020-04-25] MEDS: cefTRIAXone 1 GM in Sodium Chloride 0.9% 50 ML IV SCH (16:46)
[2020-04-25] MEDS: atorvaSTATin 20 MG Tab PO SCH (20:58)
[2020-04-26] MEDS: Sodium Chloride 0.9% 1,000 ML IV SCH ×2 (01:25→09:26)
[2020-04-26] MEDS: Venlafaxine 75 MG Cap.ER PO SCH (08:43)
[2020-04-26] MEDS: Pantoprazole 40 MG Delayed-Release Granules 1 Packet PO SCH (08:43)
[2020-04-26] MEDS: Gabapentin 300 MG Cap PO SCH ×2 (08:44→21:09)
[2020-04-26] MEDS: Magnesium Oxide 400 MG Tab PO SCH ×2 (08:44→21:11)
[2020-04-26] MEDS: levETIRAcetam 250 MG Tab PO SCH ×2 (08:44→21:09)
[2020-04-26] MEDS ORDERED: Potassium Chloride 10% 20 MEQ/15 ML Soln 15 ML UD Cup PO ONE ×2 (09:00→17:00)
[2020-04-26] MEDS ORDERED: Potassium Chloride 20 MEQ Tab.ER PO ONE (09:00)
--- NOTE | 2020-04-26 10:27 | PCM.PN ---
- General Info Date of Service: 04/26/20 Subjective Update: Ms. Hernández has unfortunately experienced episodes of paroxysmal supraventricular tachycardia over the last 24 hours. First 2 episodes did convert with adenosine, she was then placed on IV diltiazem and has been in sinus rhythm for the most part since then. Use of IV diltiazem is required some ongoing use of norepinephrine to maintain adequate blood pressures. She has remained afebrile and reports that she is feeling better this morning with increased strength and appetite. Functional Status: Reports: Tolerating Diet, Urinating - Review of Systems General: Reports: Weakness. Denies: Fever, Chills Pulmonary: Reports: No Symptoms Cardiovascular: Reports: Palpitations. Denies: Chest Pain, Dyspnea on Exertion, Orthopnea, PND, Edema, Lightheadedness Gastrointestinal: Reports: No Symptoms Genitourinary: Reports: No Symptoms - Patient Data Vitals - Most Recent: Last Vital Signs Temp 97.2 F 04/26/20 08:00 Pulse 99 04/26/20 10:00 Resp 13 04/26/20 10:00 BP 90/61 04/26/20 10:00 Pulse Ox 99 04/26/20 10:00 Weight - Most Recent: 192 lb I&O - Last 24 Hours: Intake & Output 04/25/20 04/26/20 04/26/20 22:59 06:59 14:59 Intake Total 1276 2151 360 Output Total 75 420 250 Balance 1201 1731 110 Lab Results Last 24 Hours: Laboratory Results - last 24 hr 04/26/20 04/26/20 Range/Units 05:55 05:55 PT 30.5 H (9.5-12.0) sec INR 3.01 H (0.80-1.20) Sodium 138 L (140-148) mmol/L Potassium 3.2 L (3.6-5.2) mmol/L Chloride 108 (100-108) mmol/L Carbon Dioxide 22 (21-32) mmol/L Anion Gap 11.2 (5.0-14.0) mmol/L BUN 11 (7-18) mg/dL Creatinine 1.0 (0.6-1.0) mg/dL Est Cr Clr Drug Dosing 40.81 mL/min Estimated GFR (MDRD) 55 L (>60) Glucose 108 H (74-106) mg/dL Calcium 7.0 L (8.5-10.1) mg/dL Fausto Results Last 24 Hours: Microbiology 04/24/20 15:51 Urine Culture - Final Urine, Catheterized Escherichia Coli Med Orders - Current: Current Medications Acetaminophen (Tylenol) 650 mg PO Q4H PRN PRN Reason: Pain (Mild 1-3)/fever Artificial Tears (Genteal Mild To Moderate Ophth Soln) 0 ml EYEBOTH Q1H PRN PRN Reason: Dry Eyes Atorvastatin Calcium (Lipitor) 20 mg PO BEDTIME [facility] Last Admin: 04/25/20 20:58 Dose: 20 mg Documented by: Benzocaine (Anbesol 10% Dental Gel) 0 gm MUCMEM ASDIRECTED PRN PRN Reason: dental pain Gabapentin (Neurontin) 600 mg PO BID [facility] Last Admin: 04/26/20 08:44 Dose: 600 mg Documented by: Ceftriaxone Sodium 1 gm/ (Sodium Chloride) 50 mls @ 100 mls/hr IV Q24H [facility] Last Admin: 04/25/20 16:46 Dose: 100 mls/hr Documented by: Norepinephrine Bitartrate 4 mg (/ Dextrose/Water) 250 mls @ 7.5 mls/hr IV TITRATE [facility]; Protocol Last Titration: 04/26/20 09:03 Dose: 5 mcg/min, 18.75 mls/hr Documented by: Diltiazem HCl 125 mg/ Dextrose (/Water) 125 mls @ 5 mls/hr IV TITRATE [facility]; Protocol Last Titration: 04/26/20 10:04 Dose: 8 mls/hr, 8 mls/hr Documented by: Levetiracetam (Keppra) 750 mg PO BID [facility] Last Admin: 04/26/20 08:44 Dose: 750 mg Documented by: Magnesium Oxide (Magnesium Oxide) 400 mg PO BID [facility] Last Admin: 04/26/20 08:44 Dose: 400 mg Documented by: Metoprolol Tartrate (Lopressor) 12.5 mg PO BID [facility] Ondansetron HCl (Zofran) 4 mg IV Q4H PRN PRN Reason: Nausea/Vomiting Pantoprazole Sodium (Protonix Granules) 40 mg PO ACBREAKFAST [facility] Last Admin: 04/26/20 08:43 Dose: 40 mg Documented by: Polyethylene Glycol (Miralax) 17 gm PO DAILY PRN PRN Reason: Constipation Potassium Chloride (Klor-Con M20) 40 meq PO ONETIME ONE Stop: 04/26/20 17:01 Sodium Chloride (Saline Flush) 10 ml FLUSH ASDIRECTED PRN PRN Reason: Keep Vein Open Venlafaxine HCl (Effexor Xr) 225 mg PO DAILY [facility] Last Admin: 04/26/20 08:43 Dose: 225 mg Documented by: Warfarin Sodium (Coumadin) 1 mg PO DAILY@1300 [facility] Last Admin: 04/25/20 13:09 Dose: 1 mg Documented by: Discontinued Medications Adenosine (Adenocard) 6 mg IVPUSH ONETIME ONE Stop: 04/25/20 14:01 Last Admin: 04/25/20 14:06 Dose: 6 mg Documented by: Adenosine (Adenocard) 6 mg IVPUSH NOW ONE Stop: 04/25/20 14:50 Last Admin: 04/25/20 15:02 Dose: 6 mg Documented by: Sodium Chloride (Normal Saline) 1,000 mls @ 250 mls/hr IV ASDIRECTED [facility] Last Admin: 04/24/20 17:11 Dose: 250 mls/hr Documented by: Sodium Chloride (Normal Saline) 1,000 mls @ 250 mls/hr IV ASDIRECTED [facility] Stop: 04/24/20 23:22 Last Admin: 04/24/20 21:22 Dose: 250 mls/hr Documented by: Sodium Chloride (Normal Saline) 1,000 mls @ 125 mls/hr IV ASDIRECTED [facility] Last Admin: 04/26/20 09:26 Dose: 125 mls/hr Documented by: Metoprolol Tartrate (Lopressor) 12.5 mg PO BID [facility] Last Admin: 04/24/20 20:38 Dose: 12.5 mg Documented by: Potassium Chloride (Klor-Con M20) 40 meq PO ONETIME ONE Stop: 04/26/20 09:01 Potassium Chloride (Potassium Chloride Solution) 40 meq PO ONETIME ONE Stop: 04/26/20 09:01 Last Admin: 04/26/20 08:44 Dose: 40 meq Documented by: - Exam Quality Assessment: DVT Prophylaxis General: Alert, Oriented, Cooperative, Mild Distress Lungs: Clear to Auscultation, Normal Respiratory Effort Cardiovascular: Regular Rate, Regular Rhythm, No Murmurs GI/Abdominal Exam: Soft, Non-Tender, No Organomegaly, No Distention Extremities: Non-Tender, No Pedal Edema Sepsis Event Note - Evaluation Sepsis Screening Result: No Definite Risk - Focused Exam Vital Signs: Vital Signs Temp Pulse Resp BP Pulse Ox 04/26/20 10:00 99 13 90/61 99 04/26/20 09:00 99 14 93/59 L 98 04/26/20 08:00 97.2 F 97 11 L 95/59 L 98 04/26/20 07:00 88 16 94/60 96 04/26/20 06:00 89 13 99/59 L 97 04/26/20 05:00 87 15 98/62 96 04/26/20 04:15 89 99/60 04/26/20 04:00 94 14 99/63 100 04/26/20 03:45 88 101/61 04/26/20 03:30 88 97/60 04/26/20 03:15 87 93/60 04/26/20 03:00 85 16 96/59 L 99 04/26/20 02:15 87 18 96/60 99 04/26/20 02:00 89 17 96/60 99 04/26/20 01:45 91 98/63 04/26/20 01:34 91 101/62 04/26/20 01:00 97.3 F 90 20 93/58 L 99 04/26/20 00:45 88 93/57 L 04/26/20 00:30 92 86/54 L 04/26/20 00:15 93 86/54 L 04/26/20 00:00 93 19 88/53 L 98 04/25/20 23:30 91 18 84/52 L 99 04/25/20 23:00 94 18 90/55 L 100 04/25/20 22:30 93 92/56 L Date Exam was Performed: 04/26/20 Time Exam was Performed: 10:22 - Problem List Review Problem List Initiated/Reviewed/Updated: Yes - My Orders Last 24 Hours: My Active Orders 04/25/20 11:22 Urinary Catheter Assessment [RC] Q12H 04/25/20 13:00 Warfarin [Coumadin] 1 mg PO DAILY@1300 04/25/20 16:15 Diltiazem [Cardizem] 125 mg Dextrose 5% in Water 100 ml IV TITRATE 04/26/20 09:56 Hypromellose [GenTeal Mild to Moderate Ophth Soln] 0 ml EYEBOTH Q1H PRN 04/26/20 10:19 Benzocaine [Anbesol 10% Dental Gel] 0 gm MUCMEM ASDIRECTED PRN 04/26/20 10:21 Convert IV to Saline Lock [OM.PC] Routine 04/26/20 10:30 Metoprolol Tartrate [Lopressor] 12.5 mg PO BID 04/26/20 11:30 Insert Salvador Catheter [Insert Urinary Catheter] [OM.PC] Q24H 04/26/20 17:00 Potassium Chloride [Klor-Con M20] 40 meq PO ONETIME ONE 04/27/20 05:00 BASIC METABOLIC PANEL,BMP [CHEM] Timed CBC WITH AUTO DIFF [HEME] Timed - Plan Plan:: ASSESSMENT AND PLAN DEHYDRATION-resolved URINARY TRACT INFECTION WITH SEPSIS -Urine culture pending -Rocephin 1 g IV every 24 hours pending culture results -Requiring use of IV norepinephrine to maintain adequate blood pressure PAROXYSMAL SUPRAVENTRICULAR TACHYCARDIA-episodes yesterday requiring use of IV norepinephrine and diltiazem. -Taper off of IV diltiazem today -Toprol 12.5 mg p.o. twice daily GENERALIZED WEAKNESS-progressive weakness over the past several weeks -custodial placement for restorative physical therapy and Occupational Therapy SINUS TACHYCARDIA-resolved HISTORY OF CVA WITH RESIDUAL LEFT-SIDED WEAKNESS HISTORY OF ATRIAL FIBRILLATION-currently in sinus tachycardia, status post previous ablation procedure -Continue oral anticoagulation with warfarin -Reassess INR in a.m. -Resume metoprolol -Hold diltiazem as above MAINTENANCE ISSUES -DVT prophylaxis; current therapy with warfarin should provide adequate DVT prophylaxis -GI prophylaxis; continue outpatient PPI therapy -Salvador catheter; not indicated -Nutrition; 2 g sodium diet -Nicotine dependence; not required CODE STATUS-FULL CODE ADMISSION STATUS-patient will be admitted to inpatient status, expect at least a 2 night hospital stay for evaluation and management of problems as outlined above. At the time of this admission I do not reasonably expected evaluation and management of this problem will require more than a 96 hour hospital stay. DISPOSITION-anticipate discharge to home after the hospital stay. PRIMARY CARE PROVIDER-Dr. Oleary
[2020-04-26] MEDS: Norepinephrine 4 MG in Dextrose 5% in Water 246 ML IV SCH ×4 (11:30→21:14)
[2020-04-26] MEDS: Metoprolol Tartrate 25 MG Tab PO SCH ×2 (11:31→21:10)
[2020-04-26] MEDS: Benzocaine 10% Dental Gel 9 GM Tube MUCMEM PRN ×2 (11:32→21:38)
[2020-04-26] MEDS: Hypromellose 0.3% Ophth Soln 15 ML Bottle EYEBOTH PRN ×2 (11:32→21:38)
[2020-04-26] MEDS: cefTRIAXone 1 GM in Sodium Chloride 0.9% 50 ML IV SCH (16:51)
[2020-04-26] MEDS: atorvaSTATin 20 MG Tab PO SCH (21:15)
[2020-04-27] MEDS: Norepinephrine 4 MG in Dextrose 5% in Water 246 ML IV SCH ×4 (05:36→15:51)
[2020-04-27] MEDS: Metoprolol Tartrate 25 MG Tab PO SCH (08:36)
[2020-04-27] MEDS: Venlafaxine 75 MG Cap.ER PO SCH (08:36)
[2020-04-27] MEDS: Pantoprazole 40 MG Delayed-Release Granules 1 Packet PO SCH (08:37)
[2020-04-27] MEDS: levETIRAcetam 250 MG Tab PO SCH ×2 (08:37→20:05)
[2020-04-27] MEDS: Gabapentin 300 MG Cap PO SCH ×2 (08:37→20:05)
[2020-04-27] MEDS: Magnesium Oxide 400 MG Tab PO SCH ×2 (08:38→20:05)
--- NOTE | 2020-04-27 13:34 | PCM.PN ---
- General Info Date of Service: 04/27/20 Subjective Update: Ms. Hernández has continued to experience hypotension and now is in atrial fibrillation with rapid ventricular response heart rates in the range of 110. She has required ongoing use of norepinephrine and IV diltiazem. She has also received low-dose metoprolol twice daily. White blood cell count is modestly elevated, she has been afebrile. E. coli is growing from urine. Functional Status: Denies: Tolerating Diet, Ambulating, Urinating - Review of Systems General: Reports: Weakness, Fatigue. Denies: Fever, Chills Pulmonary: Reports: No Symptoms Cardiovascular: Reports: No Symptoms Gastrointestinal: Reports: No Symptoms Genitourinary: Reports: No Symptoms - Patient Data Vitals - Most Recent: Last Vital Signs Temp 98 F 04/27/20 10:00 Pulse 102 H 04/27/20 13:00 Resp 19 04/27/20 13:00 BP 83/60 L 04/27/20 13:00 Pulse Ox 95 04/27/20 13:00 Weight - Most Recent: 192 lb I&O - Last 24 Hours: Intake & Output 04/26/20 04/27/20 04/27/20 22:59 06:59 14:59 Intake Total 2790 391 270 Output Total 157 355 265 Balance 2633 36 5 Lab Results Last 24 Hours: Laboratory Results - last 24 hr 04/27/20 04/27/20 04/27/20 Range/Units 03:52 03:52 03:52 WBC 12.6 H (4.5-11.0) K/uL RBC 4.03 (3.30-5.50) M/uL Hgb 12.3 (12.0-15.0) g/dL Hct 38.7 (36.0-48.0) % MCV 96 (80-98) fL MCH 31 (27-31) pg MCHC 32 (32-36) % Plt Count 333 (150-400) K/uL Neut % (Auto) 65 (36-66) % Lymph % (Auto) 25 (24-44) % [place] % (Auto) 9 H (2-6) % Eos % (Auto) 1 L (2-4) % Baso % (Auto) 0 (0-1) % PT 44.2 H (9.5-12.0) sec INR 4.45 H* (0.80-1.20) Sodium 132 L (140-148) mmol/L Potassium 4.9 (3.6-5.2) mmol/L Chloride 105 (100-108) mmol/L Carbon Dioxide 20 L (21-32) mmol/L Anion Gap 11.9 (5.0-14.0) mmol/L BUN 9 (7-18) mg/dL Creatinine 1.2 H (0.6-1.0) mg/dL Est Cr Clr Drug Dosing 34.01 mL/min Estimated GFR (MDRD) 44 L (>60) Glucose 112 H (74-106) mg/dL Calcium 7.1 L (8.5-10.1) mg/dL Med Orders - Current: Current Medications Acetaminophen (Tylenol) 650 mg PO Q4H PRN PRN Reason: Pain (Mild 1-3)/fever Amiodarone HCl (Cordarone) 150 mg IVPUSH ONETIME ONE Stop: 04/27/20 13:26 Artificial Tears (Genteal Mild To Moderate Ophth Soln) 0 ml EYEBOTH Q1H PRN PRN Reason: Dry Eyes Last Admin: 04/26/20 21:38 Dose: 4 drop Documented by: Atorvastatin Calcium (Lipitor) 20 mg PO BEDTIME [facility] Last Admin: 04/26/20 21:15 Dose: 20 mg Documented by: Benzocaine (Anbesol 10% Dental Gel) 0 gm MUCMEM ASDIRECTED PRN PRN Reason: dental pain Last Admin: 04/26/20 21:38 Dose: 2 applic Documented by: Gabapentin (Neurontin) 600 mg PO BID [facility] Last Admin: 04/27/20 08:37 Dose: 600 mg Documented by: Ceftriaxone Sodium 1 gm/ (Sodium Chloride) 50 mls @ 100 mls/hr IV Q24H [facility] Last Admin: 04/26/20 16:51 Dose: 100 mls/hr Documented by: Norepinephrine Bitartrate 4 mg (/ Dextrose/Water) 250 mls @ 7.5 mls/hr IV TITRATE [facility]; Protocol Last Titration: 04/27/20 12:03 Dose: 5 mcg/min, 18.75 mls/hr Documented by: Amiodarone HCl 450 mg/ (Dextrose/Water) 250 mls @ 33.333 mls/hr IV ASDIRECTED [facility]; Protocol Levetiracetam (Keppra) 750 mg PO BID [facility] Last Admin: 04/27/20 08:37 Dose: 750 mg Documented by: Magnesium Oxide (Magnesium Oxide) 400 mg PO BID [facility] Last Admin: 04/27/20 08:38 Dose: 400 mg Documented by: Ondansetron HCl (Zofran) 4 mg IV Q4H PRN PRN Reason: Nausea/Vomiting Pantoprazole Sodium (Protonix Granules) 40 mg PO ACBREAKFAST [facility] Last Admin: 04/27/20 08:37 Dose: 40 mg Documented by: Polyethylene Glycol (Miralax) 17 gm PO DAILY PRN PRN Reason: Constipation Sodium Chloride (Saline Flush) 10 ml FLUSH ASDIRECTED PRN PRN Reason: Keep Vein Open Venlafaxine HCl (Effexor Xr) 225 mg PO DAILY [facility] Last Admin: 04/27/20 08:36 Dose: 225 mg Documented by: Discontinued Medications Adenosine (Adenocard) 6 mg IVPUSH ONETIME ONE Stop: 04/25/20 14:01 Last Admin: 04/25/20 14:06 Dose: 6 mg Documented by: Adenosine (Adenocard) 6 mg IVPUSH NOW ONE Stop: 04/25/20 14:50 Last Admin: 04/25/20 15:02 Dose: 6 mg Documented by: Sodium Chloride (Normal Saline) 1,000 mls @ 250 mls/hr IV ASDIRECTED [facility] Last Admin: 04/24/20 17:11 Dose: 250 mls/hr Documented by: Sodium Chloride (Normal Saline) 1,000 mls @ 250 mls/hr IV ASDIRECTED [facility] Stop: 04/24/20 23:22 Last Admin: 04/24/20 21:22 Dose: 250 mls/hr Documented by: Sodium Chloride (Normal Saline) 1,000 mls @ 125 mls/hr IV ASDIRECTED [facility] Last Admin: 04/26/20 09:26 Dose: 125 mls/hr Documented by: Diltiazem HCl 125 mg/ Dextrose (/Water) 125 mls @ 5 mls/hr IV TITRATE [facility]; Protocol Last Titration: 04/27/20 11:05 Dose: 0 mls/hr, 0 mls/hr Documented by: Metoprolol Tartrate (Lopressor) 12.5 mg PO BID [facility] Last Admin: 04/24/20 20:38 Dose: 12.5 mg Documented by: Metoprolol Tartrate (Lopressor) 12.5 mg PO BID [facility] Last Admin: 04/27/20 08:36 Dose: 12.5 mg Documented by: Potassium Chloride (Klor-Con M20) 40 meq PO ONETIME ONE Stop: 04/26/20 09:01 Potassium Chloride (Potassium Chloride Solution) 40 meq PO ONETIME ONE Stop: 04/26/20 09:01 Last Admin: 04/26/20 08:44 Dose: 40 meq Documented by: Potassium Chloride (Potassium Chloride Solution) 40 meq PO ONETIME ONE Stop: 04/26/20 17:01 Last Admin: 04/26/20 16:52 Dose: 40 meq Documented by: Warfarin Sodium (Coumadin) 1 mg PO DAILY@1300 [facility] Last Admin: 04/26/20 12:09 Dose: 1 mg Documented by: - Exam Quality Assessment: DVT Prophylaxis General: Alert, Oriented, Cooperative, Mild Distress Lungs: Clear to Auscultation, Normal Respiratory Effort Cardiovascular: No Murmurs, Irregular Rhythm, Tachycardia GI/Abdominal Exam: Soft, Non-Tender, No Organomegaly, No Distention Extremities: Non-Tender, Pedal Edema Sepsis Event Note - Evaluation Sepsis Screening Result: Severe Sepsis Risk - Focused Exam Vital Signs: Vital Signs Temp Pulse Pulse Resp BP BP Pulse Ox 04/27/20 13:00 102 H 19 83/60 L 95 04/27/20 12:00 111 H 18 93/64 96 04/27/20 11:00 106 H 24 H 90/64 93 L 04/27/20 10:35 106 H 20 96/64 94 L 04/27/20 10:00 98 F 108 H 20 98/66 94 L 04/27/20 09:00 110 H 16 96/65 96 04/27/20 08:36 110 H 97/68 04/27/20 08:00 98.8 F 111 H 23 H 97/68 94 L 04/27/20 07:00 111 H 18 95/66 20 L 04/27/20 06:00 99.0 F 106 H 15 96/64 95 04/27/20 05:00 106 H 23 H 92/62 93 L 04/27/20 04:00 107 H 25 H 96/63 92 L 04/27/20 03:00 106 H 24 H 95/64 93 L 04/27/20 02:00 105 H 21 H 90/62 94 L Date Exam was Performed: 04/27/20 Time Exam was Performed: 13:29 - Problem List Review Problem List Initiated/Reviewed/Updated: Yes - My Orders Last 24 Hours: My Active Orders 04/27/20 13:25 Amiodarone [Cordarone] 150 mg IVPUSH ONETIME ONE 04/27/20 13:30 Amiodarone [Cordarone] 450 mg Dextrose 5% in Water 241 ml IV ASDIRECTED 04/28/20 05:00 BASIC METABOLIC PANEL,BMP [CHEM] Timed CBC WITH AUTO DIFF [HEME] Timed INR,PT,PROTHROMBIN TIME [COAG] Timed - Plan Plan:: ASSESSMENT AND PLAN URINARY TRACT INFECTION WITH SEPSIS-and culture growing E. coli -Discontinue Rocephin 1 g IV every 24 hours -Ciprofloxacin 500 mg p.o. twice daily -Requiring use of IV norepinephrine to maintain adequate blood pressure PAROXYSMAL SUPRAVENTRICULAR TACHYCARDIA-resolved ATRIAL FIBRILLATION WITH RAPID VENTRICULAR RESPONSE-prior history of this, she is on long-term oral anticoagulation with warfarin. INR supratherapeutic today. -Discontinue IV diltiazem and oral metoprolol -Hold warfarin today -Amiodarone bolus dose and continuous infusion over the next 24 hours per protocol -Reassess INR in a.m. GENERALIZED WEAKNESS-progressive weakness over the past several weeks, oral intake while in the hospital has been very poor. Intake at home has been very poor for approximately 1 month. We discussed feeding tube placement today which she refuses. -correction placement for restorative physical therapy and Occupational Therapy HISTORY OF CVA WITH RESIDUAL LEFT-SIDED WEAKNESS HISTORY OF ATRIAL FIBRILLATION-currently in sinus tachycardia, status post previous ablation procedure -Continue oral anticoagulation with warfarin -Reassess INR in a.m. -Resume metoprolol -Hold diltiazem as above MAINTENANCE ISSUES -DVT prophylaxis; current therapy with warfarin should provide adequate DVT prophylaxis -GI prophylaxis; continue outpatient PPI therapy -Salvador catheter; not indicated -Nutrition; 2 g sodium diet -Nicotine dependence; not required CODE STATUS-FULL CODE ADMISSION STATUS-patient will be admitted to inpatient status, expect at least a 2 night hospital stay for evaluation and management of problems as outlined above. At the time of this admission I do not reasonably expected evaluation and management of this problem will require more than a 96 hour hospital stay. DISPOSITION-anticipate discharge to home after the hospital stay. PRIMARY CARE PROVIDER-Dr. Oleary
[2020-04-27] MEDS ORDERED: Amiodarone 150 MG/3 ML SDV IVPUSH ONE (14:00)
[2020-04-27] MEDS: cefTRIAXone 1 GM in Sodium Chloride 0.9% 50 ML IV SCH (16:30)
[2020-04-27] MEDS: Hypromellose 0.3% Ophth Soln 15 ML Bottle EYEBOTH PRN (18:05)
[2020-04-27] MEDS: Benzocaine 10% Dental Gel 9 GM Tube MUCMEM PRN (20:50)
[2020-04-27] MEDS: atorvaSTATin 20 MG Tab PO SCH (20:50)
[2020-04-28] MEDS: Gabapentin 300 MG Cap PO SCH ×2 (08:16→20:59)
[2020-04-28] MEDS: Pantoprazole 40 MG Delayed-Release Granules 1 Packet PO SCH (08:16)
[2020-04-28] MEDS: levETIRAcetam 500 MG/5 ML Solution ML 473 ml Bottle PO SCH ×2 (08:16→20:59)
[2020-04-28] MEDS: Venlafaxine 75 MG Cap.ER PO SCH (08:16)
[2020-04-28] MEDS: Magnesium Oxide 400 MG Tab PO SCH ×2 (08:16→20:59)
--- NOTE | 2020-04-28 09:56 | PCM.PN ---
- General Info Date of Service: 04/28/20 Subjective Update: Ms. Hernández has been stable since yesterday, currently tolerating amiodarone infusion. She is off of IV diltiazem and only on a small amount of norepinephrine at the present time. She is feeling better more alert and interactive with the improvement in her appetite. Functional Status: Reports: Tolerating Diet, Ambulating, Urinating - Review of Systems General: Reports: Weakness, Fatigue. Denies: Fever, Chills Pulmonary: Reports: No Symptoms Cardiovascular: Reports: No Symptoms Gastrointestinal: Reports: No Symptoms Genitourinary: Reports: No Symptoms - Patient Data Vitals - Most Recent: Last Vital Signs Temp 96.3 F L 04/28/20 08:00 Pulse 103 H 04/28/20 04:00 Resp 16 04/28/20 09:00 BP 99/68 04/28/20 09:00 Pulse Ox 96 04/28/20 09:00 Weight - Most Recent: 192 lb I&O - Last 24 Hours: Intake & Output 04/27/20 04/28/20 04/28/20 22:59 06:59 14:59 Intake Total 756 501 Output Total 275 400 Balance 481 101 Lab Results Last 24 Hours: Laboratory Results - last 24 hr 04/28/20 04/28/20 04/28/20 Range/Units 05:50 05:50 05:50 WBC 12.9 H (4.5-11.0) K/uL RBC 3.80 (3.30-5.50) M/uL Hgb 11.9 L (12.0-15.0) g/dL Hct 36.6 (36.0-48.0) % MCV 96 (80-98) fL MCH 31 (27-31) pg MCHC 33 (32-36) % Plt Count 244 (150-400) K/uL Neut % (Auto) 65 (36-66) % Lymph % (Auto) 25 (24-44) % [place] % (Auto) 8 H (2-6) % Eos % (Auto) 2 (2-4) % Baso % (Auto) 0 (0-1) % PT 33.9 H (9.5-12.0) sec INR 3.36 H (0.80-1.20) Sodium 134 L (140-148) mmol/L Potassium 4.5 (3.6-5.2) mmol/L Chloride 105 (100-108) mmol/L Carbon Dioxide 21 (21-32) mmol/L Anion Gap 12.5 (5.0-14.0) mmol/L BUN 13 (7-18) mg/dL Creatinine 0.9 (0.6-1.0) mg/dL Est Cr Clr Drug Dosing 45.34 mL/min Estimated GFR (MDRD) > 60 (>60) Glucose 89 (74-106) mg/dL Calcium 7.5 L (8.5-10.1) mg/dL Med Orders - Current: Current Medications Acetaminophen (Tylenol) 650 mg PO Q4H PRN PRN Reason: Pain (Mild 1-3)/fever Amiodarone HCl (Cordarone) 400 mg PO DAILY [facility] Artificial Tears (Genteal Mild To Moderate Ophth Soln) 0 ml EYEBOTH Q1H PRN PRN Reason: Dry Eyes Last Admin: 04/27/20 18:05 Dose: 2 drop Documented by: Atorvastatin Calcium (Lipitor) 20 mg PO BEDTIME [facility] Last Admin: 04/27/20 20:50 Dose: Not Given Documented by: Benzocaine (Anbesol 10% Dental Gel) 0 gm MUCMEM ASDIRECTED PRN PRN Reason: dental pain Last Admin: 04/27/20 20:50 Dose: 1 applic Documented by: Ciprofloxacin (Ciprofloxacin Hcl) 500 mg PO BID [facility] Gabapentin (Neurontin) 600 mg PO BID [facility] Last Admin: 04/28/20 08:16 Dose: 600 mg Documented by: Norepinephrine Bitartrate 4 mg (/ Dextrose/Water) 250 mls @ 7.5 mls/hr IV TITRATE [facility]; Protocol Last Titration: 04/28/20 09:08 Dose: 1 mcg/min, 3.75 mls/hr Documented by: Amiodarone HCl 450 mg/ (Dextrose/Water) 250 mls @ 33.333 mls/hr IV ASDIRECTED [facility]; Protocol Stop: 04/28/20 13:00 Last Admin: 04/27/20 22:04 Dose: 0.5 mg/min, 16.667 mls/hr Documented by: Lactobacillus Rhamnosus (Culturelle) 1 cap PO BID [facility] Levetiracetam (Keppra) 750 mg PO BID [facility] Last Admin: 04/28/20 08:16 Dose: 750 mg Documented by: Magnesium Oxide (Magnesium Oxide) 400 mg PO BID [facility] Last Admin: 04/28/20 08:16 Dose: 400 mg Documented by: Ondansetron HCl (Zofran) 4 mg IV Q4H PRN PRN Reason: Nausea/Vomiting Pantoprazole Sodium (Protonix Granules) 40 mg PO ACBREAKFAST [facility] Last Admin: 04/28/20 08:16 Dose: 40 mg Documented by: Polyethylene Glycol (Miralax) 17 gm PO DAILY PRN PRN Reason: Constipation Sodium Chloride (Saline Flush) 10 ml FLUSH ASDIRECTED PRN PRN Reason: Keep Vein Open Venlafaxine HCl (Effexor Xr) 225 mg PO DAILY [facility] Last Admin: 04/28/20 08:16 Dose: 225 mg Documented by: Discontinued Medications Adenosine (Adenocard) 6 mg IVPUSH ONETIME ONE Stop: 04/25/20 14:01 Last Admin: 04/25/20 14:06 Dose: 6 mg Documented by: Adenosine (Adenocard) 6 mg IVPUSH NOW ONE Stop: 04/25/20 14:50 Last Admin: 04/25/20 15:02 Dose: 6 mg Documented by: Amiodarone HCl (Cordarone) 150 mg IVPUSH ONETIME ONE Stop: 04/27/20 14:01 Last Admin: 04/27/20 14:05 Dose: 150 mg Documented by: Sodium Chloride (Normal Saline) 1,000 mls @ 250 mls/hr IV ASDIRECTED [facility] Last Admin: 04/24/20 17:11 Dose: 250 mls/hr Documented by: Ceftriaxone Sodium 1 gm/ (Sodium Chloride) 50 mls @ 100 mls/hr IV Q24H [facility] Last Admin: 04/27/20 16:30 Dose: 100 mls/hr Documented by: Sodium Chloride (Normal Saline) 1,000 mls @ 250 mls/hr IV ASDIRECTED [facility] Stop: 04/24/20 23:22 Last Admin: 04/24/20 21:22 Dose: 250 mls/hr Documented by: Sodium Chloride (Normal Saline) 1,000 mls @ 125 mls/hr IV ASDIRECTED [facility] Last Admin: 04/26/20 09:26 Dose: 125 mls/hr Documented by: Diltiazem HCl 125 mg/ Dextrose (/Water) 125 mls @ 5 mls/hr IV TITRATE [facility]; Protocol Last Titration: 04/27/20 11:05 Dose: 0 mls/hr, 0 mls/hr Documented by: Amiodarone HCl 450 mg/ (Dextrose/Water) 250 mls @ 33.333 mls/hr IV ASDIRECTED [facility]; Protocol Levetiracetam (Keppra) 750 mg PO BID [facility] Last Admin: 04/27/20 20:05 Dose: 750 mg Documented by: Metoprolol Tartrate (Lopressor) 12.5 mg PO BID [facility] Last Admin: 04/24/20 20:38 Dose: 12.5 mg Documented by: Metoprolol Tartrate (Lopressor) 12.5 mg PO BID [facility] Last Admin: 04/27/20 08:36 Dose: 12.5 mg Documented by: Potassium Chloride (Klor-Con M20) 40 meq PO ONETIME ONE Stop: 04/26/20 09:01 Potassium Chloride (Potassium Chloride Solution) 40 meq PO ONETIME ONE Stop: 04/26/20 09:01 Last Admin: 04/26/20 08:44 Dose: 40 meq Documented by: Potassium Chloride (Potassium Chloride Solution) 40 meq PO ONETIME ONE Stop: 04/26/20 17:01 Last Admin: 04/26/20 16:52 Dose: 40 meq Documented by: Warfarin Sodium (Coumadin) 1 mg PO DAILY@1300 [facility] Last Admin: 04/26/20 12:09 Dose: 1 mg Documented by: - Exam Quality Assessment: DVT Prophylaxis General: Alert, Oriented, Cooperative, No Acute Distress Lungs: Clear to Auscultation, Normal Respiratory Effort Cardiovascular: Regular Rhythm, No Murmurs, Irregular Rhythm, Tachycardia GI/Abdominal Exam: Soft, Non-Tender, No Organomegaly, No Distention Extremities: Non-Tender, Pedal Edema Sepsis Event Note - Evaluation Sepsis Screening Result: Sepsis Risk - Focused Exam Vital Signs: Vital Signs Temp Pulse Resp BP Pulse Ox 04/28/20 09:00 16 99/68 96 04/28/20 08:00 96.3 F L 18 96/64 94 L 04/28/20 06:00 19 95/62 94 L 04/28/20 05:00 98.4 F 21 H 98/63 93 L 04/28/20 04:00 103 H 20 95/59 L 95 04/28/20 03:00 103 H 22 H 98/65 92 L 04/28/20 02:00 103 H 20 96/61 93 L 04/28/20 01:00 102 H 19 93/63 93 L 04/28/20 00:00 98.5 F 102 H 20 90/59 L 94 L 04/27/20 23:00 101 H 19 95/59 L 94 L 04/27/20 22:00 101 H 20 91/62 94 L Date Exam was Performed: 04/28/20 Time Exam was Performed: 09:53 - Problem List Review Problem List Initiated/Reviewed/Updated: Yes - My Orders Last 24 Hours: My Active Orders 04/27/20 14:00 Amiodarone [Cordarone] 450 mg Dextrose 5% in Water 241 ml IV ASDIRECTED 04/27/20 Dinner Pureed Diet [DIET] 04/28/20 09:00 Amiodarone [Cordarone] 400 mg PO DAILY Ciprofloxacin [Ciprofloxacin HCl] 500 mg PO BID Lactobacillus Rhamnosus GG [Culturelle] 1 cap PO BID levETIRAcetam [Keppra] 750 mg PO BID 04/29/20 05:00 BASIC METABOLIC PANEL,BMP [CHEM] Timed CBC WITH AUTO DIFF [HEME] Timed INR,PT,PROTHROMBIN TIME [COAG] Timed - Plan Plan:: ASSESSMENT AND PLAN URINARY TRACT INFECTION WITH SEPSIS-and culture growing E. coli -Ciprofloxacin 500 mg p.o. twice daily -Requiring use of IV norepinephrine to maintain adequate blood pressure PAROXYSMAL SUPRAVENTRICULAR TACHYCARDIA-resolved ATRIAL FIBRILLATION WITH RAPID VENTRICULAR RESPONSE-prior history of this, she is on long-term oral anticoagulation with warfarin. INR supratherapeutic today. -Hold warfarin today -Amiodarone 400 mg p.o. daily -We will complete 24-hour amiodarone infusion early afternoon -Reassess INR in a.m. GENERALIZED WEAKNESS-progressive weakness over the past several weeks, oral intake while in the hospital has been very poor. Intake at home has been very poor for approximately 1 month. We discussed feeding tube placement today which she refuses. -detention placement for restorative physical therapy and Occupational Therapy HISTORY OF CVA WITH RESIDUAL LEFT-SIDED WEAKNESS HISTORY OF ATRIAL FIBRILLATION-currently in sinus tachycardia, status post p revious ablation procedure -Continue oral anticoagulation with warfarin -Reassess INR in a.m. -Resume metoprolol -Hold diltiazem as above MAINTENANCE ISSUES -DVT prophylaxis; current therapy with warfarin should provide adequate DVT prophylaxis -GI prophylaxis; continue outpatient PPI therapy -Salvador catheter; not indicated -Nutrition; 2 g sodium diet -Nicotine dependence; not required CODE STATUS-FULL CODE ADMISSION STATUS-patient will be admitted to inpatient status, expect at least a 2 night hospital stay for evaluation and management of problems as outlined above. At the time of this admission I do not reasonably expected evaluation and management of this problem will require more than a 96 hour hospital stay. DISPOSITION-anticipate discharge to home after the hospital stay. PRIMARY CARE PROVIDER-Dr. Oleary
[2020-04-28] MEDS: Amiodarone 200 MG Tab PO SCH (11:25)
[2020-04-28] MEDS: Lactobacillus Rhamnosus GG (Probiotic) Cap PO SCH ×2 (11:25→20:59)
[2020-04-28] MEDS: Ciprofloxacin 500 MG Tab PO SCH ×2 (11:25→20:59)
[2020-04-28] MEDS: atorvaSTATin 20 MG Tab PO SCH (20:59)
[2020-04-29] MEDS: Pantoprazole 40 MG Delayed-Release Granules 1 Packet PO SCH (07:55)
[2020-04-29] MEDS: Ciprofloxacin 500 MG Tab PO SCH ×2 (08:20→20:32)
[2020-04-29] MEDS: Amiodarone 200 MG Tab PO SCH ×2 (08:21→16:28)
[2020-04-29] MEDS: Gabapentin 300 MG Cap PO SCH ×2 (08:21→20:32)
[2020-04-29] MEDS: Lactobacillus Rhamnosus GG (Probiotic) Cap PO SCH ×2 (08:21→20:32)
[2020-04-29] MEDS: Magnesium Oxide 400 MG Tab PO SCH ×2 (08:22→20:32)
[2020-04-29] MEDS: Venlafaxine 75 MG Cap.ER PO SCH (08:22)
[2020-04-29] MEDS: levETIRAcetam 500 MG/5 ML Solution ML 473 ml Bottle PO SCH ×2 (08:22→20:32)
--- NOTE | 2020-04-29 09:13 | PCM.PN ---
- General Info Date of Service: 04/29/20 Subjective Update: Ms. Hernández has been doing better with oral intake over the last 2 days. She reports that she feels well and denies significant discomfort. Heart rate remains elevated in the range of 110-120 despite recent amiodarone infusion. Blood pressure has been more stable and she is off of IV norepinephrine. Functional Status: Reports: Tolerating Diet, Urinating. Denies: Ambulating - Review of Systems General: Reports: Weakness, Malaise. Denies: Fever, Chills Pulmonary: Reports: No Symptoms Cardiovascular: Reports: No Symptoms Gastrointestinal: Reports: No Symptoms Genitourinary: Reports: No Symptoms - Patient Data Vitals - Most Recent: Last Vital Signs Temp 96.4 F L 04/29/20 04:00 Pulse 120 H 04/29/20 08:00 Resp 04/29/20 08:00 BP 112/81 04/29/20 08:00 Pulse Ox 100 04/29/20 08:00 Weight - Most Recent: 192 lb I&O - Last 24 Hours: Intake & Output 04/28/20 04/29/20 04/29/20 22:59 06:59 14:59 Intake Total 400 240 Output Total 700 750 Balance -300 -510 Lab Results Last 24 Hours: Laboratory Results - last 24 hr 04/29/20 04/29/20 04/29/20 Range/Units 05:00 06:00 06:00 WBC 11.0 (4.5-11.0) K/uL RBC 3.60 (3.30-5.50) M/uL Hgb 11.2 L (12.0-15.0) g/dL Hct 35.0 L (36.0-48.0) % MCV 97 (80-98) fL MCH 31 (27-31) pg MCHC 32 (32-36) % Plt Count 163 (150-400) K/uL Neut % (Auto) 74 H (36-66) % Lymph % (Auto) 18 L (24-44) % [place] % (Auto) 7 H (2-6) % Eos % (Auto) 2 (2-4) % Baso % (Auto) 1 (0-1) % PT 20.5 H (9.5-12.0) sec INR 1.97 H (0.80-1.20) Sodium 136 L (140-148) mmol/L Potassium 4.3 (3.6-5.2) mmol/L Chloride 107 (100-108) mmol/L Carbon Dioxide 23 (21-32) mmol/L Anion Gap 10.3 (5.0-14.0) mmol/L BUN 13 (7-18) mg/dL Creatinine 1.0 (0.6-1.0) mg/dL Est Cr Clr Drug Dosing 40.81 mL/min Estimated GFR (MDRD) 55 L (>60) Glucose 61 L (74-106) mg/dL Calcium 7.3 L (8.5-10.1) mg/dL Med Orders - Current: Current Medications Acetaminophen (Tylenol) 650 mg PO Q4H PRN PRN Reason: Pain (Mild 1-3)/fever Last Admin: 04/29/20 07:55 Dose: 650 mg Documented by: Amiodarone HCl (Cordarone) 200 mg PO Q8H [facility] Stop: 05/03/20 01:16 Artificial Tears (Genteal Mild To Moderate Ophth Soln) 0 ml EYEBOTH Q1H PRN PRN Reason: Dry Eyes Last Admin: 04/27/20 18:05 Dose: 2 drop Documented by: Atorvastatin Calcium (Lipitor) 20 mg PO BEDTIME [facility] Last Admin: 04/28/20 20:59 Dose: 20 mg Documented by: Benzocaine (Anbesol 10% Dental Gel) 0 gm MUCMEM ASDIRECTED PRN PRN Reason: dental pain Last Admin: 04/27/20 20:50 Dose: 1 applic Documented by: Ciprofloxacin (Ciprofloxacin Hcl) 500 mg PO BID [facility] Last Admin: 04/29/20 08:20 Dose: 500 mg Documented by: Gabapentin (Neurontin) 600 mg PO BID [facility] Last Admin: 04/29/20 08:21 Dose: 600 mg Documented by: Lactobacillus Rhamnosus (Culturelle) 1 cap PO BID [facility] Last Admin: 04/29/20 08:21 Dose: 1 cap Documented by: Levetiracetam (Keppra) 750 mg PO BID [facility] Last Admin: 04/29/20 08:22 Dose: 750 mg Documented by: Magnesium Oxide (Magnesium Oxide) 400 mg PO BID [facility] Last Admin: 04/29/20 08:22 Dose: 400 mg Documented by: Ondansetron HCl (Zofran) 4 mg IV Q4H PRN PRN Reason: Nausea/Vomiting Last Admin: 04/28/20 10:10 Dose: 4 mg Documented by: Pantoprazole Sodium (Protonix Granules) 40 mg PO ACBREAKFAST [facility] Last Admin: 04/29/20 07:55 Dose: 40 mg Documented by: Polyethylene Glycol (Miralax) 17 gm PO DAILY PRN PRN Reason: Constipation Sodium Chloride (Saline Flush) 10 ml FLUSH ASDIRECTED PRN PRN Reason: Keep Vein Open Venlafaxine HCl (Effexor Xr) 225 mg PO DAILY [facility] Last Admin: 04/29/20 08:22 Dose: 225 mg Documented by: Warfarin Sodium (Coumadin) 1 mg PO DAILY@1300 [facility] Discontinued Medications Adenosine (Adenocard) 6 mg IVPUSH ONETIME ONE Stop: 04/25/20 14:01 Last Admin: 04/25/20 14:06 Dose: 6 mg Documented by: Adenosine (Adenocard) 6 mg IVPUSH NOW ONE Stop: 04/25/20 14:50 Last Admin: 04/25/20 15:02 Dose: 6 mg Documented by: Amiodarone HCl (Cordarone) 150 mg IVPUSH ONETIME ONE Stop: 04/27/20 14:01 Last Admin: 04/27/20 14:05 Dose: 150 mg Documented by: Amiodarone HCl (Cordarone) 400 mg PO DAILY [facility] Last Admin: 04/29/20 08:21 Dose: 400 mg Documented by: Amiodarone HCl (Cordarone) 200 mg PO DAILY [facility] Stop: 05/11/20 09:01 Sodium Chloride (Normal Saline) 1,000 mls @ 250 mls/hr IV ASDIRECTED [facility] Last Admin: 04/24/20 17:11 Dose: 250 mls/hr Documented by: Ceftriaxone Sodium 1 gm/ (Sodium Chloride) 50 mls @ 100 mls/hr IV Q24H [facility] Last Admin: 04/27/20 16:30 Dose: 100 mls/hr Documented by: Sodium Chloride (Normal Saline) 1,000 mls @ 250 mls/hr IV ASDIRECTED [facility] Stop: 04/24/20 23:22 Last Admin: 04/24/20 21:22 Dose: 250 mls/hr Documented by: Sodium Chloride (Normal Saline) 1,000 mls @ 125 mls/hr IV ASDIRECTED [facility] Last Admin: 04/26/20 09:26 Dose: 125 mls/hr Documented by: Norepinephrine Bitartrate 4 mg (/ Dextrose/Water) 250 mls @ 7.5 mls/hr IV TITRATE [facility]; Protocol Last Titration: 04/28/20 10:11 Dose: 0 mcg/min, 0 mls/hr Documented by: Diltiazem HCl 125 mg/ Dextrose (/Water) 125 mls @ 5 mls/hr IV TITRATE [facility]; Protocol Last Titration: 04/27/20 11:05 Dose: 0 mls/hr, 0 mls/hr Documented by: Amiodarone HCl 450 mg/ (Dextrose/Water) 250 mls @ 33.333 mls/hr IV ASDIRECTED [facility]; Protocol Amiodarone HCl 450 mg/ (Dextrose/Water) 250 mls @ 33.333 mls/hr IV ASDIRECTED [facility]; Protocol Stop: 04/28/20 13:00 Last Admin: 04/27/20 22:04 Dose: 0.5 mg/min, 16.667 mls/hr Documented by: Levetiracetam (Keppra) 750 mg PO BID [facility] Last Admin: 04/27/20 20:05 Dose: 750 mg Documented by: Metoprolol Tartrate (Lopressor) 12.5 mg PO BID [facility] Last Admin: 04/24/20 20:38 Dose: 12.5 mg Documented by: Metoprolol Tartrate (Lopressor) 12.5 mg PO BID [facility] Last Admin: 04/27/20 08:36 Dose: 12.5 mg Documented by: Potassium Chloride (Klor-Con M20) 40 meq PO ONETIME ONE Stop: 04/26/20 09:01 Potassium Chloride (Potassium Chloride Solution) 40 meq PO ONETIME ONE Stop: 04/26/20 09:01 Last Admin: 04/26/20 08:44 Dose: 40 meq Documented by: Potassium Chloride (Potassium Chloride Solution) 40 meq PO ONETIME ONE Stop: 04/26/20 17:01 Last Admin: 04/26/20 16:52 Dose: 40 meq Documented by: Warfarin Sodium (Coumadin) 1 mg PO DAILY@1300 [facility] Last Admin: 04/26/20 12:09 Dose: 1 mg Documented by: - Exam Quality Assessment: DVT Prophylaxis General: Alert, Oriented, Cooperative, No Acute Distress Lungs: Clear to Auscultation, Normal Respiratory Effort Cardiovascular: No Murmurs, Irregular Rhythm, Tachycardia GI/Abdominal Exam: Soft, Non-Tender, No Organomegaly, No Distention Extremities: Non-Tender, No Pedal Edema Sepsis Event Note - Evaluation Sepsis Screening Result: No Definite Risk - Focused Exam Vital Signs: Vital Signs Temp Pulse Resp BP Pulse Ox 04/29/20 08:00 120 H 14 112/81 100 04/29/20 06:00 118 H 13 90/55 L 99 04/29/20 04:00 96.4 F L 118 H 13 76/52 L 97 04/29/20 02:00 112 H 15 88/56 L 95 04/29/20 00:00 96.6 F L 110 H 15 86/58 L 93 L 04/28/20 22:00 108 H 11 L 92/64 98 Date Exam was Performed: 04/29/20 Time Exam was Performed: 09:10 - Problem List Review Problem List Initiated/Reviewed/Updated: Yes - My Orders Last 24 Hours: My Active Orders 04/28/20 09:00 Ciprofloxacin [Ciprofloxacin HCl] 500 mg PO BID Lactobacillus Rhamnosus GG [Culturelle] 1 cap PO BID levETIRAcetam [Keppra] 750 mg PO BID 04/28/20 09:56 Consult to Physical Therapy [PT Evaluation and Treatment] [CONS] Routine 04/29/20 09:15 Amiodarone [Cordarone] 200 mg PO Q8H 04/29/20 13:00 Warfarin [Coumadin] 1 mg PO DAILY@1300 04/30/20 05:11 INR,PT,PROTHROMBIN TIME [COAG] AM - Plan Plan:: ASSESSMENT AND PLAN URINARY TRACT INFECTION WITH SEPSIS-and culture growing E. coli -Ciprofloxacin 500 mg p.o. twice daily PAROXYSMAL SUPRAVENTRICULAR TACHYCARDIA-resolved ATRIAL FIBRILLATION WITH RAPID VENTRICULAR RESPONSE-prior history of this, she is on long-term oral anticoagulation with warfarin. Fortunately rate control has not been as good over the last 24 hours, will transiently increase oral dose of amiodarone for the next few days. -Warfarin 1 mg p.o. daily -Amiodarone 200 mg p.o. every 8 hours, for 4 days then reassess -Reassess INR in a.m. GENERALIZED WEAKNESS-progressive weakness over the past several weeks, oral intake while in the hospital has been very poor. Intake at home has been very poor for approximately 1 month. We discussed feeding tube placement today which she refuses. -[facility] placement for restorative physical therapy and Occupational Therapy -Nutritional supplements 4 times daily HISTORY OF CVA WITH RESIDUAL LEFT-SIDED WEAKNESS MAINTENANCE ISSUES -DVT prophylaxis; current therapy with warfarin should provide adequate DVT prophylaxis -GI prophylaxis; continue outpatient PPI therapy -Salvador catheter; not indicated -Nutrition; 2 g sodium diet -Nicotine dependence; not required CODE STATUS-FULL CODE ADMISSION STATUS-patient will be admitted to inpatient status, expect at least a 2 night hospital stay for evaluation and management of problems as outlined above. At the time of this admission I do not reasonably expected evaluation and management of this problem will require more than a 96 hour hospital stay. DISPOSITION-anticipate discharge to home after the hospital stay. PRIMARY CARE PROVIDER-Dr. Oleary
[2020-04-29] MEDS: Metoprolol Tartrate 25 MG Tab PO SCH ×2 (16:21→22:12)
[2020-04-29] MEDS: atorvaSTATin 20 MG Tab PO SCH (20:32)
[2020-04-30] MEDS: Amiodarone 200 MG Tab PO SCH ×3 (00:08→17:12)
[2020-04-30] MEDS: Metoprolol Tartrate 25 MG Tab PO SCH ×3 (04:10→22:09)
[2020-04-30] MEDS: Pantoprazole 40 MG Delayed-Release Granules 1 Packet PO SCH (08:25)
[2020-04-30] MEDS: Ciprofloxacin 500 MG Tab PO SCH ×2 (08:58→20:47)
[2020-04-30] MEDS: Gabapentin 300 MG Cap PO SCH ×2 (09:00→20:47)
[2020-04-30] MEDS: Magnesium Oxide 400 MG Tab PO SCH ×2 (09:00→20:47)
[2020-04-30] MEDS ORDERED: Amiodarone 200 MG Tab PO SCH (09:00)
[2020-04-30] MEDS: Lactobacillus Rhamnosus GG (Probiotic) Cap PO SCH ×2 (09:00→20:47)
[2020-04-30] MEDS: Venlafaxine 75 MG Cap.ER PO SCH (09:00)
[2020-04-30] MEDS: levETIRAcetam 500 MG/5 ML Solution ML 473 ml Bottle PO SCH ×2 (09:01→20:47)
--- NOTE | 2020-04-30 10:10 | PCM.PN ---
- General Info Date of Service: 04/30/20 Subjective Update: There were no acute events overnight. Patient has not had any fevers. She remains very weak but otherwise says that she has felt better each day. No significant pain issues. No shortness of breath or nausea. Heart rate has been more stable over the last 12 to 24 hours with rates in the 90s. Functional Status: Reports: Pain Controlled, Tolerating Diet - Review of Systems General: Reports: Weakness. Denies: Fever - Patient Data Vitals - Most Recent: Last Vital Signs Temp 35.6 C L 04/30/20 04:00 Pulse 92 04/30/20 09:10 Resp 16 04/30/20 06:00 BP 94/59 L 04/30/20 09:10 Pulse Ox 97 04/30/20 04:00 Weight - Most Recent: 69 kg I&O - Last 24 Hours: Intake & Output 04/29/20 04/30/20 04/30/20 22:59 06:59 14:59 Intake Total 530 250 Output Total 190 300 Balance 340 -50 Lab Results Last 24 Hours: Laboratory Results - last 24 hr 04/30/20 Range/Units 05:40 PT 19.4 H (9.5-12.0) sec INR 1.86 H (0.80-1.20) Med Orders - Current: Current Medications Acetaminophen (Tylenol) 650 mg PO Q4H PRN PRN Reason: Pain (Mild 1-3)/fever Last Admin: 04/29/20 07:55 Dose: 650 mg Documented by: Amiodarone HCl (Cordarone) 200 mg PO Q8H [facility] Stop: 05/03/20 09:01 Last Admin: 04/30/20 08:58 Dose: 200 mg Documented by: Artificial Tears (Genteal Mild To Moderate Ophth Soln) 0 ml EYEBOTH Q1H PRN PRN Reason: Dry Eyes Last Admin: 04/27/20 18:05 Dose: 2 drop Documented by: Atorvastatin Calcium (Lipitor) 20 mg PO BEDTIME [facility] Last Admin: 04/29/20 20:32 Dose: 20 mg Documented by: Benzocaine (Anbesol 10% Dental Gel) 0 gm MUCMEM ASDIRECTED PRN PRN Reason: dental pain Last Admin: 04/27/20 20:50 Dose: 1 applic Documented by: Ciprofloxacin (Ciprofloxacin Hcl) 500 mg PO BID [facility] Last Admin: 04/30/20 08:58 Dose: 500 mg Documented by: Gabapentin (Neurontin) 600 mg PO BID [facility] Last Admin: 04/30/20 09:00 Dose: 600 mg Documented by: Lactobacillus Rhamnosus (Culturelle) 1 cap PO BID [facility] Last Admin: 04/30/20 09:00 Dose: 1 cap Documented by: Levetiracetam (Keppra) 750 mg PO BID [facility] Last Admin: 04/30/20 09:01 Dose: 750 mg Documented by: Magnesium Oxide (Magnesium Oxide) 400 mg PO BID [facility] Last Admin: 04/30/20 09:00 Dose: 400 mg Documented by: Metoprolol Tartrate (Lopressor) 25 mg PO Q12H [facility] Last Admin: 04/30/20 09:10 Dose: 25 mg Documented by: Ondansetron HCl (Zofran) 4 mg IV Q4H PRN PRN Reason: Nausea/Vomiting Last Admin: 04/28/20 10:10 Dose: 4 mg Documented by: Pantoprazole Sodium (Protonix Granules) 40 mg PO ACBREAKFAST [facility] Last Admin: 04/30/20 08:25 Dose: 40 mg Documented by: Polyethylene Glycol (Miralax) 17 gm PO DAILY PRN PRN Reason: Constipation Sodium Chloride (Saline Flush) 10 ml FLUSH ASDIRECTED PRN PRN Reason: Keep Vein Open Venlafaxine HCl (Effexor Xr) 225 mg PO DAILY [facility] Last Admin: 04/30/20 09:00 Dose: 225 mg Documented by: Warfarin Sodium (Coumadin) 1 mg PO DAILY@1300 [facility] Last Admin: 04/29/20 14:00 Dose: 1 mg Documented by: Discontinued Medications Adenosine (Adenocard) 6 mg IVPUSH ONETIME ONE Stop: 04/25/20 14:01 Last Admin: 04/25/20 14:06 Dose: 6 mg Documented by: Adenosine (Adenocard) 6 mg IVPUSH NOW ONE Stop: 04/25/20 14:50 Last Admin: 04/25/20 15:02 Dose: 6 mg Documented by: Amiodarone HCl (Cordarone) 150 mg IVPUSH ONETIME ONE Stop: 04/27/20 14:01 Last Admin: 04/27/20 14:05 Dose: 150 mg Documented by: Amiodarone HCl (Cordarone) 400 mg PO DAILY [facility] Last Admin: 04/29/20 08:21 Dose: 400 mg Documented by: Amiodarone HCl (Cordarone) 200 mg PO DAILY [facility] Stop: 05/11/20 09:01 Sodium Chloride (Normal Saline) 1,000 mls @ 250 mls/hr IV ASDIRECTED [facility] Last Admin: 04/24/20 17:11 Dose: 250 mls/hr Documented by: Ceftriaxone Sodium 1 gm/ (Sodium Chloride) 50 mls @ 100 mls/hr IV Q24H [facility] Last Admin: 04/27/20 16:30 Dose: 100 mls/hr Documented by: Sodium Chloride (Normal Saline) 1,000 mls @ 250 mls/hr IV ASDIRECTED [facility] Stop: 04/24/20 23:22 Last Admin: 04/24/20 21:22 Dose: 250 mls/hr Documented by: Sodium Chloride (Normal Saline) 1,000 mls @ 125 mls/hr IV ASDIRECTED [facility] Last Admin: 04/26/20 09:26 Dose: 125 mls/hr Documented by: Norepinephrine Bitartrate 4 mg (/ Dextrose/Water) 250 mls @ 7.5 mls/hr IV TITRATE [facility]; Protocol Last Titration: 04/28/20 10:11 Dose: 0 mcg/min, 0 mls/hr Documented by: Diltiazem HCl 125 mg/ Dextrose (/Water) 125 mls @ 5 mls/hr IV TITRATE [facility]; Protocol Last Titration: 04/27/20 11:05 Dose: 0 mls/hr, 0 mls/hr Documented by: Amiodarone HCl 450 mg/ (Dextrose/Water) 250 mls @ 33.333 mls/hr IV ASDIRECTED [facility]; Protocol Amiodarone HCl 450 mg/ (Dextrose/Water) 250 mls @ 33.333 mls/hr IV ASDIRECTED [facility]; Protocol Stop: 04/28/20 13:00 Last Admin: 04/27/20 22:04 Dose: 0.5 mg/min, 16.667 mls/hr Documented by: Levetiracetam (Keppra) 750 mg PO BID [facility] Last Admin: 04/27/20 20:05 Dose: 750 mg Documented by: Metoprolol Tartrate (Lopressor) 12.5 mg PO BID [facility] Last Admin: 04/24/20 20:38 Dose: 12.5 mg Documented by: Metoprolol Tartrate (Lopressor) 12.5 mg PO BID [facility] Last Admin: 04/27/20 08:36 Dose: 12.5 mg Documented by: Metoprolol Tartrate (Lopressor) 12.5 mg PO Q6H [facility] Last Admin: 04/30/20 04:10 Dose: 12.5 mg Documented by: Potassium Chloride (Klor-Con M20) 40 meq PO ONETIME ONE Stop: 04/26/20 09:01 Potassium Chloride (Potassium Chloride Solution) 40 meq PO ONETIME ONE Stop: 04/26/20 09:01 Last Admin: 04/26/20 08:44 Dose: 40 meq Documented by: Potassium Chloride (Potassium Chloride Solution) 40 meq PO ONETIME ONE Stop: 04/26/20 17:01 Last Admin: 04/26/20 16:52 Dose: 40 meq Documented by: Warfarin Sodium (Coumadin) 1 mg PO DAILY@1300 [facility] Last Admin: 04/26/20 12:09 Dose: 1 mg Documented by: - Exam Quality Assessment: No: Supplemental Oxygen General: Alert, Oriented, Cooperative, No Acute Distress Lungs: Normal Respiratory Effort Cardiovascular: Regular Rate, Regular Rhythm GI/Abdominal Exam: Soft, No Distention Extremities: No Pedal Edema. No: Increased Warmth Skin: Warm, Dry Psy/Mental Status: Alert, Normal Affect Sepsis Event Note - Evaluation Sepsis Screening Result: No Definite Risk - Focused Exam Vital Signs: Vital Signs Temp Pulse Pulse Resp BP BP Pulse Ox 04/30/20 09:10 92 94/59 L 04/30/20 06:00 80 16 88/63 L 04/30/20 04:10 106 H 84/60 L 04/30/20 04:00 35.6 C L 105 H 14 84/60 L 97 04/30/20 02:00 107 H 9 L 97/58 L 98 04/30/20 00:00 35.6 C L 104 H 13 99/81 96 04/29/20 22:12 113 H 99/64 Date Exam was Performed: 04/30/20 Time Exam was Performed: 12:47 - Problem List Review Problem List Initiated/Reviewed/Updated: Yes - My Orders Last 24 Hours: My Active Orders 04/30/20 10:00 Metoprolol Tartrate [Lopressor] 25 mg PO Q12H 07/15/20 10:09 Transfer Patient (Change bed) [ADT] Routine DC Salvador Catheter [Urinary Catheter Removal] [RC] PER UNIT ROUTINE 05/01/20 05:00 INR,PT,PROTHROMBIN TIME [COAG] Timed - Plan Plan:: ASSESSMENT AND PLAN URINARY TRACT INFECTION WITH SEPSIS-sepsis has resolved. Culture grew out E. coli. -Ciprofloxacin 500 mg p.o. twice daily (and after tomorrow morning's dose) PAROXYSMAL SUPRAVENTRICULAR TACHYCARDIA-resolved ATRIAL FIBRILLATION WITH RAPID VENTRICULAR RESPONSE-better rate control with low-dose beta-razia and increased dose of amiodarone. -Warfarin 1 mg p.o. daily -Amiodarone 200 mg p.o. every 8 hours for 4 days then then twice daily -Continue metoprolol but change to every 12 hours today -Consider metoprolol succinate starting in the morning -Reassess INR in a.m. GENERALIZED WEAKNESS-progressive weakness over the past several weeks with more acute decline during acute illness. Still quite weak but slowly making progress. -intermediate placement for restorative physical therapy and Occupational Therapy -Nutritional supplements 4 times daily HISTORY OF CVA WITH RESIDUAL LEFT-SIDED WEAKNESS MAINTENANCE ISSUES -DVT prophylaxis; warfarin -GI prophylaxis; PPI -Salvador catheter will be removed today -Nutrition; 2 g sodium diet -Nicotine dependence; not required DISPOSITION-anticipate discharge to the long-term for subacute rehab Dax Pennington MD
--- NOTE | 2020-04-30 14:01 | PCM.DCSUM1 ---
Discharge Summary - Hospital Course Brief History: 69-year-old female with history of previous stroke and residual left-sided weakness as well as mild dementia because of her cerebrovascular disease who presented with progressive weakness. She was admitted for management of a urinary tract infection with significant weakness. Diagnosis: Stroke: No - Discharge Data Discharge Date: 05/01/20 Discharge Disposition: DC/Tfer to SNF 03 Condition: Good - Referral to Home Health Primary Care Physician: PCP None - Discharge Diagnosis/Problem(s) (1) Acute cystitis without hematuria SNOMED Code(s): 20082776 ICD Code: N30.00 - ACUTE CYSTITIS WITHOUT HEMATURIA Status: Acute Current Visit: Yes (2) Septic shock due to Escherichia coli SNOMED Code(s): 22696844 ICD Code: A41.51 - SEPSIS DUE TO ESCHERICHIA COLI [E. COLI]; R65.21 - SEVERE SEPSIS WITH SEPTIC SHOCK Status: Acute Current Visit: Yes (3) Atrial fibrillation with rapid ventricular response SNOMED Code(s): 113975502324686 ICD Code: I48.91 - UNSPECIFIED ATRIAL FIBRILLATION Status: Acute Current Visit: Yes (4) Paroxysmal SVT (supraventricular tachycardia) SNOMED Code(s): 31068845 ICD Code: I47.1 - SUPRAVENTRICULAR TACHYCARDIA Status: Acute Current Visit: Yes (5) Hemiparesis and other late effects of cerebrovascular accident SNOMED Code(s): 0846295905873 ICD Code: I69.359 - HEMIPLGA FOLLOWING CEREBRAL INFARCTION AFFECTING UNSP SIDE; I69.398 - OTHER SEQUELAE OF CEREBRAL INFARCTION Status: Acute Current Visit: Yes - Patient Summary/Data Consults: Consultations 04/28/20 09:56 Consult to Physical Therapy [PT Evaluation and Treatment] [CONS] Routine Please Evaluate and Treat. PT Reason for Consult: Weakness This query below is only for informational purposes and is not editable. Admission Diagnosis/Problem: Dehydration 04/29/20 12:32 Consult to Speech Language Pathology [ACIDIZER Evaluation and Treatment] [CONS] Routine Please Evaluate and Treat ACIDIZER Reason for Consult: Swallow Pending Discharge: Yes Discharge Disposition: [facility] This query below is only for informational purposes and is not editable. Admission Diagnosis/Problem: Dehydration Hospital Course: Joaquina presented to the emergency room with progressive weakness. Work-up in the emergency room was suggestive of a urinary tract infection as well as significant weakness. She was started on antibiotics after cultures were obtained and she was admitted to the hospital. After admission her blood press ures trended down and despite aggressive volume resuscitation she continued to be hypotensive. She was started on low-dose norepinephrine to maintain adequate blood pressure. About 24 hours after admission the patient started to have episodes of paroxysmal supraventricular tachycardia. Initially these did respond to adenosine but then she was started on a diltiazem infusion to help maintain a sinus rhythm. This was successful as far as the SVT was concerned. She did continue to require low-dose norepinephrine for several days. Symptomatically she was feeling better and was gaining some strength. Her urine culture did return with E. coli and she was transitioned to oral ciprofloxacin. Unfortunately she went into atrial fibrillation with a rapid ventricular response. This was difficult to control and required several medication changes. Initially IV diltiazem was utilized this was only partially successful. Because her blood pressures remained on the low side and she was on low-dose norepinephrine the decision was made to discontinue the diltiazem infusion and utilize a combination of low-dose metoprolol as well as amiodarone. Her heart rate did improve some with the IV amiodarone loading. When she was transitioned to p.o. amiodarone her heart rate judd again. The amiodarone was increased to 3 times daily with better rate control. She tolerated the combination of amiodarone and low-dose metoprolol with excellent rate control. At this time the patient is doing quite well and is stable and ready for discharge. She is still quite weak after her septic shock from the urinary tract infection and would benefit from subacute rehab prior to going home. Also encountered during the hospital stay was mild renal insufficiency that did not meet criteria for acute kidney injury. Kidney function is back to baseline. She had mild hypokalemia that responded well to supplementation. She did have a slightly supratherapeutic INR during the early portion of the hospital stay but INR has been therapeutic or slightly subtherapeutic since that time. Her chronic medical conditions are stable. - Patient Instructions Diet: Pureed Activity: As Tolerated Showering/Bathing: May Shower Notify Provider of: Fever, Increased Pain Other/Special Instructions: 1. Referral to Physical and Occupational Therapy for strengthening. 2. INR on 05/05 and then per Coumadin clinic schedule. 3. CODE STATUS - full code - Discharge Plan *PRESCRIPTION DRUG MONITORING PROGRAM REVIEWED*: Not Applicable *COPY OF PRESCRIPTION DRUG MONITORING REPORT IN PATIENT SHADY: Not Applicable Prescriptions/Med Rec: Amiodarone [Cordarone] 200 mg PO ASDIRECTED #32 tablet Acetaminophen [Tylenol] 650 mg PO Q4H PRN #200 tablet PRN Reason: Pain (Mild 1-3)/fever Home Medications: Home Meds L.acidoph,Paracasei, B.lactis [Probiotic] 1 cap PO DAILY 09/17/17 [History] Venlafaxine HCl [Venlafaxine ER] 225 mg PO DAILY 09/17/17 [History] atorvaSTATin Calcium [Atorvastatin Calcium] 20 mg PO BEDTIME 09/17/17 [History] Gabapentin [Neurontin] 600 mg PO BID 12/10/17 [History] Magnesium Oxide 400 mg PO BID #60 tablet 12/11/17 [Rx] Pantoprazole [ProTONIX] 40 mg PO DAILY 02/16/18 [History] levETIRAcetam [Keppra] 750 mg PO BID 03/30/18 [History] Cholecalciferol (Vitamin D3) [Vitamin D3] 2,000 unit PO DAILY 06/12/19 [History] Ferrous Sulfate [Slow Fe] 142 mg PO DAILY 06/12/19 [History] Pyridoxine HCl (Vitamin B6) [Vitamin B-6] 50 mg PO DAILY 06/12/19 [History] Trolamine Salicylate [Myoflex] 60 gm TP TID PRN #60 cream..g. 07/10/19 [Rx] Acetaminophen [Tylenol] 650 mg PO Q4H PRN #200 tablet 04/30/20 [Rx] Amiodarone [Cordarone] 200 mg PO ASDIRECTED #32 tablet 04/30/20 [Rx] Metoprolol Tartrate 25 mg PO BID #0 04/30/20 [Rx] Warfarin [Coumadin] 1 mg PO DAILY #0 04/30/20 [Rx] Oxygen Therapy Mode: Room Air Referrals: Tomer Oleary MD [Physician] - (f/u after your rehab stay ) - Discharge Summary/Plan Comment DC Time >30 min.: Yes (40-new half-way discharge) - Patient Data Vitals - Most Recent: Last Vital Signs Temp 36.2 C 04/30/20 12:00 Pulse 88 04/30/20 12:00 Resp 14 04/30/20 12:00 BP 83/58 L 04/30/20 12:00 Pulse Ox 94 L 04/30/20 12:00 Weight - Most Recent: 69 kg I&O - Last 24 hours: Intake & Output 04/29/20 04/30/20 04/30/20 22:59 06:59 14:59 Intake Total 530 250 Output Total 190 300 Balance 340 -50 Lab Results - Last 24 hrs: Laboratory Results - last 24 hr 04/30/20 Range/Units 05:40 PT 19.4 H (9.5-12.0) sec INR 1.86 H (0.80-1.20) Med Orders - Current: Current Medications Acetaminophen (Tylenol) 650 mg PO Q4H PRN PRN Reason: Pain (Mild 1-3)/fever Last Admin: 04/29/20 07:55 Dose: 650 mg Documented by: Amiodarone HCl (Cordarone) 200 mg PO Q8H [facility] Stop: 05/03/20 09:01 Last Admin: 04/30/20 08:58 Dose: 200 mg Documented by: Artificial Tears (Genteal Mild To Moderate Ophth Soln) 0 ml EYEBOTH Q1H PRN PRN Reason: Dry Eyes Last Admin: 04/27/20 18:05 Dose: 2 drop Documented by: Atorvastatin Calcium (Lipitor) 20 mg PO BEDTIME [facility] Last Admin: 04/29/20 20:32 Dose: 20 mg Documented by: Benzocaine (Anbesol 10% Dental Gel) 0 gm MUCMEM ASDIRECTED PRN PRN Reason: dental pain Last Admin: 04/27/20 20:50 Dose: 1 applic Documented by: Ciprofloxacin (Ciprofloxacin Hcl) 500 mg PO BID [facility] Last Admin: 04/30/20 08:58 Dose: 500 mg Documented by: Gabapentin (Neurontin) 600 mg PO BID [facility] Last Admin: 04/30/20 09:00 Dose: 600 mg Documented by: Lactobacillus Rhamnosus (Culturelle) 1 cap PO BID [facility] Last Admin: 04/30/20 09:00 Dose: 1 cap Documented by: Levetiracetam (Keppra) 750 mg PO BID [facility] Last Admin: 04/30/20 09:01 Dose: 750 mg Documented by: Magnesium Oxide (Magnesium Oxide) 400 mg PO BID [facility] Last Admin: 04/30/20 09:00 Dose: 400 mg Documented by: Metoprolol Tartrate (Lopressor) 25 mg PO Q12H [facility] Last Admin: 04/30/20 09:10 Dose: 25 mg Documented by: Ondansetron HCl (Zofran) 4 mg IV Q4H PRN PRN Reason: Nausea/Vomiting Last Admin: 04/28/20 10:10 Dose: 4 mg Documented by: Pantoprazole Sodium (Protonix Granules) 40 mg PO ACBREAKFAST [facility] Last Admin: 04/30/20 08:25 Dose: 40 mg Documented by: Polyethylene Glycol (Miralax) 17 gm PO DAILY PRN PRN Reason: Constipation Sodium Chloride (Saline Flush) 10 ml FLUSH ASDIRECTED PRN PRN Reason: Keep Vein Open Venlafaxine HCl (Effexor Xr) 225 mg PO DAILY [facility] Last Admin: 04/30/20 09:00 Dose: 225 mg Documented by: Warfarin Sodium (Coumadin) 1 mg PO DAILY@1300 [facility] Last Admin: 04/29/20 14:00 Dose: 1 mg Documented by: Discontinued Medications Adenosine (Adenocard) 6 mg IVPUSH ONETIME ONE Stop: 04/25/20 14:01 Last Admin: 04/25/20 14:06 Dose: 6 mg Documented by: Adenosine (Adenocard) 6 mg IVPUSH NOW ONE Stop: 04/25/20 14:50 Last Admin: 04/25/20 15:02 Dose: 6 mg Documented by: Amiodarone HCl (Cordarone) 150 mg IVPUSH ONETIME ONE Stop: 04/27/20 14:01 Last Admin: 04/27/20 14:05 Dose: 150 mg Documented by: Amiodarone HCl (Cordarone) 400 mg PO DAILY [facility] Last Admin: 04/29/20 08:21 Dose: 400 mg Documented by: Amiodarone HCl (Cordarone) 200 mg PO DAILY [facility] Stop: 05/11/20 09:01 Sodium Chloride (Normal Saline) 1,000 mls @ 250 mls/hr IV ASDIRECTED [facility] Last Admin: 04/24/20 17:11 Dose: 250 mls/hr Documented by: Ceftriaxone Sodium 1 gm/ (Sodium Chloride) 50 mls @ 100 mls/hr IV Q24H [facility] Last Admin: 04/27/20 16:30 Dose: 100 mls/hr Documented by: Sodium Chloride (Normal Saline) 1,000 mls @ 250 mls/hr IV ASDIRECTED [facility] Stop: 04/24/20 23:22 Last Admin: 04/24/20 21:22 Dose: 250 mls/hr Documented by: Sodium Chloride (Normal Saline) 1,000 mls @ 125 mls/hr IV ASDIRECTED [facility] Last Admin: 04/26/20 09:26 Dose: 125 mls/hr Documented by: Norepinephrine Bitartrate 4 mg (/ Dextrose/Water) 250 mls @ 7.5 mls/hr IV TITRATE [facility]; Protocol Last Titration: 04/28/20 10:11 Dose: 0 mcg/min, 0 mls/hr Documented by: Diltiazem HCl 125 mg/ Dextrose (/Water) 125 mls @ 5 mls/hr IV TITRATE [facility]; Protocol Last Titration: 04/27/20 11:05 Dose: 0 mls/hr, 0 mls/hr Documented by: Amiodarone HCl 450 mg/ (Dextrose/Water) 250 mls @ 33.333 mls/hr IV ASDIRECTED [facility]; Protocol Amiodarone HCl 450 mg/ (Dextrose/Water) 250 mls @ 33.333 mls/hr IV ASDIRECTED [facility]; Protocol Stop: 04/28/20 13:00 Last Admin: 04/27/20 22:04 Dose: 0.5 mg/min, 16.667 mls/hr Documented by: Levetiracetam (Keppra) 750 mg PO BID [facility] Last Admin: 04/27/20 20:05 Dose: 750 mg Documented by: Metoprolol Tartrate (Lopressor) 12.5 mg PO BID [facility] Last Admin: 04/24/20 20:38 Dose: 12.5 mg Documented by: Metoprolol Tartrate (Lopressor) 12.5 mg PO BID [facility] Last Admin: 04/27/20 08:36 Dose: 12.5 mg Documented by: Metoprolol Tartrate (Lopressor) 12.5 mg PO Q6H [facility] Last Admin: 04/30/20 04:10 Dose: 12.5 mg Documented by: Potassium Chloride (Klor-Con M20) 40 meq PO ONETIME ONE Stop: 04/26/20 09:01 Potassium Chloride (Potassium Chloride Solution) 40 meq PO ONETIME ONE Stop: 04/26/20 09:01 Last Admin: 04/26/20 08:44 Dose: 40 meq Documented by: Potassium Chloride (Potassium Chloride Solution) 40 meq PO ONETIME ONE Stop: 04/26/20 17:01 Last Admin: 04/26/20 16:52 Dose: 40 meq Documented by: Warfarin Sodium (Coumadin) 1 mg PO DAILY@1300 [facility] Last Admin: 04/26/20 12:09 Dose: 1 mg Documented by: *Q Meaningful Use (DIS) - VTE *Q VTE Pharmacological Contraindications *Q: High INR Value
[2020-04-30] MEDS: atorvaSTATin 20 MG Tab PO SCH (20:47)
--- NOTE | 2020-04-30 23:08 | PCM.SN.2 ---
- Free Text/Narrative Note: time 2299 call from [address] [place] [id number] - Hypotensive S: denies chest pain or shortness of breath or other symptoms O: vitals signs reviewed from today- B/P 88/61 recheck 71/45 heart rate 101-16 Oxygen sat 95% on room air A: hypotension P: give 1 liter of Normal Saline over 2 hours. then recheck blood pressure. continue present plan of care.
[2020-04-30] MEDS ORDERED: Sodium Chloride 0.9% 1,000 ML IV SCH (23:15)
[2020-05-01] MEDS: Pantoprazole 40 MG Delayed-Release Granules 1 Packet PO SCH (08:33)
[2020-05-01] MEDS: Ciprofloxacin 500 MG Tab PO SCH (08:59)
[2020-05-01] MEDS: Magnesium Oxide 400 MG Tab PO SCH ×2 (09:00→20:33)
[2020-05-01] MEDS: Lactobacillus Rhamnosus GG (Probiotic) Cap PO SCH ×2 (09:00→20:30)
[2020-05-01] MEDS: Venlafaxine 75 MG Cap.ER PO SCH (09:00)
[2020-05-01] MEDS: levETIRAcetam 500 MG/5 ML Solution ML 473 ml Bottle PO SCH ×2 (09:00→20:34)
[2020-05-01] MEDS: Gabapentin 300 MG Cap PO SCH ×2 (09:01→20:33)
[2020-05-01] MEDS: Amiodarone 200 MG Tab PO SCH ×2 (10:01→17:48)
[2020-05-01] MEDS: Metoprolol Tartrate 25 MG Tab PO SCH ×2 (10:01→21:06)
--- NOTE | 2020-05-01 15:02 | PCM.PN ---
- General Info Date of Service: 05/01/20 Subjective Update: No acute events overnight. Vital signs stable other than low normal blood pressures. Heart rate has been well controlled. Clinically she feels well with no nausea, abdominal pain or shortness of breath. She does remain very weak and requires a significant amount of assistance. Discharge was planned for today but her insurance company has requested an occupational therapy evaluation. Functional Status: Reports: Pain Controlled, Tolerating Diet - Review of Systems General: Reports: Weakness - Patient Data Vitals - Most Recent: Last Vital Signs Temp 35.7 C L 05/01/20 14:33 Pulse 96 05/01/20 14:33 Resp 18 05/01/20 14:33 BP 105/82 05/01/20 14:33 Pulse Ox 97 05/01/20 14:33 Weight - Most Recent: 67.358 kg I&O - Last 24 Hours: Intake & Output 04/30/20 05/01/20 05/01/20 22:59 06:59 14:59 Intake Total 360 1300 360 Balance 360 1300 360 Med Orders - Current: Current Medications Acetaminophen (Tylenol) 650 mg PO Q4H PRN PRN Reason: Pain (Mild 1-3)/fever Last Admin: 04/29/20 07:55 Dose: 650 mg Documented by: Amiodarone HCl (Cordarone) 200 mg PO Q8H [facility] Stop: 05/03/20 17:01 Last Admin: 05/01/20 10:01 Dose: 200 mg Documented by: Artificial Tears (Genteal Mild To Moderate Ophth Soln) 0 ml EYEBOTH Q1H PRN PRN Reason: Dry Eyes Last Admin: 04/27/20 18:05 Dose: 2 drop Documented by: Atorvastatin Calcium (Lipitor) 20 mg PO BEDTIME [facility] Last Admin: 04/30/20 20:47 Dose: 20 mg Documented by: Benzocaine (Anbesol 10% Dental Gel) 0 gm MUCMEM ASDIRECTED PRN PRN Reason: dental pain Last Admin: 04/27/20 20:50 Dose: 1 applic Documented by: Gabapentin (Neurontin) 600 mg PO BID [facility] Last Admin: 05/01/20 09:01 Dose: 600 mg Documented by: Lactobacillus Rhamnosus (Culturelle) 1 cap PO BID [facility] Last Admin: 05/01/20 09:00 Dose: 1 cap Documented by: Levetiracetam (Keppra) 750 mg PO BID [facility] Last Admin: 05/01/20 09:00 Dose: 750 mg Documented by: Magnesium Oxide (Magnesium Oxide) 400 mg PO BID [facility] Last Admin: 05/01/20 09:00 Dose: 400 mg Documented by: Metoprolol Tartrate (Lopressor) 25 mg PO Q12H [facility] Last Admin: 05/01/20 10:01 Dose: 25 mg Documented by: Ondansetron HCl (Zofran) 4 mg IV Q4H PRN PRN Reason: Nausea/Vomiting Last Admin: 04/28/20 10:10 Dose: 4 mg Documented by: Pantoprazole Sodium (Protonix Granules) 40 mg PO ACBREAKFAST [facility] Last Admin: 05/01/20 08:33 Dose: 40 mg Documented by: Polyethylene Glycol (Miralax) 17 gm PO DAILY PRN PRN Reason: Constipation Sodium Chloride (Saline Flush) 10 ml FLUSH ASDIRECTED PRN PRN Reason: Keep Vein Open Venlafaxine HCl (Effexor Xr) 225 mg PO DAILY [facility] Last Admin: 05/01/20 09:00 Dose: 225 mg Documented by: Warfarin Sodium (Coumadin) 1 mg PO DAILY@1300 [facility] Last Admin: 05/01/20 12:52 Dose: 1 mg Documented by: Discontinued Medications Adenosine (Adenocard) 6 mg IVPUSH ONETIME ONE Stop: 04/25/20 14:01 Last Admin: 04/25/20 14:06 Dose: 6 mg Documented by: Adenosine (Adenocard) 6 mg IVPUSH NOW ONE Stop: 04/25/20 14:50 Last Admin: 04/25/20 15:02 Dose: 6 mg Documented by: Amiodarone HCl (Cordarone) 150 mg IVPUSH ONETIME ONE Stop: 04/27/20 14:01 Last Admin: 04/27/20 14:05 Dose: 150 mg Documented by: Amiodarone HCl (Cordarone) 400 mg PO DAILY [facility] Last Admin: 04/29/20 08:21 Dose: 400 mg Documented by: Amiodarone HCl (Cordarone) 200 mg PO DAILY [facility] Stop: 05/11/20 09:01 Ciprofloxacin (Ciprofloxacin Hcl) 500 mg PO BID [facility] Last Admin: 05/01/20 08:59 Dose: 500 mg Documented by: Sodium Chloride (Normal Saline) 1,000 mls @ 250 mls/hr IV ASDIRECTED [facility] Last Admin: 04/24/20 17:11 Dose: 250 mls/hr Documented by: Ceftriaxone Sodium 1 gm/ (Sodium Chloride) 50 mls @ 100 mls/hr IV Q24H [facility] Last Admin: 04/27/20 16:30 Dose: 100 mls/hr Documented by: Sodium Chloride (Normal Saline) 1,000 mls @ 250 mls/hr IV ASDIRECTED [facility] Stop: 04/24/20 23:22 Last Admin: 04/24/20 21:22 Dose: 250 mls/hr Documented by: Sodium Chloride (Normal Saline) 1,000 mls @ 125 mls/hr IV ASDIRECTED [facility] Last Admin: 04/26/20 09:26 Dose: 125 mls/hr Documented by: Norepinephrine Bitartrate 4 mg (/ Dextrose/Water) 250 mls @ 7.5 mls/hr IV TITRATE [facility]; Protocol Last Titration: 04/28/20 10:11 Dose: 0 mcg/min, 0 mls/hr Documented by: Diltiazem HCl 125 mg/ Dextrose (/Water) 125 mls @ 5 mls/hr IV TITRATE [facility]; Protocol Last Titration: 04/27/20 11:05 Dose: 0 mls/hr, 0 mls/hr Documented by: Amiodarone HCl 450 mg/ (Dextrose/Water) 250 mls @ 33.333 mls/hr IV ASDIRECTED [facility]; Protocol Amiodarone HCl 450 mg/ (Dextrose/Water) 250 mls @ 33.333 mls/hr IV ASDIRECTED [facility]; Protocol Stop: 04/28/20 13:00 Last Admin: 04/27/20 22:04 Dose: 0.5 mg/min, 16.667 mls/hr Documented by: Sodium Chloride (Normal Saline) 1,000 mls @ 500 mls/hr IV ASDIRECTED [facility] Stop: 05/01/20 01:15 Last Admin: 04/30/20 23:10 Dose: 500 mls/hr Documented by: Levetiracetam (Keppra) 750 mg PO BID [facility] Last Admin: 04/27/20 20:05 Dose: 750 mg Documented by: Metoprolol Tartrate (Lopressor) 12.5 mg PO BID [facility] Last Admin: 04/24/20 20:38 Dose: 12.5 mg Documented by: Metoprolol Tartrate (Lopressor) 12.5 mg PO BID [facility] Last Admin: 04/27/20 08:36 Dose: 12.5 mg Documented by: Metoprolol Tartrate (Lopressor) 12.5 mg PO Q6H [facility] Last Admin: 04/30/20 04:10 Dose: 12.5 mg Documented by: Potassium Chloride (Klor-Con M20) 40 meq PO ONETIME ONE Stop: 04/26/20 09:01 Potassium Chloride (Potassium Chloride Solution) 40 meq PO ONETIME ONE Stop: 04/26/20 09:01 Last Admin: 04/26/20 08:44 Dose: 40 meq Documented by: Potassium Chloride (Potassium Chloride Solution) 40 meq PO ONETIME ONE Stop: 04/26/20 17:01 Last Admin: 04/26/20 16:52 Dose: 40 meq Documented by: Warfarin Sodium (Coumadin) 1 mg PO DAILY@1300 [facility] Last Admin: 04/26/20 12:09 Dose: 1 mg Documented by: - Exam Quality Assessment: No: Supplemental Oxygen General: Alert, Oriented, Cooperative, No Acute Distress Lungs: Normal Respiratory Effort GI/Abdominal Exam: Soft, No Distention Extremities: No Pedal Edema Skin: Warm, Dry Psy/Mental Status: Alert, Normal Affect Sepsis Event Note - Evaluation Sepsis Screening Result: Sepsis Risk - Focused Exam Vital Signs: Vital Signs Temp Pulse Pulse Resp BP BP BP 05/01/20 14:33 35.7 C L 96 18 105/82 05/01/20 10:36 35.2 C L 98 18 80/44 L 05/01/20 10:01 100 87/60 L 05/01/20 07:00 35.1 C L 100 18 87/60 L 05/01/20 05:00 35.1 C L 93 16 81/56 L Pulse Ox 05/01/20 14:33 97 05/01/20 10:36 100 05/01/20 10:01 05/01/20 07:00 97 05/01/20 05:00 96 Date Exam was Performed: 05/01/20 Time Exam was Performed: 14:59 - Problem List & Annotations (1) Acute cystitis without hematuria SNOMED Code(s): 31724289 Code(s): N30.00 - ACUTE CYSTITIS WITHOUT HEMATURIA Status: Acute Current Visit: Yes (2) Septic shock due to Escherichia coli SNOMED Code(s): 88250918 Code(s): A41.51 - SEPSIS DUE TO ESCHERICHIA COLI [E. COLI]; R65.21 - SEVERE SEPSIS WITH SEPTIC SHOCK Status: Acute Current Visit: Yes (3) Atrial fibrillation with rapid ventricular response SNOMED Code(s): 282412525293441 Code(s): I48.91 - UNSPECIFIED ATRIAL FIBRILLATION Status: Acute Current Visit: Yes (4) Paroxysmal SVT (supraventricular tachycardia) SNOMED Code(s): 03658207 Code(s): I47.1 - SUPRAVENTRICULAR TACHYCARDIA Status: Acute Current Visit: Yes (5) Hemiparesis and other late effects of cerebrovascular accident SNOMED Code(s): 8797032993248 Code(s): I69.359 - HEMIPLGA FOLLOWING CEREBRAL INFARCTION AFFECTING UNSP SIDE; I69.398 - OTHER SEQUELAE OF CEREBRAL INFARCTION Status: Acute Current Visit: Yes - Problem List Review Problem List Initiated/Reviewed/Updated: Yes - My Orders Last 24 Hours: My Active Orders 05/01/20 13:29 OT Evaluation and Treatment [CONS] Routine - Plan Plan:: ASSESSMENT AND PLAN URINARY TRACT INFECTION WITH SEPSIS-sepsis has resolved. Culture grew out E. coli. -She has completed adequate antibiotic therapy PAROXYSMAL SUPRAVENTRICULAR TACHYCARDIA-resolved ATRIAL FIBRILLATION WITH RAPID VENTRICULAR RESPONSE-better rate control with low-dose beta-razia and increased dose of amiodarone. -Warfarin 1 mg p.o. daily -Amiodarone 200 mg p.o. every 8 hours for 2 more days then then twice daily -Continue metoprolol twice daily -Reassess INR in a.m. GENERALIZED WEAKNESS-progressive weakness over the past several weeks with more acute decline during acute illness. She remains quite weak even compared to her baseline. Requires significant assistance with all of her activities. -Continue physical therapy -Occupational therapy consultation -long term placement for restorative physical therapy and Occupational Therapy -Nutritional supplements 4 times daily HISTORY OF CVA WITH RESIDUAL LEFT-SIDED WEAKNESS MAINTENANCE ISSUES -DVT prophylaxis; warfarin -GI prophylaxis; PPI -Nutrition; 2 g sodium diet -Nicotine dependence; not required DISPOSITION-anticip[facility] [place] [facility] Dax Pennington MD
[2020-05-01] MEDS: atorvaSTATin 20 MG Tab PO SCH (20:33)
[2020-05-01] MEDS ORDERED: Metoprolol Tartrate 25 MG Tab PO ONE (22:00)
[2020-05-02] MEDS: Amiodarone 200 MG Tab PO SCH (01:47)
[2020-05-02] MEDS: Pantoprazole 40 MG Delayed-Release Granules 1 Packet PO SCH (07:57)
[2020-05-02] MEDS ORDERED: Metoprolol Tartrate 25 MG Tab PO SCH (09:00)
[2020-05-02] MEDS ORDERED: Amiodarone 200 MG Tab PO SCH (09:00)
[2020-05-02] MEDS: Lactobacillus Rhamnosus GG (Probiotic) Cap PO SCH (09:20)
[2020-05-02] MEDS: Magnesium Oxide 400 MG Tab PO SCH (09:21)
[2020-05-02] MEDS: Venlafaxine 75 MG Cap.ER PO SCH (09:21)
[2020-05-02] MEDS: Gabapentin 300 MG Cap PO SCH (09:21)
[2020-05-02] MEDS: levETIRAcetam 500 MG/5 ML Solution ML 473 ml Bottle PO SCH (09:22)
[2020-05-02 11:04] VITALS: BP 79/46; PULSE 108
--- NOTE | 2020-05-02 11:37 | PCM.DCSUM1 ---
Discharge Summary - Hospital Course Brief History: 69-year-old female with history of previous stroke and residual left-sided weakness as well as mild dementia because of her cerebrovascular disease who presented with progressive weakness. She was admitted for management of a urinary tract infection with significant weakness. Diagnosis: Stroke: No - Discharge Data Discharge Date: 05/02/20 Discharge Disposition: DC/Tfer to SNF 03 Condition: Good - Referral to Home Health Primary Care Physician: PCP None - Discharge Diagnosis/Problem(s) (1) Acute cystitis without hematuria SNOMED Code(s): 57483048 ICD Code: N30.00 - ACUTE CYSTITIS WITHOUT HEMATURIA Status: Acute Current Visit: Yes (2) Septic shock due to Escherichia coli SNOMED Code(s): 75140382 ICD Code: A41.51 - SEPSIS DUE TO ESCHERICHIA COLI [E. COLI]; R65.21 - SEVERE SEPSIS WITH SEPTIC SHOCK Status: Acute Current Visit: Yes (3) Atrial fibrillation with rapid ventricular response SNOMED Code(s): 595396884033877 ICD Code: I48.91 - UNSPECIFIED ATRIAL FIBRILLATION Status: Acute Current Visit: Yes (4) Paroxysmal SVT (supraventricular tachycardia) SNOMED Code(s): 66411476 ICD Code: I47.1 - SUPRAVENTRICULAR TACHYCARDIA Status: Acute Current Visit: Yes (5) Hemiparesis and other late effects of cerebrovascular accident SNOMED Code(s): 7236324911205 ICD Code: I69.359 - HEMIPLGA FOLLOWING CEREBRAL INFARCTION AFFECTING UNSP SIDE; I69.398 - OTHER SEQUELAE OF CEREBRAL INFARCTION Status: Acute Current Visit: Yes - Patient Summary/Data Consults: Consultations 04/28/20 09:56 Consult to Physical Therapy [PT Evaluation and Treatment] [CONS] Routine Please Evaluate and Treat. PT Reason for Consult: Weakness This query below is only for informational purposes and is not editable. 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 Admission Diagnosis/Problem: Dehydration 05/01/20 13:29 OT Evaluation and Treatment [CONS] Routine Please Evaluate and Treat. OT Reason for Consult: ADL's Pending Discharge: Longterm Facility Special Instructions: We need the consult for ADL's for [employer] This query below is only for informational purposes and is not editable. Admission Diagnosis/Problem: Dehydration Hospital Course: Joaquina presented to the emergency room with progressive weakness. Work-up in the emergency room was suggestive of a urinary tract infection as well as significant weakness. She was started on antibiotics after cultures were obtained and she was admitted to the hospital. After admission her blood pressures trended down and despite aggressive volume resuscitation she continued to be hypotensive. She was started on low-dose norepinephrine to maintain adequate blood pressure. About 24 hours after admission the patient started to have episodes of paroxysmal supraventricular tachycardia. Initially these did respond to adenosine but then she was started on a diltiazem infusion to help maintain a sinus rhythm. This was successful as far as the SVT was concerned. She did continue to require low-dose norepinephrine for several days. Symptomatically she was feeling better and was gaining some strength. Her urine culture did return with E. coli and she was transitioned to oral ciprofloxacin. Unfortunately she went into atrial fibrillation with a rapid ventricular response. This was difficult to control and required several medication changes. Initially IV diltiazem was utilized this was only partially successful. Because her blood pressures remained on the low side and she was on low-dose norepinephrine the decision was made to discontinue the diltiazem infusion and utilize a combination of low-dose metoprolol as well as amiodarone. Her heart rate did improve some with the IV amiodarone loading. When she was transitioned to p.o. amiodarone her heart rate judd again. The amiodarone was increased to 3 times daily with better rate control. She tolerated the combination of amiodarone and low-dose metoprolol with excellent rate control. At this time the patient is doing quite well and is stable and ready for discharge. She is still quite weak after her septic shock from the urinary tract infection and would benefit from subacute rehab prior to going home. Also encountered during the hospital stay was mild renal insufficiency that did not meet criteria for acute kidney injury. Kidney function is back to baseline. She had mild hypokalemia that responded well to supplementation. She did have a slightly supratherapeutic INR during the early portion of the hospital stay but INR has been therapeutic or slightly subtherapeutic since that time. Her chronic medical conditions are stable. The plan had been for hospital discharge to a fpc facility on 05/01. Unfortunately the discharge was delayed because of the need for an evaluation by Occupational Therapy. This has been completed. The patient has remained stable over the past 24 hours with no acute issues. We have been seeing some blood pressures in the 80s which she tolerates well. I did decrease her amiodarone and metoprolol dosing and both of these have been updated in the discharge orders. She is stable and safe for discharge at this time. She continues to require PT and OT and is not safe for outpatient management. - Patient Instructions Diet: Pureed Activity: As Tolerated Showering/Bathing: May Shower Notify Provider of: Fever, Increased Pain Other/Special Instructions: 1. Referral to Physical and Occupational Therapy for strengthening. 2. INR on 05/05 and then per Coumadin clinic schedule. 3. CODE STATUS - full code - Discharge Plan *PRESCRIPTION DRUG MONITORING PROGRAM REVIEWED*: Not Applicable *COPY OF PRESCRIPTION DRUG MONITORING REPORT IN PATIENT SHADY: Not Applicable Prescriptions/Med Rec: Amiodarone [Cordarone] 200 mg PO BEDTIME #15 tablet Metoprolol Tartrate [Lopressor] 12.5 mg PO Q12H #60 tablet Acetaminophen [Tylenol] 650 mg PO Q4H PRN #200 tablet PRN Reason: Pain (Mild 1-3)/fever Home Medications: Home Meds L.acidoph,Paracasei, B.lactis [Probiotic] 1 cap PO DAILY 09/17/17 [History] Venlafaxine HCl [Venlafaxine ER] 225 mg PO DAILY 09/17/17 [History] atorvaSTATin Calcium [Atorvastatin Calcium] 20 mg PO BEDTIME 09/17/17 [History] Gabapentin [Neurontin] 600 mg PO BID 12/10/17 [History] Magnesium Oxide 400 mg PO BID #60 tablet 12/11/17 [Rx] Pantoprazole [ProTONIX] 40 mg PO DAILY 02/16/18 [History] levETIRAcetam [Keppra] 750 mg PO BID 03/30/18 [History] Cholecalciferol (Vitamin D3) [Vitamin D3] 2,000 unit PO DAILY 06/12/19 [History] Ferrous Sulfate [Slow Fe] 142 mg PO DAILY 06/12/19 [History] Pyridoxine HCl (Vitamin B6) [Vitamin B-6] 50 mg PO DAILY 06/12/19 [History] Trolamine Salicylate [Myoflex] 60 gm TP TID PRN #60 cream..g. 07/10/19 [Rx] Acetaminophen [Tylenol] 650 mg PO Q4H PRN #200 tablet 04/30/20 [Rx] Warfarin [Coumadin] 1 mg PO DAILY #0 04/30/20 [Rx] Amiodarone [Cordarone] 200 mg PO BEDTIME #15 tablet 05/02/20 [Rx] Metoprolol Tartrate [Lopressor] 12.5 mg PO Q12H #60 tablet 05/02/20 [Rx] Oxygen Therapy Mode: Room Air Referrals: Tomer Oleary MD [Physician] - (f/u after your rehab stay ) - Discharge Summary/Plan Comment DC Time >30 min.: Yes (40-new [facility] discharge ) - Patient Data Vitals - Most Recent: Last Vital Signs Temp 36.2 C 05/02/20 10:44 Pulse 108 H 05/02/20 10:44 Resp 18 05/02/20 10:44 BP 79/46 L 05/02/20 10:44 Pulse Ox 100 05/02/20 10:44 Weight - Most Recent: 69.082 kg I&O - Last 24 hours: Intake & Output 05/01/20 05/02/20 05/02/20 22:59 06:59 14:59 Intake Total 450 260 Balance 450 260 Med Orders - Current: Current Medications Acetaminophen (Tylenol) 650 mg PO Q4H PRN PRN Reason: Pain (Mild 1-3)/fever Last Admin: 04/29/20 07:55 Dose: 650 mg Documented by: Amiodarone HCl (Cordarone) 200 mg PO BID [facility] Stop: 05/05/20 09:01 Last Admin: 05/02/20 09:22 Dose: 200 mg Documented by: Artificial Tears (Genteal Mild To Moderate Ophth Soln) 0 ml EYEBOTH Q1H PRN PRN Reason: Dry Eyes Last Admin: 04/27/20 18:05 Dose: 2 drop Documented by: Atorvastatin Calcium (Lipitor) 20 mg PO BEDTIME LEONELA Last Admin: 05/01/20 20:33 Dose: 20 mg Documented by: Benzocaine (Anbesol 10% Dental Gel) 0 gm MUCMEM ASDIRECTED PRN PRN Reason: dental pain Last Admin: 04/27/20 20:50 Dose: 1 applic Documented by: Gabapentin (Neurontin) 600 mg PO BID [facility] Last Admin: 05/02/20 09:21 Dose: 600 mg Documented by: Lactobacillus Rhamnosus (Culturelle) 1 cap PO BID [facility] Last Admin: 05/02/20 09:20 Dose: 1 cap Documented by: Levetiracetam (Keppra) 750 mg PO BID [facility] Last Admin: 05/02/20 09:22 Dose: 750 mg Documented by: Magnesium Oxide (Magnesium Oxide) 400 mg PO BID [facility] Last Admin: 05/02/20 09:21 Dose: 400 mg Documented by: Metoprolol Tartrate (Lopressor) 12.5 mg PO Q12H [facility] Last Admin: 05/02/20 09:29 Dose: 12.5 mg Documented by: Ondansetron HCl (Zofran) 4 mg IV Q4H PRN PRN Reason: Nausea/Vomiting Last Admin: 04/28/20 10:10 Dose: 4 mg Documented by: Pantoprazole Sodium (Protonix Granules) 40 mg PO ACBREAKFAST [facility] Last Admin: 05/02/20 07:57 Dose: 40 mg Documented by: Polyethylene Glycol (Miralax) 17 gm PO DAILY PRN PRN Reason: Constipation Sodium Chloride (Saline Flush) 10 ml FLUSH ASDIRECTED PRN PRN Reason: Keep Vein Open Venlafaxine HCl (Effexor Xr) 225 mg PO DAILY [facility] Last Admin: 05/02/20 09:21 Dose: 225 mg Documented by: Warfarin Sodium (Coumadin) 1 mg PO DAILY@1300 [facility] Last Admin: 05/01/20 12:52 Dose: 1 mg Documented by: Discontinued Medications Adenosine (Adenocard) 6 mg IVPUSH ONETIME ONE Stop: 04/25/20 14:01 Last Admin: 04/25/20 14:06 Dose: 6 mg Documented by: Adenosine (Adenocard) 6 mg IVPUSH NOW ONE Stop: 04/25/20 14:50 Last Admin: 04/25/20 15:02 Dose: 6 mg Documented by: Amiodarone HCl (Cordarone) 150 mg IVPUSH ONETIME ONE Stop: 04/27/20 14:01 Last Admin: 04/27/20 14:05 Dose: 150 mg Documented by: Amiodarone HCl (Cordarone) 400 mg PO DAILY [facility] Last Admin: 04/29/20 08:21 Dose: 400 mg Documented by: Amiodarone HCl (Cordarone) 200 mg PO DAILY [facility] Stop: 05/11/20 09:01 Amiodarone HCl (Cordarone) 200 mg PO Q8H LEONELA Stop: 05/03/20 17:01 Last Admin: 05/02/20 01:47 Dose: Not Given Documented by: Ciprofloxacin (Ciprofloxacin Hcl) 500 mg PO BID [facility] Last Admin: 05/01/20 08:59 Dose: 500 mg Documented by: Sodium Chloride (Normal Saline) 1,000 mls @ 250 mls/hr IV ASDIRECTED [facility] Last Admin: 04/24/20 17:11 Dose: 250 mls/hr Documented by: Ceftriaxone Sodium 1 gm/ (Sodium Chloride) 50 mls @ 100 mls/hr IV Q24H [facility] Last Admin: 04/27/20 16:30 Dose: 100 mls/hr Documented by: Sodium Chloride (Normal Saline) 1,000 mls @ 250 mls/hr IV ASDIRECTED LEONELA Stop: 04/24/20 23:22 Last Admin: 04/24/20 21:22 Dose: 250 mls/hr Documented by: Sodium Chloride (Normal Saline) 1,000 mls @ 125 mls/hr IV ASDIRECTED [facility] Last Admin: 04/26/20 09:26 Dose: 125 mls/hr Documented by: Norepinephrine Bitartrate 4 mg (/ Dextrose/Water) 250 mls @ 7.5 mls/hr IV TITRATE LEONELA; Protocol Last Titration: 04/28/20 10:11 Dose: 0 mcg/min, 0 mls/hr Documented by: Diltiazem HCl 125 mg/ Dextrose (/Water) 125 mls @ 5 mls/hr IV TITRATE LEONELA; Protocol Last Titration: 04/27/20 11:05 Dose: 0 mls/hr, 0 mls/hr Documented by: Amiodarone HCl 450 mg/ (Dextrose/Water) 250 mls @ 33.333 mls/hr IV ASDIRECTED LEONELA; Protocol Amiodarone HCl 450 mg/ (Dextrose/Water) 250 mls @ 33.333 mls/hr IV ASDIRECTED LEONELA; Protocol Stop: 04/28/20 13:00 Last Admin: 04/27/20 22:04 Dose: 0.5 mg/min, 16.667 mls/hr Documented by: Sodium Chloride (Normal Saline) 1,000 mls @ 500 mls/hr IV ASDIRECTED [facility] Stop: 05/01/20 01:15 Last Admin: 04/30/20 23:10 Dose: 500 mls/hr Documented by: Levetiracetam (Keppra) 750 mg PO BID [facility] Last Admin: 04/27/20 20:05 Dose: 750 mg Documented by: Metoprolol Tartrate (Lopressor) 12.5 mg PO BID [facility] Last Admin: 04/24/20 20:38 Dose: 12.5 mg Documented by: Metoprolol Tartrate (Lopressor) 12.5 mg PO BID [facility] Last Admin: 04/27/20 08:36 Dose: 12.5 mg Documented by: Metoprolol Tartrate (Lopressor) 12.5 mg PO Q6H [facility] Last Admin: 04/30/20 04:10 Dose: 12.5 mg Documented by: Metoprolol Tartrate (Lopressor) 25 mg PO Q12H [facility] Last Admin: 05/01/20 21:06 Dose: Not Given Documented by: Metoprolol Tartrate (Lopressor) 12.5 mg PO ONETIME ONE Stop: 05/01/20 22:01 Last Admin: 05/01/20 21:51 Dose: 12.5 mg Documented by: Potassium Chloride (Klor-Con M20) 40 meq PO ONETIME ONE Stop: 04/26/20 09:01 Potassium Chloride (Potassium Chloride Solution) 40 meq PO ONETIME ONE Stop: 04/26/20 09:01 Last Admin: 04/26/20 08:44 Dose: 40 meq Documented by: Potassium Chloride (Potassium Chloride Solution) 40 meq PO ONETIME ONE Stop: 04/26/20 17:01 Last Admin: 04/26/20 16:52 Dose: 40 meq Documented by: Warfarin Sodium (Coumadin) 1 mg PO DAILY@1300 [facility] Last Admin: 04/26/20 12:09 Dose: 1 mg Documented by: *Q Meaningful Use (DIS) - VTE *Q VTE Pharmacological Contraindications *Q: High INR Value
== END 2020-05-02 14:17 | DRG 871 ==
LOC: JP.ED 13:37 → JP.ICU 16:36 → OBSVTOIN 04-25 09:16 → JP.MS 04-30 15:00
PROVIDERS: ADMIT Hospitalist; ATTEND Internal Medicine
PROC: 3E033XZ Introduction of Vasopressor into Peripheral Vein, Percutaneous Approach (ICD-10-PCS; principal; 2020-04-25)
DX: A41.51 Sepsis due to Escherichia coli [E. coli] (principal); R65.21 Severe sepsis with septic shock; N30.00 Acute cystitis without hematuria; I47.1 Supraventricular tachycardia; I69.352 Hemiplegia and hemiparesis following cerebral infarction affecting left dominant side; N17.9 Acute kidney failure, unspecified; N30.01 Acute cystitis with hematuria; E87.6 Hypokalemia; A41.9 Sepsis, unspecified organism; I69.354 Hemiplegia and hemiparesis following cerebral infarction affecting left non-dominant side; E86.0 Dehydration; I95.9 Hypotension, unspecified; I44.0 Atrioventricular block, first degree; R00.0 Tachycardia, unspecified; Z88.0 Allergy status to penicillin; H54.7 Unspecified visual loss; I48.91 Unspecified atrial fibrillation; Z86.718 Personal history of other venous thrombosis and embolism; K21.9 Gastro-esophageal reflux disease without esophagitis; N18.3 Chronic kidney disease, stage 3 (moderate); G89.29 Other chronic pain; R53.1 Weakness; M54.2 Cervicalgia; F32.9 Major depressive disorder, single episode, unspecified; F41.9 Anxiety disorder, unspecified; F03.90 Unspecified dementia, unspecified severity, without behavioral disturbance, psychotic disturbance, mood disturbance, and anxiety; E83.42 Hypomagnesemia; D64.9 Anemia, unspecified; Z79.899 Other long term (current) drug therapy; Z85.038 Personal history of other malignant neoplasm of large intestine; Z98.84 Bariatric surgery status; Z88.1 Allergy status to other antibiotic agents; Z79.01 Long term (current) use of anticoagulants
CPT/HCPCS: 96361 ×2; 96365 ×2; 96366; 99285 ×2; 93005; 93010; 85025 ×2; 85610; 81001; 36415 ×2; 80053; 80048; 83735; 84443; 87086; 87186; 87088; A9270 ×6; J0696; J7060; J7030 ×3; J7050; G0378 ×3; 51702; 92610-GN; 97110-GP; 97163-GP; 97166-GO; 99221-AI; 99231; 99232; 99239; J0153; J0282; J2405; J3490